=== PATIENT | female | born 1955 | race Caucasian/White ===

== ENCOUNTER → 2018-07-13 12:56 | Outpatient (CLI) | payer OTHER, MEDICAID, SELFPAY ==
--- NOTE | 2018-07-13 | DI.MG.S_ITS ---
UNILATERAL LEFT DIGITAL SCREENING MAMMOGRAM 3D/2D WITH CAD POST MASTECTOMY: 07/13/2018 CLINICAL: Routine screening. Personal history of right breast cancer. Comparison is made to exams dated: 02/24/2017 mammogram, 11/13/2015 mammogram, and 07/01/2014 mammogram - [facility]. The tissue of the left breast is heterogeneously dense. This may lower the sensitivity of mammography. Current study was also evaluated with a Computer Aided Detection (CAD) system. There is an oval low density asymmetry with an obscured and circumscribed margin in the left breast central to the nipple middle depth. No other significant masses or calcifications are seen in the breast. IMPRESSION: INCOMPLETE: NEEDS ADDITIONAL IMAGING EVALUATION The oval low density asymmetry in the left breast is indeterminate. Mediolateral and spot compression views as well as additional views with possible ultrasound are recommended. This exam was interpreted at Station ID: [id number]. NOTE: For mammograms, a report in lay terms will be sent to the patient. Approximately 15% of breast malignancies will not be visualized mammographically. In the management of a palpable breast mass, a negative mammogram must not discourage biopsy of a clinically suspicious lesion. Electronically Signed By: Aakash ramos/camilo:07/13/2018 18:35:42 letter sent: Additional Imaging Needed ACR BI-RADS Category 0: Incomplete 3340F
== END ==
PROVIDERS: Family Provider Physician Assistant; PCP Physician Assistant; Visit Provider Physician Assistant
DX: Z12.31 Encounter for screening mammogram for malignant neoplasm of breast (principal); Z85.3 Personal history of malignant neoplasm of breast
CPT/HCPCS: 77063; 77065

== ENCOUNTER → 2018-08-16 14:12 | Outpatient (CLI) | payer OTHER, MEDICAID, SELFPAY ==
--- NOTE | 2018-08-16 14:14 | DI.US.S_ITS ---
ULTRASOUND OF LEFT BREAST: 08/16/2018 CLINICAL: Patient returns today to evaluate a density in the left breast. Comparison is made to exams dated: 08/16/2018 mammogram, 07/13/2018 mammogram, 02/24/2017 mammogram, and 11/13/2015 mammogram - [facility]. Color flow ultrasound of the left breast was performed on the areas of interest. Denis scale images of the real-time examination were reviewed. There is a benign 0.5 cm x 0.4 cm x 0.5 cm oval simple cyst in the left breast at 4 o'clock anterior depth. This oval simple cyst is anechoic with posterior acoustic enhancement. This correlates with mammography findings. IMPRESSION: BENIGN There is no sonographic evidence of malignancy. The 0.5 cm x 0.4 cm x 0.5 cm oval simple cyst in the left breast is benign. A 1 year screening mammogram is recommended. This exam was interpreted at Station ID: [id number]. Electronically Signed By: Aury ibarra/camilo:08/16/2018 16:23:31 letter sent: Normal Exam Ultrasound BI-RADS: 2 Benign
--- NOTE | 2018-08-16 14:14 | DI.MG.S_ITS ---
UNILATERAL LEFT DIGITAL DIAGNOSTIC MAMMOGRAM 3D/2D WITH ADDITIONAL VIEWS POST MASTECTOMY: 08/16/2018 CLINICAL: Additional evaluation requested from prior study. Comparison is made to exams dated: 07/13/2018 mammogram, 02/24/2017 mammogram, and 11/13/2015 mammogram - [facility]. The tissue of the left breast is heterogeneously dense. This may lower the sensitivity of mammography. There is an oval low density asymmetry with an obscured and circumscribed margin in the left breast central to the nipple middle depth. This is seen in additional views. No other significant masses or calcifications are seen in the breast. IMPRESSION: INCOMPLETE: NEEDS ADDITIONAL IMAGING EVALUATION The oval low density asymmetry in the left breast likely represents a cyst and is indeterminate. An ultrasound is recommended. This exam was interpreted at Station ID: [id number]. NOTE: For mammograms, a report in lay terms will be sent to the patient. Approximately 15% of breast malignancies will not be visualized mammographically. In the management of a palpable breast mass, a negative mammogram must not discourage biopsy of a clinically suspicious lesion. Electronically Signed By: Aury ibarra/:08/16/2018 14:48:55 letter sent: Additional Imaging Needed ACR BI-RADS Category 0: Incomplete 3340F
== END ==
PROVIDERS: Family Provider Physician Assistant; PCP Physician Assistant; Visit Provider Physician Assistant
DX: R92.8 Other abnormal and inconclusive findings on diagnostic imaging of breast (principal); N60.02 Solitary cyst of left breast
CPT/HCPCS: 76642; 77065; G0279

== ENCOUNTER → 2018-11-29 18:13 | Outpatient (CLI) | payer MEDICARE, MEDICAID, SELFPAY ==
--- NOTE | 2018-11-29 18:15 | DI.RAD.S_ITS ---
PROCEDURE: XR CHEST 2V INDICATIONS: cough TECHNIQUE: 2 views of the chest were acquired. COMPARISON: [facility], , CHEST 1 VIEW, 01/12/2018, 19:27. FINDINGS: Surgical changes and devices: Scattered surgical clips as before. Lungs and pleura: No pleural effusions or pneumothorax. No acute consolidation. Scattered subsegmental atelectasis and/or scarring. Right apical subcentimeter high density presumed calcified granuloma or sclerotic bone focus is unchanged since 01/12/18. Mediastinum: Mediastinal contours are normal. Heart size is normal. Bones and chest wall: No suspicious bony abnormalities. Soft tissues appear unremarkable. IMPRESSION: No acute disease. Dictated by: Smith Luo M.D. on 11/29/2018 at 20:04 Approved by: Smith Luo M.D. on 11/29/2018 at 20:06
== END ==
PROVIDERS: Family Provider Physician Assistant; PCP Physician Assistant; Visit Provider Physician Assistant
DX: R05 Cough (principal)
CPT/HCPCS: 71046

== ENCOUNTER 2018-12-14 16:53 | Emergency (ER) | payer MEDICARE, MEDICAID, SELFPAY ==
[2018-12-14 16:59] VITALS: BP 141/92; PULSE 78; RESP 18; TEMP 36.7; O2SAT 99; BMI 19.6
--- NOTE | 2018-12-14 17:37 | ED.NAVMDI ---
HPI - Nausea/Vomiting/Diarrhea <WILMA Patel - Last Filed: 12/14/18 22:33> General Chief complaint: Nausea/Vomiting/Diarrhea Stated complaint: THROWING UP DIARRHEA Time Seen by Provider: 12/14/18 17:37 Source: patient Mode of arrival: ambulatory Limitations: no limitations History of Present Illness HPI Narrative: 63-year-old female with history of hypothyroidism and is a nonsmoker here for multiple complaints. She reports for the last 4 weeks she is cold and flu like symptoms with cough generalized malaise along with nausea vomiting and diarrhea. She reports she has been seen by her primary care provider for this for a few times. It was suspected that she had the flu. Then when symptoms did not resolve she was treated with antibiotics for secondary pneumonia. Patient reports that she has been having a hard time keeping down her antibiotics due to the nausea vomiting. She states she has had a fever on and off. She reports generalized whole body discomfort. She does have some abdominal pain. She has some flank pain. She denies any urinary symptoms. She reports decreased p.o. intake due to nausea vomiting. She also reports that she has been having diarrhea. Reports she had a a bowel movement earlier today that was her last bowel movement she states that she was constipated at that time. MD complaint: nausea, vomiting, diarrhea, abdominal pain and other Related Data Home Medications Medication Instructions Recorded Confirmed [CALCIUM/MAGNESIUM] 1 cap PO QDAY #0 05/11/17 12/06/18 [CO-Q-10] 1 cap PO QDAY #0 05/11/17 12/06/18 multivitamin [Multiple Vitamins] 1 tab PO QDAY #0 05/11/17 12/06/18 [Vitamin K-2] 100 mcg PO QDAY #60 cap 08/16/17 12/06/18 thyroid (pork) 32.5 mg tablet 32.5 mg PO DAILY 11/29/18 12/06/18 Previous Rx's Medication Instructions Recorded tramadol 50 mg tablet See Label Instructions PO TID PRN 05/28/18 #30 tab lorazepam 0.5 mg tablet 0.5 mg PO BID PRN #30 tab 09/21/18 doxycycline monohydrate 100 mg 100 mg PO BID #20 cap 12/06/18 capsule ondansetron 8 mg disintegrating 8 mg PO BID-TID PRN #20 tab 12/06/18 tablet promethazine 25 mg PO Q6H PRN #15 tab 12/14/18 Allergies Allergy/AdvReac Type Severity Reaction Status Date / Time Sulfa (Sulfonamide Allergy Severe VOMITING Verified 12/06/18 10:31 Antibiotics) DIARRHEA [SULFA (SULFONAMIDE ANTIBIOTICS)] adhesive [ADHESIVE] AdvReac Severe PAPER TAPE Verified 12/06/18 10:31 OK, PLASTIC EVIDENTLY NOT? fluconazole [FLUCONAZOLE] AdvReac Intermediate Headache Verified 12/06/18 10:31 Rash Codiene AdvReac Mild Nausea Uncoded 12/06/18 10:31 Review of Systems <WILMA Patel - Last Filed: 12/14/18 22:33> Constitutional Reports body ache(s), Reports chills and Reports fever(s) Eyes Denies change in vision, Denies eye discharge, Denies irritation and Denies loss of vision ENT Ears, Nose, Mouth, and Throat: Denies change in voice, Denies neck pain, Denies sore throat and Denies throat swelling Cardiovascular Denies chest pain, Denies irregular heart rhythm, Denies lightheadedness, Denies palpitations and Denies orthopnea Respiratory Reports cough and Denies wheezing Gastrointestinal Gastrointestinal: Reports constipation, Reports diarrhea, Reports nausea and Reports vomiting Genitourinary Reports flank pain Musculoskeletal Denies neck pain Integumentary/Breasts Denies pruritus, Denies erythema, Denies rash and Denies wounds Neurologic Denies confusion and Denies loss of vision Psychiatric Denies anxiety, Denies confusion, Denies depression, Denies homicidal ideation and Denies suicidal ideation Endocrine Denies palpitations Hematologic/Lymphatic Denies easy bruising Allergic/Immunologic Denies urticaria, Denies throat swelling and Denies wheezing Exam <WILMA Patel - Last Filed: 12/14/18 22:33> Initial Vital Signs Initial Vital Signs: Vital Signs Temperature 98.1 F 12/14/18 16:59 Pulse Rate 78 12/14/18 16:59 Respiratory Rate 18 12/14/18 16:59 Blood Pressure 141/92 H 12/14/18 16:59 Pulse Oximetry 99 12/14/18 16:59 Const General: cooperative and well developed Nutritional Appearance: well nourished Orientation: alert, awake, oriented x3 and not confused HENNC Ears: TM's normal bilaterally Mouth: oral mucosae normal and moist mucous membranes Eyes General: appearance normal, both eyes and all related structures Eyelids: eyelids normal Conjunctivae: conjunctivae normal Sclera: sclerae normal Pupils: PERRL EOM: EOM intact bilaterally Neck Neck: normal visual inspection, trachea midline, No lymphadenopathy, No midline deformity and No JVD Lymphatic: No lymphedema Resp Effort & Inspection: normal respiratory effort, able to speak in complete sentences, no respiratory distress and no use of accessory muscles Auscultation: clear to auscultation bilaterally, no rales, no rhonchi and no wheezes Cardio Rate: regular rate Rhythm: regular rhythm Heart Sounds: no click, no gallops, no murmurs and no rubs Pulses: normal peripheral pulses GI Inspection: normal to inspection Palpation: soft and tender (Generalized tender) Auscultation: normal bowel sounds General: No CVA tenderness Back/Spine/Pelvis Back: No CVA tenderness Cervical Spine: cervical ROM normal and No pain with cervical ROM Thoracic/Lumbar Spine: thoracic and lumbar spine normal to inspection Skin General: no rashes or lesions noted, No jaundice and No petechiae Neuro General: alert, oriented x3, gait normal and no focal motor deficits Speech: speech normal <Angelika Galan DO - Last Filed: 12/15/18 04:10> Initial Vital Signs Initial Vital Signs: Vital Signs Temperature 98.1 F 12/14/18 16:59 Pulse Rate 78 12/14/18 16:59 Respiratory Rate 18 12/14/18 16:59 Blood Pressure 141/92 H 12/14/18 16:59 Pulse Oximetry 99 12/14/18 16:59 Course <WILMA Patel - Last Filed: 12/14/18 22:33> Orders Ordered: Discontinued Medications Sodium Chloride (Normal Saline 0.9%) 1,000 mls @ 1,000 mls/hr IV BOLUS ONE Stop: 12/14/18 20:11 Last Infusion: 12/14/18 21:05 Dose: 1,000 mls/hr Admin: 12/14/18 19:13 Dose: 1,000 mls/hr Ondansetron HCl (Zofran) 4 mg IV NOW ONE Stop: 12/14/18 20:22 Last Admin: 12/14/18 20:30 Dose: 4 mg Vital Signs - 8 hr 12/14/18 20:45 12/14/18 21:41 Pulse Rate 78 82 Respiratory Rate 23 17 Blood Pressure [Right Arm] 158/80 H 138/88 Pulse Oximetry 100 98 <Angelika Galan DO - Last Filed: 12/15/18 04:10> Orders Ordered: Discontinued Medications Sodium Chloride (Normal Saline 0.9%) 1,000 mls @ 1,000 mls/hr IV BOLUS ONE Stop: 12/14/18 20:11 Last Infusion: 12/14/18 21:05 Dose: 1,000 mls/hr Admin: 12/14/18 19:13 Dose: 1,000 mls/hr Ondansetron HCl (Zofran) 4 mg IV NOW ONE Stop: 12/14/18 20:22 Last Admin: 12/14/18 20:30 Dose: 4 mg Vital Signs - 8 hr 12/14/18 20:45 12/14/18 21:41 Pulse Rate 78 82 Respiratory Rate 23 17 Blood Pressure [Right Arm] 158/80 H 138/88 Pulse Oximetry 100 98 MDM - Nausea/Vomiting/Diarrhea <WILMA Patel - Last Filed: 12/14/18 22:33> Lab Data Result diagrams: 12/14/18 18:50 12/14/18 18:50 Lab Results 12/14/18 12/14/18 12/14/18 Range/Units 18:50 18:50 18:50 WBC 4.7 (4.5-11.0) X10^3/uL RBC 4.01 (4.0-5.2) X10^6/uL Hgb 13.8 (12.0-16.0) g/dL Hct 41.0 (36-46) % MCV 102.1 H (80-100) fL MCH 34.5 H (26-34) PG MCHC 33.8 (30-36) % RDW 13.3 (11.6-14.8) % Plt Count 225 (150-400) X10^3/uL Neut % (Auto) 52.2 (50-75) % Lymph % (Auto) 32.9 (25-40) % Wetzel % (Auto) 11.2 (3-14) % Eos % (Auto) 2.9 (2-4) % Baso % (Auto) 0.8 (0-2) % Neut # (Auto) 2500 (8902-9866) /uL Lymph # (Auto) 1600 (5029-8345) /uL Wetzel # (Auto) 500 (0-900) /uL Eos # (Auto) 100 (0-450) /uL Baso # (Auto) 0 (0-100) /uL PT 10.9 (10.1-12.7) SECONDS INR 0.9 (0.9-1.3) APTT 29 (26.4-36.2) SECONDS Sodium 141 (137-145) mmol/L Potassium 4.1 (3.4-5.1) mmol/L Chloride 106 (98-107) mmol/L Carbon Dioxide 26 (22-32) mmol/L BUN 9 (7-17) mg/dL Creatinine 0.70 (0.52-1.04) mg/dL Estimated GFR > 60.0 (>60) mL/min BUN/Creatinine Ratio 12.9 (6-22) Glucose 73 L (80-110) mg/dL Calcium 9.9 (8.4-10.2) mg/dL Total Bilirubin 0.5 (0.2-1.3) mg/dL AST 65 H (14-36) IU/L ALT 38 (9-52) IU/L Alkaline Phosphatase 82 (38-126) U/L Total Protein 7.5 (6.3-8.2) g/dL Albumin 4.1 (3.5-5.0) g/dL Globulin 3.4 (1.7-4.1) g/dL Albumin/Globulin Ratio 1.2 (1.0-2.8) Lipase 180 (23-300) U/L Urine Dip Bedside Urine Glucose Negative Bedside Urine Bilirubin + 1 Bedside Urine Ketone +/- 5 Urine Specific Orchard 1.030 Bedside Urine Occult Blood - Negative Bedside Urine pH 5.0 Bedside Urine Protein +/- 15 Bedside Urine Urobilinogen +/- 1mg Bedside Urine Nitrite - Negative Bedside Urine Leukocytes - Negative Esterase Imaging Data CT scan - abdomen: Radiologist's impression: [address] [address] [address] Scan Report Signed Patient: Karolina Ulrich AMR#: [id number] : 5Acct:[id number] Age/Sex: 63 / FDate of Service: 12/14/18 Loc: ED Accession Number: [id number] Procedure: CT abdomen pelvis w con Ordering Provider: Corey Hein PROCEDURE: CT ABDOMEN PELVIS W CON INDICATIONS: Nausea vomiting diarrhea abdominal pain several weeks TECHNIQUE: After the administration of intravenous contrast, 5 mm thick sections acquired from the diaphragm to the symphysis. 5 mm coronal and sagittal reformats were acquired. For radiation dose reduction, the following was used: automated exposure control, adjustment of mA and/or kV according to patient size. COMPARISON: [facility], CT, ABDOMEN/PELVIS WITH CONTRAST, 07/22/2008, 9:16. FINDINGS: Image quality: Excellent. ABDOMEN: Lung bases: Lung bases are clear. Heart size is normal. Solid organs: Innumerable low-density cystic lesions are present throughout the liver. Overall, these findings are similar to the study dated 07/22/08. There is a new 1.1 cm hypervascular nodule within hepatic segment V (series 2, image 32). Of note, an inferior left hepatic lobe cyst demonstrates mass effect on the gastric antrum (series 2, image 26). Gallbladder is unremarkable. Biliary system is non dilated. Pancreas enhances normally. Spleen is normal in size and enhancement. No adrenal nodules. Kidneys demonstrate normal size and enhancement, without hydronephrosis. Peritoneum and bowel: Bowel loops demonstrate normal wall thickness and caliber. The appendix is thin walled and gas filled. No free fluid or air. Nodes and vessels: No retroperitoneal or mesenteric adenopathy by size criteria. Aorta and inferior vena cava are normal in size. Miscellaneous: No ventral hernias. PELVIS: Genitourinary: Bladder wall thickness is normal. Uterus and ovaries are grossly unremarkable. There are probable pedunculated fibroid off the posterior uterus, both of which are calcified. There unchanged when compared with the study from 07/22/08. Miscellaneous: No inguinal hernias or adenopathy. Bones: No suspicious bony lesions. A subcentimeter sclerotic lesion is present within the right acetabulum which is unchanged from the study from 2007 and likely represents a bone island. Degenerative changes are present at the anterior inferior T11 vertebral body. No vertebral body compression fractures. IMPRESSION: 1. No acute intra-abdominal findings. Normal appendix. 2. Polycystic hepatic disease. Of note, one of the inferior left hepatic cystic lesions appears to have some mass effect on the gastric antrum. It is unclear whether this may be responsible for the patient's symptoms. However, this cyst is markedly decreased in size when compared with the prior CT dated 07/22/08. 3. Hypervascular lesion within the right hepatic lobe which may represent a small hemangioma. This is incompletely characterized. Ultrasound of this region would be helpful to further characterize findings. Alternatively, multiphase hepatic protocol CT would be helpful to evaluate this lesion. Dictated by: Aury Gordon M.D. on 12/14/2018 at 19:46 Approved by: Aury Gordon M.D. on 12/14/2018 at 19:54 ECG Data Interpretation: EKG shows normal sinus rhythm with no ST elevation or depression. No ectopy. Ventricular rate is 66. Pr interval of 189. QRS duration 90. QTC of 415. MDM Narrative Medical decision making narrative: CT scan of the abdomen was obtained and shows no acute intra-abdominal findings. There are some polycystic hepatic disease findings found however this was also seen back in 1999 in and appears to be decreased in size. Hypervascular lesion is seen to the right hepatic lobe which may be a hemangioma recommend follow up with primary care provider for supervision. CBC was obtained and was unremarkable. Chemistry panel was obtained and was unremarkable. Urinalysis was negative for urinary tract infection. Patient was all able to tolerate p.o. fluids. She states her last episode of vomiting was on the 10 of December. Wanted to obtain a stool study to rule out C diff due to recent antibiotics patient was not able to give a stool study. EKG shows sinus rhythm with no ST elevation or depression. No ectopy. No emergent causes of her symptoms are seen in the emergency room. Vital signs are stable. Continue Zofran for nausea and vomiting. Phenergan is added for any nausea vomiting that she has that is not covered by the Zofran. Follow up with primary care provider next couple days for re-evaluation. For any worsening symptoms return to the emergency room. <Angelika Galan, DO - Last Filed: 12/15/18 04:10> Lab Data Lab Results 12/14/18 12/14/18 12/14/18 Range/Units 18:50 18:50 18:50 WBC 4.7 (4.5-11.0) X10^3/uL RBC 4.01 (4.0-5.2) X10^6/uL Hgb 13.8 (12.0-16.0) g/dL Hct 41.0 (36-46) % MCV 102.1 H (80-100) fL MCH 34.5 H (26-34) PG MCHC 33.8 (30-36) % RDW 13.3 (11.6-14.8) % Plt Count 225 (150-400) X10^3/uL Neut % (Auto) 52.2 (50-75) % Lymph % (Auto) 32.9 (25-40) % Wetzel % (Auto) 11.2 (3-14) % Eos % (Auto) 2.9 (2-4) % Baso % (Auto) 0.8 (0-2) % Neut # (Auto) 2500 (6047-7722) /uL Lymph # (Auto) 1600 (8632-0655) /uL Wetzel # (Auto) 500 (0-900) /uL Eos # (Auto) 100 (0-450) /uL Baso # (Auto) 0 (0-100) /uL PT 10.9 (10.1-12.7) SECONDS INR 0.9 (0.9-1.3) APTT 29 (26.4-36.2) SECONDS Sodium 141 (137-145) mmol/L Potassium 4.1 (3.4-5.1) mmol/L Chloride 106 (98-107) mmol/L Carbon Dioxide 26 (22-32) mmol/L BUN 9 (7-17) mg/dL Creatinine 0.70 (0.52-1.04) mg/dL Estimated GFR > 60.0 (>60) mL/min BUN/Creatinine Ratio 12.9 (6-22) Glucose 73 L (80-110) mg/dL Calcium 9.9 (8.4-10.2) mg/dL Total Bilirubin 0.5 (0.2-1.3) mg/dL AST 65 H (14-36) IU/L ALT 38 (9-52) IU/L Alkaline Phosphatase 82 (38-126) U/L Total Protein 7.5 (6.3-8.2) g/dL Albumin 4.1 (3.5-5.0) g/dL Globulin 3.4 (1.7-4.1) g/dL Albumin/Globulin Ratio 1.2 (1.0-2.8) Lipase 180 (23-300) U/L Urine Dip Bedside Urine Glucose Negative Bedside Urine Bilirubin + 1 Bedside Urine Ketone +/- 5 Urine Specific Orchard 1.030 Bedside Urine Occult Blood - Negative Bedside Urine pH 5.0 Bedside Urine Protein +/- 15 Bedside Urine Urobilinogen +/- 1mg Bedside Urine Nitrite - Negative Bedside Urine Leukocytes - Negative Esterase Discharge Plan Departure Patient Disposition: Home Clinical Impression: Nausea vomiting and diarrhea Discharge Date/Time: 12/14/18 21:53 Interventions: ED Discharge Assessment Last Done: 12/14/18 21:52 Instructions: Nausea and Vomiting-Adult Activity Restrictions/Additional Instructions: Laboratory results and imaging today were negative for any acute findings. CT of the abdomen does show an area that is consistent with hemangioma of the right liver. Recommend follow up with primary care provider for to continued supervision and ensure is stable. No emergent causes of her symptoms are found. Fall follow up with her primary care provider next couple days for re-evaluation. Plenty of fluids and rest. [id number] Tylenol or Motrin as needed for any discomfort. Use Zofran as already prescribed as needed for nausea vomiting. Phenergan is prescribed to cover for nausea vomiting not covered by the Zofran. For any worsening symptoms return to the emergency room. Prescriptions: New promethazine 25 mg tablet 25 mg PO Q6H PRN (Reason: nausea and vomiting) Qty: 15 RF: 0 No Action thyroid (pork) [Nature-Throid] 32.5 mg tablet 32.5 mg PO DAILY RF: 0 ondansetron 8 mg tablet,disintegrating 8 mg PO BID-TID PRN (Reason: nausea and vomiting) Qty: 20 RF: 0 doxycycline monohydrate 100 mg capsule 100 mg PO BID Qty: 20 RF: 0 multivitamin [Multiple Vitamins] 1 EACH tablet 1 tab PO QDAY Qty: 0 RF: 0 [CALCIUM/MAGNESIUM] 1 cap PO QDAY Qty: 0 RF: 0 [CO-Q-10] 1 cap PO QDAY Qty: 0 RF: 0 [Vitamin K-2] 100 mcg PO QDAY Qty: 60 RF: 0 tramadol 50 mg tablet See Label Instructions PO TID PRN (Reason: pain) Qty: 30 RF: 1 lorazepam [Ativan] 0.5 mg tablet 0.5 mg PO BID PRN (Reason: anxiety) Qty: 30 RF: 0 Referrals: Silvana Cedeño PA-C [Primary Care Provider] - <Angelika Gaaln DO - Last Filed: 12/15/18 04:10> Cosign ED Attending Ibrahima Attestation: I was immediately available in the department for consultation. Documentation has been reviewed. I agree with assessment and plan.
--- NOTE | 2018-12-14 18:13 | DI.CT.S_ITS ---
PROCEDURE: CT ABDOMEN PELVIS W CON INDICATIONS: Nausea vomiting diarrhea abdominal pain several weeks TECHNIQUE: After the administration of intravenous contrast, 5 mm thick sections acquired from the diaphragm to the symphysis. 5 mm coronal and sagittal reformats were acquired. For radiation dose reduction, the following was used: automated exposure control, adjustment of mA and/or kV according to patient size. COMPARISON: [facility], CT, ABDOMEN/PELVIS WITH CONTRAST, 07/22/2008, 9:16. FINDINGS: Image quality: Excellent. ABDOMEN: Lung bases: Lung bases are clear. Heart size is normal. Solid organs: Innumerable low-density cystic lesions are present throughout the liver. Overall, these findings are similar to the study dated 07/22/08. There is a new 1.1 cm hypervascular nodule within hepatic segment V (series 2, image 32). Of note, an inferior left hepatic lobe cyst demonstrates mass effect on the gastric antrum (series 2, image 26). Gallbladder is unremarkable. Biliary system is non dilated. Pancreas enhances normally. Spleen is normal in size and enhancement. No adrenal nodules. Kidneys demonstrate normal size and enhancement, without hydronephrosis. Peritoneum and bowel: Bowel loops demonstrate normal wall thickness and caliber. The appendix is thin walled and gas filled. No free fluid or air. Nodes and vessels: No retroperitoneal or mesenteric adenopathy by size criteria. Aorta and inferior vena cava are normal in size. Miscellaneous: No ventral hernias. PELVIS: Genitourinary: Bladder wall thickness is normal. Uterus and ovaries are grossly unremarkable. There are probable pedunculated fibroid off the posterior uterus, both of which are calcified. There unchanged when compared with the study from 07/22/08. Miscellaneous: No inguinal hernias or adenopathy. Bones: No suspicious bony lesions. A subcentimeter sclerotic lesion is present within the right acetabulum which is unchanged from the study from 2007 and likely represents a bone island. Degenerative changes are present at the anterior inferior T11 vertebral body. No vertebral body compression fractures. IMPRESSION: 1. No acute intra-abdominal findings. Normal appendix. 2. Polycystic hepatic disease. Of note, one of the inferior left hepatic cystic lesions appears to have some mass effect on the gastric antrum. It is unclear whether this may be responsible for the patient's symptoms. However, this cyst is markedly decreased in size when compared with the prior CT dated 07/22/08. 3. Hypervascular lesion within the right hepatic lobe which may represent a small hemangioma. This is incompletely characterized. Ultrasound of this region would be helpful to further characterize findings. Alternatively, multiphase hepatic protocol CT would be helpful to evaluate this lesion. Dictated by: Aury Gordon M.D. on 12/14/2018 at 19:46 Approved by: Aury Gordon M.D. on 12/14/2018 at 19:54
[2018-12-14 19:07] LABS: Add Manual Diff / Slide Review NO; Basophils Absolute Auto 0 /uL (0-100); Basophils Percent Auto 0.8 % (0-2); Eosinophils Absolute Auto 100 /uL (0-450); Eosinophils Percent Auto 2.9 % (2-4); Hemoglobin 13.8 g/dL (12.0-16.0); Lymphocytes Absolute Auto 1600 /uL (1100-4500); Lymphocytes Percent Auto 32.9 % (25-40); Mean Corpuscular HGB Conc 33.8 % (30-36); Mean Corpuscular Hemoglobin 34.5 PG (26-34); Mean Corpuscular Volume 102.1 fL (80-100); Monocytes Absolute Auto 500 /uL (0-900); Monocytes Percent Auto 11.2 % (3-14); Neutrophils Absolute Auto 2500 /uL (1500-7000); Neutrophils Percent Auto 52.2 % (50-75); Platelet Count 225 X10^3/uL (150-400); Red Blood Cell Count 4.01 X10^6/uL (4.0-5.2); Red Cell Distribution Width 13.3 % (11.6-14.8); White Blood Cell Count 4.7 X10^3/uL (4.5-11.0)
[2018-12-14 19:13] LABS: INR 0.9 (0.9-1.3); Prothrombin Time 10.9 SECONDS (10.1-12.7)
[2018-12-14] MEDS: SODIUM CHLORIDE 0.9% 1,000 ML 1000 ML IV (19:13)
[2018-12-14 19:16] LABS: PTT Partial Thromboplastin Tim 29 SECONDS (26.4-36.2)
[2018-12-14 19:17] LABS: Alanine Aminotransferase 38 IU/L (9-52); Albumin 4.1 g/dL (3.5-5.0); Albumin Globulin Ratio 1.2 (1.0-2.8); Alkaline Phosphatase 82 U/L (38-126); Aspartate Aminotransferase 65 IU/L (14-36); BUN Creatinine Ratio 12.9 (6-22); Bilirubin Total 0.5 mg/dL (0.2-1.3); Blood Urea Nitrogen 9 mg/dL (7-17); Calcium 9.9 mg/dL (8.4-10.2); Carbon Dioxide 26 mmol/L (22-32); Chloride 106 mmol/L (98-107); Estimated Glomerular Filt Rate > 60.0 mL/min (>60); Globulin 3.4 g/dL (1.7-4.1); Glucose 73 mg/dL (80-110); HEMOLYSIS < 15 (0-50); Lipase 180 U/L (23-300); Potassium 4.1 mmol/L (3.4-5.1); Sodium 141 mmol/L (137-145); Total Protein 7.5 g/dL (6.3-8.2)
[2018-12-14 19:50] VITALS: BP 156/83; PULSE 74; RESP 17; O2SAT 99
[2018-12-14] MEDS: ONDANSETRON 4 MG/2 ML INJ IV (20:30)
[2018-12-14 20:45] VITALS: BP 158/80; PULSE 78; RESP 23; O2SAT 100
--- NOTE | 2018-12-14 21:16 | ED_ITS ---
HPI - Nausea/Vomiting/Diarrhea <WILMA Patel - Last Filed: 12/14/18 22:33> General Chief complaint: Nausea/Vomiting/Diarrhea Stated complaint: THROWING UP DIARRHEA Time Seen by Provider: 12/14/18 17:37 Source: patient Mode of arrival: ambulatory Limitations: no limitations History of Present Illness HPI Narrative: 63-year-old female with history of hypothyroidism and is a nonsmoker here for multiple complaints. She reports for the last 4 weeks she is cold and flu like symptoms with cough generalized malaise along with nausea vomiting and diarrhea. She reports she has been seen by her primary care provider for this for a few times. It was suspected that she had the flu. Then when symptoms did not resolve she was treated with antibiotics for secondary pneumonia. Patient reports that she has been having a hard time keeping down her antibiotics due to the nausea vomiting. She states she has had a fever on and off. She reports generalized whole body discomfort. She does have some abdominal pain. She has some flank pain. She denies any urinary symptoms. She reports decreased p.o. intake due to nausea vomiting. She also reports that she has been having diarrhea. Reports she had a a bowel movement earlier today that was her last bowel movement she states that she was constipated at that time. MD complaint: nausea, vomiting, diarrhea, abdominal pain and other Related Data Home Medications Medication Instructions Recorded Confirmed [CALCIUM/MAGNESIUM] 1 cap PO QDAY #0 05/11/17 12/06/18 [CO-Q-10] 1 cap PO QDAY #0 05/11/17 12/06/18 multivitamin [Multiple Vitamins] 1 tab PO QDAY #0 05/11/17 12/06/18 [Vitamin K-2] 100 mcg PO QDAY #60 cap 08/16/17 12/06/18 thyroid (pork) 32.5 mg tablet 32.5 mg PO DAILY 11/29/18 12/06/18 Previous Rx's Medication Instructions Recorded tramadol 50 mg tablet See Label Instructions PO TID PRN 05/28/18 #30 tab lorazepam 0.5 mg tablet 0.5 mg PO BID PRN #30 tab 09/21/18 doxycycline monohydrate 100 mg 100 mg PO BID #20 cap 12/06/18 capsule ondansetron 8 mg disintegrating 8 mg PO BID-TID PRN #20 tab 12/06/18 tablet promethazine 25 mg PO Q6H PRN #15 tab 12/14/18 Allergies Allergy/AdvReac Type Severity Reaction Status Date / Time Sulfa (Sulfonamide Allergy Severe VOMITING Verified 12/06/18 10:31 Antibiotics) DIARRHEA [SULFA (SULFONAMIDE ANTIBIOTICS)] adhesive [ADHESIVE] AdvReac Severe PAPER TAPE Verified 12/06/18 10:31 OK, PLASTIC EVIDENTLY NOT? fluconazole [FLUCONAZOLE] AdvReac Intermediate Headache Verified 12/06/18 10:31 Rash Codiene AdvReac Mild Nausea Uncoded 12/06/18 10:31 Review of Systems <WILMA Patel - Last Filed: 12/14/18 22:33> Constitutional Reports body ache(s), Reports chills and Reports fever(s) Eyes Denies change in vision, Denies eye discharge, Denies irritation and Denies loss of vision ENT Ears, Nose, Mouth, and Throat: Denies change in voice, Denies neck pain, Denies sore throat and Denies throat swelling Cardiovascular Denies chest pain, Denies irregular heart rhythm, Denies lightheadedness, Denies palpitations and Denies orthopnea Respiratory Reports cough and Denies wheezing Gastrointestinal Gastrointestinal: Reports constipation, Reports diarrhea, Reports nausea and Reports vomiting Genitourinary Reports flank pain Musculoskeletal Denies neck pain Integumentary/Breasts Denies pruritus, Denies erythema, Denies rash and Denies wounds Neurologic Denies confusion and Denies loss of vision Psychiatric Denies anxiety, Denies confusion, Denies depression, Denies homicidal ideation and Denies suicidal ideation Endocrine Denies palpitations Hematologic/Lymphatic Denies easy bruising Allergic/Immunologic Denies urticaria, Denies throat swelling and Denies wheezing Exam <WILMA Patel - Last Filed: 12/14/18 22:33> Initial Vital Signs Initial Vital Signs: Vital Signs Temperature 98.1 F 12/14/18 16:59 Pulse Rate 78 12/14/18 16:59 Respiratory Rate 18 12/14/18 16:59 Blood Pressure 141/92 H 12/14/18 16:59 Pulse Oximetry 99 12/14/18 16:59 Const General: cooperative and well developed Nutritional Appearance: well nourished Orientation: alert, awake, oriented x3 and not confused HENHI Ears: TM's normal bilaterally Mouth: oral mucosae normal and moist mucous membranes Eyes General: appearance normal, both eyes and all related structures Eyelids: eyelids normal Conjunctivae: conjunctivae normal Sclera: sclerae normal Pupils: PERRL EOM: EOM intact bilaterally Neck Neck: normal visual inspection, trachea midline, No lymphadenopathy, No midline deformity and No JVD Lymphatic: No lymphedema Resp Effort & Inspection: normal respiratory effort, able to speak in complete sentences, no respiratory distress and no use of accessory muscles Auscultation: clear to auscultation bilaterally, no rales, no rhonchi and no wheezes Cardio Rate: regular rate Rhythm: regular rhythm Heart Sounds: no click, no gallops, no murmurs and no rubs Pulses: normal peripheral pulses GI Inspection: normal to inspection Palpation: soft and tender (Generalized tender) Auscultation: normal bowel sounds General: No CVA tenderness Back/Spine/Pelvis Back: No CVA tenderness Cervical Spine: cervical ROM normal and No pain with cervical ROM Thoracic/Lumbar Spine: thoracic and lumbar spine normal to inspection Skin General: no rashes or lesions noted, No jaundice and No petechiae Neuro General: alert, oriented x3, gait normal and no focal motor deficits Speech: speech normal <Angelika Galan DO - Last Filed: 12/15/18 04:10> Initial Vital Signs Initial Vital Signs: Vital Signs Temperature 98.1 F 12/14/18 16:59 Pulse Rate 78 12/14/18 16:59 Respiratory Rate 18 12/14/18 16:59 Blood Pressure 141/92 H 12/14/18 16:59 Pulse Oximetry 99 12/14/18 16:59 Course <WILMA Patel - Last Filed: 12/14/18 22:33> Orders Ordered: Discontinued Medications Sodium Chloride (Normal Saline 0.9%) 1,000 mls @ 1,000 mls/hr IV BOLUS ONE Stop: 12/14/18 20:11 Last Infusion: 12/14/18 21:05 Dose: 1,000 mls/hr Admin: 12/14/18 19:13 Dose: 1,000 mls/hr Ondansetron HCl (Zofran) 4 mg IV NOW ONE Stop: 12/14/18 20:22 Last Admin: 12/14/18 20:30 Dose: 4 mg Vital Signs - 8 hr 12/14/18 20:45 12/14/18 21:41 Pulse Rate 78 82 Respiratory Rate 23 17 Blood Pressure [Right Arm] 158/80 H 138/88 Pulse Oximetry 100 98 <Angelika Galan DO - Last Filed: 12/15/18 04:10> Orders Ordered: Discontinued Medications Sodium Chloride (Normal Saline 0.9%) 1,000 mls @ 1,000 mls/hr IV BOLUS ONE Stop: 12/14/18 20:11 Last Infusion: 12/14/18 21:05 Dose: 1,000 mls/hr Admin: 12/14/18 19:13 Dose: 1,000 mls/hr Ondansetron HCl (Zofran) 4 mg IV NOW ONE Stop: 12/14/18 20:22 Last Admin: 12/14/18 20:30 Dose: 4 mg Vital Signs - 8 hr 12/14/18 20:45 12/14/18 21:41 Pulse Rate 78 82 Respiratory Rate 23 17 Blood Pressure [Right Arm] 158/80 H 138/88 Pulse Oximetry 100 98 MDM - Nausea/Vomiting/Diarrhea <WILMA Patel - Last Filed: 12/14/18 22:33> Lab Data Result diagrams: 12/14/18 18:50 12/14/18 18:50 Lab Results 12/14/18 12/14/18 12/14/18 Range/Units 18:50 18:50 18:50 WBC 4.7 (4.5-11.0) X10^3/uL RBC 4.01 (4.0-5.2) X10^6/uL Hgb 13.8 (12.0-16.0) g/dL Hct 41.0 (36-46) % MCV 102.1 H (80-100) fL MCH 34.5 H (26-34) PG MCHC 33.8 (30-36) % RDW 13.3 (11.6-14.8) % Plt Count 225 (150-400) X10^3/uL Neut % (Auto) 52.2 (50-75) % Lymph % (Auto) 32.9 (25-40) % [place] % (Auto) 11.2 (3-14) % Eos % (Auto) 2.9 (2-4) % Baso % (Auto) 0.8 (0-2) % Neut # (Auto) 2500 (6978-9723) /uL Lymph # (Auto) 1600 (2365-0276) /uL [place] # (Auto) 500 (0-900) /uL Eos # (Auto) 100 (0-450) /uL Baso # (Auto) 0 (0-100) /uL PT 10.9 (10.1-12.7) SECONDS INR 0.9 (0.9-1.3) APTT 29 (26.4-36.2) SECONDS Sodium 141 (137-145) mmol/L Potassium 4.1 (3.4-5.1) mmol/L Chloride 106 (98-107) mmol/L Carbon Dioxide 26 (22-32) mmol/L BUN 9 (7-17) mg/dL Creatinine 0.70 (0.52-1.04) mg/dL Estimated GFR > 60.0 (>60) mL/min BUN/Creatinine Ratio 12.9 (6-22) Glucose 73 L (80-110) mg/dL Calcium 9.9 (8.4-10.2) mg/dL Total Bilirubin 0.5 (0.2-1.3) mg/dL AST 65 H (14-36) IU/L ALT 38 (9-52) IU/L Alkaline Phosphatase 82 (38-126) U/L Total Protein 7.5 (6.3-8.2) g/dL Albumin 4.1 (3.5-5.0) g/dL Globulin 3.4 (1.7-4.1) g/dL Albumin/Globulin Ratio 1.2 (1.0-2.8) Lipase 180 (23-300) U/L Urine Dip Bedside Urine Glucose Negative Bedside Urine Bilirubin + 1 Bedside Urine Ketone +/- 5 Urine Specific [place] 1.030 Bedside Urine Occult Blood - Negative Bedside Urine pH 5.0 Bedside Urine Protein +/- 15 Bedside Urine Urobilinogen +/- 1mg Bedside Urine Nitrite - Negative Bedside Urine Leukocytes - Negative Esterase Imaging Data CT scan - abdomen: Radiologist's impression: [address] [address] [address] Scan Report Signed Patient: Karolina Ulrich [facility]#: [id number] : 5Acct:[id number] Age/Sex: 63 / FDate of Service: 12/14/18 Loc: ED Accession Number: [id number] Procedure: CT abdomen pelvis w con Ordering Provider: Corey Hein PROCEDURE: CT ABDOMEN PELVIS W CON INDICATIONS: Nausea vomiting diarrhea abdominal pain several weeks TECHNIQUE: After the administration of intravenous contrast, 5 mm thick sections acquired from the diaphragm to the symphysis. 5 mm coronal and sagittal reformats were acquired. For radiation dose reduction, the following was used: automated exposure control, adjustment of mA and/or kV according to patient size. COMPARISON: [facility], CT, ABDOMEN/PELVIS WITH CONTRAST, 07/22/2008, 9:16. FINDINGS: Image quality: Excellent. ABDOMEN: Lung bases: Lung bases are clear. Heart size is normal. Solid organs: Innumerable low-density cystic lesions are present throughout the liver. Overall, these findings are similar to the study dated 07/22/08. There is a new 1.1 cm hypervascular nodule within hepatic segment V (series 2, image 32). Of note, an inferior left hepatic lobe cyst demonstrates mass effect on the gastric antrum (series 2 , image 26). Gallbladder is unremarkable. Biliary system is non dilated. Pancreas enhances normally. Spleen is normal in size and enhancement. No adrenal nodules. Kidneys demonstrate normal size and enhancement, without hydronephrosis. Peritoneum and bowel: Bowel loops demonstrate normal wall thickness and caliber. The appendix is thin walled and gas filled. No free fluid or air. Nodes and vessels: No retroperitoneal or mesenteric adenopathy by size criteria. Aorta and inferior vena cava are normal in size. Miscellaneous: No ventral hernias. PELVIS: Genitourinary: Bladder wall thickness is normal. Uterus and ovaries are grossly unremarkable. There are probable pedunculated fibroid off the posterior uterus, both of which are calcified. There unchanged when compared with the study from 07/22/08. Miscellaneous: No inguinal hernias or adenopathy. Bones: No suspicious bony lesions. A subcentimeter sclerotic lesion is present within the right acetabulum which is unchanged from the study from 2007 and likely represents a bone island. Degenerative changes are present at the anterior inferior T11 vertebral body. No vertebral body compression fractures. IMPRESSION: 1. No acute intra-abdominal findings. Normal appendix. 2. Polycystic hepatic disease. Of note, one of the inferior left hepatic cystic lesions appears to have some mass effect on the gastric antrum. It is unclear whether this may be responsible for the patient's symptoms. However, this cyst is markedly decreased in size when compared with the prior CT dated 07/22/08. 3. Hypervascular lesion within the right hepatic lobe which may represent a small hemangioma. This is incompletely characterized. Ultrasound of this region would be helpful to further characterize findings. Alternatively, multiphase hepatic protocol CT would be helpful to evaluate this lesion. Dictated by: Aury Gordon M.D. on 12/14/2018 at 19:46 Approved by: Aury Gordon M.D. on 12/14/2018 at 19:54 ECG Data Interpretation: EKG shows normal sinus rhythm with no ST elevation or depression. No ectopy. Ventricular rate is 66. Pr interval of 189. QRS duration 90. QTC of 415. MDM Narrative Medical decision making narrative: CT scan of the abdomen was obtained and shows no acute intra-abdominal findings. There are some polycystic hepatic disease findings found however this was also seen back in 1999 in and appears to be decreased in size. Hypervascular lesion is seen to the right hepatic lobe which may be a hemangioma recommend follow up with primary care provider for supervision. CBC was obtained and was unremarkable. Chemistry panel was obtained and was unremarkable. Urinalysis was negative for urinary tract infection. Patient was all able to tolerate p.o. fluids. She states her last episode of vomiting was on the 10 of December. Wanted to obtain a stool study to rule out C diff due to recent antibiotics patient was not able to give a stool study. EKG shows sinus rhythm with no ST elevation or depression. No ectopy. No emergent causes of her symptoms are seen in the emergency room. Vital signs are stable. Continue Zofran for nausea and vomiting. Phenergan is added for any nausea vomiting that she has that is not covered by the Zofran. Follow up with primary care provider next couple days for re-evaluation. For any worsening symptoms return to the emergency room. <Angelika Galan, DO - Last Filed: 12/15/18 04:10> Lab Data Lab Results 12/14/18 12/14/18 12/14/18 Range/Units 18:50 18:50 18:50 WBC 4.7 (4.5-11.0) X10^3/uL RBC 4.01 (4.0-5.2) X10^6/uL Hgb 13.8 (12.0-16.0) g/dL Hct 41.0 (36-46) % MCV 102.1 H (80-100) fL MCH 34.5 H (26-34) PG MCHC 33.8 (30-36) % RDW 13.3 (11.6-14.8) % Plt Count 225 (150-400) X10^3/uL Neut % (Auto) 52.2 (50-75) % Lymph % (Auto) 32.9 (25-40) % [place] % (Auto) 11.2 (3-14) % Eos % (Auto) 2.9 (2-4) % Baso % (Auto) 0.8 (0-2) % Neut # (Auto) 2500 (8809-3260) /uL Lymph # (Auto) 1600 (7974-2788) /uL [place] # (Auto) 500 (0-900) /uL Eos # (Auto) 100 (0-450) /uL Baso # (Auto) 0 (0-100) /uL PT 10.9 (10.1-12.7) SECONDS INR 0.9 (0.9-1.3) APTT 29 (26.4-36.2) SECONDS Sodium 141 (137-145) mmol/L Potassium 4.1 (3.4-5.1) mmol/L Chloride 106 (98-107) mmol/L Carbon Dioxide 26 (22-32) mmol/L BUN 9 (7-17) mg/dL Creatinine 0.70 (0.52-1.04) mg/dL Estimated GFR > 60.0 (>60) mL/min BUN/Creatinine Ratio 12.9 (6-22) Glucose 73 L (80-110) mg/dL Calcium 9.9 (8.4-10.2) mg/dL Total Bilirubin 0.5 (0.2-1.3) mg/dL AST 65 H (14-36) IU/L ALT 38 (9-52) IU/L Alkaline Phosphatase 82 (38-126) U/L Total Protein 7.5 (6.3-8.2) g/dL Albumin 4.1 (3.5-5.0) g/dL Globulin 3.4 (1.7-4.1) g/dL Albumin/Globulin Ratio 1.2 (1.0-2.8) Lipase 180 (23-300) U/L Urine Dip Bedside Urine Glucose Negative Bedside Urine Bilirubin + 1 Bedside Urine Ketone +/- 5 Urine Specific [place] 1.030 Bedside Urine Occult Blood - Negative Bedside Urine pH 5.0 Bedside Urine Protein +/- 15 Bedside Urine Urobilinogen +/- 1mg Bedside Urine Nitrite - Negative Bedside Urine Leukocytes - Negative Esterase Discharge Plan Departure Patient Disposition: Home Clinical Impression: Nausea vomiting and diarrhea Discharge Date/Time: 12/14/18 21:53 Interventions: ED Discharge Assessment Last Done: 12/14/18 21:52 Instructions: Nausea and Vomiting-Adult Activity Restrictions/Additional Instructions: Laboratory results and imaging today were negative for any acute findings. CT of the abdomen does show an area that is consistent with hemangioma of the right liver. Recommend follow up with primary care provider for to continued supervision and ensure is stable. No emergent causes of her symptoms are found. Fall follow up with her primary care provider next couple days for re- evaluation. Plenty of fluids and rest. [id number] Tylenol or Motrin as needed for any discomfort. Use Zofran as already prescribed as needed for nausea vomiting. Phenergan is prescribed to cover for nausea vomiting not covered by the Zofran. For any worsening symptoms return to the emergency room. Prescriptions: New promethazine 25 mg tablet 25 mg PO Q6H PRN (Reason: nausea and vomiting) Qty: 15 RF: 0 No Action thyroid (pork) [Nature-Throid] 32.5 mg tablet 32.5 mg PO DAILY RF: 0 ondansetron 8 mg tablet,disintegrating 8 mg PO BID-TID PRN (Reason: nausea and vomiting) Qty: 20 RF: 0 doxycycline monohydrate 100 mg capsule 100 mg PO BID Qty: 20 RF: 0 multivitamin [Multiple Vitamins] 1 EACH tablet 1 tab PO QDAY Qty: 0 RF: 0 [CALCIUM/MAGNESIUM] 1 cap PO QDAY Qty: 0 RF: 0 [CO-Q-10] 1 cap PO QDAY Qty: 0 RF: 0 [Vitamin K-2] 100 mcg PO QDAY Qty: 60 RF: 0 tramadol 50 mg tablet See Label Instructions PO TID PRN (Reason: pain) Qty: 30 RF: 1 lorazepam [Ativan] 0.5 mg tablet 0.5 mg PO BID PRN (Reason: anxiety) Qty: 30 RF: 0 Referrals: Silvana Cedeño PA-C [Primary Care Provider] - <Angelika Galan DO - Last Filed: 12/15/18 04:10> Cosign ED Attending Ibrahima Attestation: I was immediately available in the department for consultation. Documentation has been reviewed. I agree with assessment and plan.
[2018-12-14 21:41] VITALS: BP 138/88; PULSE 82; RESP 17; O2SAT 98
== END 2018-12-14 21:53 | disposition home or self-care (01) ==
PROVIDERS: Emergency Medicine; Emergency Provider Nurse Practitioner Family; Family Provider Physician Assistant; PCP Physician Assistant
DX: R11.2 Nausea with vomiting, unspecified (principal); R19.7 Diarrhea, unspecified
CPT/HCPCS: 36415; 36591; 74177; 80053; 81003; 83690; 85025; 85610; 85730; 93005; 96361; 96374; 99283; 99285; J2405; Q9967

== ENCOUNTER → 2018-12-21 15:01 | Outpatient (CLI) | payer MEDICARE, MEDICAID, SELFPAY ==
--- NOTE | 2018-12-21 15:09 | DI.CT.S_ITS ---
PROCEDURE: CT CHEST WO CON INDICATIONS: 9mm lung nodule found on CXR;hx of breast cancer R TECHNIQUE: Noncontrast 5 mm thick sections acquired from the pulmonary apices to the posterior costophrenic angles. 7 mm thick coronal and sagittal MIP reformats were then acquired. For radiation dose reduction, the following was used: automated exposure control, adjustment of mA and/or kV according to patient size. COMPARISON: [facility], CT, CT ABDOMEN PELVIS W CON, 12/14/2018, 19:14. [facility], CR, XR CHEST 2V, 11/29/2018, 18:16. FINDINGS: Image quality: Excellent. Lungs and pleura: There is mild subpleural scarring redemonstrated posteriorly in the right upper lobe. No new suspicious pulmonary nodules or masses lesions. Subpleural scarring is demonstrated anteriorly in the right upper and middle lobes consistent with postradiation changes. There are tiny indistinct ground glass nodules bilaterally with a centrilobular distribution. Findings most likely represent a mild infectious or inflammatory process. No acute consolidation. There is mild linear scarring in the lung bases. No pleural effusions or pneumothorax. Central and peripheral airways are patent and normal in caliber. Mediastinum: Heart size is normal. No pericardial effusion. No mediastinal adenopathy by size criteria. Thoracic aorta and central pulmonary arteries are normal in size. Esophagus is normal in caliber. No hiatal hernia. Bones and chest wall: Postsurgical changes consistent with prior right mastectomy redemonstrated. There are surgical clips in right axilla also again noted. No suspicious bony lesions. No vertebral body compression fractures. No axillary or supraclavicular adenopathy by size criteria. Abdomen: Visualized upper abdomen redemonstrates multiple hepatic cysts as seen on the recent abdominal CT. IMPRESSION: 1. No definite evidence of new metastatic or recurrent disease. 2. No discrete nodule demonstrated corresponding to the finding on x-ray which were likely artifactual. 3. Postradiation changes demonstrated anteriorly in the right lung. 4. Tiny bilateral groundglass nodules in a centrilobular distribution most likely represent a mild infectious or inflammatory process. 5. Multiple hepatic cysts redemonstrated within the abdomen. Recommend correlation with recent abdominal CT. Dictated by: Aakash Menendez M.D. on 12/21/2018 at 16:50 Approved by: Aakash Menendez M.D. on 12/21/2018 at 16:56
== END ==
PROVIDERS: Family Provider Physician Assistant; PCP Physician Assistant; Visit Provider Physician Assistant
DX: R91.1 Solitary pulmonary nodule (principal); Z85.3 Personal history of malignant neoplasm of breast; K76.89 Other specified diseases of liver
CPT/HCPCS: 71250

== ENCOUNTER → 2018-12-27 09:16 | Outpatient (CLI) | payer MEDICARE, SELFPAY | PROVIDERS: Family Provider Physician Assistant; PCP Physician Assistant; Visit Provider Physician Assistant | DX: J10.00 Influenza due to other identified influenza virus with unspecified type of pneumonia (principal) ==

== ENCOUNTER 2019-04-28 21:42 | Emergency (ER) | payer MEDICARE, MEDICAID, SELFPAY ==
--- NOTE | 2019-04-28 21:43 | ED.ABDPAIN ---
HPI - Abdominal Pain General Chief Complaint: Abdominal Pain Stated Complaint: states severe right side abdominal pain Time Seen by Provider: 04/28/19 21:43 Source: patient Mode of arrival: ambulatory Limitations: no limitations History of Present Illness HPI narrative: 63-year-old female nonsmoker and daily drinker presents with a chief complaint severe right upper quadrant pain after eating and drinking this. She denies provocation, palliation or radiation. She denies nausea, vomiting or diarrhea. She denies any history of the same. Patient denies any chest pain or shortness of breath. She is not dizzy or weak or lightheaded. MD complaint: abdominal pain Onset (ago): hour(s) Pain Consistency: constant Location: RUQ Quality: stabbing and aching Radiation: none Migration to: no migration Relieving factors: nothing Exacerbating factors: eating Associated symptoms: denies other symptoms Related Data Home Medications Medication Instructions Recorded Confirmed [CALCIUM/MAGNESIUM] 1 cap PO QDAY #0 05/11/17 03/05/19 [CO-Q-10] 1 cap PO QDAY #0 05/11/17 03/05/19 multivitamin [Multiple Vitamins] 1 tab PO QDAY #0 05/11/17 03/05/19 [Vitamin K-2] 100 mcg PO QDAY #60 cap 08/16/17 03/05/19 thyroid (pork) 32.5 mg tablet 32.5 mg PO DAILY 11/29/18 03/05/19 Previous Rx's Medication Instructions Recorded tramadol 50 mg tablet See Rx Instructions PO TID PRN #30 05/28/18 tab lorazepam 0.5 mg tablet 0.5 mg PO BID PRN #30 tab 02/28/19 varicella-zoster glycoE [id number] 50 mcg IM ONCE #1 each 03/05/19 adj(PF) 50 mcg/0.5 mL IM susp, kit hydrocodone-acetaminophen 1 tab PO Q4-6H PRN #10 tab 04/29/19 Allergies Allergy/AdvReac Type Severity Reaction Status Date / Time Sulfa (Sulfonamide Allergy Severe VOMITING Verified 12/06/18 10:31 Antibiotics) DIARRHEA [SULFA (SULFONAMIDE ANTIBIOTICS)] adhesive [ADHESIVE] AdvReac Severe PAPER TAPE Verified 12/06/18 10:31 OK, PLASTIC EVIDENTLY NOT? fluconazole [FLUCONAZOLE] AdvReac Intermediate Headache Verified 12/06/18 10:31 Rash Codiene AdvReac Mild Nausea Uncoded 12/06/18 10:31 Review of Systems Constitutional Denies chills, Denies fever(s), Denies lethargy and Denies weakness Eyes Denies change in vision, Denies eye discharge, Denies irritation and Denies loss of vision ENT Ears, Nose, Mouth, and Throat: Denies change in voice, Denies neck pain and Denies sore throat Cardiovascular Denies chest pain, Denies irregular heart rhythm, Denies lightheadedness, Denies palpitations, Denies dyspnea, Denies dyspnea on exertion and Denies orthopnea Respiratory Denies cough, Denies dyspnea, Denies dyspnea on exertion and Denies wheezing Gastrointestinal Gastrointestinal: Reports abdominal pain, Denies change in bowel habits, Denies diarrhea, Denies nausea and Denies vomiting Genitourinary Denies hematuria, Denies flank pain, Denies urinary incontinence and Denies urinary urgency Musculoskeletal Denies neck pain Integumentary/Breasts Denies pruritus, Denies erythema, Denies rash and Denies wounds Neurologic Denies confusion, Denies loss of vision and Denies weakness Psychiatric Denies anxiety, Denies confusion, Denies depression, Denies homicidal ideation and Denies suicidal ideation Endocrine Denies palpitations Hematologic/Lymphatic Denies easy bruising Allergic/Immunologic Denies wheezing PFSH Surgical History History of total mastectomy (06/27/01) Family History (Updated 06/13/14 @ 00:00 by Silvana Cedeño PA-C) Mother Age: 83 Diabetes mellitus Sister Age: 56 Osteoarthritis Sister Age: 65 Diabetes mellitus Social History Smoking Status: Never smoker second hand exposure: Yes (I grew up with it) alcohol intake: current (Beer or wine with dinner 3x/week) substance use type: does not use Family History Mother Age: 83 Diabetes mellitus Sister Age: 56 Osteoarthritis Sister Age: 65 Diabetes mellitus Social History Smoking Status: Never smoker second hand exposure: Yes (I grew up with it) alcohol intake: current (Beer or wine with dinner 3x/week) substance use type: does not use Exam Narrative Exam Narrative: GENERAL: 63-year-old female obviously uncomfortable, clutching her upper abdomen HEAD: Atraumatic. Normocephalic. No temporal or scalp tenderness. EYES: Pupils equal round and reactive. Extraocular motions intact. No scleral icterus. No injection or drainage. ENT: Nose without bleeding, purulent drainage or septal hematoma. Throat without erythema, tonsillar hypertrophy or exudate. Uvula midline. Airway patent. NECK: Trachea midline. No JVD or lymphadenopathy. Supple, nontender, no meningeal signs. CARDIOVASCULAR: Tachycardic and irregulaar without murmurs, gallops, or rubs. RESPIRATORY: Clear to auscultation. Breath sounds equal bilaterally. No wheezes, rales, or rhonchi. GASTROINTESTINAL: Abdomen soft, non-tender, nondistended. No hepato-splenomegaly, or palpable masses. No guarding. EXTREMITIES: No clubbing, cyanosis, or edema. No joint tenderness, effusion, or edema noted. BACK: Nontender without deformity or crepitance. No flank tenderness. NEURO: AOx3. SKIN: No rash or erythema. Initial Vital Signs Initial Vital Signs: Vital Signs Temperature 99.1 F 04/28/19 21:50 Pulse Rate 170 H 04/28/19 21:50 Respiratory Rate 19 04/28/19 21:50 Blood Pressure 147/117 H 04/28/19 21:50 Pulse Oximetry 99 04/28/19 21:50 Scores CHADS-VASc Congestive heart failure: no Hypertension: no Age 75 years or older: no Diabetes mellitus: no Stroke, TIA, or TE: no Vascular disease: no Age 65 to 74 years: no Sex category (female): Female CHADS-VASc Score: 1 Course Orders Ordered: ED Orders 04/28/19 21:55 EKG-12 Lead Stat 04/28/19 22:00 B Type Natriuretic Peptide Stat Complete Blood Count AUTO DIFF Stat Comprehensive Metabolic Panel Stat Ethanol (ETOH) Stat Free T4 Free Thyroxine Stat Lipase Stat Thyroid Stimulating Hormone Stat Troponin & CK Cardiac Panel Stat 04/28/19 22:01 US abdomen limited Stat 04/28/19 22:42 CT abdomen pelvis w con Stat Discontinued Medications Hydrocodone Bitart/Acetaminophen (Vicodin Prepack) 1 bottle MISC SEEINSTR ONE Stop: 04/29/19 00:04 Last Admin: 04/29/19 00:51 Dose: 1 bottle Hydromorphone HCl (Dilaudid) 0.5 mg IV NOW ONE Stop: 04/28/19 22:03 Last Admin: 04/28/19 22:09 Dose: 0.5 mg Sodium Chloride (Normal Saline 0.9%) 1,000 mls @ 150 mls/hr IV CONT RIGOBERTO Last Infusion: 04/29/19 00:51 Dose: 150 mls/hr Admin: 04/28/19 22:11 Dose: 150 mls/hr Ondansetron HCl (Zofran) 4 mg IV NOW ONE Stop: 04/28/19 22:03 Last Admin: 04/28/19 22:09 Dose: 4 mg Reevaluation(s) Reevaluation #1: patient had spontaneous conversion of her rapid atrial fib. CHADS VASC score of 1 dictates aspirin only Vital Signs - 8 hr 04/28/19 21:50 04/28/19 22:30 04/28/19 23:52 Temperature 99.1 F Pulse Rate 170 H 154 H 93 H Respiratory Rate 19 33 H 11 L Blood Pressure 147/117 H Blood Pressure [Right Arm] 144/102 H 144/85 H Pulse Oximetry 99 97 95 04/29/19 00:32 04/29/19 00:52 Temperature 98.0 F Pulse Rate 98 H Respiratory Rate 20 Blood Pressure Blood Pressure [Right Arm] 134/91 H Pulse Oximetry 99 MDM - Abdominal Pain Lab Data Result diagrams: 04/28/19 22:00 04/28/19 22:00 Lab Results 04/28/19 04/28/19 04/28/19 Range/Units 22:00 22:00 22:00 WBC 8.0 (4.5-11.0) X10^3/uL RBC 4.19 (4.0-5.2) X10^6/uL Hgb 14.6 (12.0-16.0) g/dL Hct 40.5 (36-46) % MCV 96.6 (80-100) fL MCH 34.8 H (26-34) PG MCHC 36.0 (30-36) % RDW 12.5 (11.6-14.8) % Plt Count 324 (150-400) X10^3/uL Neut % (Auto) 63.0 (50-75) % Lymph % (Auto) 23.3 L (25-40) % [place] % (Auto) 12.1 (3-14) % Eos % (Auto) 0.6 L (2-4) % Baso % (Auto) 1.0 (0-2) % Neut # (Auto) 5000 (9047-4293) /uL Lymph # (Auto) 1900 (6757-7009) /uL [place] # (Auto) 1000 H (0-900) /uL Eos # (Auto) 100 (0-450) /uL Baso # (Auto) 100 (0-100) /uL Sodium 142 (137-145) mmol/L Potassium 4.0 (3.4-5.1) mmol/L Chloride 105 (98-107) mmol/L Carbon Dioxide 25 (22-32) mmol/L BUN 7 (7-17) mg/dL Creatinine 0.60 (0.52-1.04) mg/dL Estimated GFR > 60.0 (>60) mL/min BUN/Creatinine Ratio 11.7 (6-22) Glucose 126 H (80-110) mg/dL Calcium 10.0 (8.4-10.2) mg/dL Total Bilirubin 0.4 (0.2-1.3) mg/dL AST 62 H (14-36) IU/L ALT 13 (9-52) IU/L Alkaline Phosphatase 85 (38-126) U/L Total Creatine Kinase 146 H (30-135) U/L CK-MB (CK-2) 1.87 (<2.37) ng/mL CK-MB (CK-2) Rel Index 1.3 L (1.5-5.0) % Troponin I < 0.012 (0.01-0.034) ng/mL B-Natriuretic Peptide < 100 (<100) Total Protein 8.6 H (6.3-8.2) g/dL Albumin 4.6 (3.5-5.0) g/dL Globulin 4.0 (1.7-4.1) g/dL Albumin/Globulin Ratio 1.2 (1.0-2.8) Lipase 215 (23-300) U/L TSH (0.47-4.68) uIU/mL Free T4 (0.78-2.19) ng/dL Ethyl Alcohol mg/dL 04/28/19 04/28/19 Range/Units 22:00 22:00 WBC (4.5-11.0) X10^3/uL RBC (4.0-5.2) X10^6/uL Hgb (12.0-16.0) g/dL Hct (36-46) % MCV (80-100) fL MCH (26-34) PG MCHC (30-36) % RDW (11.6-14.8) % Plt Count (150-400) X10^3/uL Neut % (Auto) (50-75) % Lymph % (Auto) (25-40) % [place] % (Auto) (3-14) % Eos % (Auto) (2-4) % Baso % (Auto) (0-2) % Neut # (Auto) (7370-4171) /uL Lymph # (Auto) (5913-6013) /uL [place] # (Auto) (0-900) /uL Eos # (Auto) (0-450) /uL Baso # (Auto) (0-100) /uL Sodium (137-145) mmol/L Potassium (3.4-5.1) mmol/L Chloride (98-107) mmol/L Carbon Dioxide (22-32) mmol/L BUN (7-17) mg/dL Creatinine (0.52-1.04) mg/dL Estimated GFR (>60) mL/min BUN/Creatinine Ratio (6-22) Glucose (80-110) mg/dL Calcium (8.4-10.2) mg/dL Total Bilirubin (0.2-1.3) mg/dL AST (14-36) IU/L ALT (9-52) IU/L Alkaline Phosphatase (38-126) U/L Total Creatine Kinase (30-135) U/L CK-MB (CK-2) (<2.37) ng/mL CK-MB (CK-2) Rel Index (1.5-5.0) % Troponin I (0.01-0.034) ng/mL B-Natriuretic Peptide (<100) Total Protein (6.3-8.2) g/dL Albumin (3.5-5.0) g/dL Globulin (1.7-4.1) g/dL Albumin/Globulin Ratio (1.0-2.8) Lipase (23-300) U/L TSH 3.56 (0.47-4.68) uIU/mL Free T4 0.89 (0.78-2.19) ng/dL Ethyl Alcohol 172 mg/dL Point of care testing: Urine Dip Bedside Urine Glucose Negative Bedside Urine Bilirubin - Negative Bedside Urine Ketone - Negative Urine Specific [place] 1.010 Bedside Urine Occult Blood - Negative Bedside Urine pH 6.5 Bedside Urine Protein - Negative Bedside Urine Urobilinogen - Negative Bedside Urine Nitrite - Negative Bedside Urine Leukocytes - Negative Esterase Imaging Data US - abdomen: Radiologist's impression: no acute findings, numerous liver cysts CT scan - abdomen: Radiologist's impression: Numerous cysts in the liver, some of which have calcified. Slight stranding of fat anterior to the liver not seen previously may be related to leakage from cyst or mild inflammatory process. 1.1cm heterogeneous hyperdense lesion right lobe liver, unchanged, nonspecific but could be related to hemangioma. Apparent gastric wall thickening however collapse and unchanged probably artifactual. MDM Narrative Medical decision making narrative: Multiple etiologies for patient's symptoms considered including: [pancreatitis vs. gallbladder disease vs. liver disease vs. other] Patient's symptoms improved or duration of stay with above-stated therapies. Findings and discharge diagnosis discussed with patient/family followed by verbalization of understanding Return precautions discussed with patient/family whom verbalize understanding. Discharge Plan Departure Patient Disposition: Home Clinical Impression: Atrial fib/flutter, transient Abdominal pain Qualifiers: Abdominal location: upper abdomen, unspecified Qualified Code(s): R10.10 - Upper abdominal pain, unspecified Hypertension Qualifiers: Hypertension type: unspecified Qualified Code(s): I10 - Essential (primary) hypertension Discharge Date/Time: 04/29/19 00:59 Interventions: ED Discharge Assessment Last Done: 04/29/19 00:52 Instructions: DI for Abdominal Pain-Adult Activity Restrictions/Additional Instructions: *You have been diagnosed with [ atrial fibrillation resolved, abdominal pain, possible gastritis and hypertension] *What to do: *Take medications as directed: Start taking aspirin daily *Follow up with your primary care provider in 2-3 days, call for an appointment. Let them know you were seen in the Emergency Department and that we ask that you be seen in follow up *Return to ER if you should have any new, worsening or concerning symptoms Prescriptions: New hydrocodone-acetaminophen 5-325 mg tablet 1 tab PO Q4-6H PRN (Reason: pain) Qty: 10 RF: 0 No Action thyroid (pork) [Nature-Throid] 32.5 mg tablet 32.5 mg PO DAILY RF: 0 Shingrix (PF) 50 mcg/0.5 mL suspension for reconstitution 50 mcg IM ONCE Qty: 1 RF: 1 multivitamin [Multiple Vitamins] 1 EACH tablet 1 tab PO QDAY Qty: 0 RF: 0 [CALCIUM/MAGNESIUM] 1 cap PO QDAY Qty: 0 RF: 0 [CO-Q-10] 1 cap PO QDAY Qty: 0 RF: 0 [Vitamin K-2] 100 mcg PO QDAY Qty: 60 RF: 0 tramadol 50 mg tablet See Rx Instructions PO TID PRN (Reason: pain) Qty: 30 RF: 1 lorazepam [Ativan] 0.5 mg tablet 0.5 mg PO BID PRN (Reason: anxiety) Qty: 30 RF: 0 Referrals: Silvana Cedeño PA-C [Primary Care Provider] -
[2019-04-28 21:50] VITALS: BP 147/117; PULSE 170; RESP 19; TEMP 37.3; O2SAT 99; BMI 20.3
--- NOTE | 2019-04-28 22:01 | DI.US.S_ITS ---
PROCEDURE: US ABDOMEN LIMITED INDICATIONS: epigastric / pain TECHNIQUE: Real-time focused scanning was performed of the abdomen, with image documentation. COMPARISON: [facility], CT, CT ABDOMEN PELVIS W CON, 12/14/2018, 19:14. [facility], CT, CT ABDOMEN PELVIS W CON, 04/28/2019, 22:46. FINDINGS: Liver is diffusely increased in echogenicity. No focal hepatic abnormalities identified. Normal hepatic size. Multiple hepatic cysts present, largest measuring up to 6.3 cm in multiple cysts have wall calcification. Previously visualized presumed hemangioma not seen on today's examination. Gallbladder is not definitively identified. The extra hepatic bile duct is not visualized. IMPRESSION: 1. Multiple hepatic cysts redemonstrated, largest measuring up to 6.3 cm in multiple cyst wall calcifications are noted. Continued followup recommended. 2. Gallbladder not definitively identified. 3. Extrahepatic bile duct not visualized. Dictated by: Maikel JURADO Interpreted: Fabricio Lane MD on 04/29/2019 at 8:17 Approved by: Fabricio Lane M.D. on 04/29/2019 at 14:48
[2019-04-28 22:03] LABS: Add Manual Diff / Slide Review NO; Basophils Absolute Auto 100 /uL (0-100); Eosinophils Absolute Auto 100 /uL (0-450); Eosinophils Percent Auto 0.6 % (2-4); Hematocrit 40.5 % (36-46); Hemoglobin 14.6 g/dL (12.0-16.0); Lymphocytes Absolute Auto 1900 /uL (1100-4500); Lymphocytes Percent Auto 23.3 % (25-40); Mean Corpuscular Hemoglobin 34.8 PG (26-34); Mean Corpuscular Volume 96.6 fL (80-100); Monocytes Absolute Auto 1000 /uL (0-900); Monocytes Percent Auto 12.1 % (3-14); Neutrophils Absolute Auto 5000 /uL (1500-7000); Platelet Count 324 X10^3/uL (150-400); Red Blood Cell Count 4.19 X10^6/uL (4.0-5.2); Red Cell Distribution Width 12.5 % (11.6-14.8)
[2019-04-28] MEDS: HYDROMORPHONE 1 MG INJ 0.5 MG IV (22:09)
[2019-04-28] MEDS: ONDANSETRON 4 MG/2 ML INJ IV (22:09)
[2019-04-28] MEDS: SODIUM CHLORIDE 0.9% 1,000 ML 150 ML IV (22:11)
[2019-04-28 22:15] LABS: Alanine Aminotransferase 13 IU/L (9-52); Albumin 4.6 g/dL (3.5-5.0); Albumin Globulin Ratio 1.2 (1.0-2.8); Alkaline Phosphatase 85 U/L (38-126); Aspartate Aminotransferase 62 IU/L (14-36); BUN Creatinine Ratio 11.7 (6-22); Bilirubin Total 0.4 mg/dL (0.2-1.3); Blood Urea Nitrogen 7 mg/dL (7-17); Carbon Dioxide 25 mmol/L (22-32); Chloride 105 mmol/L (98-107); Creatine Kinase 146 U/L (30-135); Estimated Glomerular Filt Rate > 60.0 mL/min (>60); Glucose 126 mg/dL (80-110); HEMOLYSIS < 15 (0-50); Lipase 215 U/L (23-300); Sodium 142 mmol/L (137-145); Total Protein 8.6 g/dL (6.3-8.2)
[2019-04-28 22:27] LABS: Troponin I < 0.012 ng/mL (0.01-0.034)
[2019-04-28 22:28] LABS: B Type Natriuretic Peptide < 100 (<100)
[2019-04-28 22:30] VITALS: BP 144/102; PULSE 154; RESP 33; O2SAT 97
[2019-04-28 22:30] LABS: CKMB % Relative Index 1.3 % (1.5-5.0); Creatine Kinase MB 1.87 ng/mL (<2.37)
[2019-04-28 22:32] LABS: Ethanol (ETOH) 172 mg/dL
[2019-04-28 22:40] LABS: Free T4, Direct Thyroxine 0.89 ng/dL (0.78-2.19)
--- NOTE | 2019-04-28 22:42 | DI.CT.S_ITS ---
PROCEDURE: CT ABDOMEN PELVIS W CON INDICATIONS: severe epigastric pain TECHNIQUE: After the administration of intravenous contrast, 5 mm thick sections acquired from the diaphragm to the symphysis. 5 mm coronal and sagittal reformats were acquired. For radiation dose reduction, the following was used: automated exposure control, adjustment of mA and/or kV according to patient size. COMPARISON: [facility], CT, ABDOMEN/PELVIS WITH CONTRAST, 07/22/2008, 9:16. [facility], US, US ABDOMEN LIMITED, 04/28/2019, 22:23. [facility], CT, CT ABDOMEN PELVIS W CON, 12/14/2018, 19:14. FINDINGS: Image quality: Excellent. ABDOMEN: Lung bases: Lung bases are clear. Heart size is normal. There is right mastectomy. Solid organs: There multiple hepatic cysts, unchanged from 12/14/2018. The left hepatic lobe is near entirely replaced by cystic changes. Again noted is a 9 mm enhancing nodule in the right hepatic lobe. Liver is normal in size and demonstrates mild fatty infiltration. There is mild stranding anterior to liver Gallbladder appears normal. Biliary system is non dilated. Pancreas enhances normally. Spleen is normal in size and enhancement. There is a calcific density near the splenic hilum, most likely a granuloma. No adrenal nodules. Kidneys demonstrate normal size and enhancement, without hydronephrosis. Peritoneum and bowel: The gastric wall may be mildly thickened although stomach is not fully distended. Bowel loops demonstrate normal wall thickness and caliber. Normal appendix. A few colonic diverticula are present. No evidence for acute diverticulitis. No free fluid or air. Nodes and vessels: No retroperitoneal or mesenteric adenopathy by size criteria. Aorta and inferior vena cava are normal in size. Miscellaneous: Tiny fat containing umbilical hernia is noted. PELVIS: Genitourinary: Bladder wall thickness is normal. There are calcified masses adjacent to uterus, most likely uterine fibroids. Miscellaneous: No inguinal hernias or adenopathy. Bones: No suspicious bony lesions. No vertebral body compression fractures. Degenerative changes are noted in the lower thoracic and lumbar spine. IMPRESSION: 1. The gastric wall may be mildly thickened although stomach is not fully distended. This finding is equivocal for gastritis. 2. Multiple hepatic cysts are present consistent with polycystic liver disease. 3. A 9 mm enhancing nodule in the right hepatic lobe, unchanged. This may be a small hepatic hemangioma. Followup imaging is suggested. 4. Mild stranding anterior to the liver, which is nonspecific. 5. Mild diverticulosis without active diverticulitis. 6. Calcified uterine fibroids. No significant discrepancy with the nutritional chemist radiology preliminary report. Dictated by: Denia Aguila M.D. on 04/29/2019 at 8:31 Approved by: Denia Aguila M.D. on 04/29/2019 at 8:44
--- NOTE | 2019-04-28 22:52 | PC.NURSE ---
Pt was having ultrasound down. at 2229, pt spontaneously converted to a normal sinus rhythm. reports pain in abdomen has decreased.
[2019-04-28 22:54] LABS: Thyroid Stimulating Hormone 3.56 uIU/mL (0.47-4.68)
[2019-04-28 23:52] VITALS: BP 144/85; PULSE 93; PULSE 94; RESP 11; RESP 12; O2SAT 95
[2019-04-29 00:32] VITALS: BP 134/91; PULSE 98; RESP 20; O2SAT 99
[2019-04-29] MEDS: HYDROCODONE/ACET 5/325 PREPACK 1 BOTTLE MISC (00:51)
[2019-04-29 00:52] VITALS: TEMP 36.7
== END 2019-04-29 00:59 | disposition home or self-care (01) ==
PROVIDERS: Emergency Provider Emergency Medicine; Family Provider Physician Assistant; PCP Physician Assistant
DX: I48.91 Unspecified atrial fibrillation (principal); I10 Essential (primary) hypertension
CPT/HCPCS: 36591; 74177; 76705; 80053; 80320; 81003; 82550; 82553; 83690; 83880; 84439; 84443; 84484; 85025; 93005; 96361; 96374; 96375; 99283; 99285; J1170; J2405; Q9967

== ENCOUNTER 2019-06-07 18:34 | Emergency (ER) | payer MEDICARE, SELFPAY ==
[2019-06-07 18:35] VITALS: BP 181/109; PULSE 83; RESP 22; TEMP 36.9; O2SAT 96; BMI 20.3
--- NOTE | 2019-06-07 18:39 | ED_ITS ---
HPI - Chest Pain General Chief Complaint: Chest Pain Stated Complaint: Severe chest pains, racing heart, SOB Time Seen by Provider: 06/07/19 18:35 Source: patient Mode of arrival: ambulatory Limitations: no limitations History of Present Illness HPI narrative: 63-year-old female nonsmoker with history of alcohol abuse and rapid AFib presents to the emergency department with a chief complaint of in more left anterior chest pain since last evening. She states the pain is sharp and stabbing and sometimes reproducible with motion of her left arm and deep breaths and at other times does not seem to be provoked in this way. She denies any radiation. She denies associated symptoms such as dizziness, weakness or lightheadedness. She denies fever or chills nor recent cough. She denies long distance travel or history of cancer or blood clots. MD complaint: chest pain Onset (ago): day(s) Duration: intermittent and now resolved Onset: other Pain location: left chest Severity: mild Quality: aching and sharp Pain radiation: none Relieving factors: nothing Exacerbating factors: inspiration and movement Treatments prior to arrival chest pain: none Related Data Home Medications Medication Instructions Recorded Confirmed [CALCIUM/MAGNESIUM] 1 cap PO QDAY #0 05/11/17 05/01/19 [CO-Q-10] 1 cap PO QDAY #0 05/11/17 05/01/19 multivitamin [Multiple Vitamins] 1 tab PO QDAY #0 05/11/17 05/01/19 [Vitamin K-2] 100 mcg PO QDAY #60 cap 08/16/17 05/01/19 thyroid (pork) 32.5 mg tablet 32.5 mg PO DAILY 11/29/18 05/01/19 Previous Rx's Medication Instructions Recorded tramadol 50 mg tablet See Rx Instructions PO TID PRN #30 05/28/18 tab varicella-zoster glycoE [id number] 50 mcg IM ONCE #1 each 03/05/19 adj(PF) 50 mcg/0.5 mL IM susp, kit hydrocodone-acetaminophen 1 tab PO Q4-6H PRN #10 tab 04/29/19 lorazepam 0.5 mg tablet 0.5 mg PO BID PRN #30 tab 05/27/19 Allergies Allergy/AdvReac Type Severity Reaction Status Date / Time Sulfa (Sulfonamide Allergy Severe VOMITING Verified 05/01/19 11:10 Antibiotics) DIARRHEA [SULFA (SULFONAMIDE ANTIBIOTICS)] adhesive [ADHESIVE] AdvReac Severe PAPER TAPE Verified 05/01/19 11:10 OK, PLASTIC EVIDENTLY NOT? fluconazole [FLUCONAZOLE] AdvReac Intermediate Headache Verified 05/01/19 11:10 Rash Codiene AdvReac Mild Nausea Uncoded 05/01/19 11:10 Review of Systems Constitutional Denies chills, Denies fever(s), Denies lethargy and Denies weakness Eyes Denies change in vision, Denies eye discharge, Denies irritation and Denies loss of vision ENT Ears, Nose, Mouth, and Throat: Denies change in voice, Denies neck pain and Denies sore throat Cardiovascular Reports chest pain, Denies irregular heart rhythm, Denies lightheadedness, Denies palpitations, Denies dyspnea, Denies dyspnea on exertion and Denies orthopnea Respiratory Denies cough, Reports pain on inspiration, Denies dyspnea, Denies dyspnea on exertion and Denies wheezing Gastrointestinal Gastrointestinal: Denies abdominal pain, Denies change in bowel habits, Denies diarrhea, Denies nausea and Denies vomiting Genitourinary Denies hematuria, Denies flank pain, Denies urinary incontinence and Denies urinary urgency Musculoskeletal Denies neck pain Integumentary/Breasts Denies pruritus, Denies erythema, Denies rash and Denies wounds Neurologic Denies confusion, Denies loss of vision and Denies weakness Psychiatric Denies anxiety, Denies confusion, Denies depression, Denies homicidal ideation and Denies suicidal ideation Endocrine Denies palpitations Hematologic/Lymphatic Denies easy bruising Allergic/Immunologic Denies wheezing PFSH Surgical History History of total mastectomy (06/27/01) Family History Mother Age: 83 Diabetes mellitus Sister Age: 56 Osteoarthritis Sister Age: 65 Diabetes mellitus Social History Smoking Status: Never smoker second hand exposure: Yes (I grew up with it) alcohol intake: current (Beer or wine with dinner 3x/week) substance use type: does not use Family History Mother Age: 83 Diabetes mellitus Sister Age: 56 Osteoarthritis Sister Age: 65 Diabetes mellitus Social History Smoking Status: Never smoker second hand exposure: Yes (I grew up with it) alcohol intake: current (Beer or wine with dinner 3x/week) substance use type: does not use Exam Narrative Exam Narrative: GENERAL: 63-year-old female resting comfortably, a bit anxious HEAD: Atraumatic. Normocephalic. No temporal or scalp tenderness. EYES: Pupils equal round and reactive. Extraocular motions intact. No scleral icterus. No injection or drainage. ENT: Nose without bleeding, purulent drainage or septal hematoma. Throat without erythema, tonsillar hypertrophy or exudate. Uvula midline. Airway patent. NECK: Trachea midline. No JVD or lymphadenopathy. Supple, nontender, no meningeal signs. CARDIOVASCULAR: Regular rate and rhythm without murmurs, gallops, or rubs. Some reproducibility of pain with deep palpation RESPIRATORY: Clear to auscultation. Breath sounds equal bilaterally. No wheezes, rales, or rhonchi. GASTROINTESTINAL: Abdomen soft, non-tender, nondistended. No hepato- splenomegaly, or palpable masses. No guarding. EXTREMITIES: No clubbing, cyanosis, or edema. No joint tenderness, effusion, or edema noted. BACK: Nontender without deformity or crepitance. No flank tenderness. NEURO: AOx3. SKIN: No rash or erythema. Initial Vital Signs Initial Vital Signs: Vital Signs Temperature 98.5 F 06/07/19 18:35 Pulse Rate 83 06/07/19 18:35 Respiratory Rate 22 06/07/19 18:35 Blood Pressure 181/109 H 06/07/19 18:35 Pulse Oximetry 96 06/07/19 18:35 Scores HEART Score Heart Score history: Slightly Suspicious Heart Score EKG: Normal Heart Score Age: 45-64 years old Heart Score risk factors: No known risk factors Heart Score troponin: < or = to normal limit Heart Score Total: 1 Course Orders Ordered: ED Orders 06/07/19 18:55 B Type Natriuretic Peptide Stat Complete Blood Count AUTO DIFF Stat Comprehensive Metabolic Panel Stat Lipase Stat Troponin & CK Cardiac Panel Stat Discontinued Medications Aspirin (Aspirin Chew) 324 mg PO NOW ONE Stop: 06/07/19 18:40 Last Admin: 06/07/19 20:10 Dose: 324 mg Sodium Chloride (Normal Saline 0.9%) 1,000 mls @ 150 mls/hr IV CONT RIGOBERTO Last Infusion: 06/07/19 20:34 Dose: 0 mls/hr Admin: 06/07/19 20:10 Dose: 150 mls/hr Vital Signs - 8 hr 06/07/19 20:00 06/07/19 20:34 Temperature 98.1 F Pulse Rate 75 83 Respiratory Rate 14 18 Blood Pressure 155/95 H Blood Pressure [Left Arm] 155/85 H Pulse Oximetry 98 97 MDM - Chest Pain Lab Data Result diagrams: 06/07/19 18:55 06/07/19 18:55 Lab Results 06/07/19 06/07/19 Range/Units 18:55 18:55 WBC 4.8 (4.5-11.0) X10^3/uL RBC 3.92 L (4.0-5.2) X10^6/uL Hgb 13.5 (12.0-16.0) g/dL Hct 38.9 (36-46) % MCV 99.2 (80-100) fL MCH 34.3 H (26-34) PG MCHC 34.6 (30-36) % RDW 13.0 (11.6-14.8) % Plt Count 227 (150-400) X10^3/uL Neut % (Auto) 48.0 L (50-75) % Lymph % (Auto) 37.3 (25-40) % [place] % (Auto) 12.6 (3-14) % Eos % (Auto) 1.3 L (2-4) % Baso % (Auto) 0.8 (0-2) % Neut # (Auto) 2300 (3108-1055) /uL Lymph # (Auto) 1800 (1831-5948) /uL [place] # (Auto) 600 (0-900) /uL Eos # (Auto) 100 (0-450) /uL Baso # (Auto) 0 (0-100) /uL Sodium 140 (137-145) mmol/L Potassium 3.6 (3.4-5.1) mmol/L Chloride 106 (98-107) mmol/L Carbon Dioxide 23 (22-32) mmol/L BUN 9 (7-17) mg/dL Creatinine 0.60 (0.52-1.04) mg/dL Estimated GFR > 60.0 (>60) mL/min BUN/Creatinine Ratio 15.0 (6-22) Glucose 98 (80-110) mg/dL Calcium 9.8 (8.4-10.2) mg/dL Total Bilirubin 0.4 (0.2-1.3) mg/dL AST 52 H (14-36) IU/L ALT 26 (9-52) IU/L Alkaline Phosphatase 69 (38-126) U/L Total Creatine Kinase 128 (30-135) U/L CK-MB (CK-2) 1.11 (<2.37) ng/mL CK-MB (CK-2) Rel Index 0.9 L (1.5-5.0) % Troponin I < 0.012 (0.01-0.034) ng/mL B-Natriuretic Peptide < 100 (<100) Total Protein 7.9 (6.3-8.2) g/dL Albumin 4.5 (3.5-5.0) g/dL Globulin 3.4 (1.7-4.1) g/dL Albumin/Globulin Ratio 1.3 (1.0-2.8) Lipase 308 H (23-300) U/L Imaging Data Chest x-ray: Radiologist's impression: [address] [address] XRay Report Signed Patient: Karolina Ulrich [facility]#: [id number] : 5Acct:[id number] Age/Sex: 63 / FDate of Service: 06/07/19 Loc: ED Accession Number: [id number] Procedure: XR chest 1V Ordering Provider: Yaakov Romero D.O. PROCEDURE: XR CHEST 1V INDICATIONS: chest pain TECHNIQUE: One view of the chest was acquired. COMPARISON: [facility], CR, CHEST 1 VIEW, 01/12/2018, 19:27. [facility], CR, XR CHEST 2V, 11/29/2018, 18:16. [facility], CT, CT CHEST WO CON, 12/21/2018, 15:03. FINDINGS: Surgical changes and devices: Right mastectomy and right axillary lymph node dissection. Lungs and pleura: Lungs are clear. No pleural effusions or pneumothorax. Mediastinum: Mediastinal contours appear normal. Heart size is normal. Bones and chest wall: No suspicious bony lesions. Overlying soft tissues appear unremarkable. IMPRESSION: No acute cardiopulmonary disease. Dictated by: Denia Aguila M.D. on 06/07/2019 at 19:47 Approved by: Denia Aguila M.D. on 06/07/2019 at 19:49 ECG Data Attestation: I personally reviewed and interpreted this ECG as follows: Prior ECG tracings: available for review Interpretation: EKG is normal sinus rhythm rate [67 ] and free of any signs of ischemia or ectopy. No ST segmental elevation or depression. No T wave inversions repeat unchanged MDM Narrative Medical decision making narrative: Multiple causes of chest pain considered including HI, PE, pneumothorax, pneumonia, aortic dissection, and pleurisy. Patient reports no radiation, no diaphoresis, no provocation with exertion, and no vomiting. Heart score is low, history and physical describe nonischemic type pain. Pulmonary embolism considered but thought less likely given the history and physical Discharge Plan Departure Patient Disposition: Home Clinical Impression: Atypical chest pain Discharge Date/Time: 06/07/19 20:34 Interventions: ED Discharge Assessment Last Done: 06/07/19 20:34 Instructions: DI for Atypical Chest Pain Activity Restrictions/Additional Instructions: *You have been diagnosed with [atypical chest pain, not likely cardiac ischemia] *What to do: *Take medications as directed *Follow up with your primary care provider in 2-3 days, call for an appointment. Let them know you were seen in the Emergency Department and that we ask that you be seen in follow up *Return to ER if you should have any new, worsening or concerning symptoms, such as [worsening pain, shortness of breath, dizziness, weakness, lightheadedness or other bothersome symptoms] Prescriptions: No Action thyroid (pork) [Nature-Throid] 32.5 mg tablet 32.5 mg PO DAILY RF: 0 Shingrix (PF) 50 mcg/0.5 mL suspension for reconstitution 50 mcg IM ONCE Qty: 1 RF: 1 multivitamin [Multiple Vitamins] 1 EACH tablet 1 tab PO QDAY Qty: 0 RF: 0 [CALCIUM/MAGNESIUM] 1 cap PO QDAY Qty: 0 RF: 0 [CO-Q-10] 1 cap PO QDAY Qty: 0 RF: 0 [Vitamin K-2] 100 mcg PO QDAY Qty: 60 RF: 0 tramadol 50 mg tablet See Rx Instructions PO TID PRN (Reason: pain) Qty: 30 RF: 1 lorazepam [Ativan] 0.5 mg tablet 0.5 mg PO BID PRN (Reason: anxiety) Qty: 30 RF: 0 hydrocodone-acetaminophen 5-325 mg tablet 1 tab PO Q4-6H PRN (Reason: pain) Qty: 10 RF: 0 Referrals: Silvana Cedeño PA-C [Primary Care Provider] -
[2019-06-07 19:00] VITALS: BP 175/104; PULSE 85; RESP 18; O2SAT 95
[2019-06-07 19:04] LABS: Add Manual Diff / Slide Review NO; Basophils Absolute Auto 0 /uL (0-100); Basophils Percent Auto 0.8 % (0-2); Eosinophils Absolute Auto 100 /uL (0-450); Eosinophils Percent Auto 1.3 % (2-4); Hematocrit 38.9 % (36-46); Hemoglobin 13.5 g/dL (12.0-16.0); Lymphocytes Absolute Auto 1800 /uL (1100-4500); Lymphocytes Percent Auto 37.3 % (25-40); Mean Corpuscular HGB Conc 34.6 % (30-36); Mean Corpuscular Hemoglobin 34.3 PG (26-34); Mean Corpuscular Volume 99.2 fL (80-100); Monocytes Absolute Auto 600 /uL (0-900); Monocytes Percent Auto 12.6 % (3-14); Neutrophils Absolute Auto 2300 /uL (1500-7000); Platelet Count 227 X10^3/uL (150-400); Red Blood Cell Count 3.92 X10^6/uL (4.0-5.2); White Blood Cell Count 4.8 X10^3/uL (4.5-11.0)
[2019-06-07 19:13] LABS: Alanine Aminotransferase 26 IU/L (9-52); Albumin 4.5 g/dL (3.5-5.0); Albumin Globulin Ratio 1.3 (1.0-2.8); Alkaline Phosphatase 69 U/L (38-126); Aspartate Aminotransferase 52 IU/L (14-36); Bilirubin Total 0.4 mg/dL (0.2-1.3); Blood Urea Nitrogen 9 mg/dL (7-17); Calcium 9.8 mg/dL (8.4-10.2); Carbon Dioxide 23 mmol/L (22-32); Chloride 106 mmol/L (98-107); Creatine Kinase 128 U/L (30-135); Estimated Glomerular Filt Rate > 60.0 mL/min (>60); Globulin 3.4 g/dL (1.7-4.1); Glucose 98 mg/dL (80-110); HEMOLYSIS < 15 (0-50); Lipase 308 U/L (23-300); Potassium 3.6 mmol/L (3.4-5.1); Sodium 140 mmol/L (137-145); Total Protein 7.9 g/dL (6.3-8.2)
[2019-06-07 19:25] LABS: Troponin I < 0.012 ng/mL (0.01-0.034)
[2019-06-07 19:28] LABS: CKMB % Relative Index 0.9 % (1.5-5.0); Creatine Kinase MB 1.11 ng/mL (<2.37)
[2019-06-07 19:30] LABS: B Type Natriuretic Peptide < 100 (<100)
[2019-06-07 20:00] VITALS: BP 155/85; PULSE 75; RESP 14; O2SAT 98
[2019-06-07] MEDS: ASPIRIN 81 MG TAB 324 MG PO (20:10)
[2019-06-07] MEDS: SODIUM CHLORIDE 0.9% 1,000 ML 150 ML IV (20:10)
[2019-06-07 20:34] VITALS: BP 155/95; PULSE 83; RESP 18; TEMP 36.7; O2SAT 97
== END 2019-06-07 20:34 | disposition home or self-care (01) ==
PROVIDERS: Emergency Provider Emergency Medicine; Family Provider Physician Assistant; PCP Physician Assistant
DX: R07.89 Other chest pain (principal)
CPT/HCPCS: 36591; 71045; 80053; 82550; 82553; 83690; 83880; 84484; 85025; 93005; 99283; 99285

== ENCOUNTER → 2019-06-20 11:13 | Outpatient (CLI) | payer MEDICARE, SELFPAY ==
--- NOTE | 2019-07-12 15:46 | PM.CARDMON.1 ---
[facility] Report Referral & Results Date Patient Seen: 06/20/19 Requesting provider: Darío Armstrong Indication: Atrial fibrillation Duration of monitoring (days): 6 Diary information: There were no patient diary entries. There are 2 patient triggered events associated with sinus rhythm and supraventricular ectopic depolarizations Data: Minimum heart rate identified was 57 beats per minute at 05:53 on 06/29/2019 Maximum sinus heart rate was 134 beats per minute at 00:51 on 06/30/2019 Maximum overall heart rate was 197 beats per minute at 20:33 on 06/29/2019, during a 10 beat run of supraventricular tachycardia Less than 1% of identified beats were supraventricular ectopic in origin No ventricular ectopic beats were identified Impression: No atrial fibrillation identified Occasional supraventricular events as above
== END ==
PROVIDERS: Family Provider Physician Assistant; PCP Physician Assistant; Visit Provider Nurse Practitioner Family
DX: I48.91 Unspecified atrial fibrillation (principal)
CPT/HCPCS: 0296T; 0298T

== ENCOUNTER → 2019-08-23 13:16 | Outpatient (CLI) | payer MEDICARE, SELFPAY ==
[2019-08-23 14:00] LABS: Add Manual Diff / Slide Review NO; Basophils Absolute Auto 100 /uL (0-100); Eosinophils Absolute Auto 100 /uL (0-450); Eosinophils Percent Auto 1.7 % (2-4); Hemoglobin 14.7 g/dL (12.0-16.0); Lymphocytes Absolute Auto 2100 /uL (1100-4500); Lymphocytes Percent Auto 39.2 % (25-40); Mean Corpuscular HGB Conc 34.2 % (30-36); Mean Corpuscular Volume 99.5 fL (80-100); Monocytes Absolute Auto 500 /uL (0-900); Monocytes Percent Auto 9.7 % (3-14); Neutrophils Absolute Auto 2600 /uL (1500-7000); Neutrophils Percent Auto 48.4 % (50-75); Platelet Count 239 X10^3/uL (150-400); Red Blood Cell Count 4.32 X10^6/uL (4.0-5.2); Red Cell Distribution Width 12.8 % (11.6-14.8); White Blood Cell Count 5.4 X10^3/uL (4.5-11.0)
[2019-08-23 14:30] LABS: Alanine Aminotransferase 38 IU/L (9-52); Albumin 4.5 g/dL (3.5-5.0); Albumin Globulin Ratio 1.3 (1.0-2.8); Alkaline Phosphatase 79 U/L (38-126); Aspartate Aminotransferase 72 IU/L (14-36); Bilirubin Total 0.9 mg/dL (0.2-1.3); Blood Urea Nitrogen 12 mg/dL (7-17); Calcium 9.7 mg/dL (8.4-10.2); Carbon Dioxide 26 mmol/L (22-32); Chloride 102 mmol/L (98-107); Cholesterol 304 mg/dL (140-199); Estimated Glomerular Filt Rate > 60.0 mL/min (>60); Globulin 3.4 g/dL (1.7-4.1); Glucose 80 mg/dL (80-110); Potassium 4.5 mmol/L (3.4-5.1); Sodium 137 mmol/L (137-145); Total Protein 7.9 g/dL (6.3-8.2); Triglycerides 164 mg/dL (35-150)
[2019-08-23 14:37] LABS: HEMOLYSIS < 15 (0-50)
[2019-08-23 14:39] LABS: HDL Cholesterol 122 mg/dL (40-60); LDL Cholesterol Calculated 161 mg/dL (<100)
[2019-08-23 14:58] LABS: Thyroid Stimulating Hormone 1.16 uIU/mL (0.47-4.68)
[2019-08-25 15:49] LABS: Microalbumin Urine Random 1.1 mg/dL (0-1.6)
[2019-08-25 16:07] LABS: Microalbumi Creatinin Ratio Ur 6.3 ug/mg CR (<30)
== END ==
PROVIDERS: Family Provider Physician Assistant; PCP Physician Assistant; Visit Provider Internal Medicine Cardiovascular Disease
DX: R00.2 Palpitations (principal); I10 Essential (primary) hypertension; I48.0 Paroxysmal atrial fibrillation; I47.1 Supraventricular tachycardia
CPT/HCPCS: 36415; 80053; 80061; 82043; 82570; 83735; 84443; 85025

== ENCOUNTER → 2019-09-07 13:22 | Outpatient (CLI) | payer MEDICARE, SELFPAY ==
--- NOTE | 2019-09-07 | DI.MG.S_ITS ---
UNILATERAL LEFT DIGITAL SCREENING MAMMOGRAM 3D/2D WITH CAD: 09/07/2019 CLINICAL: Routine screening. Personal history of right breast cancer. Comparison is made to exams dated: 08/16/2018 mammogram, 07/13/2018 mammogram, and 02/24/2017 mammogram - [facility]. The tissue of left breast is heterogeneously dense. This may lower the sensitivity of mammography. Current study was also evaluated with a Computer Aided Detection (CAD) system. No significant masses, calcifications, or other findings are seen in the breast. There has been no significant interval change. IMPRESSION: NEGATIVE There is no mammographic evidence of malignancy. A 1 year screening mammogram is recommended. This exam was interpreted at Station ID: [id number]. NOTE: For mammograms, a report in lay terms will be sent to the patient. Approximately 15% of breast malignancies will not be visualized mammographically. In the management of a palpable breast mass, a negative mammogram must not discourage biopsy of a clinically suspicious lesion. Electronically Signed By: Sergio perry/camilo:09/09/2019 07:46:36 letter sent: Normal Exam ACR BI-RADS Category 1: Negative [id number]
== END ==
PROVIDERS: Family Provider Physician Assistant; PCP Physician Assistant; Visit Provider Physician Assistant
DX: Z12.31 Encounter for screening mammogram for malignant neoplasm of breast (principal); Z85.3 Personal history of malignant neoplasm of breast
CPT/HCPCS: 77063; 77067

== ENCOUNTER → 2019-12-09 14:12 | Outpatient (CLI) | payer MEDICARE, SELFPAY ==
[2019-12-09 16:04] LABS: Alanine Aminotransferase 20 IU/L (<35); Albumin 4.5 g/dL (3.5-5.0); Albumin Globulin Ratio 1.3 (1.0-2.8); Alkaline Phosphatase 76 U/L (38-126); Aspartate Aminotransferase 54 IU/L (14-36); BUN Creatinine Ratio 15.7 (6-22); Bilirubin Total 0.5 mg/dL (0.2-1.3); Blood Urea Nitrogen 11 mg/dL (7-17); Calcium 10.3 mg/dL (8.4-10.2); Carbon Dioxide 26 mmol/L (22-32); Chloride 106 mmol/L (98-107); Cholesterol 308 mg/dL (140-199); Estimated Glomerular Filt Rate > 60.0 mL/min (>60); Globulin 3.4 g/dL (1.7-4.1); Glucose 87 mg/dL (80-110); HEMOLYSIS < 15 (0-50); Sodium 141 mmol/L (137-145); Total Protein 7.9 g/dL (6.3-8.2); Triglycerides 170 mg/dL (35-150)
[2019-12-09 16:19] LABS: HDL Cholesterol 118 mg/dL (40-60); LDL Cholesterol Calculated 156 mg/dL (<100); Potassium 5.6 mmol/L (3.4-5.1)
[2019-12-09 16:32] LABS: Thyroid Stimulating Hormone 1.37 uIU/mL (0.47-4.68)
[2019-12-09 16:38] LABS: Vitamin D 25 Hydroxy (D3) 52.4 ng/mL (30.0-100.0)
[2019-12-09 18:13] LABS: Creatinine Urine Random 216.2 mg/dL
[2019-12-09 18:17] LABS: Microalbumi Creatinin Ratio Ur 14.3 ug/mg CR (<30); Microalbumin Urine Random 3.1 mg/dL (0-1.6)
== END ==
PROVIDERS: PCP Physician Assistant; Visit Provider Physician Assistant
DX: E03.9 Hypothyroidism, unspecified (principal); E78.2 Mixed hyperlipidemia; I10 Essential (primary) hypertension; I47.1 Supraventricular tachycardia; M81.0 Age-related osteoporosis without current pathological fracture
CPT/HCPCS: 36415; 80053; 80061; 82043; 82306; 82570; 84443

== ENCOUNTER → 2020-06-24 14:53 | Outpatient (CLI) | payer MEDICARE, SELFPAY ==
--- NOTE | 2020-06-24 14:56 | DI.RAD.S_ITS ---
PROCEDURE: XR HIP W PEL IF DONE LT MIN 4V INDICATIONS: Bilateral SI joint and hip pain x 1 month TECHNIQUE: AP pelvis with lateral view(s) of the left and right hip(s). COMPARISON: [facility], CT, CT ABDOMEN PELVIS WITHOUT CONTRAST, 10/14/2019, 13:31. FINDINGS: Bones: No fractures or dislocations. Pelvic ring appears intact. No suspicious bony lesions. Mild joint narrowing with periarticular osteophyte formation. Degenerative disc and facet disease involves the inferior lumbar spine. Soft tissues: The visualized bowel gas pattern is normal. No suspicious soft tissue calcifications. Midline pelvic calcifications likely related to calcified fibroids. IMPRESSION: Mild symmetric hip joint degeneration. Dictated by: Maikel Manley [facility] Interpreted: Whit Flowers MD on 06/24/2020 at 16:55 Approved by: Whit Flowers M.D. on 06/24/2020 at 17:10
--- NOTE | 2020-06-24 14:56 | DI.RAD.S_ITS ---
PROCEDURE: XR SACROILIAC JOINT MIN 3V INDICATIONS: Bilateral SI joint and hip pain x 1 month TECHNIQUE: 3 views of the sacroiliac joints were acquired. COMPARISON: None. FINDINGS: Bones: No bony erosions or ankylosis. No suspicious bony lesions. No fractures. Mild joint narrowing with periarticular osteophyte formation. Soft tissues: Overlying bowel gas pattern is normal. No suspicious soft tissue densities. Midline pelvic calcification is likely related to calcified fibroids. IMPRESSION: Mild symmetric SI joint degeneration. Dictated by: Maikel Manley [facility] Interpreted: Whit Flowers MD on 06/24/2020 at 16:57 Approved by: Whit Flowers M.D. on 06/24/2020 at 17:10
== END ==
PROVIDERS: PCP Registered Nurse Diabetes Educator; Referring Provider Registered Nurse Diabetes Educator; Visit Provider Registered Nurse Diabetes Educator
DX: M25.552 Pain in left hip (principal); M16.12 Unilateral primary osteoarthritis, left hip; M25.551 Pain in right hip; M46.1 Sacroiliitis, not elsewhere classified; M47.898 Other spondylosis, sacral and sacrococcygeal region; M47.816 Spondylosis without myelopathy or radiculopathy, lumbar region; M51.36 Other intervertebral disc degeneration, lumbar region
CPT/HCPCS: 72202; 73522

== ENCOUNTER 2020-09-29 20:12 | Emergency (ER) | payer MEDICARE, SELFPAY ==
[2020-09-29] VITALS (8 sets, daily range): BP systolic 144–177; BP diastolic 81–91; PULSE 76–98; RESP 17; TEMP 36.6; O2SAT 95–100; BMI 19.7
--- NOTE | 2020-09-29 21:23 | PC.NURSE ---
Reports history of headache x 1 month. Initially started on right side of head/face, radiating through jaw/shoulder. Dentist thought it was related to a tooth, which was removed. Pt reports pain has not gotten any better after tooth removal. Reports vertigo, sensitivity to light. Nausea/vomiting new today.
--- NOTE | 2020-09-29 23:15 | DI.CT.S_ITS ---
PROCEDURE: CT HEAD/BRAIN WO CON INDICATIONS: Severe headache TECHNIQUE: Noncontrast 4.5 mm thick angled axial sections acquired from the foramen magnum to the vertex, with coronal and sagittal reformats. For radiation dose reduction, the following was used: automated exposure control, adjustment of mA and/or kV according to patient size. COMPARISON: None. FINDINGS: Image quality: Excellent. CSF spaces: Basal cisterns are patent. No extra-axial fluid collections. The ventricles are symmetric in size and shape. Brain: No intracranial bleeds or masses. There is cerebral volume loss for age, with resultant ventricular and sulcal prominence. There are periventricular and deep white matter chronic small vessel ischemic changes. There is intracranial internal carotid artery atherosclerosis. Skull and face: Calvarium and visualized facial bones appear intact, without suspicious lesions. Sinuses: Mucosal thickening noted in the left maxillary sinus. mastoids are clear. IMPRESSION: No acute intracranial disease process. Dictated by: Lilo Hills MD, PhD on 09/30/2020 at 7:26 Approved by: Lilo Hills MD, PhD on 09/30/2020 at 7:28
--- NOTE | 2020-09-29 23:15 | DI.CT.S_ITS ---
PROCEDURE: CT CERVICAL SPINE WO CON INDICATIONS: Cervical neck pain TECHNIQUE: Noncontrast 3 mm thick sections acquired from the skull base to the T4 level. Sagittal and coronal reformats were then constructed. For radiation dose reduction, the following was used: automated exposure control, adjustment of mA and/or kV according to patient size. COMPARISON: [facility], CERVICAL SPINE 2 OR 3 VIEWS, 09/05/2017, 11:55. FINDINGS: Image quality: Excellent. Bones: No fractures or dislocations. Approximately 4 millimeters of C5-C6 degenerative anterolisthesis is stable compared to September 05, 2017. Visualized superior ribs are intact. Spine degenerative disc disease and facet arthropathy. Soft tissues: Prevertebral soft tissues are normal in thickness. No paravertebral hematomas. No apical pneumothoraces. IMPRESSION: No fracture. No acute osseous lesion. If symptoms and/or clinical suspicion for pathology persists, evaluation with MRI may be helpful for further assessment. Dictated by: Lilo Hills MD, PhD on 09/30/2020 at 8:08 Approved by: Lilo Hills MD, PhD on 09/30/2020 at 8:11
--- NOTE | 2020-09-29 23:17 | ED_ITS ---
HPI - Headache General Chief Complaint: Headache Stated Complaint: BAD HEADACHES VISION CHANGES THROWING UP Time Seen by Provider: 09/29/20 22:53 Source: patient Mode of arrival: Ambulatory Limitations: no limitations History of Present Illness HPI Narrative: The patient complains of severe headache for about 1 month. She currently expansion bitemporal headache, as well as cervical neck pain, pain radiating to her right shoulder. She denies recent illness. She has no history of head or neck trauma. She has no numbness or weakness in her upper extremities. She has no incontinence. She has no history of chronic headaches. She has followed up with her PCM. She has seen a dentist. A suspected tooth was extracted but did not alleviate the headache. She complains of eye discomfort. She was seen by an stock grader, no pathology was found. She has been to physical therapy. No abnormalities were found. She receives no relief with OTC analgesics. The headache has increased slightly, has not imp roved. She has no fever, chills recent illness. She has no sore throat. She has no respiratory discomfort. Related Data Home Medications Medication Instructions Recorded Confirmed [CALCIUM/MAGNESIUM] 1 cap PO QDAY #0 05/11/17 09/23/20 [CO-Q-10] 1 cap PO QDAY #0 05/11/17 09/23/20 multivitamin [Multiple Vitamins] 1 tab PO QDAY #0 05/11/17 09/23/20 [Vitamin K-2] 100 mcg PO QDAY #60 cap 08/16/17 09/23/20 thyroid (pork) 32.5 mg tablet 32.5 mg PO DAILY 11/29/18 09/23/20 Cholesterol Pro 2 each PO BID 12/23/19 09/23/20 Heart Stim Liquescence 1 each PO BID 12/23/19 09/23/20 NAC 600 mg PO BID 12/23/19 09/23/20 Natural Resveratrol 200 mg PO DAILY 12/23/19 09/23/20 Pure Kidney 700 mg PO BID 12/23/19 09/23/20 verapamil 180 mg 24 hr 180 mg PO DAILY 12/23/19 09/23/20 capsule,extended release Previous Rx's Medication Instructions Recorded varicella-zoster [id number] (PF) 50 50 mcg IM ONCE #1 each 03/05/19 mcg/0.5 mL IM susp, kit hydrocodone-acetaminophen 1 tab PO Q4-6H PRN #10 tab 04/29/19 ibuprofen 800 mg tablet 800 mg PO Q8H PRN #90 tab 03/13/20 escitalopram oxalate 10 mg tablet 10 mg PO DAILY #30 tab 07/23/20 lorazepam 0.5 mg tablet 0.5 mg PO BID PRN #30 tab 07/23/20 tramadol 50 mg PO Q6-8H PRN #14 tab 09/30/20 Allergies Allergy/AdvReac Type Severity Reaction Status Date / Time Sulfa (Sulfonamide Allergy Severe VOMITING Verified 09/23/20 11:57 Antibiotics) DIARRHEA [SULFA (SULFONAMIDE ANTIBIOTICS)] adhesive [ADHESIVE] AdvReac Severe PAPER TAPE Verified 09/23/20 11:57 OK, PLASTIC EVIDENTLY NOT? fluconazole [FLUCONAZOLE] AdvReac Intermediate Headache Verified 09/23/20 11:57 Rash Molds Allergy Intermediate coughing, Uncoded 12/23/19 11:14 sneezing and feeling plugged up Codiene AdvReac Mild Nausea Uncoded 12/23/19 11:14 Review of Systems Review of Systems ROS Unobtainable: All systems reviewed & are unremarkable except as noted in HPI and below Constitutional Constitutional: Denies chills, Denies fever(s), Denies lethargy and Denies weakness Eyes Eyes: Denies loss of vision Comments: Discomfort with her eyes ENT Ears, Nose, Mouth, and Throat: Denies change in voice, Reports neck pain and Denies sore throat Cardiovascular Cardiovascular: Denies chest pain, Denies irregular heart rhythm, Denies lightheadedness and Denies dyspnea Respiratory Respiratory: Denies cough, Denies dyspnea and Denies wheezing Gastrointestinal Gastrointestinal: Denies abdominal pain, Denies change in bowel habits, Denies diarrhea, Denies nausea and Denies vomiting Musculoskeletal Musculoskeletal: Denies back pain and Reports neck pain Integumentary/Breasts Skin/Breast: Denies erythema and Denies rash Neurologic Neurologic: Denies loss of vision and Denies weakness Allergic/Immunologic Allergic/Immunologic: Denies wheezing Patient History Medical History Anxiety (Acute) Balance disorder (Acute) Hip pain, bilateral (Acute) SI (sacroiliac) joint inflammation (Acute) Vertigo (Acute) Visual disturbance (Acute) Surgical History History of total mastectomy (06/27/01) Family History Mother Age: 85 Diabetes mellitus Sister Age: 58 Osteoarthritis Sister Age: 67 Diabetes mellitus Social History Smoking Status: Never smoker second hand exposure: Yes (I grew up with it) alcohol intake: current substance use type: does not use Smoking Status: Never smoker alcohol intake frequency: 0-2 drinks per day Substance Use Type: does not use Exam Initial Vital Signs Initial Vital Signs: Vital Signs Temperature 97.9 F 09/29/20 20:20 Pulse Rate 98 H 09/29/20 20:20 Respiratory Rate 17 09/29/20 20:20 Blood Pressure 177/91 H 09/29/20 20:20 Pulse Oximetry 100 09/29/20 20:20 Const General: cooperative and well developed Nutritional Appearance: well nourished [facility] Head: normocephalic and atraumatic Ears: hearing grossly normal bilaterally and TM's normal bilaterally Face and sinus: normal facial exam and other (Bitemporal tenderness.) Mouth: oral mucosae normal Throat: posterior oropharynx normal Eyes General: appearance normal, both eyes and all related structures Eyelids: eyelids normal Conjunctivae: conjunctivae normal Sclera: sclerae normal Pupils: PERRL EOM: EOM intact bilaterally Neck Other: Palpable other cervical tenderness bilaterally. No visual defect. Resp Effort & Inspection: normal respiratory effort and able to speak in complete sentences Auscultation: clear to auscultation bilaterally, no rales, no rhonchi and no wheezes Cardio Rate: regular rate Rhythm: regular rhythm Heart Sounds: S1 normal, S2 normal, no click, no gallops, no murmurs and no rubs Pulses: normal peripheral pulses Neuro General: patient alert, patient oriented x3, gait normal and no focal motor deficits Speech: speech normal Extrem General: full ROM, no pedal edema and no calf tenderness Course Course Course Narrative: The patient is feeling dramatically better after receiving the IV Toradol. Her headache and neck pain resolved. Head CT shows no acute findings. The C-spine CT did reveal anterolistesis at C5-C6 level. Orders Ordered: ED Orders 11/03/20 21:40 Basic Metabolic Panel Stat C-Reactive Protein Quant Stat Complete Blood Count AUTO DIFF Stat Erythrocyte Sedimentation Rate Stat 09/29/20 23:15 CT cervical spine wo con Stat CT head/brain wo con Stat Discontinued Medications Sodium Chloride (Normal Saline 0.9%) 1,000 mls @ 1,000 mls/hr IV BOLUS ONE Stop: 09/30/20 00:14 Last Infusion: 09/30/20 01:05 Dose: 0 mls/hr Documented by: Admin: 09/29/20 23:20 Dose: 1,000 mls/hr Documented by: JORDAN Ketorolac Tromethamine (Toradol) 30 mg IV NOW ONE Stop: 09/29/20 23:16 Last Admin: 09/29/20 23:20 Dose: 30 mg Documented by: JORDAN Tramadol HCl (Ultram 50mg Prepack) 1 bottle MISC SEEINSTR ONE Stop: 09/30/20 01:13 Vital Signs Vital signs: Vital Signs - 8 hr 09/29/20 20:20 09/29/20 21:19 09/29/20 21:30 Temperature 97.9 F Pulse Rate 98 H 81 76 Respiratory Rate 17 Blood Pressure 177/91 H 164/86 H Pulse Oximetry 100 96 97 09/29/20 22:00 09/29/20 22:30 09/29/20 23:00 Temperature Pulse Rate 86 84 84 Respiratory Rate Blood Pressure 146/84 H 145/85 H 144/81 H Pulse Oximetry 96 95 96 MDM - Headache Lab Data Result diagrams: 09/29/20 21:40 09/29/20 21:40 Labs: Lab Results 09/29/20 09/29/20 Range/Units 21:40 21:40 WBC 5.0 (4.5-11.0) X10^3/uL RBC 3.88 L (4.0-5.2) X10^6/uL Hgb 13.5 (12.0-16.0) g/dL Hct 39.4 (36-46) % MCV 101.6 H (80-100) fL MCH 34.7 H (26-34) PG MCHC 34.2 (30-36) % RDW 13.3 (11.6-14.8) % Plt Count 267 (150-400) X10^3/uL Neut % (Auto) 66.0 (50-75) % Lymph % (Auto) 18.9 L (25-40) % [place] % (Auto) 12.9 (3-14) % Eos % (Auto) 1.1 L (2-4) % Baso % (Auto) 1.1 (0-2) % Neut # (Auto) 3300 (6896-6109) /uL Lymph # (Auto) 900 L (3712-0759) /uL [place] # (Auto) 600 (0-900) /uL Eos # (Auto) 100 (0-450) /uL Baso # (Auto) 100 (0-100) /uL ESR 32 H (0-20) MM/HR Sodium 136 L (137-145) mmol/L Potassium 3.6 (3.4-5.1) mmol/L Chloride 103 (98-107) mmol/L Carbon Dioxide 25 (22-32) mmol/L BUN 14 (7-17) mg/dL Creatinine 0.53 (0.52-1.04) mg/dL Estimated GFR > 60.0 (>60) mL/min BUN/Creatinine Ratio 26.4 H (6-22) Glucose 100 (80-110) mg/dL Calcium 9.8 (8.4-10.2) mg/dL C-Reactive Protein 1.1 H (<1.0) mg/dL Imaging Data CT scan - head: Radiologist's Impression: No acute TELECASTING ENGINEER findings Chronic appearing anterolisthesis at C5-C6. 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 Hour head CT is normal. Use OTC analgesics, Tylenol or Advil. At tramadol every 6 hours as needed for added pain control. I would suggest she follow-up with your doctor, I would recommend physical therapy. An MRI of the neck may be useful if symptoms persist. Return to the ER as necessary. Prescriptions: New tramadol 50 mg tablet 50 mg PO Q6-8H PRN (Reason: pain) Qty: 14 RF: 0 No Action thyroid (pork) [Nature-Throid] 32.5 mg tablet 32.5 mg PO DAILY RF: 0 Shingrix (PF) 50 mcg/0.5 mL suspension for reconstitution 50 mcg IM ONCE Qty: 1 RF: 1 multivitamin [Multiple Vitamins] 1 EACH tablet 1 tab PO QDAY Qty: 0 RF: 0 [CALCIUM/MAGNESIUM] 1 cap PO QDAY Qty: 0 RF: 0 [CO-Q-10] 1 cap PO QDAY Qty: 0 RF: 0 [Vitamin K-2] 100 mcg PO QDAY Qty: 60 RF: 0 ibuprofen 800 mg tablet 800 mg PO Q8H PRN (Reason: pain) Qty: 90 RF: 0 lorazepam [Ativan] 0.5 mg tablet 0.5 mg PO BID PRN (Reason: anxiety) Qty: 30 RF: 0 escitalopram oxalate 10 mg tablet 10 mg PO DAILY Qty: 30 RF: 1 verapamil 180 mg capsule,ext rel. pellets 24 hr 180 mg PO DAILY RF: 0 NAC capsule 600 mg PO BID RF: 0 Pure Kidney capsule 700 mg PO BID RF: 0 Cholesterol Pro tablet 2 each PO BID RF: 0 Natural Resveratrol capsule 200 mg PO DAILY RF: 0 Heart Stim Liquescence liquid 1 each PO BID RF: 0 hydrocodone-acetaminophen 5-325 mg tablet 1 tab PO Q4-6H PRN (Reason: pain) Qty: 10 RF: 0 Referrals: Vasu Ghosh ARNP [Primary Care Provider] -
[2020-09-29] MEDS: SODIUM CHLORIDE 0.9% 1,000 ML 1000 ML IV (23:20)
[2020-09-29] MEDS: KETOROLAC 60 MG/2 ML VIAL 30 MG IV (23:20)
[2020-09-29 23:27] LABS: Add Manual Diff / Slide Review NO; Basophils Absolute Auto 100 /uL (0-100); Basophils Percent Auto 1.1 % (0-2); Eosinophils Absolute Auto 100 /uL (0-450); Eosinophils Percent Auto 1.1 % (2-4); Hematocrit 39.4 % (36-46); Hemoglobin 13.5 g/dL (12.0-16.0); Lymphocytes Absolute Auto 900 /uL (1100-4500); Lymphocytes Percent Auto 18.9 % (25-40); Mean Corpuscular HGB Conc 34.2 % (30-36); Mean Corpuscular Hemoglobin 34.7 PG (26-34); Mean Corpuscular Volume 101.6 fL (80-100); Monocytes Absolute Auto 600 /uL (0-900); Monocytes Percent Auto 12.9 % (3-14); Neutrophils Absolute Auto 3300 /uL (1500-7000); Platelet Count 267 X10^3/uL (150-400); Red Blood Cell Count 3.88 X10^6/uL (4.0-5.2); Red Cell Distribution Width 13.3 % (11.6-14.8)
[2020-09-29 23:30] LABS: BUN Creatinine Ratio 26.4 (6-22); Blood Urea Nitrogen 14 mg/dL (7-17); Calcium 9.8 mg/dL (8.4-10.2); Carbon Dioxide 25 mmol/L (22-32); Chloride 103 mmol/L (98-107); Estimated Glomerular Filt Rate > 60.0 mL/min (>60); Glucose 100 mg/dL (80-110); HEMOLYSIS < 15 (0-50); Potassium 3.6 mmol/L (3.4-5.1); Sodium 136 mmol/L (137-145)
[2020-09-29 23:42] LABS: Erythrocyte Sedimentation Rate 32 MM/HR (0-20)
[2020-09-29 23:45] LABS: C-Reactive Protein Quant 1.1 mg/dL (<1.0)
[2020-09-30] VITALS: PULSE 79; O2SAT 97
[2020-09-30 00:30] VITALS: BP 145/90; PULSE 78; O2SAT 95
[2020-09-30 01:00] VITALS: BP 145/77; PULSE 71; O2SAT 95
[2020-09-30] MEDS: TRAMADOL 50 MG PREPACK 1 BOTTLE MISC (01:31)
== END 2020-09-30 01:46 | disposition home or self-care (01) ==
PROVIDERS: Emergency Provider Emergency Medicine; PCP Registered Nurse Diabetes Educator
DX: G44.201 Tension-type headache, unspecified, intractable (principal); M47.812 Spondylosis without myelopathy or radiculopathy, cervical region; M25.511 Pain in right shoulder
CPT/HCPCS: 70450; 72125; 80048; 85025; 85651; 86140; 96361; 96374; 99283; 99284; J1885

== ENCOUNTER → 2020-10-06 11:49 | Outpatient (CLI) | payer MEDICARE, SELFPAY ==
--- NOTE | 2020-10-06 11:51 | DI.MRI.S_ITS ---
PROCEDURE: MR STROKE Pre- and post-contrast brain MRI, non-contrast brain MR angiogram, pre- and postcontrast neck MR angiogram INDICATIONS: Hx worsening vertigo and balance problems, visual changes TECHNIQUE: Brain: Noncontrast axial T1 spin echo, axial T2 fast spin echo, sagittal and axial FLAIR, coronal T2 fast spin echo, axial gradient echo, axial diffusion and ADC through the brain. After the administration of contrast, axial 3D VIBE of the cranial vasculature and brain. In this patient, additional thin-section T2 SPACE images were performed through the skull base. Thin-section postcontrast images were obtained through the internal auditory canals. Brain MRA: Non-contrast 3-D time of flight MR angiogram, with multiple eyoqaie-jbqohgiha-xxbjdjvbsb (MIP) reformats performed. Neck MRA: Axial and sagittal TruFISP through the neck. Coronal dynamic MR angiogram during administration of contrast in the arterial and venous phases, with 3-dimenstional iphutes-kfbaobjuz-gzsvguburl (MIP) reformats constructed from subtraction images. COMPARISON: [facility], CT, HEAD WITHOUT CONTRAST, 08/20/2016, 17:16. [facility], CT, CT HEAD/BRAIN WO CON, 09/29/2020, 23:31. [facility], CT, HEAD WITHOUT CONTRAST, 08/22/2016, 19:14. FINDINGS: Image quality: Excellent. BRAIN: CSF spaces: Ventricles are normal in size and shape. Basal cisterns are patent. No extra-axial fluid collections. Brain: No intracranial bleeds or mass effects. Denis-white matter interface is normal. Diffusion weighted images show no acute ischemic insults. Brain parenchymal volume loss is seen. Chronic small vessel ischemic changes can be seen. Relatively prominent perivascular spaces are noted. Brainstem appears normal. Normal intravascular flow voids are present. No abnormal intracranial enhancement. Skull and face: Calvarial marrow signal is normal. Orbits appear normal. Sinuses: Focal moderate mucosal thickening is seen within the left maxillary sinus. Sinuses and mastoids are otherwise clear. BRAIN MR ANGIOGRAM: Anterior circulation: Intracranial internal carotid arteries are normal in size and enhancement. There is a hypoplastic right A1 segment, with a corresponding robust left A1 segment. This is considered to be a normal developmental variant of the [place], of typically no clinical consequence. The flow within the paired anterior cerebral arteries is otherwise normal and symmetric. The flow within the middle cerebral arteries is normal and symmetric. The anterior communicating artery is seen. No stenoses, occlusions, or aneurysms. Posterior circulation: The visualized portions of the vertebral arteries demonstrate normal caliber, and join to form a normal appearing basilar artery. There is a prominent right posterior communicating artery seen, with an accompanying diminutive right P1 segment. This is attributed to a type origin of the right posterior cerebral artery, which is considered to be a normal developmental variant of typically no clinical consequence. The flow within the posterior cerebral arteries is normal and symmetric. No stenoses, occlusions, or aneurysms. NECK MR ANGIOGRAM: Carotids: Great vessels demonstrate a conventional anatomy as they arise from the aortic arch. The origins of the common carotid arteries appear patent. The calibers and courses of both common carotid arteries are normal. The bifurcation regions appear normal bilaterally. The internal carotid arteries demonstrate normal course and caliber. Posterior circulation: The origins of the vertebral arteries appear patent. More superior portions of both vertebral arteries demonstrate normal course and caliber, and join to form a normal appearing basilar artery. Miscellaneous: Subclavian arteries appear patent. Pre-contrast images through the neck show no soft tissue abnormalities. IMPRESSION: BRAIN MRI: No findings of acute or subacute infarction can be seen. No masses or abnormal enhancement can be seen, including within the internal auditory canals and the cerebellopontine angle cisterns. Note is made of age-appropriate brain parenchymal volume loss and chronic small vessel ischemic changes. Focal left maxillary sinus disease noted. BRAIN MR ANGIOGRAM: No significant intracranial arterial abnormality is seen. Vjycgr-th-Ezbjvd developmental anomalies are incidentally noted. NECK MR ANGIOGRAM: Within the arteries of the neck, no hemodynamically significant stenosis can be seen. Dictated by: Arron Troy M.D. on 10/06/2020 at 12:07 Approved by: Arron Troy M.D. on 10/06/2020 at 12:13
== END ==
PROVIDERS: PCP Registered Nurse Diabetes Educator; Referring Provider Registered Nurse Diabetes Educator; Visit Provider Registered Nurse Diabetes Educator
DX: R42 Dizziness and giddiness (principal); H53.9 Unspecified visual disturbance; R26.89 Other abnormalities of gait and mobility; J32.0 Chronic maxillary sinusitis
CPT/HCPCS: 70548; 70553

== ENCOUNTER → 2020-12-31 12:13 | Outpatient (CLI) | payer MEDICARE, SELFPAY | PROVIDERS: PCP Registered Nurse Diabetes Educator; Referring Provider Registered Nurse Diabetes Educator; Visit Provider Registered Nurse Diabetes Educator | DX: Z12.31 Encounter for screening mammogram for malignant neoplasm of breast (principal); Z53.8 Procedure and treatment not carried out for other reasons | CPT/HCPCS: 77063; 77067 ==

== ENCOUNTER → 2021-01-05 14:17 | Outpatient (CLI) | payer MEDICARE, SELFPAY ==
--- NOTE | 2021-01-05 14:18 | DI.MG.S_ITS ---
UNILATERAL LEFT DIGITAL DIAGNOSTIC MAMMOGRAM 3D/2D POST MASTECTOMY: 01/05/2021 CLINICAL: Left breast pain. Comparison is made to exams dated: 09/07/2019 mammogram, 08/16/2018 ultrasound, 08/16/2018 mammogram, 07/13/2018 mammogram, and 02/24/2017 mammogram - [facility]. The tissue of left breast is heterogeneously dense. This may lower the sensitivity of mammography. No significant masses, calcifications, or other findings are seen in the breast. Prior right mastectomy. IMPRESSION: INCOMPLETE: NEEDS ADDITIONAL IMAGING EVALUATION No mammographic evidence of malignancy. A targeted ultrasound in the regions of pain is recommended and will immediately follow. This exam was interpreted at Station ID: [id number]. NOTE: For mammograms, a report in lay terms will be sent to the patient. Approximately 15% of breast malignancies will not be visualized mammographically. In the management of a palpable breast mass, a negative mammogram must not discourage biopsy of a clinically suspicious lesion. Electronically Signed By: Virgilio Paulino M.D. slc/:01/05/2021 15:25:36 ACR BI-RADS Category 0: Incomplete [id number]
--- NOTE | 2021-01-05 15:16 | DI.US.S_ITS ---
LIMITED ULTRASOUND OF LEFT BREAST AND AXILLA: 01/05/2021 CLINICAL: Focal left breast and axilla pain. Comparison is made to exams dated: 01/05/2021 mammogram, 09/07/2019 mammogram, 08/16/2018 ultrasound, 08/16/2018 mammogram, 07/13/2018 mammogram, and 02/24/2017 mammogram - [facility]. Color flow and real-time ultrasound of the left breast four quadrants, retroareolar, and axilla regions were performed. Denis scale images of the real-time examination were reviewed. No significant abnormalities were seen sonographically in the left breast or the left axilla. IMPRESSION: NEGATIVE There is no sonographic evidence of malignancy in the regions of pain. A 1 year screening mammogram is recommended. Exam findings were conveyed to the patient. Patient is advised to monitor for significant change. Clinical follow-up as needed. This exam was interpreted at Station ID: [id number]. Electronically Signed By: Virgilio Paulino M.D. slc/:01/05/2021 18:05:45 letter sent: Normal Exam Ultrasound BI-RADS: 1 Negative
== END ==
PROVIDERS: PCP Registered Nurse Diabetes Educator; Referring Provider Registered Nurse Diabetes Educator; Visit Provider Registered Nurse Diabetes Educator
DX: R92.8 Other abnormal and inconclusive findings on diagnostic imaging of breast (principal); N64.4 Mastodynia
CPT/HCPCS: 76642; 77065; G0279

== ENCOUNTER 2021-01-21 16:32 | Emergency (ER) | payer MEDICARE, SELFPAY ==
--- NOTE | 2021-01-21 16:40 | ED.GENADULT ---
HPI - General Adult General Chief complaint: Abdominal Pain Stated complaint: sent by doctor for possible stroke or heart attac Time Seen by Provider: 01/21/21 16:33 Source: patient Mode of arrival: Ambulatory Limitations: no limitations History of Present Illness HPI narrative: Patient is a 65-year-old female who recently underwent a dental procedure with sedation by nitrous oxide. She states that since that time she has had left-sided chest pain/left upper abdominal pain and also right-sided pain. She states that is worse when she takes a deep breath. Worse when she palpates the area. Worse when she bends over. Worse when she moves. She contacted her primary doctor's office and order come to the emergency department for evaluation. Has not tried anything for symptoms prior to arrival Related Data Home Medications Medication Instructions Recorded Confirmed [CALCIUM/MAGNESIUM] 1 cap PO QDAY #0 05/11/17 01/05/21 [CO-Q-10] 1 cap PO QDAY #0 05/11/17 01/05/21 multivitamin [Multiple Vitamins] 1 tab PO QDAY #0 05/11/17 01/05/21 [Vitamin K-2] 100 mcg PO QDAY #60 cap 08/16/17 01/05/21 thyroid (pork) 32.5 mg tablet 32.5 mg PO DAILY 11/29/18 01/05/21 Cholesterol Pro 2 each PO BID 12/23/19 01/05/21 Heart Stim Liquescence 1 each PO BID 12/23/19 01/05/21 NAC 600 mg PO BID 12/23/19 01/05/21 Natural Resveratrol 200 mg PO DAILY 12/23/19 01/05/21 Pure Kidney 700 mg PO BID 12/23/19 01/05/21 verapamil 180 mg 24 hr 180 mg PO DAILY 12/23/19 01/05/21 capsule,extended release Previous Rx's Medication Instructions Recorded varicella-zoster glycoE [id number] 50 mcg IM ONCE #1 each 03/05/19 adj(PF) 50 mcg/0.5 mL IM susp, kit ibuprofen 800 mg tablet 800 mg PO Q8H PRN #90 tab 03/13/20 escitalopram oxalate 10 mg tablet 10 mg PO DAILY #30 tab 07/23/20 lorazepam 0.5 mg tablet 0.5 mg PO BID PRN #30 tab 11/18/20 tramadol 50 mg PO Q6H PRN #10 tab 01/21/21 Allergies Allergy/AdvReac Type Severity Reaction Status Date / Time Sulfa (Sulfonamide Allergy Severe VOMITING Verified 01/21/21 16:45 Antibiotics) DIARRHEA [SULFA (SULFONAMIDE ANTIBIOTICS)] adhesive [ADHESIVE] AdvReac Severe PAPER TAPE Verified 01/21/21 16:45 OK, PLASTIC EVIDENTLY NOT? fluconazole [FLUCONAZOLE] AdvReac Intermediate Headache Verified 01/21/21 16:45 Rash Molds Allergy Intermediate coughing, Uncoded 01/21/21 16:45 sneezing and feeling plugged up Codiene AdvReac Mild Nausea Uncoded 01/05/21 13:06 Review of Systems Constitutional Constitutional: Denies fever(s) Cardiovascular Cardiovascular: Reports chest pain and Denies dyspnea Respiratory Respiratory: Denies cough, Reports pain on inspiration and Denies dyspnea Gastrointestinal Gastrointestinal: Reports abdominal pain (Upper abdomen), Denies nausea and Denies vomiting Genitourinary Genitourinary: Denies dysuria Genitourinary: Denies dysuria Musculoskeletal Musculoskeletal: Reports back pain and Denies myalgias Integumentary/Breasts Skin/Breast: Denies lesions and Denies rash Neurologic Neurologic: Denies behavioral changes Psychiatric Psychiatric: Denies behavioral changes Hematologic/Lymphatic On Anticoagulants: No Allergic/Immunologic Allergic/Immunologic: Denies urticaria Patient History Medical History (Updated 01/21/21 @ 18:16 by Negro Araya DO) Anxiety Balance disorder Headache Hip pain, bilateral Neck pain SI (sacroiliac) joint inflammation Vertigo Visual disturbance Surgical History History of total mastectomy (06/27/01) Family History Mother Age: 85 Diabetes mellitus Sister Age: 58 Osteoarthritis Sister Age: 67 Diabetes mellitus Social History Smoking Status: Never smoker second hand exposure: Yes (I grew up with it) alcohol intake: current substance use type: does not use Smoking Status: Never smoker alcohol intake frequency: 0-2 drinks per day Substance Use Type: does not use Exam Initial Vital Signs Initial Vital Signs: Vital Signs Temperature 98 F 01/21/21 16:42 Pulse Rate 94 H 01/21/21 16:42 Respiratory Rate 16 01/21/21 16:42 Blood Pressure 181/108 H 01/21/21 16:42 Pulse Oximetry 97 01/21/21 16:42 Const General: cooperative and comfortable Limitations: mental status not altered HENPA Head: normal to inspection and normocephalic Chest Other: Tenderness to palpation left lower chest wall Resp Effort & Inspection: normal respiratory effort Auscultation: clear to auscultation bilaterally Cardio Rate: regular rate Rhythm: regular rhythm GI Inspection: non-distended Palpation: soft and tender (Right upper and left upper quadrant abdominal pain) Back/Spine/Pelvis Back: No CVA tenderness Skin Lesions: no lesions Rashes: no rashes Neuro General: patient alert and patient awake Cognition: normal cognition Speech: speech normal Extrem General: capillary refill normal Psych Appearance: grossly normal and well kempt Course Orders Ordered: ED Orders 01/21/21 16:42 XR chest 1V Stat EKG-12 Lead Stat 01/21/21 16:45 Complete Blood Count AUTO DIFF Stat Comprehensive Metabolic Panel Stat Lipase Stat Troponin & CK Cardiac Panel Stat Vital Signs Vital signs: Vital Signs - 8 hr 01/21/21 16:42 Temperature 98 F Pulse Rate 94 H Respiratory Rate 16 Blood Pressure 181/108 H Pulse Oximetry 97 Medical Decision Making Lab Data Lab results reviewed: Yes I reviewed the patient's lab results. Result diagrams: 01/21/21 16:45 01/21/21 16:45 Labs: Lab Results 01/21/21 01/21/21 Range/Units 16:45 16:45 WBC 5.6 (4.5-11.0) X10^3/uL RBC 3.96 L (4.0-5.2) X10^6/uL Hgb 13.8 (12.0-16.0) g/dL Hct 39.5 (36-46) % MCV 99.8 (80-100) fL MCH 34.9 H (26-34) PG MCHC 35.0 (30-36) % RDW 12.7 (11.6-14.8) % Plt Count 233 (150-400) X10^3/uL Neut % (Auto) 56.0 (50-75) % Lymph % (Auto) 30.0 (25-40) % Rusk % (Auto) 12.2 (3-14) % Eos % (Auto) 0.7 L (2-4) % Baso % (Auto) 1.1 (0-2) % Neut # (Auto) 3200 (9453-0883) /uL Lymph # (Auto) 1700 (6065-3310) /uL Rusk # (Auto) 700 (0-900) /uL Eos # (Auto) 0 (0-450) /uL Baso # (Auto) 100 (0-100) /uL Sodium 134 L (137-145) mmol/L Potassium 4.1 (3.4-5.1) mmol/L Chloride 105 (98-107) mmol/L Carbon Dioxide 26 (22-32) mmol/L BUN 9 (7-17) mg/dL Creatinine 0.80 (0.52-1.04) mg/dL Estimated GFR > 60.0 (>60) mL/min BUN/Creatinine Ratio 11.3 (6-22) Glucose 101 (80-110) mg/dL Calcium 9.8 (8.4-10.2) mg/dL Total Bilirubin 1.0 (0.2-1.3) mg/dL AST 41 H (14-36) IU/L ALT 21 (<35) IU/L Alkaline Phosphatase 108 (38-126) U/L Total Creatine Kinase 59 (30-135) U/L CK-MB (CK-2) TNP CK-MB (CK-2) Rel Index TNP Troponin I < 0.012 (0.01-0.034) ng/mL Total Protein 8.1 (6.3-8.2) g/dL Albumin 4.2 (3.5-5.0) g/dL Globulin 3.9 (1.7-4.1) g/dL Albumin/Globulin Ratio 1.1 (1.0-2.8) Lipase 125 (23-300) U/L Imaging Data Chest x-ray: Radiologist's Impression: [address] [id number] ReportSigned Patient: Karolina Ulrich [facility]#: [id number]: 5Acct:[id number]/Sex: 65 / FDate of Service: 01/21/21Loc: EDAccession Number: [id number] Procedure: XR chest 1V Ordering Provider: Negro Araya D.O. PROCEDURE: XR CHEST 1V INDICATIONS: Chest pain TECHNIQUE: One view of the chest was acquired. COMPARISON: [facility], CR, XR CHEST 1V, 06/07/2019, 19:03. FINDINGS: Surgical changes and devices: Right axillary surgical clips Lungs and pleura: Lungs are clear. No pleural effusions or pneumothorax. Mediastinum: Mediastinal contours appear normal. Heart size is normal. Bones and chest wall: No suspicious bony lesions. Overlying soft tissues appear unremarkable. IMPRESSION: No acute disease. Dictated by: Smith Luo M.D. on 01/21/2021 at 17:42 Approved by: Smith Luo M.D. on 01/21/2021 at 17:43 [facility] Narrative Medical decision making narrative: Patient has clearly clearly reproducible upper abdominal pain. I suspect that this is musculoskeletal in origin most likely from the position that she was in when she had her dental work performed. No signs of pneumonia. Low suspicion for cardiac etiology. Her lipase is unremarkable. No indication for further radiologic studies nor surgical intervention or consultation. I did discuss this with the patient. She was given return precautions and follow-up instructions. She expressed understanding and agreement. Discharge Plan Departure Patient Disposition: Home Clinical Impression: Bilateral upper abdominal pain Instructions: DI for Abdominal Pain-Adult Activity Restrictions/Additional Instructions: I suspect that your symptoms are musculoskeletal in origin based on the workup that we did here in the emergency department however if you develop new symptoms or if the symptoms that you currently have worsen please return to the emergency department for further evaluation. Prescriptions: New tramadol 50 mg tablet 50 mg PO Q6H PRN (Reason: pain) Qty: 10 RF: 0 No Action thyroid (pork) [Nature-Throid] 32.5 mg tablet 32.5 mg PO DAILY RF: 0 Shingrix (PF) 50 mcg/0.5 mL suspension for reconstitution 50 mcg IM ONCE Qty: 1 RF: 1 multivitamin [Multiple Vitamins] 1 EACH tablet 1 tab PO QDAY Qty: 0 RF: 0 [CALCIUM/MAGNESIUM] 1 cap PO QDAY Qty: 0 RF: 0 [CO-Q-10] 1 cap PO QDAY Qty: 0 RF: 0 [Vitamin K-2] 100 mcg PO QDAY Qty: 60 RF: 0 ibuprofen 800 mg tablet 800 mg PO Q8H PRN (Reason: pain) Qty: 90 RF: 0 lorazepam [Ativan] 0.5 mg tablet 0.5 mg PO BID PRN (Reason: anxiety) Qty: 30 RF: 0 escitalopram oxalate 10 mg tablet 10 mg PO DAILY Qty: 30 RF: 1 verapamil 180 mg capsule,ext rel. pellets 24 hr 180 mg PO DAILY RF: 0 NAC capsule 600 mg PO BID RF: 0 Pure Kidney capsule 700 mg PO BID RF: 0 Cholesterol Pro tablet 2 each PO BID RF: 0 Natural Resveratrol capsule 200 mg PO DAILY RF: 0 Heart Stim Liquescence liquid 1 each PO BID RF: 0 Referrals: Vasu Ghosh ARNP [Primary Care Provider] -
[2021-01-21 16:42] VITALS: BP 181/108; PULSE 94; RESP 16; TEMP 36.6; O2SAT 97
[2021-01-21 17:03] LABS: Alanine Aminotransferase 21 IU/L (<35); Albumin 4.2 g/dL (3.5-5.0); Albumin Globulin Ratio 1.1 (1.0-2.8); Alkaline Phosphatase 108 U/L (38-126); Aspartate Aminotransferase 41 IU/L (14-36); BUN Creatinine Ratio 11.3 (6-22); Blood Urea Nitrogen 9 mg/dL (7-17); Calcium 9.8 mg/dL (8.4-10.2); Carbon Dioxide 26 mmol/L (22-32); Chloride 105 mmol/L (98-107); Creatine Kinase 59 U/L (30-135); Estimated Glomerular Filt Rate > 60.0 mL/min (>60); Globulin 3.9 g/dL (1.7-4.1); Glucose 101 mg/dL (80-110); HEMOLYSIS < 15 (0-50); Lipase 125 U/L (23-300); Potassium 4.1 mmol/L (3.4-5.1); Sodium 134 mmol/L (137-145); Total Protein 8.1 g/dL (6.3-8.2)
[2021-01-21 17:06] LABS: Add Manual Diff / Slide Review NO; Basophils Absolute Auto 100 /uL (0-100); Basophils Percent Auto 1.1 % (0-2); Eosinophils Absolute Auto 0 /uL (0-450); Eosinophils Percent Auto 0.7 % (2-4); Hematocrit 39.5 % (36-46); Hemoglobin 13.8 g/dL (12.0-16.0); Lymphocytes Absolute Auto 1700 /uL (1100-4500); Mean Corpuscular Hemoglobin 34.9 PG (26-34); Mean Corpuscular Volume 99.8 fL (80-100); Monocytes Absolute Auto 700 /uL (0-900); Monocytes Percent Auto 12.2 % (3-14); Neutrophils Absolute Auto 3200 /uL (1500-7000); Platelet Count 233 X10^3/uL (150-400); Red Blood Cell Count 3.96 X10^6/uL (4.0-5.2); Red Cell Distribution Width 12.7 % (11.6-14.8); White Blood Cell Count 5.6 X10^3/uL (4.5-11.0)
[2021-01-21 17:15] LABS: Troponin I < 0.012 ng/mL (0.01-0.034)
[2021-01-21 18:17] VITALS: BP 139/76; PULSE 76; RESP 12; O2SAT 98
[2021-01-21 18:29] VITALS: BP 139/76; PULSE 70; RESP 14; O2SAT 99
== END 2021-01-21 18:31 | disposition home or self-care (01) ==
PROVIDERS: Emergency Provider Emergency Medicine; PCP Registered Nurse Diabetes Educator
DX: R10.12 Left upper quadrant pain (principal); R10.11 Right upper quadrant pain; R07.9 Chest pain, unspecified
CPT/HCPCS: 36415; 71045; 80053; 82550; 83690; 84484; 85025; 99283; 99284

== ENCOUNTER → 2021-02-11 10:24 | Outpatient (CLI) | payer MEDICARE, SELFPAY ==
[2021-02-11] MEDS: COVID-19 VACC #1, MRNA(MOD) 100 MCG/0.5 ML VIAL IM (10:34)
== END ==
PROVIDERS: PCP Registered Nurse Diabetes Educator; Visit Provider Internal Medicine
DX: Z23 Encounter for immunization (principal)
CPT/HCPCS: 0011A; 91301

== ENCOUNTER → 2021-02-20 17:54 | Outpatient (CLI) | payer MEDICARE, SELFPAY ==
[2021-02-20 18:29] LABS: COVID19 -Nasal RAPID Negative (Negative)
== END ==
PROVIDERS: PCP Registered Nurse Diabetes Educator; Visit Provider Physician Assistant
DX: R09.81 Nasal congestion (principal); Z20.822 Contact with and (suspected) exposure to COVID-19
CPT/HCPCS: 87635

== ENCOUNTER → 2021-03-11 10:25 | Outpatient (CLI) | payer MEDICARE, SELFPAY ==
[2021-03-11] MEDS: COVID-19 VACC #2, MRNA(MOD) 100 MCG/0.5 ML VIAL IM (10:35)
== END ==
PROVIDERS: PCP Registered Nurse Diabetes Educator; Visit Provider Internal Medicine
DX: Z23 Encounter for immunization (principal)
CPT/HCPCS: 0012A; 91301

== ENCOUNTER 2021-09-24 15:55 | Emergency (ER) | payer MEDICARE, SELFPAY ==
[2021-09-24] VITALS (10 sets, daily range): BP systolic 118–150; BP diastolic 64–82; PULSE 78–121; RESP 14–39; TEMP 35.9; O2SAT 95–100; BMI 20.2
--- NOTE | 2021-09-24 16:21 | DI.RAD.S_ITS ---
PROCEDURE: XR CHEST 1V INDICATIONS: chest pain TECHNIQUE: One view of the chest was acquired. COMPARISON: [facility], CR, XR CHEST 1V, 01/21/2021, 17:12. FINDINGS: Surgical changes and devices: Status post right mastectomy. Right axillary and right chest wall surgical clips are stable. Lungs and pleura: Lungs are clear. No pleural effusions or pneumothorax. Mediastinum: Mediastinal contours appear normal. Heart size is normal. Bones and chest wall: No suspicious bony lesions. Overlying soft tissues appear unremarkable. IMPRESSION: No acute cardiopulmonary disease process. Dictated by: Lilo Hills MD, PhD on 09/24/2021 at 17:02 Approved by: Lilo Hills MD, PhD on 09/24/2021 at 17:02
[2021-09-24 16:37] LABS: Add Manual Diff / Slide Review NO; Basophils Absolute Auto 0 /uL (0-100); Basophils Percent Auto 0.6 % (0-2); Eosinophils Absolute Auto 0 /uL (0-450); Eosinophils Percent Auto 0.8 % (2-4); Hematocrit 41.7 % (36-46); Hemoglobin 14.3 g/dL (12.0-16.0); Lymphocytes Absolute Auto 1400 /uL (1100-4500); Lymphocytes Percent Auto 25.4 % (25-40); Mean Corpuscular HGB Conc 34.2 % (30-36); Mean Corpuscular Hemoglobin 34.7 PG (26-34); Mean Corpuscular Volume 101.4 fL (80-100); Monocytes Absolute Auto 500 /uL (0-900); Neutrophils Absolute Auto 3500 /uL (1500-7000); Neutrophils Percent Auto 64.2 % (50-75); Platelet Count 270 X10^3/uL (150-400); Red Blood Cell Count 4.11 X10^6/uL (4.0-5.2); Red Cell Distribution Width 13.1 % (11.6-14.8); White Blood Cell Count 5.5 X10^3/uL (4.5-11.0)
[2021-09-24 16:48] LABS: Prothrombin Time 11.1 SECONDS (10.1-12.7)
[2021-09-24 16:51] LABS: Alanine Aminotransferase 22 IU/L (<35); Albumin 4.5 g/dL (3.5-5.0); Albumin Globulin Ratio 1.2 (1.0-2.8); Alkaline Phosphatase 85 U/L (38-126); Aspartate Aminotransferase 52 IU/L (14-36); BUN Creatinine Ratio 21.3 (6-22); Bilirubin Total 0.7 mg/dL (0.2-1.3); Blood Urea Nitrogen 13 mg/dL (7-17); Calcium 10.1 mg/dL (8.4-10.2); Carbon Dioxide 28 mmol/L (22-32); Chloride 100 mmol/L (98-107); Creatine Kinase 55 U/L (30-135); Estimated Glomerular Filt Rate > 60.0 mL/min (>60); Globulin 3.9 g/dL (1.7-4.1); Glucose 180 mg/dL (80-110); HEMOLYSIS < 15 (0-50); Lipase 166 U/L (23-300); PTT Partial Thromboplastin Tim 33 SECONDS (26.4-36.2); Potassium 3.9 mmol/L (3.4-5.1); Sodium 137 mmol/L (137-145); Total Protein 8.4 g/dL (6.3-8.2)
[2021-09-24 17:02] LABS: Troponin I < 0.012 ng/mL (0.01-0.034)
--- NOTE | 2021-09-24 17:09 | ED.CHESTPAIN ---
HPI - Chest Pain General Chief Complaint: Chest Pain Stated Complaint: Lt Sided Rib/Side Pain Time Seen by Provider: 09/24/21 17:05 Source: patient Mode of arrival: Ambulatory Limitations: no limitations History of Present Illness HPI narrative: The patient complains of left lateral chest pain. Pain started 3 days ago. There was no injury. She has pain with motion, deep breathing. She has no cough, no hemoptysis. She denies dyspnea. She has no palpitations. She has pain with motion primarily. She bent over earlier today to pepper picker the cat, pain got suddenly worse. She could not hold the cat. She has not been ill, no fever chills. She has no chronic cardiopulmonary problems. She has no headache, sore throat, change in taste or smell. She has no GI symptoms. Pain is significantly worse today than when starting 3 days ago. The pain does not radiate. She has no back discomfort. There are no recent echo results available with this facility. Related Data Home Medications Medication Instructions Recorded Confirmed [CALCIUM/MAGNESIUM] 1 cap PO QDAY #0 05/11/17 02/20/21 [CO-Q-10] 1 cap PO QDAY #0 05/11/17 02/20/21 multivitamin (Multiple Vitamins) 1 tab PO QDAY #0 05/11/17 02/20/21 [Vitamin K-2] 100 mcg PO QDAY #60 cap 08/16/17 02/20/21 thyroid (pork) 32.5 mg tablet 32.5 mg PO DAILY 11/29/18 02/20/21 (Nature-Throid) Cholesterol Pro 2 each PO BID 12/23/19 02/20/21 Heart Stim Liquescence 1 each PO BID 12/23/19 02/20/21 NAC 600 mg PO BID 12/23/19 02/20/21 Natural Resveratrol 200 mg PO DAILY 12/23/19 02/20/21 Pure Kidney 700 mg PO BID 12/23/19 02/20/21 verapamil 180 mg 24 hr 180 mg PO DAILY 12/23/19 02/20/21 capsule,extended release Previous Rx's Medication Instructions Recorded varicella-zoster glycoE [id number] 50 mcg IM ONCE #1 each 03/05/19 adj(PF) 50 mcg/0.5 mL IM susp, kit (Shingrix (PF)) ibuprofen 800 mg tablet 800 mg PO Q8H PRN #90 tab 03/13/20 tramadol 50 mg tablet 50 mg PO Q6H PRN #10 tab 01/21/21 lorazepam 0.5 mg tablet (Ativan) 0.5 mg PO BID PRN #30 tab 05/27/21 hydrocodone 5 mg-acetaminophen 325 1 tab PO Q6H PRN #20 tab 09/24/21 mg tablet Allergies Allergy/AdvReac Type Severity Reaction Status Date / Time Sulfa (Sulfonamide Allergy Severe VOMITING Verified 09/24/21 16:12 Antibiotics) DIARRHEA [SULFA (SULFONAMIDE ANTIBIOTICS)] latex Allergy Verified 09/24/21 16:12 adhesive [ADHESIVE] AdvReac Severe PAPER TAPE Verified 09/24/21 16:12 OK, PLASTIC EVIDENTLY NOT? fluconazole [FLUCONAZOLE] AdvReac Intermediate Headache Verified 09/24/21 16:12 Rash codeine AdvReac Mild Nausea Verified 09/24/21 17:35 Review of Systems Constitutional Constitutional: Denies body ache(s), Denies chills, Denies fatigue, Denies fever(s) and Denies headache(s) Eyes Eyes: Denies blurry vision ENT Ears, Nose, Mouth, and Throat: Denies vertigo, Denies dizziness, Denies dry mouth, Denies headache(s), Denies mouth pain and Denies odynophagia Cardiovascular Cardiovascular: Reports as per HPI Respiratory Respiratory: Denies chest congestion, Denies hemoptysis and Reports pain with cough Gastrointestinal Gastrointestinal: Denies abdominal pain, Denies bloating, Denies dyspepsia, Denies nausea, Denies odynophagia and Denies vomiting Genitourinary Genitourinary: Reports other (No complaints.) Musculoskeletal Musculoskeletal: Denies back pain Integumentary/Breasts Skin/Breast: Reports other (No rash or skin lesions.) Neurologic Neurologic: Denies vertigo, Denies dizziness and Denies headache(s) Endocrine Endocrine: Denies fatigue Hematologic/Lymphatic Hematologic/Lymphatic: Denies easy bruising Patient History Medical History Anxiety Balance disorder Headache Hip pain, bilateral Liver enzyme elevation Neck pain SI (sacroiliac) joint inflammation Vertigo Visual disturbance Surgical History History of total mastectomy (06/27/01) Family History Mother Age: 86 Diabetes mellitus Sister Age: 59 Osteoarthritis Sister Age: 68 Diabetes mellitus Social History Smoking Status: Never smoker second hand exposure: Yes (I grew up with it) alcohol intake: current substance use type: does not use Smoking Status: Never smoker alcohol intake frequency: a few times a week Substance Use Type: does not use Exam Initial Vital Signs Initial Vital Signs: Vital Signs Temperature 96.7 F L 09/24/21 16:12 Pulse Rate 97 H 09/24/21 16:12 Respiratory Rate 14 09/24/21 16:12 Blood Pressure 150/82 H 09/24/21 16:12 Pulse Oximetry 98 09/24/21 16:12 Const General: cooperative, healthy appearing and comfortable HENMT Head: normal to inspection, normocephalic and atraumatic Neck Neck: No JVD Lymphatic: No lymphadenopathy Chest Chest: normal inspection of the chest, No crepitus, localized rib tenderness with anteroposterior compression (Left lateral ribs.), No rash and other Resp Effort & Inspection: normal respiratory effort Auscultation: other Cardio Rate: regular rate Rhythm: regular rhythm Heart Sounds: S1 normal, S2 normal, no click, no gallops and no murmurs Other: Palpable chest wall tenderness on left lateral ribs. No crepitus. No palpable defects. No contusions or abrasions. GI Palpation: soft, No mass and No tender Back/Spine/Pelvis Back: normal to inspection and No back tenderness Skin General: no rashes or lesions noted Rashes: no rashes (No evidence of shingles.) Extrem General: normal to inspection, full ROM, no calf tenderness and other Psych Mental Status: mental status grossly normal Course Orders Ordered: ED Orders 09/24/21 16:20 Complete Blood Count AUTO DIFF Stat Comprehensive Metabolic Panel Stat D Dimer Stat Lipase Stat Partial Thromboplastin Time Stat Prothrombin Time INR Stat Troponin & CK Cardiac Panel Stat 09/24/21 16:21 XR chest 1V Stat EKG-12 Lead Stat 09/24/21 18:09 CT angio chest PE protocol Stat Discontinued Medications Hydromorphone HCl (Hydromorphone 0.5 Mg Inj) 0.5 mg IV NOW ONE Stop: 09/24/21 18:28 Last Admin: 09/24/21 18:33 Dose: 0.5 mg Documented by: FRANKLIN Ketorolac Tromethamine (Ketorolac 30 Mg/Ml Vial) 15 mg IV NOW ONE Stop: 09/24/21 17:33 Last Admin: 09/24/21 17:42 Dose: 15 mg Documented by: FRANKLIN Ondansetron HCl (Ondansetron 4 Mg/2 Ml Inj) 4 mg IV NOW ONE Stop: 09/24/21 18:29 Last Admin: 09/24/21 18:33 Dose: 4 mg Documented by: FRANKLIN Vital Signs Vital signs: Vital Signs - 8 hr 09/24/21 16:12 09/24/21 16:41 09/24/21 17:00 Temperature 96.7 F L Pulse Rate 97 H 88 82 Respiratory Rate 14 18 18 Blood Pressure 150/82 H 118/64 Pulse Oximetry 98 98 96 09/24/21 17:30 09/24/21 18:00 09/24/21 18:30 Temperature Pulse Rate 121 H 82 82 Respiratory Rate 39 H 19 17 Blood Pressure 128/75 149/65 H Pulse Oximetry 97 95 100 MDM - Chest Pain Medical Records Data Medical records narrative: The patient has left chest wall pain, out of character with clinical findings. Chest x-ray is normal. Labs do not lead to a diagnosis. A CTA of the chest shows no PE. She has a left 7th rib fracture. Lab Data Result diagrams: 09/24/21 16:20 09/24/21 16:20 Labs: Lab Results 09/24/21 09/24/21 09/24/21 Range/Units 16:20 16:20 16:20 WBC 5.5 (4.5-11.0) X10^3/uL RBC 4.11 (4.0-5.2) X10^6/uL Hgb 14.3 (12.0-16.0) g/dL Hct 41.7 (36-46) % MCV 101.4 H (80-100) fL MCH 34.7 H (26-34) PG MCHC 34.2 (30-36) % RDW 13.1 (11.6-14.8) % Plt Count 270 (150-400) X10^3/uL Neut % (Auto) 64.2 (50-75) % Lymph % (Auto) 25.4 (25-40) % Republic % (Auto) 9.0 (3-14) % Eos % (Auto) 0.8 L (2-4) % Baso % (Auto) 0.6 (0-2) % Neut # (Auto) 3500 (9238-6468) /uL Lymph # (Auto) 1400 (9153-3671) /uL Republic # (Auto) 500 (0-900) /uL Eos # (Auto) 0 (0-450) /uL Baso # (Auto) 0 (0-100) /uL PT 11.1 (10.1-12.7) SECONDS INR 1.0 (0.9-1.3) APTT 33 (26.4-36.2) SECONDS D-Dimer (<230) ng/mL Sodium 137 (137-145) mmol/L Potassium 3.9 (3.4-5.1) mmol/L Chloride 100 (98-107) mmol/L Carbon Dioxide 28 (22-32) mmol/L BUN 13 (7-17) mg/dL Creatinine 0.61 (0.52-1.04) mg/dL Estimated GFR > 60.0 (>60) mL/min BUN/Creatinine Ratio 21.3 (6-22) Glucose 180 H (80-110) mg/dL Calcium 10.1 (8.4-10.2) mg/dL Total Bilirubin 0.7 (0.2-1.3) mg/dL AST 52 H (14-36) IU/L ALT 22 (<35) IU/L Alkaline Phosphatase 85 (38-126) U/L Total Creatine Kinase 55 (30-135) U/L CK-MB (CK-2) TNP CK-MB (CK-2) Rel Index TNP Troponin I < 0.012 (0.01-0.034) ng/mL Total Protein 8.4 H (6.3-8.2) g/dL Albumin 4.5 (3.5-5.0) g/dL Globulin 3.9 (1.7-4.1) g/dL Albumin/Globulin Ratio 1.2 (1.0-2.8) Lipase 166 (23-300) U/L 10/29/21 Range/Units 16:20 WBC (4.5-11.0) X10^3/uL RBC (4.0-5.2) X10^6/uL Hgb (12.0-16.0) g/dL Hct (36-46) % MCV (80-100) fL MCH (26-34) PG MCHC (30-36) % RDW (11.6-14.8) % Plt Count (150-400) X10^3/uL Neut % (Auto) (50-75) % Lymph % (Auto) (25-40) % Republic % (Auto) (3-14) % Eos % (Auto) (2-4) % Baso % (Auto) (0-2) % Neut # (Auto) (8940-5969) /uL Lymph # (Auto) (6692-3704) /uL Republic # (Auto) (0-900) /uL Eos # (Auto) (0-450) /uL Baso # (Auto) (0-100) /uL PT (10.1-12.7) SECONDS INR (0.9-1.3) APTT (26.4-36.2) SECONDS D-Dimer 379 H (<230) ng/mL Sodium (137-145) mmol/L Potassium (3.4-5.1) mmol/L Chloride (98-107) mmol/L Carbon Dioxide (22-32) mmol/L BUN (7-17) mg/dL Creatinine (0.52-1.04) mg/dL Estimated GFR (>60) mL/min BUN/Creatinine Ratio (6-22) Glucose (80-110) mg/dL Calcium (8.4-10.2) mg/dL Total Bilirubin (0.2-1.3) mg/dL AST (14-36) IU/L ALT (<35) IU/L Alkaline Phosphatase (38-126) U/L Total Creatine Kinase (30-135) U/L CK-MB (CK-2) CK-MB (CK-2) Rel Index Troponin I (0.01-0.034) ng/mL Total Protein (6.3-8.2) g/dL Albumin (3.5-5.0) g/dL Globulin (1.7-4.1) g/dL Albumin/Globulin Ratio (1.0-2.8) Lipase (23-300) U/L Imaging Data Chest x-ray: Radiologist's Impression: 222 1 Gordon Clark MD [facility] Routine Call Back Main ED ?7? My List ?2? Waiting ?1? Surge ED ?0? R04? Delmar Wright (Geoff)? 66 M? With Doctor? 3h 46m? 3-Urgent? ?? Toxicology Problem? ETOH? ?? 09/24/21 16:54? REG ER? Draft? Reena Crew Nani Oglesby Patient can do intake screening with [facility] @ 1900 Order BP Pulse 98 Resp 24 Temp O2 Sat 97% ?Acetaminop... ?Complete B... Urine Drug... ?Chem ?Ethanol (E... Salicylate... TSH w/ Ref... POC/GA COVID19 -N... ?Hepatic (L... Lipase Sta... ?Magnesium ... Phosphorou... ?Urine Micr... ?Ictotest U... MAR Consult to... EKG-12 Penny... Cardiac mo... Urine Drug... Microbiolo... EKG-12 Penny... R05? Eden Barker (Lorena)? 81 F? With Doctor? 18m? No Chief Complaint? DIZZY? ?? 09/24/21 18:47? REG ER? No Document? Angelika Galan Order R06? Karolina Ulrich? 65 F? With Doctor? 3h 7m? 2-Emergent? ?? Chest Pain? Lt Sided Rib/Side Pain? ?? 09/24/21 17:05? REG ER? Draft? Gordon Landisry H ? Order BP 149/65 Pulse 82 Resp 17 Temp O2 Sat 100% Lipase Sta... ?Chem ?D Dimer St... Partial Th... Troponin &... ?Complete B... Prothrombi... Imaging MAR NPO Diet EKG-12 Penny... Cardiac mo... R08? Guillermina Guy S? 66 F? With Doctor? 17m? 3-Urgent? VC: 1? Chest Pain? COVID+, Chest Pains? [id number]? 09/24/21 18:50? REG ER? No Document? Angelika Galan Order R10? Rosa Rondon Reny? 85 F? With Doctor? 1h 35m? 3-Urgent? ?? GI Bleed? GLF & rectal bleeding? ISO? 09/24/21 17:53? REG ER? Draft? Angelika Galan Karrie T need lactate and blood cultures, trop, procal Order BP 149/62 Pulse 54 Resp 27 Temp 97.6 F O2 Sat 100% (RA) ?Complete B... ?Chem POC/GA MAR NPO Diet EKG-12 Penny... Cardiac mo... Lactate (L... Type and S... Troponin &... Imaging COVID19 - ... Procalcito... Microbiolo... R11? Christa Leggett? 16 F? In Room? 12m? No Chief Complaint? HIT ON THE HEAD? ?? No Time Seen? REG ER? No Document? Sign Up Order WRoom? Carline Silva? 66 F? Waiting Room? 2m? No Chief Complaint? VOMITING STOMACH PAINS? ?? No Time Seen? PRE ER? No Document? Sign Up Order Imaging - CT angio chest PE protocol; XR chest 1V Karolina Ulrich??65??F??1955 ? Allergy/Adv: Sulfa (Sulfonamide Antibiotics), latex, adhesive, fluconazole, codeine (More??) Close Results Imaging ACTIVITY DATE EXAM STATUS AUTHOR 09/24/21 18:09 Chest CTA ? 09/24/21 16:21 Chest X-Ray Signed [facility] Reports Close Chest CTA 09/24/21 Chest X-Ray (Signed) [facility] - 09/24/21 Launch?[address] [address] XRay Report Signed Patient: Karolina Ulrich MR#: [id number] : 1955 Acct:[id number] Age/Sex: 65 / F Date of Service: 09/24/21 Loc: ED Accession Number: [id number] ?? Procedure: XR chest 1V Ordering Provider: Gordon Clark MD PROCEDURE:? XR CHEST 1V ? INDICATIONS:? chest pain ? TECHNIQUE:? One view of the chest was acquired.? ? COMPARISON:? [facility], CR, XR CHEST 1V, 01/21/2021, 17:12. ? FINDINGS:? ? Surgical changes and devices:? Status post right mastectomy.? Right axillary and right chest wall surgical clips are stable. ? Lungs and pleura:? Lungs are clear.? No pleural effusions or pneumothorax.? ? Mediastinum:? Mediastinal contours appear normal.? Heart size is normal.? ? Bones and chest wall:? No suspicious bony lesions.? Overlying soft tissues appear unremarkable.? ? IMPRESSION:? No acute cardiopulmonary disease process. ? Dictated by: [facility] [place] MD, PhD on 09/24/2021 at 17:02 ? ? Approved by: [place] [place] MD, PhD on 09/24/2021 at 17:02?? CT scan - chest: Radiologist's Impression: [place] [address] CT Scan Report Signed Patient: Karolina Ulrich MR#: [id number] : 1955 Acct:[id number] Age/Sex: 65 / F Date of Service: 09/24/21 Loc: ED Accession Number: [id number] ?? Procedure: CT angio chest PE protocol Ordering Provider: Gordon Clark MD PROCEDURE:? CT ANGIO CHEST PE PROTOCOL ? INDICATIONS:? 65-year-old female with left-sided chest pain and history right mastectomy for breast cancer ? TECHNIQUE:? After the administration of intravenous contrast, 2 mm thick sections acquired from the pulmonary apices to the posterior costophrenic angles.? Maximum intensity projection (MIP) coronal and sagittal reformats were then acquired through the thorax.? For radiation dose reduction, the following was used:? automated exposure control, adjustment of mA and/or kV according to patient size.? ? COMPARISON:? [facility], CT, CT ABDOMEN PELVIS WITHOUT CONTRAST, 10/14/2019, 13:31. ? FINDINGS:? Image quality:? Excellent.? ? Pulmonary arteries:? Pulmonary arteries are normal in size, and demonstrate no intraluminal filling defects to suggest central pulmonary embolism.? ? Lungs and pleura:? Lungs are clear.? No pleural effusions or pneumothorax.? Central and peripheral airways are patent.? Radiation fibrosis noted in the anterior right middle lobe associated with mastectomy ? Mediastinum:? Heart size is normal, without pericardial effusion.? No mediastinal or hilar adenopathy.? Thoracic aorta is normal in caliber and enhancement.? Esophagus is normal in caliber, without hiatal hernia.? ? Bones and chest wall:? Right mastectomy.? Left 7th lateral rib fracture, nondisplaced.? No lytic or blastic osseous lesions. ? Abdomen:? Multiple hepatic cysts, similar to the prior exam 2019. ? IMPRESSION:? ? 1. No evidence of pulmonary embolism, aortic dissection or aneurysm. ? 2. Nondisplaced left 7th rib fracture.? No pneumothorax. ? 3. 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 ? ? Approved by: Rupert Mccormack M.D. on 09/24/2021 at 18:03? ECG Data Attestation: I personally reviewed and interpreted this ECG as follows: (Normal sinus rhythm rate 9 beats per minute. Normal intervals. No ectopy. No acute ST T wave changes.) Discharge Plan Departure Patient Disposition: Home Clinical Impression: Left rib fracture Qualifiers: Encounter type: initial encounter Rib fracture type: single rib Fracture type: closed Qualified Code(s): S22.32XA - Fracture of one rib, left side, initial encounter for closed fracture Instructions: Rib Fracture Activity Restrictions/Additional Instructions: [place] 1 tablet every 6 hours as needed for pain. Walk-in stretch frequent, you need to practice deep breathing. Recheck with your doctor in 1-2 weeks. Return here as necessary. Prescriptions: New hydrocodone-acetaminophen 5-325 mg tablet 1 tab PO Q6H PRN (Reason: pain) Qty: 20 RF: 0 No Action thyroid (pork) [Nature-Throid] 32.5 mg tablet 32.5 mg PO DAILY RF: 0 Shingrix (PF) 50 mcg/0.5 mL suspension for reconstitution 50 mcg IM ONCE Qty: 1 RF: 1 multivitamin [Multiple Vitamins] 1 EACH tablet 1 tab PO QDAY Qty: 0 RF: 0 [CALCIUM/MAGNESIUM] 1 cap PO QDAY Qty: 0 RF: 0 [CO-Q-10] 1 cap PO QDAY Qty: 0 RF: 0 [Vitamin K-2] 100 mcg PO QDAY Qty: 60 RF: 0 ibuprofen 800 mg tablet 800 mg PO Q8H PRN (Reason: pain) Qty: 90 RF: 0 lorazepam [Ativan] 0.5 mg tablet 0.5 mg PO BID PRN (Reason: anxiety) Qty: 30 RF: 0 verapamil 180 mg capsule,ext rel. pellets 24 hr 180 mg PO DAILY RF: 0 NAC capsule 600 mg PO BID RF: 0 Pure Kidney capsule 700 mg PO BID RF: 0 Cholesterol Pro tablet 2 each PO BID RF: 0 Natural Resveratrol capsule 200 mg PO DAILY RF: 0 Heart Stim Liquescence liquid 1 each PO BID RF: 0 tramadol 50 mg tablet 50 mg PO Q6H PRN (Reason: pain) Qty: 10 RF: 0 Referrals: Gordon Newton MD [Primary Care Provider] -
[2021-09-24] MEDS: KETOROLAC 30 MG/ML VIAL 15 MG IV (17:42)
[2021-09-24 17:45] LABS: D Dimer 379 ng/mL (<230)
--- NOTE | 2021-09-24 18:09 | DI.CT.S_ITS ---
PROCEDURE: CT ANGIO CHEST PE PROTOCOL INDICATIONS: 65-year-old female with left-sided chest pain and history right mastectomy for breast cancer TECHNIQUE: After the administration of intravenous contrast, 2 mm thick sections acquired from the pulmonary apices to the posterior costophrenic angles. Maximum intensity projection (MIP) coronal and sagittal reformats were then acquired through the thorax. For radiation dose reduction, the following was used: automated exposure control, adjustment of mA and/or kV according to patient size. COMPARISON: [facility], CT, CT ABDOMEN PELVIS WITHOUT CONTRAST, 10/14/2019, 13:31. FINDINGS: Image quality: Excellent. Pulmonary arteries: Pulmonary arteries are normal in size, and demonstrate no intraluminal filling defects to suggest central pulmonary embolism. Lungs and pleura: Lungs are clear. No pleural effusions or pneumothorax. Central and peripheral airways are patent. Radiation fibrosis noted in the anterior right middle lobe associated with mastectomy Mediastinum: Heart size is normal, without pericardial effusion. No mediastinal or hilar adenopathy. Thoracic aorta is normal in caliber and enhancement. Esophagus is normal in caliber, without hiatal hernia. Bones and chest wall: Right mastectomy. Left 7th lateral rib fracture, nondisplaced. No lytic or blastic osseous lesions. Abdomen: Multiple hepatic cysts, similar to the prior exam 2018. IMPRESSION: 1. No evidence of pulmonary embolism, aortic dissection or aneurysm. 2. Nondisplaced left 7th rib fracture. No pneumothorax. 3. Right mastectomy and associated right middle lobe anterior radiation fibrosis Approved by: Rupert Mccormack M.D. on 09/24/2021 at 18:03
[2021-09-24] MEDS: HYDROMORPHONE 0.5 MG INJ IV (18:33)
[2021-09-24] MEDS: ONDANSETRON 4 MG/2 ML INJ IV (18:33)
== END 2021-09-24 19:51 | disposition home or self-care (01) ==
PROVIDERS: Emergency Provider Emergency Medicine; PCP Internal Medicine
DX: S22.32XA Fracture of one rib, left side, initial encounter for closed fracture (principal); X58.XXXA Exposure to other specified factors, initial encounter
CPT/HCPCS: 36415; 71045; 71275; 80053; 82550; 83690; 84484; 85025; 85379; 85610; 85730; 93005; 96374; 96375; 99284; J1170; J1885; J2405

== ENCOUNTER 2022-01-02 20:31 | Inpatient (IN) | payer OTHER, SELFPAY ==
[2022-01-02] VITALS (10 sets, daily range): BP systolic 133–149; BP diastolic 60–79; PULSE 72–100; RESP 20; TEMP 36.4; O2SAT 96–100; BMI 18.2
[2022-01-02] MEDS: ONDANSETRON 4 MG/2 ML INJ IV ×2 (21:05→22:08)
--- NOTE | 2022-01-02 21:29 | ED_ITS ---
HPI - Nausea/Vomiting/Diarrhea General Chief complaint: Nausea/Vomiting/Diarrhea Stated complaint: Weakness Time Seen by Provider: 01/02/22 20:38 Source: patient and EMS Mode of arrival: EMS History of Present Illness HPI Narrative: 66-year-old woman with distant history of right breast cancer and new diagnosis of anal cancer as of July. She has a Port-A-Cath in place on the right side she has had an initial dose of chemotherapy for 4 days along with radiation on November 08 that required eventual hospitalization for anaphylaxis and significant dehydration. She had the dose of the chemotherapy lowered and altered slightly and completed another 4 day course on December 24. She completed most recent radiation course on December 31 and since both of these she has been having severe side effects of all of this. She is vomiting and having profuse diarrhea. She is unable to keep pain medications down so pain is uncontrolled. She having significant radiation ortiz and irritation to her entire perineum from the anterior vulva all the way to the top of the intergluteal cleft and including labia majora. She describes no chest pain or palpitations but she is getting weaker and is miserable with the persistent vomiting and increasing pain. Related Data Home Medications Medication Instructions Recorded Confirmed [CALCIUM/MAGNESIUM] 1 cap PO QDAY #0 05/11/17 02/20/21 [CO-Q-10] 1 cap PO QDAY #0 05/11/17 02/20/21 multivitamin (Multiple Vitamins) 1 tab PO QDAY #0 05/11/17 02/20/21 [Vitamin K-2] 100 mcg PO QDAY #60 cap 08/16/17 02/20/21 thyroid (pork) 32.5 mg tablet 32.5 mg PO DAILY 11/29/18 02/20/21 (Nature-Throid) Cholesterol Pro 2 each PO BID 12/23/19 02/20/21 Heart Stim Liquescence 1 each PO BID 12/23/19 02/20/21 NAC 600 mg PO BID 12/23/19 02/20/21 Natural Resveratrol 200 mg PO DAILY 12/23/19 02/20/21 Pure Kidney 700 mg PO BID 12/23/19 02/20/21 verapamil 180 mg 24 hr 180 mg PO DAILY 12/23/19 02/20/21 capsule,extended release Previous Rx's Medication Instructions Recorded varicella-zoster glycoE [id number] 50 mcg IM ONCE #1 each 03/05/19 adj(PF) 50 mcg/0.5 mL IM susp, kit (Shingrix (PF)) ibuprofen 800 mg tablet 800 mg PO Q8H PRN #90 tab 03/13/20 tramadol 50 mg tablet 50 mg PO Q6H PRN #10 tab 01/21/21 lorazepam 0.5 mg tablet (Ativan) 0.5 mg PO BID PRN #30 tab 05/27/21 hydrocodone 5 mg-acetaminophen 325 1 tab PO Q6H PRN #10 tab 09/24/21 mg tablet hydrocodone 5 mg-acetaminophen 325 1 tab PO Q6H PRN #20 tab 09/24/21 mg tablet Allergies Allergy/AdvReac Type Severity Reaction Status Date / Time Sulfa (Sulfonamide Allergy Severe VOMITING Verified 09/24/21 16:12 Antibiotics) DIARRHEA [SULFA (SULFONAMIDE ANTIBIOTICS)] latex Allergy Verified 09/24/21 16:12 adhesive [ADHESIVE] AdvReac Severe PAPER TAPE Verified 09/24/21 16:12 OK, PLASTIC EVIDENTLY NOT? fluconazole [FLUCONAZOLE] AdvReac Intermediate Headache Verified 09/24/21 16:12 Rash codeine AdvReac Mild Nausea Verified 09/24/21 17:35 Review of Systems Review of Systems Narrative: Remainder of complete review of systems is otherwise unremarkable except for that included in the HPI. Patient History Medical History (Updated 01/02/22 @ 23:06 by Britt Winkler MD) Anal cancer Anxiety Balance disorder Headache Hip pain, bilateral Liver enzyme elevation Neck pain SI (sacroiliac) joint inflammation Vertigo Visual disturbance Surgical History History of total mastectomy (06/27/01) Family History Mother Age: 86 Diabetes mellitus Sister Age: 59 Osteoarthritis Sister Age: 68 Diabetes mellitus Social History Smoking Status: Never smoker second hand exposure: Yes (I grew up with it) alcohol intake: current substance use type: does not use Smoking Status: Never smoker alcohol intake frequency: a few times a month Substance Use Type: marijuana Exam Initial Vital Signs Initial Vital Signs: Vital Signs Temperature 97.5 F L 01/02/22 20:32 Pulse Rate 78 01/02/22 20:32 Respiratory Rate 20 01/02/22 20:32 Blood Pressure 149/79 H 01/02/22 20:32 Pulse Oximetry 100 01/02/22 20:32 General: Cachectic, significantly dehydrated but Able to give a complete and coherent history. HEENT: very dry mucous membranes, normal sclera with reactive pupils, Neck: No JVD, supple. Tunneled Port-A-Cath on the right side Respiratory: Lungs are clear to auscultation, no wheezing no rales no rhonchi. Full and symmetrical air movement Cardiac: Regular rate and rhythm no murmurs no bruits Abdomen: Scaphoid, Soft, nontender, good bowel tones, no flank pain Skin: Warm and dry, no rashes Neurologic: Globally weak, Grossly neurologically intact with no obvious asymmetries or abnormalities Extremities: No trauma, very dehydrated Psych: Cooperative, appropriate insight and affect Course Orders Ordered: ED Orders 01/02/22 21:08 Complete Blood Count AUTO DIFF Stat Comprehensive Metabolic Panel Stat Lipase Stat Magnesium Stat 01/02/22 21:53 COVID19 -Nasal swab/Pre-Proc Stat Fentanyl (Fentanyl 100 Mcg/2 Ml Inj) 50 mcg IV Q1H PRN PRN Reason: Pain, Severe (7-10) Last Admin: 01/02/22 22:08 Dose: 50 mcg Documented by: DEANDRE Fentanyl (Fentanyl 25 Mcg/Patch) 25 mcg TOP Q72H [facility] Last Admin: 01/02/22 22:11 Dose: 25 mcg Documented by: DEANDRE POTASSIUM CHLORIDE IN WATER (Potassium Cl 10 Meq/100 Ml Anjelica) 10 meq in 100 mls @ 100 mls/hr IV Q1H [facility] Stop: 01/03/22 01:59 Last Admin: 01/02/22 22:09 Dose: 100 mls/hr Documented by: DEANDRE Discontinued Medications Sodium Chloride (Normal Saline 0.9%) 1,000 mls @ 2,000 mls/hr IV BOLUS ONE Stop: 01/02/22 22:18 Last Admin: 01/02/22 22:09 Dose: 2,000 mls/hr Documented by: DEANDRE Ondansetron HCl (Ondansetron 4 Mg/2 Ml Inj) 4 mg IV NOW ONE Stop: 01/02/22 21:05 Last Admin: 01/02/22 21:05 Dose: 4 mg Documented by: DEANDRE Ondansetron HCl (Ondansetron 4 Mg/2 Ml Inj) 4 mg IV NOW ONE Stop: 01/02/22 21:50 Last Admin: 01/02/22 22:08 Dose: 4 mg Documented by: DEANDRE Vital Signs Vital signs: Vital Signs - 8 hr 01/02/22 20:32 01/02/22 20:43 01/02/22 20:44 Temperature 97.5 F L Pulse Rate 78 100 H 81 Respiratory Rate 20 Blood Pressure 149/79 H 149/79 H Pulse Oximetry 100 100 100 01/02/22 21:00 Temperature Pulse Rate 75 Respiratory Rate Blood Pressure Pulse Oximetry 99 MDM - Nausea/Vomiting/Diarrhea Lab Data Result diagrams: 01/02/22 21:08 01/02/22 21:08 Labs: Lab Results 01/02/22 01/02/22 01/02/22 Range/Units 21:08 21:08 21:08 WBC 5.3 (4.5-11.0) X10^3/uL RBC 3.50 L (4.0-5.2) X10^6/uL Hgb 12.0 (12.0-16.0) g/dL Hct 34.8 L (36-46) % MCV 99.4 (80-100) fL MCH 34.2 H (26-34) PG MCHC 34.4 (30-36) % RDW 15.2 H (11.6-14.8) % Plt Count 472 H (150-400) X10^3/uL Neut % (Auto) Not Reportable Lymph % (Auto) Not Reportable Amelia % (Auto) Not Reportable Eos % (Auto) Not Reportable Baso % (Auto) Not Reportable Lymph # (Auto) Not Reportable Amelia # (Auto) Not Reportable Baso # (Auto) Not Reportable Total Counted 100 Seg Neutrophils % 50.0 (38-70) % Band Neutrophils % 15.0 H (3-7) % Lymphocytes % (Manual) 12.0 L (25-45) % Monocytes % (Manual) 22.0 H (2-11) % Eosinophils % (Manual) 1.0 L (2-4) % Neutrophils # (Manual) 3445 (2599-2713) /uL RBC Morphology Normal morphology Sodium 127 L (137-145) mmol/L Potassium 2.6 L* (3.4-5.1) mmol/L Chloride 85 L (98-107) mmol/L Carbon Dioxide 31 (22-32) mmol/L BUN 12 (7-17) mg/dL Creatinine 0.76 (0.52-1.04) mg/dL Estimated GFR > 60.0 (>60) mL/min BUN/Creatinine Ratio 15.8 (6-22) Glucose 100 (80-110) mg/dL Calcium 8.8 (8.4-10.2) mg/dL Magnesium 1.9 (1.6-2.3) mg/dL Total Bilirubin 0.8 (0.2-1.3) mg/dL AST 27 (14-36) IU/L ALT 10 (<35) IU/L Alkaline Phosphatase 89 (38-126) U/L Total Protein 7.0 (6.3-8.2) g/dL Albumin 3.4 L (3.5-5.0) g/dL Globulin 3.6 (1.7-4.1) g/dL Albumin/Globulin Ratio 0.9 L (1.0-2.8) Lipase 32 (23-300) U/L SARS-CoV-2 (PCR) (Negative) 01/02/22 Range/Units 21:53 WBC (4.5-11.0) X10^3/uL RBC (4.0-5.2) X10^6/uL Hgb (12.0-16.0) g/dL Hct (36-46) % MCV (80-100) fL MCH (26-34) PG MCHC (30-36) % RDW (11.6-14.8) % Plt Count (150-400) X10^3/uL Neut % (Auto) Lymph % (Auto) Amelia % (Auto) Eos % (Auto) Baso % (Auto) Lymph # (Auto) Amelia # (Auto) Baso # (Auto) Total Counted Seg Neutrophils % (38-70) % Band Neutrophils % (3-7) % Lymphocytes % (Manual) (25-45) % Monocytes % (Manual) (2-11) % Eosinophils % (Manual) (2-4) % Neutrophils # (Manual) (0066-5496) /uL RBC Morphology Sodium (137-145) mmol/L Potassium (3.4-5.1) mmol/L Chloride (98-107) mmol/L Carbon Dioxide (22-32) mmol/L BUN (7-17) mg/dL Creatinine (0.52-1.04) mg/dL Estimated GFR (>60) mL/min BUN/Creatinine Ratio (6-22) Glucose (80-110) mg/dL Calcium (8.4-10.2) mg/dL Magnesium (1.6-2.3) mg/dL Total Bilirubin (0.2-1.3) mg/dL AST (14-36) IU/L ALT (<35) IU/L Alkaline Phosphatase (38-126) U/L Total Protein (6.3-8.2) g/dL Albumin (3.5-5.0) g/dL Globulin (1.7-4.1) g/dL Albumin/Globulin Ratio (1.0-2.8) Lipase (23-300) U/L SARS-CoV-2 (PCR) Negative (Negative) MDM Narrative Medical decision making narrative: 66 year old woman with recently diagnosed anal cancer post chemo and perineal radiation with significant side effects of both. She has been vomiting and having severe diarrhea. She has become significantly dehydrated with maintain renal function but potassium low at 2.6 and sodium low at 127 with increasing weakness is her dehydration is progressing. She is having significant diarrhea presumably from radiation irritation and when she was able to keep pills down Imodium was not helpful. She has a been able to keep her pain medication down and pain is an additional problem. Her previous pain regimen had been 15 mg of extended release morphine twice a day and 2 Percocet 5 mg throughout the day. The fentanyl equivalent of this is equal to 25 mcg of fentanyl as a patch. Begin that and supplement with IV fentanyl over the course of the evening until the topical medicine has had a chance to get to therapeutic levels. We tried a number of options to help with the radiation burn to the perineum. Barrier cream did seem to be tolerated. She is allergic to sulfa so Silvadene will not be helpful. Most of the other topicals that she has tried have been far too painful to continue. She has not tried any of the baby diaper rash barrier cream type emollients but this might be quite helpful for her as well. We discussed placing a Womack just so that she did not half to avoid over such tender skin. She will consider this. She is worried that with the amount of prolific an unanticipated diarrhea that she would trip over the Womack running to the bathroom. Care is reviewed with the night hospitalist. She will be admitted for hydration, potassium replacement and pain control regarding her recent inguinal cancer chemotherapy and radiation treatments. Discharge Plan Departure Patient Disposition: Admitted As Inpatient Clinical Impression: Acute dehydration, Complication of chemotherapy, Hypokalemia, Acute hyponatremia Admit Date/Time: 01/02/22 23:11
[2022-01-02 21:33] LABS: Hematocrit 34.8 % (36-46); Mean Corpuscular HGB Conc 34.4 % (30-36); Mean Corpuscular Hemoglobin 34.2 PG (26-34); Mean Corpuscular Volume 99.4 fL (80-100); Platelet Count 472 X10^3/uL (150-400); Red Cell Distribution Width 15.2 % (11.6-14.8); White Blood Cell Count 5.3 X10^3/uL (4.5-11.0)
[2022-01-02 21:35] LABS: Add Manual Diff / Slide Review YES
[2022-01-02 21:44] LABS: Alanine Aminotransferase 10 IU/L (<35); Albumin 3.4 g/dL (3.5-5.0); Albumin Globulin Ratio 0.9 (1.0-2.8); Alkaline Phosphatase 89 U/L (38-126); Aspartate Aminotransferase 27 IU/L (14-36); BUN Creatinine Ratio 15.8 (6-22); Bilirubin Total 0.8 mg/dL (0.2-1.3); Blood Urea Nitrogen 12 mg/dL (7-17); Calcium 8.8 mg/dL (8.4-10.2); Carbon Dioxide 31 mmol/L (22-32); Chloride 85 mmol/L (98-107); Estimated Glomerular Filt Rate > 60.0 mL/min (>60); Globulin 3.6 g/dL (1.7-4.1); Glucose 100 mg/dL (80-110); HEMOLYSIS 16 (0-50); Lipase 32 U/L (23-300); Sodium 127 mmol/L (137-145)
[2022-01-02 21:51] LABS: Potassium 2.6 mmol/L (3.4-5.1)
[2022-01-02 21:59] LABS: Neutrophils Absolute Manual 3445 /uL (3000-5900); Total Cells Counted 100
[2022-01-02 22:00] LABS: RBC Morphology Normal Morphology
[2022-01-02] MEDS: fentaNYL 100 MCG/2 ML INJ 50 MCG IV ×3 (22:08→23:46)
[2022-01-02] MEDS: SODIUM CHLORIDE 0.9% 1,000 ML 2000 ML IV (22:09)
[2022-01-02] MEDS: POTASSIUM CHLORIDE IN WATER 10 MEQ/100 ML PIGGYBACK 100 MEQ IV ×2 (22:09→23:30)
[2022-01-02 22:10] LABS: COVID19 -Nasal RAPID Negative (Negative)
[2022-01-02] MEDS: fentaNYL 25 MCG/PATCH TOP (22:11)
[2022-01-02 22:13] LABS: Magnesium 1.9 mg/dL (1.6-2.3)
[2022-01-03] VITALS (12 sets, daily range): BP systolic 89–137; BP diastolic 45–67; PULSE 69–87; RESP 12–18; TEMP 36.5–37.5; O2SAT 95–106; BMI 18.2
--- NOTE | 2022-01-03 00:01 | P.HP_ITS ---
History of Present Illness History of Present Illness Date Patient Seen: 01/02/22 Chief complaint: Weakness Narrative: Karolina Ulrich is a 66-year-old woman with distant history of right breast cancer, essential hypertension, acquired hypothyroidism, peripheral neuropathy, anxiety, PTSD, and a new diagnosis of anal cancer as of July 2021.? She has a Port-A-Cath in place on the right side she has had an initial dose of chemotherapy for 4 days along with radiation on November 08 that required eventual hospitalization for anaphylaxis and significant dehydration.? She had the dose of the chemotherapy lowered and altered slightly and completed another 4 day course on December 24, 2021.? She completed most recent radiation course on December 31 and since both of these she has been having severe side effects of all of this.? She is vomiting and having profuse diarrhea.? She is unable to keep fluids, food, or pain medications down so pain is uncontrolled.? She has significant radiation ortiz and irritation to her entire perineum from the anterior vulva? all the way to the top of the intergluteal cleft and including labia majora.? She denies chest pain, palpitations, SOB, no specific abd pain, but positive muscle aches to her trunk from continious diarrhea. She continues to get weaker and is miserable with the persistent vomiting, diarrhea, and increasing pain. During admit exam patient had 3 bouts of diarrhea, she has excruciating perianal and rectal pain. Patient's vitals upon admit are stable temp 97.5?, BP 149/79, HR 75, R 20, O2 saturation 99% on room air. Patient demonstrates a slight decrease in hematocrit 34.8, and elevated platelets 472. Hyponatremia sodium 127, severe hypokalemia potassium 2.6, chloride 85, albumin 3.4 the rest of the patient's labs are all within normal limits. Patient is being admitted for acute dehydration resulting in severe hypokalemia, hyponatremia, and ortiz secondary to chemotherapy/radiation. Patient History Medical History (Updated 01/03/22 @ 00:29 by MICHAEL Green-) Acquired hypothyroidism Anal cancer Anxiety Anxiety Balance disorder Essential hypertension Headache Hip pain, bilateral History of alcohol abuse Liver enzyme elevation Neck pain Osteoporosis Peripheral neuropathy PTSD (post-traumatic stress disorder) SI (sacroiliac) joint inflammation Vertigo Visual disturbance Surgical History History of total mastectomy (06/27/01) Family & Social History Family History Mother Age: 86 Diabetes mellitus Sister Age: 59 Osteoarthritis Sister Age: 68 Diabetes mellitus Safety & Behavioral: Feels Safe in Current Yes Environment Tobacco & Substance use: Smoking Status Never smoker alcohol intake current alcohol intake frequency a few times a month Substance Use Type marijuana Meds Home Medications and Allergies Home Medications Medication Instructions Recorded Confirmed Type [CALCIUM/MAGNESIUM] 1 cap PO QDAY #0 05/11/17 02/20/21 History [CO-Q-10] 1 cap PO QDAY #0 05/11/17 02/20/21 History multivitamin (Multiple Vitamins) 1 tab PO QDAY #0 05/11/17 02/20/21 History [Vitamin K-2] 100 mcg PO QDAY #60 cap 08/16/17 02/20/21 History thyroid (pork) 32.5 mg tablet 32.5 mg PO DAILY 11/29/18 02/20/21 History (Nature-Throid) varicella-zoster glycoE [id number] 50 mcg IM ONCE #1 each 03/05/19 02/20/21 Rx adj(PF) 50 mcg/0.5 mL IM susp, kit (Shingrix (PF)) Cholesterol Pro 2 each PO BID 12/23/19 02/20/21 History Heart Stim Liquescence 1 each PO BID 12/23/19 02/20/21 History NAC 600 mg PO BID 12/23/19 02/20/21 History Natural Resveratrol 200 mg PO DAILY 12/23/19 02/20/21 History Pure Kidney 700 mg PO BID 12/23/19 02/20/21 History verapamil 180 mg 24 hr 180 mg PO DAILY 12/23/19 02/20/21 History capsule,extended release ibuprofen 800 mg tablet 800 mg PO Q8H PRN #90 tab 03/13/20 02/20/21 Rx tramadol 50 mg tablet 50 mg PO Q6H PRN #10 tab 01/21/21 02/20/21 Rx lorazepam 0.5 mg tablet (Ativan) 0.5 mg PO BID PRN #30 tab 05/27/21 Rx hydrocodone 5 mg-acetaminophen 325 1 tab PO Q6H PRN #10 tab 09/24/21 Rx mg tablet hydrocodone 5 mg-acetaminophen 325 1 tab PO Q6H PRN #20 tab 09/24/21 Rx mg tablet morphine 15 mg tablet,extended 15 mg PO Q12H 01/03/22 01/03/22 History release Allergies Allergy/AdvReac Type Severity Reaction Status Date / Time Sulfa (Sulfonamide Allergy Severe VOMITING Verified 09/24/21 16:12 Antibiotics) DIARRHEA [SULFA (SULFONAMIDE ANTIBIOTICS)] latex Allergy Verified 09/24/21 16:12 adhesive [ADHESIVE] AdvReac Severe PAPER TAPE Verified 09/24/21 16:12 OK, PLASTIC EVIDENTLY NOT? fluconazole [FLUCONAZOLE] AdvReac Intermediate Headache Verified 09/24/21 16:12 Rash codeine AdvReac Mild Nausea Verified 09/24/21 17:35 Review of Systems Review of Systems Narrative: All 12 point systems reviewed with the patient and are negative except otherwise documented. Exam Vital Signs (past 8 hours): - 01/02/22 20:32 01/02/22 20:43 01/02/22 20:44 Temperature 97.5 F L Pulse Rate 78 100 H 81 Respiratory Rate 20 Blood Pressure 149/79 H 149/79 H Pulse Oximetry 100 100 100 01/02/22 21:00 Temperature Pulse Rate 75 Respiratory Rate Blood Pressure Pulse Oximetry 99 Oxygen Delivery Method Room Air Narrative Exam Narrative: General: Patient is a elderly frail cachectic female, who appears older than stated age, in moderate distress at this time from rectal pain, who is hemodynamically stable. HEENT: Normocephalic, atraumatic,oral pharynx is clear and mucous membranes are very dry. Neck is supple and symmetric, trachea is midline, Negative for JVD Chest: Positive kyphoscoliosis, no nasal flaring, retractions, or tachypneic labored breathing. Tunneled Port-A-Cath to right side. Lungs: Auscultation of all lung hernadez are clear without adventitious sounds, wheezes, rhonchi, or rales. Cardio: S1 & S2 with regular rate and rhythm without murmur, rubs, or gallops, no carotid bruit, no cardiac pulsations present. Abdomen: Soft nontender, scaphoid. Bowel sounds are hyperactive present in all 4 quadrants without guarding or rebound, no CVA tenderness. Musculoskeletal: Muscle- no deformity, crepitus, effusions, cyanosis, clubbing or edema present. Full range of motion intact radial and pedal pulses are normal. Skin: Warm dry, thin, cracking, significant radiation ortiz and irritation to her entire perineum from the anterior vulva?all the way to the top of the intergluteal cleft and including labia majora.? Neuro: Alert and orientated x3, no gross deficits noted of cranial nerves. Psych: Patient has a chronically ill appearance, appropriate affect, mental status attitude thought context and judgment are appropriate for age. Objective Labs Result Diagrams: 01/02/22 21:08 01/02/22 21:08 Labs: Laboratory Results - last 24 hr 01/02/22 01/02/22 01/02/22 21:08 21:08 21:08 WBC 5.3 RBC 3.50 L Hgb 12.0 Hct 34.8 L MCV 99.4 MCH 34.2 H MCHC 34.4 RDW 15.2 H Plt Count 472 H Neut % (Auto) Not Reportable Lymph % (Auto) Not Reportable [place] % (Auto) Not Reportable Eos % (Auto) Not Reportable Baso % (Auto) Not Reportable Lymph # (Auto) Not Reportable [place] # (Auto) Not Reportable Baso # (Auto) Not Reportable Total Counted 100 Seg Neutrophils % 50.0 Band Neutrophils % 15.0 H Lymphocytes % (Manual) 12.0 L Monocytes % (Manual) 22.0 H Eosinophils % (Manual) 1.0 L Neutrophils # (Manual) 3445 RBC Morphology Normal morphology Sodium 127 L Potassium 2.6 L* Chloride 85 L Carbon Dioxide 31 BUN 12 Creatinine 0.76 Estimated GFR > 60.0 BUN/Creatinine Ratio 15.8 Glucose 100 Calcium 8.8 Magnesium 1.9 Total Bilirubin 0.8 AST 27 ALT 10 Alkaline Phosphatase 89 Total Protein 7.0 Albumin 3.4 L Globulin 3.6 Albumin/Globulin Ratio 0.9 L Lipase 32 SARS-CoV-2 (PCR) 01/02/22 21:53 WBC RBC Hgb Hct MCV MCH MCHC RDW Plt Count Neut % (Auto) Lymph % (Auto) [place] % (Auto) Eos % (Auto) Baso % (Auto) Lymph # (Auto) [place] # (Auto) Baso # (Auto) Total Counted Seg Neutrophils % Band Neutrophils % Lymphocytes % (Manual) Monocytes % (Manual) Eosinophils % (Manual) Neutrophils # (Manual) RBC Morphology Sodium Potassium Chloride Carbon Dioxide BUN Creatinine Estimated GFR BUN/Creatinine Ratio Glucose Calcium Magnesium Total Bilirubin AST ALT Alkaline Phosphatase Total Protein Albumin Globulin Albumin/Globulin Ratio Lipase SARS-CoV-2 (PCR) Negative Assessment & Plan Assessment & Plan narrative: Karolina Ulrich is a 66-year-old woman with distant history of right breast cancer, essential hypertension, acquired hypothyroidism, peripheral neuropathy, anxiety, PTSD, and a new diagnosis of anal cancer as of July 2021. Who presented to the ED for intractable nausea, vomiting, diarrhea, and chemo/radiation ortiz to her perineum following completion of chemotherapy and radiation treatment for anal cancer on 12/31/2021. Patient has required hospitalization following previous chemo/ radiation treatments for acute dehydration. Patient will require hydration and correction of hypokalemia, hyponatremia, and pain management. 1. Acute Dehydration, resulting in severe hypokalemia, hyponatremia, acute, due to Vomiting & diarrhea, acute, 2nd to chemotherapy/radiation for newly diagnosed anal cancer (07/2021), Acute on Chronic, present on admission -potassium 2.6, sodium 127- -40 mEq potassium rider in ED- Recheck K+ @2am -Rehydration patient received 2000 cc NS bolus in ED, continue NS 150 cc/HR -Zofran and Reglan to manage vomiting -Offer immodium for diarrhea -monitor electrolytes -Bed side commode for frequent diarrhea-Monitor for falls, up with assistance only. -Patient is currently taking nothing by mouth, may progress to clear liquids to a regular diet as she can tolerate, and if vomiting does not return. -holding all PO meds until she can tolerate 2. Radiation Burn, perineum, acute on chronic, 2nd to radiation, present on admission -exacerbated by diarrhea -Offered lidocaine jelly mixed with Desitin, and moisture barrier cream to be applied to the perineum as needed -recommended Womack placement to prevent urine from coming in contact with perineum ortiz, reduce breakdown- pt refused at this time. 3. Acute on Chronic, Pain, perineum secondary to radiation ortiz and anal cancer, present on admission -patient is currently prescribed 15 mg of extended release morphine b.i.d. and 2 Percocet q.day for pain management-because patient is unable to take orals these convert to a total of 25 mcg fentanyl q.day. -fentanyl patch 25 mcg q.72 hours prescribed -fentanyl 50 mcg Q 15 minutes as needed- monitor for over sedation -Fall precautions 4. Peripheral neuropathy, chronic, present on admission -Holding Tramadol 5. PTSD with anxiety, chronic, present on admission -holding patient's oral lorazepam 0.5 mg b.i.d., providing IV lorazepam 6. Malnourished as evidence by BMI of 16.9, secondary to chemotherapy and radiation treatment for anal cancer, acute on chronic, present on admission -no dietary consult to be placed at this time due to acute illness, recommend follow up with her PCP. Code status:FULL Surrogate decision maker: Partner Patrick Bautista COVID PCR:Negative COVID vaccination: Unknown DVT/VTE prophylaxis: Lovenox 40 and SCDs Disposition: Patient admitted to acute care estimated length of stay greater than 2 midnights. I have utilized all available immediate resources to obtain, update, or review the patient's current medications. I confirmed that the patient's advanced care plan is present, Code status is documented and/or surrogate decision maker is listed in the patient's medical record. Time Spent With Patient Critical Care time: I spent a total of [] minutes of critical care time on this patient's care today; this time is exclusive of procedural time.
[2022-01-03] MEDS: POTASSIUM CHLORIDE IN WATER 10 MEQ/100 ML PIGGYBACK 100 MEQ IV ×6 (01:04→10:20)
[2022-01-03] MEDS: SODIUM CHLORIDE 0.9% 1,000 ML 150 ML IV ×3 (01:04→18:37)
[2022-01-03] MEDS: ONDANSETRON 4 MG/2 ML INJ IV ×6 (01:05→20:29)
[2022-01-03] MEDS: LORazepam 2 MG/ML INJ 0.5 MG IV ×3 (01:05→18:55)
[2022-01-03] MEDS: fentaNYL 100 MCG/2 ML INJ 50 MCG IV (01:05)
[2022-01-03 04:56] LABS: Add Manual Diff / Slide Review NO; Basophils Absolute Auto 0 /uL (0-100); Basophils Percent Auto 0.3 % (0-2); Eosinophils Absolute Auto 0 /uL (0-450); Eosinophils Percent Auto 0.9 % (2-4); Hematocrit 26.8 % (36-46); Hemoglobin 9.3 g/dL (12.0-16.0); Lymphocytes Absolute Auto 200 /uL (1100-4500); Lymphocytes Percent Auto 6.3 % (25-40); Mean Corpuscular HGB Conc 34.5 % (30-36); Mean Corpuscular Hemoglobin 34.2 PG (26-34); Mean Corpuscular Volume 99.2 fL (80-100); Monocytes Absolute Auto 1100 /uL (0-900); Monocytes Percent Auto 29.2 % (3-14); Neutrophils Absolute Auto 2300 /uL (1500-7000); Neutrophils Percent Auto 63.3 % (50-75); Platelet Count 364 X10^3/uL (150-400); Red Cell Distribution Width 15.2 % (11.6-14.8); White Blood Cell Count 3.6 X10^3/uL (4.5-11.0)
[2022-01-03 05:04] LABS: Alanine Aminotransferase 7 IU/L (<35); Albumin 2.4 g/dL (3.5-5.0); Albumin Globulin Ratio 0.9 (1.0-2.8); Alkaline Phosphatase 61 U/L (38-126); Aspartate Aminotransferase 18 IU/L (14-36); BUN Creatinine Ratio 17.2 (6-22); Bilirubin Total 0.5 mg/dL (0.2-1.3); Blood Urea Nitrogen 10 mg/dL (7-17); Calcium 7.3 mg/dL (8.4-10.2); Carbon Dioxide 27 mmol/L (22-32); Chloride 98 mmol/L (98-107); Estimated Glomerular Filt Rate > 60.0 mL/min (>60); Globulin 2.7 g/dL (1.7-4.1); Glucose 78 mg/dL (80-110); HEMOLYSIS < 15 (0-50); Magnesium 1.8 mg/dL (1.6-2.3); Potassium 3.2 mmol/L (3.4-5.1); Sodium 129 mmol/L (137-145); Total Protein 5.1 g/dL (6.3-8.2)
--- NOTE | 2022-01-03 06:28 | PC.ADMIT ---
[email or web address] [facility] Admission Note: The patient,Karolina Ulrich,66 y/o, was given written information regarding hospital policies, unit procedures and contact persons. Patient's smoking status: Never smoker. Vital Signs - 8 hr 01/02/22 22:30 01/02/22 23:00 01/02/22 23:30 Temperature Pulse Rate 77 76 72 Respiratory Rate Blood Pressure Pulse Oximetry 97 100 100 01/03/22 00:00 01/03/22 00:25 01/03/22 04:00 Temperature 97.8 F Pulse Rate 69 Respiratory Rate 18 Blood Pressure 137/65 121/67 Pulse Oximetry 99 100 99 01/03/22 04:30 01/03/22 05:00 Temperature 97.7 F Pulse Rate 73 73 Respiratory Rate 12 12 Blood Pressure 89/45 L Pulse Oximetry 99 99 Patient was admitted to room 225 at 0000, A/Ox4, able to stand and transfer from stretcher to bed. IVF and K+ riders infusing, Zofran scheduled Q4h, patient has nausea without emesis, IV Ativan given for mild anxiety, IV Fentanyl for skin pain and burning to perineum. Fentanyl patch. Up to BSC x1 with large liquid stool. VSS.
[2022-01-03] MEDS: ENOXAPARIN 40 MG/0.4 ML SYRINGE SUBCUT (08:15)
[2022-01-03] MEDS: HYDROMORPHONE 1 MG INJ 0.5 MG IV ×2 (08:47→17:26)
[2022-01-03] MEDS: LIDOCAINE 2% (GLYDO) 6 ML GEL TOP (10:07)
[2022-01-03] MEDS: ZINC OXIDE OINT 60 GM 1 APPLIC TOP (10:07)
--- NOTE | 2022-01-03 12:18 | PM.PN.1 ---
Subjective Subjective Date Patient Seen: 01/03/22 Interval history: 66-year-old woman with recent diagnosis of anal cancer in July 2021, undergoing radiation and chemotherapy, distant history of right breast cancer, essential hypertension, acquired hypothyroidism, peripheral neuropathy, anxiety, PTSD admitted due to intractable nausea, vomiting and diarrhea. Patient getting IV hydration. She has persistent nausea, no current vomiting, and right now feels unable to eat. She has severe perirectal pain. Exam Vital Signs (past 8 hours): - 01/03/22 04:30 01/03/22 05:00 01/03/22 07:45 Temperature 97.7 F 98.6 F Pulse Rate 73 73 73 Respiratory Rate 12 12 14 Blood Pressure 89/45 L 98/54 L Pulse Oximetry 99 99 98 Oxygen Delivery Method Room Air Oxygen Flow Rate 0 Narrative Exam Narrative: General: Alert, malnourished appearing female Lungs: Clear Heart: Regular rhythm Abdomen: Nontender Extremities: No edema Neurological: Well oriented, diminished affect, nonfocal Objective Labs Result Diagrams: 01/03/22 04:30 01/03/22 04:30 Labs: Laboratory Results - last 24 hr 01/02/22 01/02/22 01/02/22 21:08 21:08 21:08 WBC 5.3 RBC 3.50 L Hgb 12.0 Hct 34.8 L MCV 99.4 MCH 34.2 H MCHC 34.4 RDW 15.2 H Plt Count 472 H Neut % (Auto) Not Reportable Lymph % (Auto) Not Reportable [place] % (Auto) Not Reportable Eos % (Auto) Not Reportable Baso % (Auto) Not Reportable Neut # (Auto) Lymph # (Auto) Not Reportable [place] # (Auto) Not Reportable Eos # (Auto) Baso # (Auto) Not Reportable Total Counted 100 Seg Neutrophils % 50.0 Band Neutrophils % 15.0 H Lymphocytes % (Manual) 12.0 L Monocytes % (Manual) 22.0 H Eosinophils % (Manual) 1.0 L Neutrophils # (Manual) 3445 RBC Morphology Normal morphology Sodium 127 L Potassium 2.6 L* Chloride 85 L Carbon Dioxide 31 BUN 12 Creatinine 0.76 Estimated GFR > 60.0 BUN/Creatinine Ratio 15.8 Glucose 100 Calcium 8.8 Magnesium 1.9 Total Bilirubin 0.8 AST 27 ALT 10 Alkaline Phosphatase 89 Total Protein 7.0 Albumin 3.4 L Globulin 3.6 Albumin/Globulin Ratio 0.9 L Lipase 32 SARS-CoV-2 (PCR) 01/02/22 01/03/22 01/03/22 21:53 04:30 04:30 WBC 3.6 L RBC 2.70 L Hgb 9.3 L Hct 26.8 L MCV 99.2 MCH 34.2 H MCHC 34.5 RDW 15.2 H Plt Count 364 Neut % (Auto) 63.3 Lymph % (Auto) 6.3 L [place] % (Auto) 29.2 H Eos % (Auto) 0.9 L Baso % (Auto) 0.3 Neut # (Auto) 2300 Lymph # (Auto) 200 L [place] # (Auto) 1100 H Eos # (Auto) 0 Baso # (Auto) 0 Total Counted Seg Neutrophils % Band Neutrophils % Lymphocytes % (Manual) Monocytes % (Manual) Eosinophils % (Manual) Neutrophils # (Manual) RBC Morphology Sodium 129 L Potassium 3.2 L Chloride 98 Carbon Dioxide 27 BUN 10 Creatinine 0.58 Estimated GFR > 60.0 BUN/Creatinine Ratio 17.2 Glucose 78 L Calcium 7.3 L Magnesium 1.8 Total Bilirubin 0.5 AST 18 ALT 7 Alkaline Phosphatase 61 Total Protein 5.1 L Albumin 2.4 L Globulin 2.7 Albumin/Globulin Ratio 0.9 L Lipase SARS-CoV-2 (PCR) Negative [facility] Medical History (Updated 01/03/22 @ 00:29 by MICHAEL Green-XOCHITL) Acquired hypothyroidism Anal cancer Anxiety Anxiety Balance disorder Essential hypertension Headache Hip pain, bilateral History of alcohol abuse Liver enzyme elevation Neck pain Osteoporosis Peripheral neuropathy PTSD (post-traumatic stress disorder) SI (sacroiliac) joint inflammation Vertigo Visual disturbance Surgical History History of total mastectomy (06/27/01) Family History Mother Age: 86 Diabetes mellitus Sister Age: 59 Osteoarthritis Sister Age: 68 Diabetes mellitus Social History household members: significant other and none Smoking Status: Never smoker second hand exposure: Yes (I grew up with it) alcohol intake: current substance use type: does not use Assessment & Plan Assessment & Plan narrative: 1. Acute Dehydration, resulting in severe hypokalemia, hyponatremia, acute, due to Vomiting & diarrhea, acute, 2nd to chemotherapy/radiation for newly diagnosed anal cancer (07/2021), Acute on Chronic, present on admission -initial potassium 2.6, sodium 127- -continue repleting with K rider as needed -Zofran and Reglan to manage vomiting -Offer immodium for diarrhea after ruling out C diff -monitor electrolytes daily -Bed side commode for frequent diarrhea-Monitor for falls, up with assistance only. -clear liquids advance as tolerated -dietitian consult 2. Radiation Burn, perineum, acute on chronic, 2nd to radiation, present on admission -exacerbated by diarrhea -Offered lidocaine jelly mixed with Desitin, and moisture barrier cream to be applied to the perineum as needed -recommended Womack placement to prevent urine from coming in contact with perineum ortiz, reduce breakdown- pt refused at this time. 3. Acute on Chronic, Pain, perineum secondary to radiation ortiz and anal cancer, present on admission -patient is currently prescribed 15 mg of extended release morphine b.i.d. and 2 Percocet q.day for pain management-because patient is unable to take orals these convert to a total of 25 mcg fentanyl q.day. -fentanyl patch 25 mcg q.72 hours prescribed -hydromorphone 0.5 mg IV q.4 hours as needed -oxycodone 10 mg p.o. q.3 hours as needed -Fall precautions 4. Peripheral neuropathy, chronic, present on admission -Holding Tramadol 5. PTSD with anxiety, chronic, present on admission -holding patient's oral lorazepam 0.5 mg b.i.d. prn, providing IV lorazepam prn 6. Malnourished as evidence by BMI of 16.9, secondary to chemotherapy and radiation treatment for anal cancer, acute on chronic, present on admission -dietitian consult 7. Hypertension -hold/DC verapamil as patient dehydrated and mildly hypotensive 8. Hypothyroidism -patient on armour thyroid -check TSH 9. Leukopenia, anemia secondary to chemotherapy -monitor with labs as needed Awaiting med reconciliation Code status:FULL Surrogate decision maker:? Partner Patrick Bautista COVID PCR:Negative COVID vaccination: Unknown DVT/VTE prophylaxis:? Lovenox 40 and SCDs Time Spent With Patient Critical Care time: I spent a total of [] minutes of critical care time on this patient's care today; this time is exclusive of procedural time. Quality VTE Deep Vein Thrombosis/Pulmonary Embolism Present on Admission: No
--- NOTE | 2022-01-03 12:38 | DIET.CONS ---
Dietary Consultation Note Admission Date: 01/02/2022 23:11 Assessment: 66y F admitted for weakness, intractable N/V/D secondary to tx side effects from radiation and chemotherapy (dx anal cancer 07/2021) referred to nutrition for malnutrition and difficulty eating. Pt has nutrition degree from [employer] in the . Pt follows mostly gluten-free lacto-ovo vegetarian diet and has other food rules such as not eating fruits and vegetables in same meal. Pt reports ongoing N/V/D with taste changes limiting her diet and hydration status for past few months. Pt has supportive partner at home, however, partner unsure how to help feed pt or how to shop to support her nutrition status. Pt feeling too weak to participate/plan at home. Pt generally doesn't do much dairy, however craving yogurt and kefir as well as tropical fruits. RD brought pt ONS Cong reynaldo, pt consumed 1/[address] in room for 20 min, no intolerance, pt reports best thing I've had in months. ED and H&P both state pt appears cachectic, pt exhibits signs severe malnutrition including significant loss of subcutaneous fat and muscle mass, BMI 16.8. Pt has increased nutrition needs secondary to severe radiation ortiz on perianal area. Ht: 160.02 cm Wt: 43.2 kg (-15.3% in 3mo, severe) UBW: 51kg BMI: 16.8 (severe for age) Last BM: 01/03/22 (01/03/22 10:35) MNA: 3 Ethan Score: 16 Diet: 01/02/22 Breakfast Clear Liquid Diet Diet Modifications: may advance from NPO as tolerated Safety Tray needed?: No 01/02/22 21:15 NPO Diet Diet Modifications: NPO Type: Strict Labs: RBC 2.70 X10^6/uL (4.0-5.2) L 01/03/22 04:30 Hgb 9.3 g/dL (12.0-16.0) L 01/03/22 04:30 Hct 26.8 % (36-46) L 01/03/22 04:30 Creatinine 0.58 mg/dL (0.52-1.04) 01/03/22 04:30 Nutrition Diagnosis: Severe Acute Protein Calorie Malnutrition r/t difficulty eating aeb 15.3% unintentional weight loss in 3mo (severe), BMI 16.8 (severe for age), pt with anal cancer tx side effects N/V/D x3mo, pt with radx ortiz to leti area and global severe fat and muscle wasting. Interventions: 1. Recc ONS Cong slushie bid to support pts nutrition status while on clear liquid diet. 2. Educated pt on therapeutic diet for wellness vs therapeutic diet for her acute situation. Strongly recc pt liberalize her diet to support nutrient repletion with focus on high kcal, high protein, nutrient dense options. Provided pt shopping list and recipe handout including: smoothie, soup. 3. Provided handout on taste changes with cancer treatment and tips. 4. Recc dried banana flakes to thicken stool without increasing risk for constipation. EER: 1500kcals (35kcal/kg), 65g PRO (1.5g/kg) Monitoring/Evaluations: following POs, diet advancement. Will start yogurt smoothies when pts diet advances to full liquid. Electronically Signed by: Starla Cash 01/03/22 12:38 Clinical Dietitian [address] [id number]
--- NOTE | 2022-01-03 15:01 | CM.DANOTE ---
DCP Assessment: Patient is a 66 yr old female who was admitted for N/V/D and radiation ortiz to her leti area after having chemo and radiation treatments for anal Cancer. CM met with the patient at the bedside and explained role. Patient appeared weak but was A&O x4 during meeting. Patient stated that she is Independent at [place] with all her ADLs and she does drive but since she started Chemo her significant other Patrick does all the driving and helps with house hold chores and cooking. Patient stated that she does not want SNF at DC but is open to some Home health options. CM gave the patient a medicare choice list and she chose [facility] to work with. CM called Jon with [facility] and Faxed referral. CM got F2F signed by Dr Ramirez as well. I: AAPR and Medicare Plan: DC home with [facility] and significant other Patrick when medically stable. CM will follow to assist with DC planning needs. Daniela Wetzel RNcontract lead Discharge Planning/Care Management CM Discharge Assessment Start: 01/03/22 14:58 Freq: Status: Active Protocol: Document 01/03/22 14:58 HS (Rec: 01/03/22 15:01 [id number]) Discharge Planning Assessment Assigned Sales And Service Associate Daniela Wetzel RNcommunity arts centre manager DPOA/Assigned Designee Name Patrick Fregoso- Significant other Contact Information [phone] Advance Directives? No Advance Directives on File No History Provided By Patient,Medical Record Prior Living Arrangements House Household Members significant other,none Type of transporation used prior to Drives own vehicle admit Independent with ADL's Yes: but does get help with house hold chores from significant other Is patient alert and oriented? Yes Needs Assistance With Home Chores / Shopping Caregiver for Another No DME Already Rented / Owned FWW / Walker,Cane Patient/Family Preference Home with Home Health Comment Patient would like home health when she DC from the hospital - Barriers to Discharge No Discharge Plan Home with Home Health Transportation Arrangement Significant other Patrick will provide transport home Referrals Initiated Home Health If patient plan is home with home health Yes : Has signed face to face form been completed? Medicare Choice List Provided Yes SNF/HH Preference [facility] preferred Contact Name/Phone Jon at [facility]- [phone] Whiteboard Updated in Patient Room with Yes name and ext. # of Sales And Service Associate Review Status In Process Next Review Type Continued Stay Review
--- NOTE | 2022-01-03 19:28 | PC.NURSE ---
Addendum entered by Sanaz Gonzales R.N. 01/03/22 19:32: Reviewed medication home list with patient. Patient explains that she has been unable to take her supplements and certain medications d/t swallowing issues or vomiting. Removed from home list. Toradol is tolerated per patient. Original Note: Patient resting in bed with eyes closed, breathing unlabored. Patient endorsed feeling nausea post Zofran, ativan given for comfort. Patient appears to be tolerating pain and nausea at this time. BSC in reach, call light in reach. Did apply Lidocaine and zinc oxide to perineum after multiple BM today, patient tolerated. NS infusing at 150cc/hr. Port intact w/o complications.
[2022-01-03] MEDS: METOCLOPRAMIDE 10 MG/2 ML INJ IV (20:30)
[2022-01-03 20:59] LABS: Clostridium Difficile Tox PCR Negative for C. diff (Negative)
[2022-01-04] VITALS (12 sets, daily range): BP systolic 107–129; BP diastolic 50–80; PULSE 74–123; RESP 16–18; TEMP 37.1–37.6; O2SAT 96–99
[2022-01-04] MEDS: ONDANSETRON 4 MG/2 ML INJ IV ×6 (01:19→21:01)
[2022-01-04] MEDS: SODIUM CHLORIDE 0.9% 1,000 ML 150 ML IV ×2 (01:19→08:51)
[2022-01-04] MEDS: SODIUM CHLORIDE 0.9% FLUSH 10 ML IV ×3 (01:20→21:01)
[2022-01-04 05:43] LABS: Add Manual Diff / Slide Review NO; Basophils Absolute Auto 0 /uL (0-100); Basophils Percent Auto 0.1 % (0-2); Eosinophils Absolute Auto 0 /uL (0-450); Eosinophils Percent Auto 0.8 % (2-4); Hematocrit 26.8 % (36-46); Hemoglobin 9.3 g/dL (12.0-16.0); Lymphocytes Absolute Auto 200 /uL (1100-4500); Lymphocytes Percent Auto 5.9 % (25-40); Mean Corpuscular HGB Conc 34.7 % (30-36); Mean Corpuscular Hemoglobin 34.7 PG (26-34); Monocytes Absolute Auto 1000 /uL (0-900); Monocytes Percent Auto 26.8 % (3-14); Neutrophils Absolute Auto 2400 /uL (1500-7000); Neutrophils Percent Auto 66.4 % (50-75); Platelet Count 340 X10^3/uL (150-400); Red Blood Cell Count 2.68 X10^6/uL (4.0-5.2); Red Cell Distribution Width 15.3 % (11.6-14.8); White Blood Cell Count 3.6 X10^3/uL (4.5-11.0)
[2022-01-04 05:47] LABS: Alanine Aminotransferase 6 IU/L (<35); Albumin 2.2 g/dL (3.5-5.0); Albumin Globulin Ratio 0.9 (1.0-2.8); Alkaline Phosphatase 52 U/L (38-126); Aspartate Aminotransferase 22 IU/L (14-36); BUN Creatinine Ratio 13.2 (6-22); Bilirubin Total 0.4 mg/dL (0.2-1.3); Blood Urea Nitrogen 7 mg/dL (7-17); Calcium 7.6 mg/dL (8.4-10.2); Carbon Dioxide 23 mmol/L (22-32); Chloride 105 mmol/L (98-107); Estimated Glomerular Filt Rate > 60.0 mL/min (>60); Globulin 2.5 g/dL (1.7-4.1); Glucose 74 mg/dL (80-110); HEMOLYSIS < 15 (0-50); Sodium 131 mmol/L (137-145); Total Protein 4.7 g/dL (6.3-8.2)
[2022-01-04 06:18] LABS: TSH w/ Reflex to FT4 1.06 uIU/mL (0.47-4.68)
[2022-01-04] MEDS: ENOXAPARIN 40 MG/0.4 ML SYRINGE SUBCUT (08:47)
[2022-01-04] MEDS: HYDROMORPHONE 1 MG INJ 0.5 MG IV (08:49)
--- NOTE | 2022-01-04 10:47 | PC.NURSE ---
Patient A/Ox 3, resting in bed with eyes closed, breathing unlabored. Patient endorses nausea, Zofran administered, patient [place] [facility] [place] Refused PO medication due to nausea and inability to swallow at this time. Cong slushy remains bedside, patient believes she'll be able to tolerate the drink later this morning. NS@150cc/hr infusing in R chest port. Refusing SCD's due to activity. VSS. Continuing to monitor CBG.
[2022-01-04] MEDS: KCL 20 MEQ IN NS 1,000 ML 100 MEQ IV (12:26)
[2022-01-04] MEDS: POTASSIUM CHLORIDE IN WATER 10 MEQ/100 ML PIGGYBACK 100 MEQ IV ×4 (12:26→15:39)
[2022-01-04] MEDS: LOPERAMIDE 2 MG CAPSULE PO ×2 (13:35→21:01)
[2022-01-04] MEDS: ZINC OXIDE OINT 60 GM 1 APPLIC TOP (13:37)
[2022-01-04] MEDS: LORazepam 2 MG/ML INJ 0.5 MG IV ×2 (14:28→23:11)
--- NOTE | 2022-01-04 14:38 | DIET.PN1 ---
Dietary Progress Note RD Note: Pt not liking juice, jello, broth from clear liquid diet. No emesis, still nausea, slowing diarrhea with immodium administration. Pt tolerating Cong slushie. Discussed with hospitalist upgrading pts diet to transitional diet as pt feels she would like a yogurt smoothie. Kitchen to send up smoothie with yogurt, cantaloupe, and protein powder this evening. Ht: 160.02 cm Wt: 43.2 kg BMI: 18.2 Last BM: 01/04/22 (01/04/22 09:03) MNA: 3 Ethan Score: 14 Diet: 01/02/22 Breakfast Clear Liquid Diet Diet Modifications: Cong slushie bid Safety Tray needed?: No 01/04/22 Dinner Transitional Diet, Postop Diet Modifications: as tolerated, no gluten Nutrition Percent Meal Consumed 0% 01/04/22 12:38 Percent Meal Consumed 0% 01/04/22 09:03 Labs: RBC 2.68 X10^6/uL (4.0-5.2) L 01/04/22 05:14 Hgb 9.3 g/dL (12.0-16.0) L 01/04/22 05:14 Hct 26.8 % (36-46) L 01/04/22 05:14 Creatinine 0.53 mg/dL (0.52-1.04) 01/04/22 05:14 Monitoring/Evaluations: following for diet tolerance. Electronically Signed by: Starla Cash 01/04/22 14:38 Clinical Dietitian [address] [address]
--- NOTE | 2022-01-04 16:37 | PM.PN.1 ---
Subjective Subjective Date Patient Seen: 01/04/22 Interval history: 66-year-old woman with recent diagnosis of anal cancer in July 2021, undergoing radiation and chemotherapy, distant history of right breast cancer, essential hypertension, acquired hypothyroidism, peripheral neuropathy, anxiety, PTSD admitted due to intractable nausea, vomiting and diarrhea. Patient has not had vomiting but endorses persistent waves of nausea and severe abdominal cramping as well as frequent watery diarrhea overnight. Not sure if number of bowel movements is being recorded accurately as different than what patient reports. Appetite is quite poor with little p.o. intake. Also quite tearful during today's evaluation. Exam Vital Signs (past 8 hours): - 01/04/22 08:50 01/04/22 11:17 01/04/22 12:00 Temperature 98.9 F Pulse Rate 74 123 H Respiratory Rate 18 18 Blood Pressure 107/59 L 119/80 Pulse Oximetry 99 98 96 01/04/22 16:00 Temperature Pulse Rate Respiratory Rate Blood Pressure Pulse Oximetry 96 Oxygen Delivery Method Room Air Oxygen Flow Rate 0 Narrative Exam Narrative: General: Alert, malnourished appearing female Lungs:? Clear Heart:? Regular rhythm Abdomen:? Nontender Extremities: No edema Neurological:? Tearful, depressed affect Objective Labs Result Diagrams: 01/04/22 05:14 01/04/22 05:14 Labs: Laboratory Results - last 24 hr 01/03/22 01/04/22 01/04/22 10:40 05:14 05:14 WBC 3.6 L RBC 2.68 L Hgb 9.3 L Hct 26.8 L MCV 100.0 MCH 34.7 H MCHC 34.7 RDW 15.3 H Plt Count 340 Neut % (Auto) 66.4 Lymph % (Auto) 5.9 L [place] % (Auto) 26.8 H Eos % (Auto) 0.8 L Baso % (Auto) 0.1 Neut # (Auto) 2400 Lymph # (Auto) 200 L [place] # (Auto) 1000 H Eos # (Auto) 0 Baso # (Auto) 0 Sodium Potassium Chloride Carbon Dioxide BUN Creatinine Estimated GFR BUN/Creatinine Ratio Glucose Calcium Total Bilirubin AST ALT Alkaline Phosphatase Total Protein Albumin Globulin Albumin/Globulin Ratio TSH 1.06 C. difficile Tox (PCR) Negative for c. diff 01/04/22 05:14 WBC RBC Hgb Hct MCV MCH MCHC RDW Plt Count Neut % (Auto) Lymph % (Auto) [place] % (Auto) Eos % (Auto) Baso % (Auto) Neut # (Auto) Lymph # (Auto) [place] # (Auto) Eos # (Auto) Baso # (Auto) Sodium 131 L Potassium 3.0 L Chloride 105 Carbon Dioxide 23 BUN 7 Creatinine 0.53 Estimated GFR > 60.0 BUN/Creatinine Ratio 13.2 Glucose 74 L Calcium 7.6 L Total Bilirubin 0.4 AST 22 ALT 6 Alkaline Phosphatase 52 Total Protein 4.7 L Albumin 2.2 L Globulin 2.5 Albumin/Globulin Ratio 0.9 L TSH C. difficile Tox (PCR) [facility] Medical History (Updated 01/03/22 @ 00:29 by MICHAEL Green-XOCHITL) Acquired hypothyroidism Anal cancer Anxiety Anxiety Balance disorder Essential hypertension Headache Hip pain, bilateral History of alcohol abuse Liver enzyme elevation Neck pain Osteoporosis Peripheral neuropathy PTSD (post-traumatic stress disorder) SI (sacroiliac) joint inflammation Vertigo Visual disturbance Surgical History History of total mastectomy (06/27/01) Family History Mother Age: 86 Diabetes mellitus Sister Age: 59 Osteoarthritis Sister Age: 68 Diabetes mellitus Social History household members: significant other and none Smoking Status: Never smoker second hand exposure: Yes (I grew up with it) alcohol intake: current substance use type: does not use Assessment & Plan Assessment & Plan narrative: 1. Acute Dehydration, resulting in severe hypokalemia, hyponatremia, acute, due to Vomiting & diarrhea, acute, 2nd to chemotherapy/radiation for newly diagnosed anal cancer (07/2021), Acute on Chronic, present on admission -initial potassium 2.6, sodium 127- -continue repleting with K rider as needed -Zofran and Reglan to manage vomiting -Offer immodium for diarrhea after ruling out C diff -monitor electrolytes daily -Bed side commode for frequent diarrhea-Monitor for falls, up with assistance only. -clear liquids advance as tolerated -continue IV hydration -dietitian consult, patient is seen -C diff negative 2. Radiation Burn, perineum, acute on chronic, 2nd to radiation, present on admission -exacerbated by diarrhea -Offered lidocaine jelly mixed with Desitin, and moisture barrier cream to be applied to the perineum as needed -recommended Womack placement to prevent urine from coming in contact with perineum ortiz, reduce breakdown- pt refused at this time. 3. Acute on Chronic, Pain, perineum secondary to radiation ortiz and anal cancer, present on admission -patient was taking 15 mg of extended release morphine b.i.d. and 2 Percocet q.day at home -fentanyl patch 25 mcg q.72 hours initiated in hospital as patient unable to reliably take p.o. -hydromorphone 0.5 mg IV q.4 hours as needed -oxycodone 10 mg p.o. q.3 hours as needed -Fall precautions 4. Peripheral neuropathy, chronic, present on admission -Holding Tramadol 5. Depression, history of PTSD and anxiety -holding patient's oral lorazepam 0.5 mg b.i.d. prn, providing IV lorazepam prn -mirtazapine 7.5 mg HS started for depression 6. Malnourished as evidence by BMI of 16.9, secondary to chemotherapy and radiation treatment for anal cancer, acute on chronic, present on admission -dietitian consult -mirtazapine may also help to stimulate appetite 7.? Hypertension -hold/DC verapamil as patient dehydrated and mildly hypotensive 8.? Hypothyroidism -patient on armour thyroid -TSH 1.06 9.? Leukopenia, anemia secondary to chemotherapy -monitor with labs as needed Time Spent With Patient Critical Care time: I spent a total of [] minutes of critical care time on this patient's care today; this time is exclusive of procedural time. Quality VTE Deep Vein Thrombosis/Pulmonary Embolism Present on Admission: No
[2022-01-04] MEDS: MIRTAZAPINE 15 MG TABLET 7.5 MG PO (21:01)
[2022-01-04] MEDS: LIDOCAINE 2% (GLYDO) 6 ML GEL TOP (21:34)
[2022-01-04] MEDS: OXYCODONE IR 5 MG TABLET 10 MG PO (23:10)
[2022-01-05] VITALS (10 sets, daily range): BP systolic 113–119; BP diastolic 60–69; PULSE 72–101; RESP 14–16; TEMP 37.2–37.9; O2SAT 95–100
[2022-01-05] MEDS: ONDANSETRON 4 MG/2 ML INJ IV ×4 (02:00→18:03)
--- NOTE | 2022-01-05 03:38 | PC.NURSE ---
Shift Note Patient was alert and orientedx4, complaint of pain on her bottom due to skin excoriation and redness on leti-anal area secondary to diarrhea, zinc cream with lidocaine gel was applied on the affected area. Patient was afebrile, vital signs within acceptable limits, not in cardiorespiratory distress, at room air. On IV infusion of NS with KCL thru her mediport at right chest, dressing clean, dry and intact. Patient denies nausea and vomiting. Will continue to monitor.
[2022-01-05] MEDS: KCL 20 MEQ IN NS 1,000 ML 100 MEQ IV ×2 (04:53→15:30)
[2022-01-05 05:30] LABS: BUN Creatinine Ratio 5.5 (6-22); Blood Urea Nitrogen 3 mg/dL (7-17); Calcium 7.9 mg/dL (8.4-10.2); Carbon Dioxide 22 mmol/L (22-32); Chloride 106 mmol/L (98-107); Estimated Glomerular Filt Rate > 60.0 mL/min (>60); Glucose 72 mg/dL (80-110); HEMOLYSIS < 15 (0-50); Potassium 3.3 mmol/L (3.4-5.1); Sodium 131 mmol/L (137-145)
[2022-01-05] MEDS: THYROID, PORK 30 MG TABLET PO (06:04)
[2022-01-05] MEDS: ENOXAPARIN 40 MG/0.4 ML SYRINGE SUBCUT (10:50)
[2022-01-05] MEDS: LOPERAMIDE 2 MG CAPSULE PO ×2 (10:50→18:03)
[2022-01-05] MEDS: OXYCODONE IR 5 MG TABLET 10 MG PO (10:50)
[2022-01-05] MEDS: SODIUM CHLORIDE 0.9% FLUSH 10 ML IV (10:56)
--- NOTE | 2022-01-05 11:47 | PC.NURSE ---
Addendum entered by Shawanda Villa R.N. 01/05/22 15:40: Patients fentanyl patch changed to 50mcg and applied to l.shoulder. She has a temp of 100.8, cooling cloth placed on her forehead. Will recheck her temperature again shortly. Lying on her r.side and new bag of ivf infused, patient is now on routine reglan as well and this has been given. Original Note: Assess- Patient not feeling well today. She states that she had breast cancer over 20 years ago and is now dealing with anal cancer. She has had some chemo and radiation per patient. Patient has been having a lot of diarrhea, given immodium to help prevent this. She also complained of 10/10 pain, given oxycodone 10mg with some iv zofran. She is resting now, waiting to talk to the doctor. Patient did not eat much at breakfast.
[2022-01-05] MEDS: fentaNYL 25 MCG/PATCH 50 MCG TOP (15:17)
[2022-01-05] MEDS: METOCLOPRAMIDE 10 MG/2 ML INJ IV (15:18)
--- NOTE | 2022-01-05 15:52 | P.PN_ITS ---
Subjective Subjective Date Patient Seen: 01/05/22 Time Patient Seen: 12:30 Interval history: 66-year-old woman with recent diagnosis of anal cancer in July 2021, undergoing radiation and chemotherapy, distant history of right breast cancer, essential hypertension, acquired hypothyroidism, peripheral neuropathy, anxiety, PTSD admitted due to intractable nausea, vomiting and diarrhea, suspect radiation proctitis at this time. Pain remains uncontrolled, she has had minimal PO intake and remains severely nauseous. Still with 10 episodes of diarrhea and intermittent 10/10 pain. Exam Vital Signs (past 8 hours): - 01/05/22 08:00 01/05/22 11:45 Temperature 99.5 F Pulse Rate 79 86 Respiratory Rate 14 14 Blood Pressure 113/68 114/64 Pulse Oximetry 99 97 Oxygen Delivery Method Room Air Oxygen Flow Rate 0 Narrative Exam Narrative: General: Alert, malnourished appearing female Lungs:? Clear Heart:? Regular rhythm Abdomen:? Nontender Extremities: No edema Neurological:? Tearful, depressed affect Objective Labs Result Diagrams: 01/04/22 05:14 01/05/22 04:57 Labs: Laboratory Results - last 24 hr 01/05/22 04:57 Sodium 131 L Potassium 3.3 L Chloride 106 Carbon Dioxide 22 BUN 3 L Creatinine 0.55 Estimated GFR > 60.0 BUN/Creatinine Ratio 5.5 L Glucose 72 L Calcium 7.9 L [facility] Medical History (Updated 01/03/22 @ 00:29 by MICHAEL Green-XOCHITL) Acquired hypothyroidism Anal cancer Anxiety Anxiety Balance disorder Essential hypertension Headache Hip pain, bilateral History of alcohol abuse Liver enzyme elevation Neck pain Osteoporosis Peripheral neuropathy PTSD (post-traumatic stress disorder) SI (sacroiliac) joint inflammation Vertigo Visual disturbance Surgical History History of total mastectomy (06/27/01) Family History Mother Age: 86 Diabetes mellitus Sister Age: 59 Osteoarthritis Sister Age: 68 Diabetes mellitus Social History household members: significant other and none Smoking Status: Never smoker second hand exposure: Yes (I grew up with it) alcohol intake: current substance use type: does not use Assessment & Plan Assessment & Plan narrative: 1. Acute Dehydration, resulting in severe hypokalemia, hyponatremia, acute, due to Vomiting & diarrhea, acute, 2nd to chemotherapy/radiation for newly diagnosed anal cancer (07/2021). likely radiation proctitis, Acute, present on admission -continue IV hydration -dietitian consult -C diff negative, will do scheduled immodium to try and slow diarrhea. -suspect radiation proctitis given presentation. Will continue IV hydration and immodium and add multiple agents scheduled for nausea. If no help will need to prescribe butyrate enema to see if improvement. -consider oncology consultation. -consider TPN depending on nutrition evaluation, and progress of symptoms -nausea control with zofran and reglan, scheduled starting today. 2. Radiation Burn, perineum, acute on chronic, 2nd to radiation, present on admission -exacerbated by diarrhea -Offered lidocaine jelly mixed with Desitin, and moisture barrier cream to be applied to the perineum as needed -recommended Womack placement to prevent urine from coming in contact with perineum ortiz, reduce breakdown- pt refused at this time. -patient allergic to sulfa, evidence suggests no acute agents are helpful in symptom management. 3. Acute on Chronic, Pain, perineum secondary to radiation ortiz and anal cancer, present on admission -patient was taking 15 mg of extended release morphine b.i.d. and 2 Percocet q.day at home -fentanyl patch 25 mcg q.72 hours initiated in hospital as patient unable to reliably take p.o. Increased to 50 mcg on 01/05. -hydromorphone 0.5 mg IV q.4 hours as needed -oxycodone 10 mg p.o. q.3 hours as needed -Fall precautions 4. Peripheral neuropathy, chronic, present on admission -Holding Tramadol 5. Depression, history of PTSD and anxiety -holding patient's oral lorazepam 0.5 mg b.i.d. prn, providing IV lorazepam prn -mirtazapine 7.5 mg HS started for depression 6. severe acute PCM, secondary to chemotherapy and radiation treatment for anal cancer with possible radiation proctitis as noted above, acute on chronic, present on admission -dietitian consult appreicated. -mirtazapine may also help to stimulate appetite -was on TPN for a few days about 6 weeks ago at [facility] during prior admisssion. May need here again if no significant improvement in symptoms. 7.? Hypertension -hold/DC verapamil as patient dehydrated and mildly hypotensive initially. 8.? Hypothyroidism -patient on armour thyroid -TSH 1.06 9.? Leukopenia, anemia secondary to chemotherapy -monitor with labs as needed Code: Full, surrogate is Patrick Time Spent With Patient Critical Care time: I spent a total of [] minutes of critical care time on this patient's care today; this time is exclusive of procedural time. Quality VTE Deep Vein Thrombosis/Pulmonary Embolism Present on Admission: No MIPS - Admit I confirm the patient?s Advance Care Plan is present, Code status is documented, Surrogate decision maker is in patient?s record [If Yes, STOP here]: Yes
--- NOTE | 2022-01-05 18:18 | DIET.PN1 ---
Addendum entered by Starla Cash 01/06/22 16:19: Pt sleeping most of today. Pt consumed a few bites melon and applesauce for breakfast and 1/2 ONS Cong with 3 slice pineapple for lunch meeting <25% EER. Pt with fever, hospitalist awaiting cultures before placing PICC to initiate TPN. Pt at very high risk for refeeding syndrome (severe PCM, poor POs x2mo, low BMI, N/V/D). Pts TPN goal is Clinimix 1.5L but should start at 0.5L running at 20mL/h for first 12h assessing for refeeding syndrome prior to slow stepwise increase up to goal, repleting electrolytes as necessary. Original Note: Dietary Progress Note RD Note: Calorie Count initiated dinner Monday, Jan 05, 2022 Despite liberalizing pts diet, pt with poor POs, expresses to RD has zero appetite and aversion to anything other than water. Pt ordered vanilla ice cream for dinner tonight, ate 50%. Pt ordered apple sauce for breakfast tomorrow. RD asked if yogurt or Ensure could be added to tray, pt okays yogurt though states unlikely to eat it. Hospitalist ordered round the clock reglan and zofran, appetite stimulant. RD to watch calorie count for three meals, goal 1500kcals and 60g PRO, however, pt unlikely to meet this. Question on next steps for feeding: continued PO trial vs. enteral nutrition vs. TPN for bowel rest (diarrhea, nausea) Ht: 160.02 cm Wt: 44.2 kg BMI: 18.2 Last BM: 01/05/22 (01/05/22 08:00) MNA: 3 Ethan Score: 14 Diet: 01/04/22 Dinner Transitional Diet, Postop Diet Modifications: as tolerated, no gluten Nutrition Percent Meal Consumed 40 01/05/22 10:30 Percent Meal Consumed 0% 01/04/22 12:38 Percent Meal Consumed 0% 01/04/22 09:03 Labs: RBC 2.68 X10^6/uL (4.0-5.2) L 01/04/22 05:14 Hgb 9.3 g/dL (12.0-16.0) L 01/04/22 05:14 Hct 26.8 % (36-46) L 01/04/22 05:14 Creatinine 0.55 mg/dL (0.52-1.04) 01/05/22 04:57 Electronically Signed by: Starla Cash 01/05/22 18:18 Clinical Dietitian [address] [address]
[2022-01-06] VITALS (12 sets, daily range): BP systolic 87–136; BP diastolic 51–74; PULSE 80–125; RESP 14–18; TEMP 36.6–38.6; O2SAT 93–100
[2022-01-06] MEDS: ONDANSETRON 4 MG/2 ML INJ IV ×5 (00:10→17:32)
[2022-01-06] MEDS: MIRTAZAPINE 15 MG TABLET 7.5 MG PO (00:11)
[2022-01-06] MEDS: OXYCODONE IR 5 MG TABLET 10 MG PO ×3 (00:11→10:19)
[2022-01-06] MEDS: SODIUM CHLORIDE 0.9% FLUSH 10 ML IV ×2 (00:12→10:07)
[2022-01-06] MEDS: LOPERAMIDE 2 MG CAPSULE PO (00:12)
[2022-01-06] MEDS: KCL 20 MEQ IN NS 1,000 ML 100 MEQ IV ×3 (00:50→22:57)
[2022-01-06] MEDS: ZINC OXIDE OINT 60 GM 1 APPLIC TOP (01:11)
[2022-01-06] MEDS: METOCLOPRAMIDE 10 MG/2 ML INJ IV ×3 (03:01→22:57)
[2022-01-06] MEDS: HYDROMORPHONE 1 MG INJ 0.5 MG IV (03:01)
[2022-01-06 05:46] LABS: Hematocrit 28.9 % (36-46); Hemoglobin 9.9 g/dL (12.0-16.0); Mean Corpuscular HGB Conc 34.1 % (30-36); Mean Corpuscular Hemoglobin 34.2 PG (26-34); Mean Corpuscular Volume 100.2 fL (80-100); Platelet Count 353 X10^3/uL (150-400); Red Blood Cell Count 2.89 X10^6/uL (4.0-5.2); Red Cell Distribution Width 15.2 % (11.6-14.8); White Blood Cell Count 5.1 X10^3/uL (4.5-11.0)
[2022-01-06 05:48] LABS: Add Manual Diff / Slide Review YES
[2022-01-06 05:53] LABS: Alanine Aminotransferase 9 IU/L (<35); Albumin 2.4 g/dL (3.5-5.0); Albumin Globulin Ratio 0.9 (1.0-2.8); Alkaline Phosphatase 60 U/L (38-126); Aspartate Aminotransferase 24 IU/L (14-36); Bilirubin Total 0.5 mg/dL (0.2-1.3); Calcium 7.9 mg/dL (8.4-10.2); Carbon Dioxide 23 mmol/L (22-32); Chloride 105 mmol/L (98-107); Estimated Glomerular Filt Rate > 60.0 mL/min (>60); Globulin 2.8 g/dL (1.7-4.1); Glucose 83 mg/dL (80-110); HEMOLYSIS < 15 (0-50); Potassium 3.4 mmol/L (3.4-5.1); Sodium 131 mmol/L (137-145); Total Protein 5.2 g/dL (6.3-8.2)
[2022-01-06 05:54] LABS: BUN Creatinine Ratio 4.3 (6-22); Blood Urea Nitrogen < 2 mg/dL (7-17)
[2022-01-06 06:20] LABS: Anisocytosis 1+; Neutrophils Absolute Manual 2805 /uL (3000-5900); Total Cells Counted 100
[2022-01-06 06:22] LABS: Dohle Bodies 1+
[2022-01-06] MEDS: THYROID, PORK 30 MG TABLET PO (06:53)
--- NOTE | 2022-01-06 08:47 | DI.RAD.S_ITS ---
PROCEDURE: XR CHEST 2V INDICATIONS: fever TECHNIQUE: 2 views of the chest were acquired. COMPARISON: [facility], CT, CT CHEST ABDOMEN PELVIS WITH CONTRAST, 10/15/2021, 12:34. [facility], [place], PET NECK TO MID THIGH, 10/28/2021, 9:41. [facility], CR, XR CHEST 1V, 09/24/2021, 16:39. [facility], CR, XR CHEST 1V, 01/21/2021, 17:12. FINDINGS: Surgical changes and devices: Right-sided port with the catheter tip projecting at the lower 3rd of the SVC. Multiple right breast and axillary clips. Lungs and pleura: Lungs appear clear. No pleural effusions or pneumothorax. Mediastinum: Mediastinal contours are unchanged. Heart size is normal. Bones and chest wall: No suspicious bony abnormalities. Soft tissues appear unremarkable. IMPRESSION: No acute cardiopulmonary abnormality identified. Dictated by: Virgilio Paulino M.D. on 01/06/2022 at 9:28 Approved by: Virgilio Paulino M.D. on 01/06/2022 at 9:32
[2022-01-06] MEDS: ACETAMINOPHEN 325 MG TABLET 650 MG PO (10:06)
[2022-01-06] MEDS: LOPERAMIDE 2 MG CAPSULE 4 MG PO (10:06)
[2022-01-06] MEDS: ENOXAPARIN 40 MG/0.4 ML SYRINGE SUBCUT (10:10)
--- NOTE | 2022-01-06 11:47 | P.PN_ITS ---
Subjective Subjective Date Patient Seen: 01/06/22 Time Patient Seen: 11:47 Interval history: 66-year-old woman with recent diagnosis of anal cancer in July 2021, undergoing radiation and chemotherapy, distant history of right breast cancer, essential hypertension, acquired hypothyroidism, peripheral neuropathy, anxiety, PTSD admitted due to intractable nausea, vomiting and diarrhea, suspect radiation proctitis at this time. Pain remains uncontrolled today. she has had minimal PO intake and remains severely nauseous. Still with 10 episodes of diarrhea and intermittent 10/10 pain. Exam Vital Signs (past 8 hours): - 01/06/22 08:00 01/06/22 10:06 Temperature 101.4 F H 101.4 F H Pulse Rate 107 H Respiratory Rate 15 Blood Pressure 136/74 Pulse Oximetry 99 Oxygen Delivery Method Room Air Oxygen Flow Rate 0 Narrative Exam Narrative: General: Alert, malnourished appearing female Lungs:? Clear Heart:? Regular rhythm Abdomen:? Nontender Extremities: No edema Neurological:? Tearful, depressed affect Objective Labs Result Diagrams: 01/06/22 05:17 01/06/22 05:17 Labs: Laboratory Results - last 24 hr 01/06/22 01/06/22 05:17 05:17 WBC 5.1 RBC 2.89 L Hgb 9.9 L Hct 28.9 L MCV 100.2 H MCH 34.2 H MCHC 34.1 RDW 15.2 H Plt Count 353 Neut % (Auto) Not Reportable Lymph % (Auto) Not Reportable [place] % (Auto) Not Reportable Eos % (Auto) Not Reportable Baso % (Auto) Not Reportable Lymph # (Auto) Not Reportable [place] # (Auto) Not Reportable Baso # (Auto) Not Reportable Total Counted 100 Seg Neutrophils % 46.0 Band Neutrophils % 9.0 H Lymphocytes % (Manual) 13.0 L Monocytes % (Manual) 31.0 H Eosinophils % (Manual) 1.0 L Neutrophils # (Manual) 2805 L Dohle Bodies 1+ H RBC Morphology See below Anisocytosis 1+ H Sodium 131 L Potassium 3.4 Chloride 105 Carbon Dioxide 23 BUN < 2 L Creatinine 0.47 L Estimated GFR > 60.0 BUN/Creatinine Ratio 4.3 L Glucose 83 Calcium 7.9 L Total Bilirubin 0.5 AST 24 ALT 9 Alkaline Phosphatase 60 Total Protein 5.2 L Albumin 2.4 L Globulin 2.8 Albumin/Globulin Ratio 0.9 L [facility] Medical History (Updated 01/03/22 @ 00:29 by MICHAEL Green-XOCHITL) Acquired hypothyroidism Anal cancer Anxiety Anxiety Balance disorder Essential hypertension Headache Hip pain, bilateral History of alcohol abuse Liver enzyme elevation Neck pain Osteoporosis Peripheral neuropathy PTSD (post-traumatic stress disorder) SI (sacroiliac) joint inflammation Vertigo Visual disturbance Surgical History History of total mastectomy (06/27/01) Family History Mother Age: 86 Diabetes mellitus Sister Age: 59 Osteoarthritis Sister Age: 68 Diabetes mellitus Social History household members: significant other and none Smoking Status: Never smoker second hand exposure: Yes (I grew up with it) alcohol intake: current substance use type: does not use Assessment & Plan Assessment & Plan narrative: 1. Acute Dehydration, resulting in severe hypokalemia, hyponatremia, acute, due to Vomiting & diarrhea, acute, 2nd to chemotherapy/radiation for newly diagnosed anal cancer (07/2021). likely radiation proctitis, Acute, present on admission -continue IV hydration -dietitian consult, consider TPN if calorie count remains low despite increasing medications for diarrhea and anusea. -C diff negative, increase immodium today to try and slow diarrhea. -suspect radiation proctitis given presentation. Will continue IV hydration and immodium and add multiple agents scheduled for nausea. If no help will need to prescribe butyrate enema to see if improvement. -consider oncology consultation. -consider TPN depending on nutrition evaluation, and progress of symptoms -nausea control with zofran and reglan, scheduled starting today. 2. Radiation Burn, perineum, acute on chronic, 2nd to radiation, present on admission -exacerbated by diarrhea -Offered lidocaine jelly mixed with Desitin, and moisture barrier cream to be applied to the perineum as needed -recommended Womack placement to prevent urine from coming in contact with perineum ortiz, reduce breakdown- pt refused at this time. -patient allergic to sulfa (for silver sulfadiazine), evidence suggests no acute agents are helpful in symptom management. 3. Acute on Chronic, Pain, perineum secondary to radiation ortiz and anal cancer, present on admission -patient was taking 15 mg of extended release morphine b.i.d. and 2 Percocet q.day at home -fentanyl patch 25 mcg q.72 hours initiated in hospital as patient unable to reliably take p.o. Increased to 50 mcg on 01/05. -hydromorphone 0.5 mg IV q.4 hours as needed -oxycodone 10 mg p.o. q.3 hours as needed -Fall precautions 4. Peripheral neuropathy, chronic, present on admission -Holding Tramadol 5. Depression, history of PTSD and anxiety -holding patient's oral lorazepam 0.5 mg b.i.d. prn, providing IV lorazepam prn -mirtazapine 7.5 mg HS started for depression 6. severe acute PCM, secondary to chemotherapy and radiation treatment for anal cancer with possible radiation proctitis as noted above, acute on chronic, present on admission -dietitian consult appreicated. -mirtazapine may also help to stimulate appetite -was on TPN for a few days about 6 weeks ago at [facility] during prior admisssion. May need here again if no significant improvement in symptoms. 7.? Hypertension -hold/DC verapamil as patient dehydrated and mildly hypotensive initially. 8.? Hypothyroidism -patient on armour thyroid -TSH 1.06 9.? Leukopenia, anemia secondary to chemotherapy -monitor with labs as needed Code: Full, surrogate is Patrick Time Spent With Patient Critical Care time: I spent a total of [] minutes of critical care time on this patient's care today; this time is exclusive of procedural time. Quality VTE Deep Vein Thrombosis/Pulmonary Embolism Present on Admission: No
--- NOTE | 2022-01-06 16:24 | PC.NURSE ---
Addendum entered by Shawanda Villa R.N. 01/06/22 18:02: Patients temp down to 98.4, she is getting a NS 1000cc bolus at this time. Her heart rate was in the 130s and at one point went up to 170s. Blood pressure also low, automatic furnace operator to take this again. She had a bowel movement and has voided. We need a urine sample from patient. There is a clean hat in the commode to catch the sample when she urinates again. Patients pulse is now down in the 120s and her pressure is better at 93/66 Original Note: Assess- Patient is does not fell as well as yesterday. She complained of pain, given 10mg of oxycodone and helpful. The only food that patient has eaten today is a few pieces of pineapple and some drinks of liquids. She just had a 50cc emesis of bile colored drainage. Given reglan and now patient is asleep. Will medicate her when she calls and am holding po immodium at this time. She transfers to the commode on her own and has voided a total of 275cc of concentrated urine. Her significan other was in to visit for a bit and has went home. Resting at this time and napping.
[2022-01-06] MEDS: SODIUM CHLORIDE 0.9% 1,000 ML 1000 ML IV (17:51)
[2022-01-06 18:43] LABS: Bilirubin Urine UA 2+ (NEGATIVE); Color Urine UA YELLOW; Glucose Urine UA NEGATIVE (Negative); Ketones Urine UA 2+ (NEGATIVE); Leukocyte Esterase Urine UA TRACE (NEGATIVE); Nitrite Urine UA POSITIVE (Negative); Occult Blood Urine UA 2+ (Negative); Protein Urine UA 1+ (Negative); Specific Gravity Urine UA 1.025 (1.000-1.035); Urobilinogen Urine UA 0.2 E.U./dL (0.2)
[2022-01-06 18:46] LABS: Appearance Urine UA Slightly Cloudy
[2022-01-06 19:03] LABS: Amorphous Sediment Urine 1+; Bacteria Urine Many (>30); Mucus Urine 1+ (Negative); RBC Urine 1-5/HPF (0-5/HPF); Squamous Epithelial Cell Urine 1-5 /HPF (0-5/HPF); WBC Urine 10-30/HPF (0-5/HPF)
[2022-01-06 19:05] LABS: Culture Indicated Urine Specimen Cultured
[2022-01-06 19:06] LABS: Ictotest Urine Negative (Negative)
[2022-01-06] MEDS: LIDOCAINE 2% (GLYDO) 6 ML GEL TOP (19:36)
[2022-01-06] MEDS: LORazepam 2 MG/ML INJ 0.5 MG IV (19:36)
[2022-01-06] MEDS: cefTRIAXone 1,000 MG in SODIUM CHLORIDE 0.9% 100 ML 200 ML IV (20:22)
[2022-01-07] VITALS (7 sets, daily range): BP systolic 93–127; BP diastolic 51–72; PULSE 78–94; RESP 16–18; TEMP 36.3–37.5; O2SAT 93–100
[2022-01-07 05:31] LABS: Hematocrit 24.9 % (36-46); Hemoglobin 8.6 g/dL (12.0-16.0); Mean Corpuscular HGB Conc 34.5 % (30-36); Mean Corpuscular Hemoglobin 34.4 PG (26-34); Mean Corpuscular Volume 99.5 fL (80-100); Platelet Count 296 X10^3/uL (150-400); Red Blood Cell Count 2.51 X10^6/uL (4.0-5.2); Red Cell Distribution Width 15.5 % (11.6-14.8); White Blood Cell Count 4.4 X10^3/uL (4.5-11.0)
[2022-01-07 05:33] LABS: Add Manual Diff / Slide Review YES
[2022-01-07 05:35] LABS: Alanine Aminotransferase 8 IU/L (<35); Albumin Globulin Ratio 0.8 (1.0-2.8); Alkaline Phosphatase 44 U/L (38-126); Aspartate Aminotransferase 18 IU/L (14-36); Bilirubin Total 0.4 mg/dL (0.2-1.3); Blood Urea Nitrogen 3 mg/dL (7-17); Calcium 7.6 mg/dL (8.4-10.2); Carbon Dioxide 20 mmol/L (22-32); Chloride 109 mmol/L (98-107); Estimated Glomerular Filt Rate > 60.0 mL/min (>60); Globulin 2.5 g/dL (1.7-4.1); Glucose 93 mg/dL (80-110); HEMOLYSIS < 15 (0-50); Potassium 3.5 mmol/L (3.4-5.1); Sodium 132 mmol/L (137-145); Total Protein 4.5 g/dL (6.3-8.2)
[2022-01-07 08:39] LABS: Neutrophils Absolute Manual 3124 /uL (3000-5900); Total Cells Counted 100
[2022-01-07 08:40] LABS: RBC Morphology Normal Morphology
[2022-01-07] MEDS: KCL 20 MEQ IN NS 1,000 ML 100 MEQ IV ×2 (09:23→20:02)
[2022-01-07] MEDS: LOPERAMIDE 2 MG CAPSULE 4 MG PO ×3 (09:23→20:56)
[2022-01-07] MEDS: THYROID, PORK 30 MG TABLET PO (09:24)
[2022-01-07] MEDS: ENOXAPARIN 40 MG/0.4 ML SYRINGE SUBCUT (09:24)
[2022-01-07] MEDS: LORazepam 2 MG/ML INJ 0.5 MG IV (09:34)
--- NOTE | 2022-01-07 15:30 | PC.NURSE ---
Patient is feeling better today. Ativan given earlier and helpful for nausea. Patient is able to eat more. She ate two cookies and drank some of her fluids. Up to the commode on her own, she had to have the sheets changed x2 as she had a bowel movement. Denies pain and is resting comfortably.
[2022-01-07] MEDS: OXYCODONE IR 5 MG TABLET 10 MG PO (16:14)
[2022-01-07] MEDS: ONDANSETRON 4 MG/2 ML INJ IV ×2 (16:14→20:57)
--- NOTE | 2022-01-07 17:42 | P.PN_ITS ---
Subjective Subjective Date Patient Seen: 01/07/22 Time Patient Seen: 17:42 Interval history: 66-year-old woman with recent diagnosis of anal cancer in July 2021, undergoing radiation and chemotherapy, distant history of right breast cancer, essential hypertension, acquired hypothyroidism, peripheral neuropathy, anxiety, PTSD admitted due to intractable nausea, vomiting and diarrhea, suspect radiation proctitis at this time. Pain is mildly improved. Diarrhea continues without much effect from loperamide. She was able to tolerate a very small amount of food but more than prior days. Exam Vital Signs (past 8 hours): - 01/07/22 12:00 01/07/22 16:00 Temperature 99.2 F 99.5 F Pulse Rate 94 H 91 H Respiratory Rate 16 17 Blood Pressure 103/51 L 127/72 Pulse Oximetry 99 100 Oxygen Delivery Method Room Air Oxygen Flow Rate 0 Narrative Exam Narrative: General: Alert, malnourished appearing female Lungs:? CTA b/l, no wheezes rhonchi or rales Heart:? RRR no m/r/g Abdomen:? Nontender, non-distended, soft Extremities: No edema or tenderness. Neurological:? flat, depressed affect but appropriately interactive awake and alert without focal deficits. Objective Labs Result Diagrams: 01/07/22 05:06 01/07/22 05:06 Labs: Laboratory Results - last 24 hr 01/06/22 01/07/22 01/07/22 17:55 05:06 05:06 WBC 4.4 L RBC 2.51 L Hgb 8.6 L Hct 24.9 L MCV 99.5 MCH 34.4 H MCHC 34.5 RDW 15.5 H Plt Count 296 Neut % (Auto) Not Reportable Lymph % (Auto) Not Reportable [place] % (Auto) Not Reportable Eos % (Auto) Not Reportable Baso % (Auto) Not Reportable Lymph # (Auto) Not Reportable [place] # (Auto) Not Reportable Baso # (Auto) Not Reportable Total Counted 100 Seg Neutrophils % 49.0 Band Neutrophils % 22.0 H Lymphocytes % (Manual) 11.0 L Monocytes % (Manual) 17.0 H Eosinophils % (Manual) 1.0 L Neutrophils # (Manual) 3124 RBC Morphology Normal morphology Sodium 132 L Potassium 3.5 Chloride 109 H Carbon Dioxide 20 L BUN 3 L Creatinine 0.43 L Estimated GFR > 60.0 BUN/Creatinine Ratio 7.0 Glucose 93 Calcium 7.6 L Total Bilirubin 0.4 AST 18 ALT 8 Alkaline Phosphatase 44 Total Protein 4.5 L Albumin 2.0 L Globulin 2.5 Albumin/Globulin Ratio 0.8 L Urine Color Yellow Urine Appearance Slightly cloudy Urine pH 5.0 Ur Specific [place] 1.025 Urine Protein 1+ H Urine Glucose (UA) Negative Urine Ketones 2+ H Urine Occult Blood 2+ H Urine Nitrate Positive H Urine Bilirubin 2+ H Ur Bilirubin Confirm Negative Urine Urobilinogen 0.2 Ur Leukocyte Esterase Trace H Urine RBC 1-5/hpf Urine WBC 10-30/hpf H Ur Squamous Epith Cells 1-5 /hpf Amorphous Sediment 1+ Urine Bacteria Many (>30) H Urine Mucus 1+ H Ur Culture Indicated? Specimen cultured [facility] Medical History (Updated 01/03/22 @ 00:29 by MICHAEL Green-XOCHITL) Acquired hypothyroidism Anal cancer Anxiety Anxiety Balance disorder Essential hypertension Headache Hip pain, bilateral History of alcohol abuse Liver enzyme elevation Neck pain Osteoporosis Peripheral neuropathy PTSD (post-traumatic stress disorder) SI (sacroiliac) joint inflammation Vertigo Visual disturbance Surgical History History of total mastectomy (06/27/01) Family History Mother Age: 86 Diabetes mellitus Sister Age: 59 Osteoarthritis Sister Age: 68 Diabetes mellitus Social History household members: significant other and none Smoking Status: Never smoker second hand exposure: Yes (I grew up with it) alcohol intake: current substance use type: does not use Assessment & Plan Assessment & Plan narrative: 1. Acute Dehydration, resulting in severe hypokalemia, hyponatremia, acute, due to Vomiting & diarrhea, acute, 2nd to chemotherapy/radiation for newly diagnosed anal cancer (07/2021). likely radiation proctitis, Acute, present on admission -continue IV hydration -dietitian consult, consider TPN if calorie count remains low despite increasing medications for diarrhea and anusea. -C diff negative, increase immodium today to try and slow diarrhea. -suspect radiation proctitis given presentation. Will continue IV hydration and immodium and add multiple agents scheduled for nausea. Benzodiazepines seem to be more effective with nausea control. If no help will need to prescribe butyrate enema to see if improvement. -consider oncology consultation. -consider TPN depending on nutrition evaluation, and progress of symptoms -nausea control with zofran and reglan, and now ativan. scheduled starting today . 2. Radiation Burn, perineum, acute on chronic, 2nd to radiation, present on admission -exacerbated by diarrhea -Offered lidocaine jelly mixed with Desitin, and moisture barrier cream to be applied to the perineum as needed -recommended Womack placement to prevent urine from coming in contact with perineum ortiz, reduce breakdown- pt refused at this time. -patient allergic to sulfa (for silver sulfadiazine), evidence suggests no acute agents are helpful in symptom management. 3. Acute on Chronic, Pain, perineum secondary to radiation ortiz and anal cancer, present on admission -patient was taking 15 mg of extended release morphine b.i.d. and 2 Percocet q.day at home -fentanyl patch 25 mcg q.72 hours initiated in hospital as patient unable to reliably take p.o. Increased to 50 mcg on 01/05. -hydromorphone 0.5 mg IV q.4 hours as needed -change oxycodone to home morphine today given improving tolerance of medications. -Fall precautions 4. Peripheral neuropathy, chronic, present on admission -Holding Tramadol 5. Depression, history of PTSD and anxiety -holding patient's oral lorazepam 0.5 mg b.i.d. prn, providing IV lorazepam prn -mirtazapine 7.5 mg HS started for depression 6. severe acute PCM, secondary to chemotherapy and radiation treatment for anal cancer with possible radiation proctitis as noted above, acute on chronic, present on admission -dietitian consult appreicated. -mirtazapine may also help to stimulate appetite -was on TPN for a few days about 6 weeks ago at [facility] during prior admisssion. May need here again if no significant improvement in symptoms or remains not eating enough. 7.? Hypertension -hold/DC verapamil as patient dehydrated and mildly hypotensive initially. 8.? Hypothyroidism -patient on armour thyroid -TSH 1.06 9.? Leukopenia, anemia secondary to chemotherapy -monitor with labs as needed 10. UTI - patient developed fever on 01/05. Fever evaluation revealed a UTI. Treat with 3 days of ceftriaxone. Code: Full, surrogate is Patrick Dispo: anticipate discharge home, timing unclear but dependent on symptoms. Time Spent With Patient Critical Care time: I spent a total of [] minutes of critical care time on this patient's care today; this time is exclusive of procedural time. Quality VTE Deep Vein Thrombosis/Pulmonary Embolism Present on Admission: No
--- NOTE | 2022-01-07 18:37 | DIET.PN1 ---
Dietary Progress Note Assessment: Pt cont with low kcal intake. Cont under goal of 1500 kcals with kcal count including 25cc riki slushie and 2 GF cookies for the day. Pt at very high risk for refeeding syndrome (severe PCM, poor POs x2mo, low BMI, N/V/D). Pts TPN goal is Clinimix 1.5L but should start at 0.5L running at 20mL/h for first 12h assessing for refeeding syndrome prior to slow stepwise increase up to goal, repleting electrolytes as necessary. Ht: 160.02 cm Wt: 49.5 kg BMI: 18.2 Last BM: 01/07/22 (01/07/22 09:10) MNA: 3 Ethan Score: 17 Diet: 01/04/22 Dinner Transitional Diet, Postop Diet Modifications: as tolerated, no gluten Nutrition Percent Meal Consumed 0% 01/06/22 20:15 Electronically Signed by: Fara Johnson 01/07/22 18:37 Clinical Dietitian [address] [address]
[2022-01-07] MEDS: cefTRIAXone 1,000 MG in SODIUM CHLORIDE 0.9% 100 ML 200 ML IV (18:47)
[2022-01-07] MEDS: MIRTAZAPINE 15 MG TABLET 7.5 MG PO (20:56)
[2022-01-07] MEDS: MORPHINE ER 15 MG TABLET PO (20:56)
[2022-01-07] MEDS: METOCLOPRAMIDE 10 MG/2 ML INJ IV (23:00)
[2022-01-08] VITALS (14 sets, daily range): BP systolic 93–125; BP diastolic 63–87; PULSE 85–98; RESP 16–18; TEMP 36.6–38.8; O2SAT 93–100
[2022-01-08] MEDS: ONDANSETRON 4 MG/2 ML INJ IV ×6 (00:31→20:34)
[2022-01-08] MEDS: LORazepam 2 MG/ML INJ 0.5 MG IV (00:53)
[2022-01-08] MEDS: METOCLOPRAMIDE 10 MG/2 ML INJ IV ×3 (05:23→21:22)
[2022-01-08] MEDS: THYROID, PORK 30 MG TABLET PO (05:24)
[2022-01-08] MEDS: KCL 20 MEQ IN NS 1,000 ML 100 MEQ IV (05:40)
--- NOTE | 2022-01-08 05:43 | PC.NURSE ---
Shift Note; Patient was alert and orientedx4, afebrile, vital signs within acceptable limits. No signs of respiratory distress. Patient still on IV fluids with KCL at 100 mls/hr thru right chest mediport, dressing clean, dry and intact. Patient denies any discomfort/pain. No episode of diarrhea or vomiting throughout the shift. Will continue to monitor.
[2022-01-08 06:11] LABS: Hematocrit 24.1 % (36-46); Hemoglobin 8.3 g/dL (12.0-16.0); Mean Corpuscular HGB Conc 34.4 % (30-36); Mean Corpuscular Hemoglobin 33.9 PG (26-34); Mean Corpuscular Volume 98.7 fL (80-100); Platelet Count 304 X10^3/uL (150-400); Red Blood Cell Count 2.44 X10^6/uL (4.0-5.2); Red Cell Distribution Width 16.3 % (11.6-14.8); White Blood Cell Count 3.8 X10^3/uL (4.5-11.0)
[2022-01-08 06:12] LABS: Add Manual Diff / Slide Review YES
[2022-01-08 06:20] LABS: Alanine Aminotransferase 7 IU/L (<35); Albumin 1.9 g/dL (3.5-5.0); Albumin Globulin Ratio 0.7 (1.0-2.8); Alkaline Phosphatase 45 U/L (38-126); Aspartate Aminotransferase 18 IU/L (14-36); Bilirubin Total 0.3 mg/dL (0.2-1.3); Calcium 7.3 mg/dL (8.4-10.2); Carbon Dioxide 21 mmol/L (22-32); Chloride 111 mmol/L (98-107); Estimated Glomerular Filt Rate > 60.0 mL/min (>60); Globulin 2.6 g/dL (1.7-4.1); Glucose 77 mg/dL (80-110); HEMOLYSIS < 15 (0-50); Potassium 3.4 mmol/L (3.4-5.1); Sodium 132 mmol/L (137-145); Total Protein 4.5 g/dL (6.3-8.2)
[2022-01-08 06:26] LABS: BUN Creatinine Ratio 4.7 (6-22); Blood Urea Nitrogen < 2 mg/dL (7-17)
[2022-01-08 06:50] LABS: Neutrophils Absolute Manual 2508 /uL (3000-5900); Total Cells Counted 100
[2022-01-08 06:51] LABS: Platelet Estimate Adeq; RBC Morphology Normal Morphology
[2022-01-08] MEDS: ENOXAPARIN 40 MG/0.4 ML SYRINGE SUBCUT (09:18)
[2022-01-08] MEDS: LOPERAMIDE 2 MG CAPSULE 4 MG PO ×4 (09:19→20:34)
[2022-01-08] MEDS: OXYCODONE IR 5 MG TABLET 10 MG PO (09:19)
[2022-01-08] MEDS: ACETAMINOPHEN 325 MG TABLET 650 MG PO ×2 (09:19→21:35)
[2022-01-08] MEDS: MORPHINE ER 15 MG TABLET PO ×2 (09:20→20:33)
[2022-01-08] MEDS: POTASSIUM CHLORIDE 20 MEQ TAB 40 MEQ PO (09:31)
[2022-01-08] MEDS: LIDOCAINE 2% (GLYDO) 6 ML GEL TOP (09:33)
[2022-01-08] MEDS: ZINC OXIDE OINT 60 GM 1 APPLIC TOP (09:33)
--- NOTE | 2022-01-08 12:10 | P.PN_ITS ---
Subjective Subjective Date Patient Seen: 01/08/22 Time Patient Seen: 12:10 Interval history: Reports improved pain today with addition of morphine. Bowel movements have slowed, nausea is improved with ativan and she is tolerating more food. Reports food is tasting good today. Exam Vital Signs (past 8 hours): - 01/08/22 08:00 01/08/22 09:19 01/08/22 09:20 Temperature 100.8 F H 100.8 F H 100.8 F H Pulse Rate 94 H Respiratory Rate 18 Blood Pressure 105/63 Pulse Oximetry 95 95 01/08/22 09:25 Temperature Pulse Rate Respiratory Rate Blood Pressure Pulse Oximetry 93 Oxygen Delivery Method Room Air Oxygen Flow Rate 0 Narrative Exam Narrative: General: Alert, malnourished appearing female Lungs:? CTA b/l, no wheezes rhonchi or rales Heart:? RRR no m/r/g Abdomen:? Nontender, non-distended, soft Extremities: No edema or tenderness. Neurological:? flat, depressed affect but appropriately interactive awake and alert without focal deficits. Objective Labs Result Diagrams: 01/08/22 05:47 01/08/22 05:47 Labs: Laboratory Results - last 24 hr 01/08/22 01/08/22 05:47 05:47 WBC 3.8 L RBC 2.44 L Hgb 8.3 L Hct 24.1 L MCV 98.7 MCH 33.9 MCHC 34.4 RDW 16.3 H Plt Count 304 Neut % (Auto) Not Reportable Lymph % (Auto) Not Reportable Carolina % (Auto) Not Reportable Eos % (Auto) Not Reportable Baso % (Auto) Not Reportable Lymph # (Auto) Not Reportable Carolina # (Auto) Not Reportable Baso # (Auto) Not Reportable Total Counted 100 Seg Neutrophils % 61.0 Band Neutrophils % 5.0 Lymphocytes % (Manual) 6.0 L Monocytes % (Manual) 26.0 H Eosinophils % (Manual) 2.0 Neutrophils # (Manual) 2508 L Platelet Estimate Adeq RBC Morphology Normal morphology Sodium 132 L Potassium 3.4 Chloride 111 H Carbon Dioxide 21 L BUN < 2 L Creatinine 0.43 L Estimated GFR > 60.0 BUN/Creatinine Ratio 4.7 L Glucose 77 L Calcium 7.3 L Total Bilirubin 0.3 AST 18 ALT 7 Alkaline Phosphatase 45 Total Protein 4.5 L Albumin 1.9 L Globulin 2.6 Albumin/Globulin Ratio 0.7 L [facility] Medical History (Updated 01/03/22 @ 00:29 by MICHAEL Green-XOCHITL) Acquired hypothyroidism Anal cancer Anxiety Anxiety Balance disorder Essential hypertension Headache Hip pain, bilateral History of alcohol abuse Liver enzyme elevation Neck pain Osteoporosis Peripheral neuropathy PTSD (post-traumatic stress disorder) SI (sacroiliac) joint inflammation Vertigo Visual disturbance Surgical History History of total mastectomy (06/27/01) Family History Mother Age: 86 Diabetes mellitus Sister Age: 59 Osteoarthritis Sister Age: 68 Diabetes mellitus Social History household members: significant other and none Smoking Status: Never smoker second hand exposure: Yes (I grew up with it) alcohol intake: current substance use type: does not use Assessment & Plan Assessment & Plan narrative: 1. Acute Dehydration, resulting in severe hypokalemia, hyponatremia, acute, due to Vomiting & diarrhea, acute, 2nd to chemotherapy/radiation for newly diagnosed anal cancer (07/2021). likely radiation proctitis, Acute, present on admission -continue IV hydration -dietitian consult, consider TPN if calorie count remains low despite increasing medications for diarrhea and anusea. -C diff negative, increased immodium to try and slow diarrhea. -suspect radiation proctitis given presentation. With improvement in nausea will stop IV fluids today. monitor BMP tomorrow. -consider oncology consultation. -consider TPN depending on nutrition evaluation, and progress of symptoms -nausea control with zofran and reglan, and now ativan. scheduled starting 01/06. 2. Radiation Burn, perineum, acute on chronic, 2nd to radiation, present on admission -exacerbated by diarrhea -Offered lidocaine jelly mixed with Desitin, and moisture barrier cream to be applied to the perineum as needed -recommended Womack placement to prevent urine from coming in contact with perineum ortiz, reduce breakdown- pt refused. -patient allergic to sulfa (for silver sulfadiazine), evidence suggests no acute agents are helpful in symptom management. 3. Acute on Chronic, Pain, perineum secondary to radiation ortiz and anal cancer , present on admission -patient was taking 15 mg of extended release morphine b.i.d. and 2 Percocet q.day at home -fentanyl patch 25 mcg q.72 hours initiated in hospital as patient unable to reliably take p.o. Increased to 50 mcg on 01/05. -hydromorphone 0.5 mg IV q.4 hours as needed -change oxycodone to home morphine given improving tolerance of medications with improvement in pain control. -Fall precautions 4. Peripheral neuropathy, chronic, present on admission -Holding Tramadol 5. Depression, history of PTSD and anxiety -holding patient's oral lorazepam 0.5 mg b.i.d. prn, providing IV lorazepam prn for nausea. -mirtazapine 7.5 mg HS started for depression 6. severe acute PCM, secondary to chemotherapy and radiation treatment for anal cancer with possible radiation proctitis as noted above, acute on chronic, present on admission -dietitian consult appreicated. -mirtazapine may also help to stimulate appetite -was on TPN for a few days about 6 weeks ago at [facility] during prior admisssion. May need here again if no significant improvement in symptoms or remains not eating enough. 7.? Hypertension -hold/DC verapamil as patient dehydrated and mildly hypotensive initially. 8.? Hypothyroidism -patient on armour thyroid -TSH 1.06 9.? Leukopenia, anemia secondary to chemotherapy -monitor with labs as needed 10. UTI ?- patient developed fever on 01/05. Fever evaluation revealed a UTI. Treat with 3 days of ceftriaxone. Code: Full, surrogate is Patrick Dispo: anticipate discharge home, potentially tomorrow if symptoms remain improved and no signs of dehydration off of IV fluids today. Time Spent With Patient Critical Care time: I spent a total of [] minutes of critical care time on this patient's care today ; this time is exclusive of procedural time. Quality VTE Deep Vein Thrombosis/Pulmonary Embolism Present on Admission: No
[2022-01-08] MEDS: fentaNYL 25 MCG/PATCH 50 MCG TOP (12:39)
[2022-01-08] MEDS: cefTRIAXone 1,000 MG in SODIUM CHLORIDE 0.9% 100 ML 200 ML IV (18:34)
[2022-01-08] MEDS: MIRTAZAPINE 15 MG TABLET 7.5 MG PO (20:32)
[2022-01-09] VITALS (13 sets, daily range): BP systolic 94–141; BP diastolic 54–78; PULSE 89–107; RESP 17–22; TEMP 36.6–38.3; O2SAT 93–100
[2022-01-09] MEDS: ONDANSETRON 4 MG/2 ML INJ IV ×3 (01:42→11:15)
[2022-01-09] MEDS: SODIUM CHLORIDE 0.9% 250 ML 21 ML IV (05:02)
[2022-01-09] MEDS: METOCLOPRAMIDE 10 MG/2 ML INJ IV (05:02)
[2022-01-09] MEDS: THYROID, PORK 30 MG TABLET PO (05:02)
--- NOTE | 2022-01-09 07:50 | PC.NURSE ---
Addendum entered by Barbie Romero R.N. 01/09/22 14:17: pt transitioned over to po rx rather than iv - planning to dc home tomorrow if all equals out, with home health- pain controlled with ms contin and oxycodone for break thru pain- pt intermittently tearful with staff and not always with her significant other- they as a couple are considering palliative care options Original Note: checked terrie pt- she was sound asleep on her left side- allowed her to sleep
[2022-01-09 08:32] LABS: Alanine Aminotransferase 8 IU/L (<35); Albumin 1.8 g/dL (3.5-5.0); Albumin Globulin Ratio 0.8 (1.0-2.8); Alkaline Phosphatase 49 U/L (38-126); Aspartate Aminotransferase 22 IU/L (14-36); BUN Creatinine Ratio 6.8 (6-22); Bilirubin Total 0.2 mg/dL (0.2-1.3); Blood Urea Nitrogen 3 mg/dL (7-17); Calcium 7.3 mg/dL (8.4-10.2); Carbon Dioxide 23 mmol/L (22-32); Chloride 108 mmol/L (98-107); Estimated Glomerular Filt Rate > 60.0 mL/min (>60); Globulin 2.3 g/dL (1.7-4.1); Glucose 63 mg/dL (80-110); HEMOLYSIS < 15 (0-50); Potassium 3.1 mmol/L (3.4-5.1); Sodium 132 mmol/L (137-145); Total Protein 4.1 g/dL (6.3-8.2)
[2022-01-09 08:53] LABS: Add Manual Diff / Slide Review NO; Basophils Absolute Auto 0 /uL (0-100); Basophils Percent Auto 0.2 % (0-2); Eosinophils Absolute Auto 100 /uL (0-450); Eosinophils Percent Auto 1.6 % (2-4); Hematocrit 24.4 % (36-46); Hemoglobin 8.3 g/dL (12.0-16.0); Lymphocytes Absolute Auto 200 /uL (1100-4500); Lymphocytes Percent Auto 5.4 % (25-40); Mean Corpuscular HGB Conc 33.9 % (30-36); Mean Corpuscular Hemoglobin 33.8 PG (26-34); Mean Corpuscular Volume 99.7 fL (80-100); Monocytes Absolute Auto 800 /uL (0-900); Monocytes Percent Auto 20.6 % (3-14); Neutrophils Absolute Auto 2900 /uL (1500-7000); Neutrophils Percent Auto 72.2 % (50-75); Platelet Count 277 X10^3/uL (150-400); Red Blood Cell Count 2.45 X10^6/uL (4.0-5.2); Red Cell Distribution Width 16.1 % (11.6-14.8)
[2022-01-09 09:31] LABS: Magnesium 1.3 mg/dL (1.6-2.3)
[2022-01-09] MEDS: ENOXAPARIN 40 MG/0.4 ML SYRINGE SUBCUT (11:14)
[2022-01-09] MEDS: OXYCODONE IR 5 MG TABLET 10 MG PO ×3 (11:15→20:54)
[2022-01-09] MEDS: LOPERAMIDE 2 MG CAPSULE 4 MG PO ×3 (11:15→20:54)
[2022-01-09] MEDS: ACETAMINOPHEN 325 MG TABLET 650 MG PO (11:16)
[2022-01-09] MEDS: MORPHINE ER 15 MG TABLET PO ×2 (11:17→20:55)
[2022-01-09] MEDS: MAGNESIUM CHLORIDE 64 MG TABLET 128 MG PO ×2 (11:17→17:33)
[2022-01-09] MEDS: SODIUM CHLORIDE 0.9% FLUSH 10 ML IV ×2 (11:22→20:55)
[2022-01-09] MEDS: POTASSIUM CHLORIDE 20 MEQ/15 ML UDC 40 MEQ PO (11:22)
[2022-01-09] MEDS: ZINC OXIDE OINT 60 GM 1 APPLIC TOP (11:25)
--- NOTE | 2022-01-09 14:18 | P.PN_ITS ---
Subjective Subjective Date Patient Seen: 01/09/22 Time Patient Seen: 14:19 Interval history: Reports improved pain today with addition of morphine. Bowel movements are minimal, nausea is improved with ativan and she is tolerating more food. Reports food is tasting good today. Remains on some IV nausea medications will move to oral meds today. Exam Vital Signs (past 8 hours): - 01/09/22 08:57 01/09/22 11:15 01/09/22 11:16 Temperature 101.0 F H 101.0 F H Pulse Rate Respiratory Rate Blood Pressure Pulse Oximetry 93 01/09/22 11:17 01/09/22 12:00 01/09/22 12:40 Temperature 101.0 F H 101 F H Pulse Rate 97 H Respiratory Rate 18 Blood Pressure 122/78 Pulse Oximetry 96 97 97 Oxygen Delivery Method Room Air Oxygen Flow Rate 0 Narrative Exam Narrative: General: Alert, malnourished appearing female Lungs:? CTA b/l, no wheezes rhonchi or rales Heart:? RRR no m/r/g Abdomen:? Nontender, non-distended, soft Extremities: No edema or tenderness. Neurological:? flat, depressed affect but appropriately interactive awake and alert without focal deficits. Objective Labs Result Diagrams: 01/09/22 08:10 01/09/22 08:10 Labs: Laboratory Results - last 24 hr 01/09/22 01/09/22 01/09/22 08:10 08:10 08:10 WBC 4.0 L RBC 2.45 L Hgb 8.3 L Hct 24.4 L MCV 99.7 MCH 33.8 MCHC 33.9 RDW 16.1 H Plt Count 277 Neut % (Auto) 72.2 Lymph % (Auto) 5.4 L Robertson % (Auto) 20.6 H Eos % (Auto) 1.6 L Baso % (Auto) 0.2 Neut # (Auto) 2900 Lymph # (Auto) 200 L Robertson # (Auto) 800 Eos # (Auto) 100 Baso # (Auto) 0 Sodium 132 L Potassium 3.1 L Chloride 108 H Carbon Dioxide 23 BUN 3 L Creatinine 0.44 L Estimated GFR > 60.0 BUN/Creatinine Ratio 6.8 Glucose 63 L Calcium 7.3 L Magnesium 1.3 L Total Bilirubin 0.2 AST 22 ALT 8 Alkaline Phosphatase 49 Total Protein 4.1 L Albumin 1.8 L Globulin 2.3 Albumin/Globulin Ratio 0.8 L [facility] Medical History (Updated 01/03/22 @ 00:29 by MICHAEL Green-XOCHITL) Acquired hypothyroidism Anal cancer Anxiety Anxiety Balance disorder Essential hypertension Headache Hip pain, bilateral History of alcohol abuse Liver enzyme elevation Neck pain Osteoporosis Peripheral neuropathy PTSD (post-traumatic stress disorder) SI (sacroiliac) joint inflammation Vertigo Visual disturbance Surgical History History of total mastectomy (06/27/01) Family History Mother Age: 86 Diabetes mellitus Sister Age: 59 Osteoarthritis Sister Age: 68 Diabetes mellitus Social History household members: significant other and none Smoking Status: Never smoker second hand exposure: Yes (I grew up with it) alcohol intake: current substance use type: does not use Assessment & Plan Assessment & Plan narrative: 1. Acute Dehydration, resulting in severe hypokalemia, hyponatremia, acute, due to Vomiting & diarrhea, acute, 2nd to chemotherapy/radiation for newly diagnosed anal cancer (07/2021). likely radiation proctitis, Acute, present on admission -continued IV hydration until tolerating enough PO intake. Stopped 01/08. -dietitian consulted appreciate recommendations. Improved intake over the prior 2 days. -C diff negative, increased immodium which seems to have been effective. -suspect radiation proctitis given presentation. With improvement in nausea stopped IVF as noted above. -consider oncology consultation if regression when transition to oral medications. -consider TPN if regression, though seems to be improving. -continue reglan AC, zofran prn, and ativan prn all oral now for nausea. 2. Radiation Burn, perineum, acute on chronic, 2nd to radiation, present on admission -exacerbated by diarrhea -Offered lidocaine jelly mixed with Desitin, and moisture barrier cream to be applied to the perineum as needed -recommended Womack placement to prevent urine from coming in contact with perineum ortiz, reduce breakdown- pt refused. -patient allergic to sulfa (for silver sulfadiazine), evidence suggests no acute agents are helpful in symptom management. 3. Acute on Chronic, Pain, perineum secondary to radiation ortiz and anal cancer, present on admission -patient was taking 15 mg of extended release morphine b.i.d. and 2 Percocet q.day at home -fentanyl patch 25 mcg q.72 hours initiated in hospital as patient unable to reliably take p.o. Increased to 50 mcg on 01/05. -hydromorphone 0.5 mg IV q.4 hours as needed -changed oxycodone to home morphine given improving tolerance of medications with improvement in pain control. -Fall precautions -consider fentanyl patch on discharge or she may be able to return on just home morphine. 4. Peripheral neuropathy, chronic, present on admission -Holding Tramadol 5. Depression, history of PTSD and anxiety -holding patient's oral lorazepam 0.5 mg b.i.d. prn, providing IV lorazepam prn for nausea. -mirtazapine 7.5 mg HS started for depression 6. severe acute PCM, secondary to chemotherapy and radiation treatment for anal cancer with possible radiation proctitis as noted above, acute on chronic, present on admission -dietitian consult appreicated. -mirtazapine may also help to stimulate appetite -was on TPN for a few days about 6 weeks ago at [facility] during prior admisssion. May need here again if no significant improvement in symptoms or remains not eating enough. 7.? Hypertension -hold/DC verapamil as patient dehydrated and mildly hypotensive initially. remai ns normotensive. 8.? Hypothyroidism -patient on [place] thyroid -TSH 1.06 9.? Leukopenia, anemia secondary to chemotherapy -monitor with labs as needed 10. UTI ?- patient developed fever on 01/05. Fever evaluation revealed a UTI. Treat with 3 days of ceftriaxone. Code: Full, surrogate is Patrick Dispo: anticipate discharge home, potentially tomorrow if symptoms remain improved and no signs of dehydration off of IV fluids today. Time Spent With Patient Critical Care time: I spent a total of [] minutes of critical care time on this patient's care today; this time is exclusive of procedural time. Quality VTE Deep Vein Thrombosis/Pulmonary Embolism Present on Admission: No
--- NOTE | 2022-01-09 14:29 | CM.DPC ---
DCP/continued: Reviewed chart. Per provider in AM rounds patient is no longer on TPN and most likely will be ready to d/c home tomorrow with HH. Provider and RN discussed palliative consult with patient but she refused. Patient has no preference in HH agencies therefore, BUSINESS OBJECTS REPORT DEVELOPER placed call to [facility] whom are on rotation calendar in CM office. Orders, F2F obtained. BUSINESS OBJECTS REPORT DEVELOPER spoke with Rusty at [facility] and she reports that they can accept referral. All information minus d/c summary faxed. Patient expected to d/c home tomorrow 2-14. 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 team to provide patient with [facility] brochure prior to discharge. P: Home with [facility] and supportive friends/family. OSVALDO Garcia
[2022-01-09] MEDS: LORazepam 0.5 MG TABLET PO ×2 (14:35→20:54)
[2022-01-09] MEDS: METOCLOPRAMIDE HCL 5 MG TABLET PO (17:16)
[2022-01-09] MEDS: MIRTAZAPINE 15 MG TABLET 7.5 MG PO (20:54)
[2022-01-10] VITALS (9 sets, daily range): BP systolic 96–115; BP diastolic 46–65; PULSE 86–100; RESP 14–17; TEMP 36.6–37.4; O2SAT 92–96
[2022-01-10] MEDS: THYROID, PORK 30 MG TABLET PO (05:54)
[2022-01-10 06:42] LABS: Alanine Aminotransferase 11 IU/L (<35); Albumin Globulin Ratio 0.8 (1.0-2.8); Alkaline Phosphatase 63 U/L (38-126); Aspartate Aminotransferase 30 IU/L (14-36); BUN Creatinine Ratio 7.7 (6-22); Bilirubin Total 0.4 mg/dL (0.2-1.3); Blood Urea Nitrogen 3 mg/dL (7-17); Calcium 7.5 mg/dL (8.4-10.2); Carbon Dioxide 25 mmol/L (22-32); Chloride 105 mmol/L (98-107); Estimated Glomerular Filt Rate > 60.0 mL/min (>60); Globulin 2.5 g/dL (1.7-4.1); Glucose 79 mg/dL (80-110); HEMOLYSIS 29 (0-50); Magnesium 1.3 mg/dL (1.6-2.3); Potassium 3.5 mmol/L (3.4-5.1); Sodium 131 mmol/L (137-145); Total Protein 4.5 g/dL (6.3-8.2)
[2022-01-10] MEDS: SODIUM CHLORIDE 0.9% FLUSH 10 ML IV ×2 (07:45→11:50)
[2022-01-10] MEDS: MAGNESIUM SULFATE 4 GM/100 ML PIGGYBACK IV (07:45)
[2022-01-10] MEDS: METOCLOPRAMIDE HCL 5 MG TABLET PO ×2 (09:08→11:51)
[2022-01-10] MEDS: MORPHINE ER 15 MG TABLET PO (09:15)
[2022-01-10] MEDS: ENOXAPARIN 40 MG/0.4 ML SYRINGE SUBCUT (09:15)
[2022-01-10] MEDS: LOPERAMIDE 2 MG CAPSULE 4 MG PO (09:16)
--- NOTE | 2022-01-10 09:23 | CM.DPC ---
DCP Discharge Home with HH Per , pt medically stable to d/c home with HH today and no longer on TPN and declined Palliative Consult. LYNSEY accidentally sent HH referral to [facility] yesterday when [facility] had already been given the referral and accepted last week. SW called [facility] and confirmed they have referral from last week and just need MD Neva orders and d/c summary. LYNSEY called [facility] and cancelled referral and apologized and [facility] confirms no problem. LYNSEY met bedside with pt and explained role and provided [facility] brochure and explained HH services and frequency and pt acknowledges that she feels HH would be beneficial and needed and while SW there called her Sig Other and updated him on her d/c for today and he confirmed he will provide transport today and will bring in clean clothes for pt to change into after she showers at the hospital. Medicare Rights copy was provided to pt and SW explained the purpose of Medicare Message and pt confirms she feels stable for d/c home today. 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 LYNSEY updated RN and faxed pt's d/c packet to [place] to review. Plan: Patient to d/c home today via [facility] POV and new [facility] referral to start pt on services after d/c. OSVALDO Lopez
--- NOTE | 2022-01-10 12:57 | DIET.PN1 ---
Dietary Progress Note RD Note: Upon review of weekend calorie count, pts POs have improved though remain marginal, 25-50% of each meal tray. Pts nausea, diarrhea improved though still present. Pts wounds on leti area healing but remain painful. To clarify, pt never went on TPN here at , she had TPN during prior hospitalization at [facility]. Ht: 160.02 cm Wt: 52.1 kg BMI: 18.2 Last BM: 01/09/22 (01/09/22 18:24) MNA: 3 Ethan Score: 18 Diet: 01/04/22 Dinner Transitional Diet, Postop Diet Modifications: as tolerated, no gluten 01/08/22 Breakfast Gluten Free Diet Diet Modifications: Nutrition Percent Meal Consumed refused breakfast 01/10/22 09:25 Percent Meal Consumed 25% 01/09/22 18:22 Percent Meal Consumed 25% 01/09/22 17:00 Percent Meal Consumed 50% 01/08/22 18:00 Labs: RBC 2.45 X10^6/uL (4.0-5.2) L 01/09/22 08:10 Hgb 8.3 g/dL (12.0-16.0) L 01/09/22 08:10 Hct 24.4 % (36-46) L 01/09/22 08:10 Creatinine 0.39 mg/dL (0.52-1.04) L 01/10/22 06:15 Nutrition Diagnosis: ongoing malnutrition Interventions: 1. Pt has d/c nutrition reccs with shopping list and menu ideas. Strongly recc pt use oral nutrition supplement until appetite more normal for her. 2. Strongly recc pt stay on top of antiemetics, antidiarrheal, and pain upon d/c for best chance at nutrient repletion. Electronically Signed by: Starla Cash 01/10/22 12:57 Clinical Dietitian [address] [place] [address]
--- NOTE | 2022-01-10 16:39 | PM.DS.1 ---
History of Present Illness History of Present Illness Chief complaint: Weakness Narrative: Per Alissa Syed: Karolina Ulrich is a 66-year-old woman with distant history of right breast cancer, essential hypertension, acquired hypothyroidism, peripheral neuropathy, anxiety, PTSD, and a new diagnosis of anal cancer as of July 2021.? She has a Port-A-Cath in place on the right side she has had an initial dose of chemotherapy for 4 days along with radiation on November 08 that required eventual hospitalization for anaphylaxis and significant dehydration.? She had the dose of the chemotherapy lowered and altered slightly and completed another 4 day course on December 24, 2021.? She completed most recent radiation course on December 31 and since both of these she has been having severe side effects of all of this.? She is vomiting and having profuse diarrhea.? She is unable to keep fluids, food, or pain medications down so pain is uncontrolled.? She has significant radiation ortiz and irritation to her entire perineum from the anterior vulva? all the way to the top of the intergluteal cleft and including labia majora.? She denies chest pain, palpitations, SOB, no specific abd pain, but positive muscle aches to her trunk from continious diarrhea.? She continues to get weaker and is miserable with the persistent vomiting, diarrhea, and increasing pain. During admit exam patient had 3 bouts of diarrhea, she has excruciating perianal and rectal pain.? Patient's vitals upon admit are stable temp 97.5?, BP 149/79, HR 75, R 20, O2 saturation 99% on room air.? Patient demonstrates a slight decrease in hematocrit 34.8, and elevated platelets 472.? Hyponatremia sodium 127, severe hypokalemia potassium 2.6, chloride 85, albumin 3.4 the rest of the patient's labs are all within normal limits.? Patient is being admitted for acute dehydration resulting in severe hypokalemia, hyponatremia, and ortiz secondary to chemotherapy/radiation. Discharge Providers Provider Date of admission: 01/02/22 23:11 Discharge Date: 01/10/22 Primary care physician: Gordon Newton MD Consults: 01/03/22 16:37 Consult to Dietitian, Adult Routine Comment: Reason For Exam: Ethan Score <14 01/05/22 15:54 Consult to Dietitian, Adult Routine Comment: Reason For Exam: PCM, decreased PO intake 01/05/22 16:20 Consult to Dietitian, Adult Routine Comment: Reason For Exam: poor appetite, cancer, at risk for skin breakdown 01/09/22 14:15 Consult to Home Health Routine Comment: DX: Weakness secondary to Anal CA. 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 Acute dehydration, nausea, vomiting causing hypokalemia, hypomagnesemia, hyponatremia 2. Perineal readiation burn with chronic pain 3. Anal cancer 4. Peripheral neuropathy 5. Depression, PTSD, anxiety 6. Acute protein calorie malnutrition 7. Hypertension 8. Hypothyrodism 9. UTI 10. Leukopenia Hospital Course: Ms. Ulrich was admitted with intractable nausea and vomiting with electrolyte derangements. This was thought to be secondary complications from treatment from her anal cancer with chemo radiation that caused radiation injury. She did improve quite slowly with treatment, and TPN was considered. However with reglan, zofran, ativan she seemed to have improvement enough to tolerate oral medications. She also had significant pain due to injury and was sttarted on a fentanyl patch and ordered for morphine with improvement. On day of discharge she was tolerating a diet. Discharge time 35 minutes Exam Vital Signs (past 8 hours): - 01/10/22 12:00 01/10/22 13:26 Temperature 98.5 F Pulse Rate 94 H Respiratory Rate 16 Blood Pressure 115/65 Pulse Oximetry 95 95 Oxygen Delivery Method Room Air Oxygen Flow Rate 0 Narrative Exam Narrative: General: no acute distress Lungs:?clear bilaterally Heart:?regular rate and rhythm, no murmurs Abdomen:? Nontender, non-distended, soft Extremities: No edema or tenderness. Neurological:? flat, depressed affect Objective Labs Result Diagrams: 01/09/22 08:10 01/10/22 06:15 Labs: Laboratory Results - last 24 hr 01/10/22 06:15 Sodium 131 L Potassium 3.5 Chloride 105 Carbon Dioxide 25 BUN 3 L Creatinine 0.39 L Estimated GFR > 60.0 BUN/Creatinine Ratio 7.7 Glucose 79 L Calcium 7.5 L Magnesium 1.3 L Total Bilirubin 0.4 AST 30 ALT 11 Alkaline Phosphatase 63 Total Protein 4.5 L Albumin 2.0 L Globulin 2.5 Albumin/Globulin Ratio 0.8 L COUNTS INCLUDE 234 BEDS AT THE [facility] Medical History (Updated 01/03/22 @ 00:29 by MICHAEL Green-XOCHITL) Acquired hypothyroidism Anal cancer Anxiety Anxiety Balance disorder Essential hypertension Headache Hip pain, bilateral History of alcohol abuse Liver enzyme elevation Neck pain Osteoporosis Peripheral neuropathy PTSD (post-traumatic stress disorder) SI (sacroiliac) joint inflammation Vertigo Visual disturbance Surgical History History of total mastectomy (06/27/01) Family History Mother Age: 86 Diabetes mellitus Sister Age: 59 Osteoarthritis Sister Age: 68 Diabetes mellitus Social History household members: significant other and none Smoking Status: Never smoker second hand exposure: Yes (I grew up with it) alcohol intake: current substance use type: does not use Discharge Plan Discharge Plan Patient Disposition: Home Provider Discharge Comment: Ms. Ulrich came in to the hospital with difficulty with keeping food down. She has significant pain. Her medications were adjusted and she felt much better and was able to be discharged home. She should follow up closely with her doctors to make sure she continues to improve. Discharge orders & Medications Prescriptions: New loperamide 2 mg Capsule 4 mg PO QID Qty: 14 0RF mirtazapine 15 mg Tablet 7.5 mg PO BEDTIME Qty: 14 0RF fentanyl 25 mcg/hr Patch 72 Hour 25 mcg topical Q72H Qty: 5 0RF ondansetron 4 mg Tablet,Disintegrating 4 mg sublingual Q4HR PRN (Reason: Nausea) Qty: 14 0RF Continued thyroid (pork) [Nature-Throid] 32.5 mg tablet 32.5 mg PO DAILY 0RF verapamil 180 mg capsule,ext rel. pellets 24 hr 180 mg PO DAILY 0RF tramadol 50 mg tablet 50 mg PO Q6H PRN (Reason: pain) Qty: 10 0RF lorazepam [Ativan] 0.5 mg tablet 0.5 mg PO BID PRN (Reason: anxiety) Qty: 14 0RF morphine 15 mg Tablet Extended Release 15 mg PO Q12H Qty: 14 0RF Follow up/Referrals: Gordon Newton MD [Primary Care Provider] - Discharge Data Primary Care Provider: Gordon Newton Quality VTE Deep Vein Thrombosis/Pulmonary Embolism Present on Admission: No
== END 2022-01-10 14:22 | disposition home health service (06) | DRG 640 ==
LOC: ED 22:42 → AC 23:12
PROVIDERS: Internal Medicine; Admitting Provider Nurse Practitioner Family; Emergency Provider Emergency Medicine; PCP Internal Medicine; Referring Provider Emergency Medicine; Visit Provider Nurse Practitioner Family
DX: E87.1 Hypo-osmolality and hyponatremia (principal); E43 Unspecified severe protein-calorie malnutrition; C21.0 Malignant neoplasm of anus, unspecified; Z68.1 Body mass index [BMI] 19.9 or less, adult; N39.0 Urinary tract infection, site not specified; K62.7 Radiation proctitis; E87.6 Hypokalemia; E86.0 Dehydration; T21.07XA Burn of unspecified degree of female genital region, initial encounter; R11.2 Nausea with vomiting, unspecified; R19.7 Diarrhea, unspecified; D70.1 Agranulocytosis secondary to cancer chemotherapy; D64.81 Anemia due to antineoplastic chemotherapy; G89.3 Neoplasm related pain (acute) (chronic); T45.1X5A Adverse effect of antineoplastic and immunosuppressive drugs, initial encounter; F32.A Depression, unspecified; E83.42 Hypomagnesemia; F41.9 Anxiety disorder, unspecified; E03.9 Hypothyroidism, unspecified; I10 Essential (primary) hypertension; G62.9 Polyneuropathy, unspecified; F43.10 Post-traumatic stress disorder, unspecified; Y84.2 Radiological procedure and radiotherapy as the cause of abnormal reaction of the patient, or of later complication, without mention of misadventure at the time of the procedure; Z20.822 Contact with and (suspected) exposure to COVID-19; Z77.22 Contact with and (suspected) exposure to environmental tobacco smoke (acute) (chronic)
CPT/HCPCS: 36415; 36591; 36592; 71046; 80048; 80053; 81001; 82962; 83690; 83735; 84443; 85007; 85025; 87040; 87077; 87086; 87186; 87493; 87635; 94760; 96365; 96375; 96376; 99284; C9803; J0696; J1170; J1642; J1650; J2060; J2405; J2765; J3010; J3475

== ENCOUNTER → 2022-02-22 13:43 | Outpatient (CLI) | payer OTHER, SELFPAY ==
[2022-01-03 00:13] VITALS: BMI 18.2
--- NOTE | 2022-02-22 13:47 | DI.RAD.S_ITS ---
PROCEDURE: XR TIBIA FUBULA RT 2V INDICATIONS: Unspecified fall, initial encounter TECHNIQUE: 2 views of the tibia and fibula were acquired. COMPARISON: None. FINDINGS: Bones: No fractures or dislocations. No suspicious bony lesions. Soft tissues: No suspicious soft tissue calcifications or masses. IMPRESSION: No acute finding. Dictated by: Alfred Kenny M.D. on 02/22/2022 at 14:39 Approved by: Alfred Kenny M.D. on 02/22/2022 at 14:39
--- NOTE | 2022-02-22 13:47 | DI.RAD.S_ITS ---
PROCEDURE: XR FOOT RT MIN 3V INDICATIONS: Unspecified fall, initial encounter TECHNIQUE: 3 views of the foot were acquired. COMPARISON: None. FINDINGS: Bones: No fractures or dislocations. No suspicious bony lesions. Mild hallux valgus angulation. Soft tissues: No tibiotalar joint effusion. Achilles tendon appears normal. IMPRESSION: No acute abnormality of the right foot. Dictated by: Óscar Russo M.D. on 02/22/2022 at 17:10 Approved by: Óscar Russo M.D. on 02/22/2022 at 17:13
== END ==
PROVIDERS: PCP Internal Medicine; Referring Provider Internal Medicine; Visit Provider Internal Medicine
DX: M79.604 Pain in right leg
CPT/HCPCS: 73590; 73630

== ENCOUNTER 2022-03-15 17:52 | Emergency (ER) | payer MEDICARE, SELFPAY ==
[2022-01-03 00:13] VITALS: BMI 18.2
[2022-03-15 18:09] VITALS: BP 113/83; PULSE 106; RESP 15; TEMP 36.2; O2SAT 98
--- NOTE | 2022-03-15 18:15 | DI.US.S_ITS ---
PROCEDURE: US PERIPH VENOUS LOW EXTREM RT INDICATIONS: swelling of lower leg after injury 4 weeks ago TECHNIQUE: Real-time imaging, as well as color and pulse Doppler interrogation, were performed of the lower extremity deep veins from the inguinal ligament to the popliteal fossa. COMPARISON: None. FINDINGS: Deep venous thrombosis can be seen involving the right distal common femoral vein as well as the superficial femoral vein and the popliteal vein. IMPRESSION: Extensive right lower extremity deep venous thrombosis is seen. Note: Case discussed by telephone with Dr. Romero at 5:45 p.m. [place] time on March 15, 2022. Dictated by: Arron Troy M.D. on 03/15/2022 at 17:44 Approved by: Arron Troy M.D. on 03/15/2022 at 17:46
[2022-03-15 20:18] VITALS: BP 133/73; PULSE 81; RESP 16; TEMP 36.4; O2SAT 99
--- NOTE | 2022-03-15 20:52 | DI.RAD.S_ITS ---
PROCEDURE: XR ANKLE RT MIN 3V INDICATIONS: ankle injury 4.5 weeks ago, still having pain and swelling TECHNIQUE: 3 views of the ankle were acquired. COMPARISON: None. FINDINGS: Bones: No fractures or dislocations. Ankle mortise is normally aligned. No suspicious bony lesions. Soft tissues: Trace tibiotalar joint effusion. Achilles tendon appears normal. IMPRESSION: No fracture demonstrated. Consider follow-up MRI of the ankle for further evaluation. Dictated by: Virgilio Paulino M.D. on 03/15/2022 at 22:02 Approved by: Virgilio Paulino M.D. on 03/15/2022 at 22:03
--- NOTE | 2022-03-15 21:23 | ED.LOWEXIN ---
HPI - Extremity Injury (Lower) General Chief Complaint: Extremity Injury, Lower Stated Complaint: RIGHT FOOT SWELLING SENT BY DOCTOR Time Seen by Provider: 03/15/22 20:35 Source: patient Mode of arrival: Ambulatory History of Present Illness HPI Narrative: 66-year-old female nonsmoker with history of anal cancer presents at the request of her home nursing home physician for evaluation of pain, swelling and redness of her right foot and calf. She denies any recent injury. She has had no fever or chills. She denies any chest pain, shortness of breath or palpitations. She was seen and evaluated many weeks ago for a sprained right ankle but is otherwise well. Related Data Home Medications Medication Instructions Recorded Confirmed thyroid (pork) 32.5 mg tablet 32.5 mg PO DAILY 11/29/18 01/03/22 (Nature-Throid) verapamil 180 mg 24 hr 180 mg PO DAILY 12/23/19 01/03/22 capsule,extended release Previous Rx's Medication Instructions Recorded tramadol 50 mg tablet 50 mg PO Q6H PRN #10 tab 01/21/21 fentanyl 25 mcg/hr transdermal 25 mcg TOPICAL Q72H #5 ea 01/10/22 patch loperamide 2 mg capsule 4 mg PO QID #14 cap 01/10/22 lorazepam 0.5 mg tablet (Ativan) 0.5 mg PO BID PRN #14 tab 01/10/22 mirtazapine 15 mg tablet 7.5 mg PO BEDTIME #14 tab 01/10/22 morphine 15 mg tablet,extended 15 mg PO Q12H #14 tab 01/10/22 release ondansetron 4 mg disintegrating 4 mg SUBLINGUAL Q4HR PRN #14 tab 01/10/22 tablet apixaban 5 mg (74 tabs) tablets in 5 mg PO BID #74 ea 03/15/22 a dose pack (Eliquis DVT-PE Treat 30D Start) Allergies Allergy/AdvReac Type Severity Reaction Status Date / Time Sulfa (Sulfonamide Allergy Severe VOMITING Verified 03/15/22 18:09 Antibiotics) DIARRHEA [SULFA (SULFONAMIDE ANTIBIOTICS)] latex Allergy Verified 03/15/22 18:09 adhesive [ADHESIVE] AdvReac Severe PAPER TAPE Verified 03/15/22 18:09 OK, PLASTIC EVIDENTLY NOT? fluconazole [FLUCONAZOLE] AdvReac Intermediate Headache Verified 03/15/22 18:09 Rash codeine AdvReac Mild Nausea Verified 03/15/22 18:09 Review of Systems Review of Systems Narrative: GENERAL: Denies chills, fatigue, malaise, fever, sweats. HEENT: Denies sinus pain, ear pain, sore throat, difficulty swallowing, dizziness. RESPIRATORY: Denies dyspnea, cough, wheezing, hemoptysis, sputum. CARDIOVASCULAR: Denies chest pain, palpitations, orthopnea, edema, GASTROINTESTINAL: Denies nausea, vomiting, abdominal pain, diarrhea, constipation, melena. : Denies dysuria, frequency, incontinence, hematuria, urinary retention. MUSCULOSKELETAL: See HPI SKIN: See HPI NEUROLOGIC: Denies weakness, headache, numbness, change in speech, confusion, seizures, incoordination. PSYCHIATRIC: No concerning psychosocial issues. 12 point review of systems is negative except for those stated above Patient History Medical History Acquired hypothyroidism Anal cancer Anxiety Anxiety Balance disorder Essential hypertension Headache Hip pain, bilateral History of alcohol abuse Liver enzyme elevation Neck pain Osteoporosis Peripheral neuropathy PTSD (post-traumatic stress disorder) SI (sacroiliac) joint inflammation Vertigo Visual disturbance Surgical History History of total mastectomy (06/27/01) Family History Mother Age: 86 Diabetes mellitus Sister Age: 59 Osteoarthritis Sister Age: 68 Diabetes mellitus Social History household members: significant other and none Smoking Status: Never smoker second hand exposure: Yes (I grew up with it) alcohol intake: current substance use type: does not use Smoking Status: Never smoker alcohol intake frequency: a few times a month Substance Use Type: does not use and marijuana Exam Narrative Exam Narrative: GEN: AOx3 and in mild distress EYES: Pupils are equal, round, and reactive to light and accommodation. Extraoccular muscles are intact bilaterally. There is no subconjunctival hemorrhage or exudate. CHEST: Lungs are clear to auscultation bilaterally and free of wheezes, rales, or rhonchi. Heart rate is regular rhythm, there are no murmurs, clicks, rubs, or gallops. There is no chest wall tenderness. ABD: Abdomen is soft and nontender. There is no guarding or rebound. Bowel sounds are normal in all 4 quadrants. There is no mass or organomegaly. EXT: Pain, swelling and redness on dorsum of right foot, ankle and calf. Sensation and dorsalis pedis intact SKIN: Warm, pink, and dry. No erythema or rash Initial Vital Signs Initial Vital Signs: Vital Signs Temperature 97.2 F L 03/15/22 18:09 Pulse Rate 106 H 03/15/22 18:09 Respiratory Rate 15 03/15/22 18:09 Blood Pressure 113/83 03/15/22 18:09 Pulse Oximetry 98 03/15/22 18:09 Course Orders Ordered: ED Orders 03/15/22 18:15 US periph venous low extrem rt Stat 03/15/22 20:52 XR ankle RT min 3V Stat Discontinued Medications Apixaban (Apixaban 5 Mg Tablet) 10 mg PO NOW ONE Stop: 03/15/22 21:32 Last Admin: 03/15/22 21:40 Dose: 10 mg Documented by: [place] Oxycodone/Acetaminophen (Oxycodone/Apap 5/325 Prepack) 1 bottle MISC SEEINSTR ONE Stop: 03/15/22 21:25 Last Admin: 03/15/22 21:32 Dose: 1 bottle Documented by: [place] Vital Signs Vital signs: Vital Signs - 8 hr 03/15/22 18:09 03/15/22 20:18 03/15/22 22:15 Temperature 97.2 F L 97.5 F L Pulse Rate 106 H 81 70 Respiratory Rate 15 16 20 Blood Pressure 113/83 133/73 138/73 Pulse Oximetry 98 99 100 MDM - Extremity Injury (Lower) Imaging Data US - DVT: Radiologist's Impression: [address] [address] Ultrasound Report Signed Patient: Karolina Ulrich MR#: [id number] : 1955 Acct:[id number] Age/Sex: 66 / F Date of Service: 03/15/22 Loc: ED Accession Number: [id number] ?? Procedure: US periph venous low extrem rt Ordering Provider: Yaakov Romero D.O. PROCEDURE:? US PERIPH VENOUS LOW EXTREM RT ? INDICATIONS:? swelling of lower leg after injury 4 weeks ago ? TECHNIQUE:? Real-time imaging, as well as color and pulse Doppler interrogation, were performed of the lower extremity deep veins from the inguinal ligament to the popliteal fossa.? ? COMPARISON:? None. ? FINDINGS:? Deep venous thrombosis can be seen involving the right distal common femoral vein as well as the superficial femoral vein and the popliteal vein. ? ? IMPRESSION:? Extensive right lower extremity deep venous thrombosis is seen. ? Note: Case discussed by telephone with Dr. Romero at 5:45 p.m. [place] time on March 15, 2022. ? ? ? Dictated by: Arron Troy M.D. on 03/15/2022 at 17:44 ? ? Approved by: Arron Troy M.D. on 03/15/2022 at 17:46 ? MDM Narrative Medical decision making narrative: Patient presents at the request of home nursing for evaluation of painful swollen right lower extremity. She has been relatively sedentary, admits to a right ankle injury a few weeks ago and has a history of cancer. Ultrasound demonstrates DVT. She has good cap refill and sensation, compartments are soft. She denies any chest pain or shortness of breath and has had no hemoptysis, no indication to pursue pulmonary embolism at this point. Return precautions given and questions answered to her apparent satisfaction Discharge Plan Departure Patient Disposition: Home Clinical Impression: Acute deep vein thrombosis (DVT) of right lower extremity Instructions: DI for Deep Vein Thrombosis Activity Restrictions/Additional Instructions: *You have been diagnosed with [newly discovered DVT of your right leg. *What to do: *Please continue to take your regular medications as directed. [x ] New medication prescriptions sent to your pharmacy: [[facility] ] [ ] New medication written as a paper prescription [ ] No new medications given *Please follow up with your primary care provider in 2-3 days, call for an appointment. Let them know you were seen in the Emergency Department and that we ask that you be seen in follow up. We will electronically transmit a record of today's note if your PCP is in our system * as we discussed, please call your oncologist in the morning and let them know you were seen in the emergency department we asked that you be seen in follow-up *Return to Emergency Department if you should have any new, worsening or concerning symptoms, such as [fever greater than 101 F, shaking chills, worsening pain, persistent vomiting or other bothersome symptoms] Prescriptions: New Eliquis DVT-PE Treat 30D Start 5 mg (74 tabs) tablets,dose pack 5 mg PO BID Qty: 74 0RF No Action thyroid (pork) [Nature-Throid] 32.5 mg tablet 32.5 mg PO DAILY 0RF verapamil 180 mg capsule,ext rel. pellets 24 hr 180 mg PO DAILY 0RF tramadol 50 mg tablet 50 mg PO Q6H PRN (Reason: pain) Qty: 10 0RF loperamide 2 mg Capsule 4 mg PO QID Qty: 14 0RF mirtazapine 15 mg Tablet 7.5 mg PO BEDTIME Qty: 14 0RF fentanyl 25 mcg/hr Patch 72 Hour 25 mcg topical Q72H Qty: 5 0RF ondansetron 4 mg Tablet,Disintegrating 4 mg sublingual Q4HR PRN (Reason: Nausea) Qty: 14 0RF lorazepam [Ativan] 0.5 mg tablet 0.5 mg PO BID PRN (Reason: anxiety) Qty: 14 0RF morphine 15 mg Tablet Extended Release 15 mg PO Q12H Qty: 14 0RF Referrals: Gordon Newton MD [Primary Care Provider] - Rajesh Farris MD [Physician] -
[2022-03-15] MEDS: OXYCODONE/APAP 5/325 PREPACK 1 BOTTLE MISC (21:32)
[2022-03-15] MEDS: APIXABAN 5 MG TABLET 10 MG PO (21:40)
[2022-03-15 22:15] VITALS: BP 138/73; PULSE 70; RESP 20; O2SAT 100
== END 2022-03-15 22:16 | disposition home or self-care (01) ==
PROVIDERS: Emergency Provider Emergency Medicine; PCP Internal Medicine
DX: I82.411 Acute embolism and thrombosis of right femoral vein (principal); Z88.5 Allergy status to narcotic agent
CPT/HCPCS: 73610; 93971; 99283; 99284

== ENCOUNTER → 2023-12-08 15:55 | Outpatient (CLI) | payer OTHER, SELFPAY ==
[2022-01-03 00:13] VITALS: BMI 18.2
--- NOTE | 2023-12-08 15:57 | DI.MRI.S_ITS ---
PROCEDURE: MR HEAD/BRAIN WO/W CON INDICATIONS: ACUTE INTRACTABLE HEADACHE TECHNIQUE: Noncontrast axial T1 spin echo, axial T2 fast spin echo, sagittal and axial FLAIR, coronal T2 fast spin echo, axial gradient echo, axial diffusion and ADC through the brain. After the administration of contrast, axial and coronal and sagittal T1 spin echo with fat saturation through the brain. COMPARISON: [facility], MR, MR STROKE, 10/06/2020, 11:56. [facility], CT, CT HEAD/BRAIN WO CON, 09/29/2020, 23:31. FINDINGS: Image quality: Excellent. CSF spaces: Basal cisterns are patent. No extra-axial fluid collections. Ventricles are normal in size and shape. Brain: No midline shift. No intracranial bleeds or masses. No abnormal intracranial enhancement. There is cerebral volume loss for age. There is periventricular white matter chronic small vessel ischemic change. The brainstem appears normal. Diffusion-weighted images demonstrate no acute infarct. No chronic ischemic insults. Normal intravascular flow voids are present. Relatively prominent perivascular spaces are noted. Skull and face: Calvarial marrow is normal in signal. Orbits appear normal. Sinuses: There is near complete opacification seen of the left maxillary sinus. [id number] mucosal thickening can be seen within the left ethmoid air cells. Milder mucosal thickening can be seen elsewhere within the paranasal sinuses. No abnormal fluid is seen within the mastoid air cells. IMPRESSION: Unremarkable intracranial study, without masses or abnormal enhancement. Focal left maxillary sinus disease is seen, which is worse than in 2020. No brain edema or hydrocephalus. No intracranial hemorrhage is seen. Dictated by: Arron Troy M.D. on 12/08/2023 at 16:30 Approved by: Arron Troy M.D. on 12/08/2023 at 16:34
== END ==
PROVIDERS: Family Provider Student in an Organized Health Care Education/Training Program; PCP Student in an Organized Health Care Education/Training Program; Referring Provider Nurse Practitioner; Visit Provider Nurse Practitioner
DX: Z08 Encounter for follow-up examination after completed treatment for malignant neoplasm (principal); Z85.048 Personal history of other malignant neoplasm of rectum, rectosigmoid junction, and anus; R51.9 Headache, unspecified; J32.0 Chronic maxillary sinusitis
CPT/HCPCS: 70553; A9579

== ENCOUNTER → 2024-02-02 12:27 | Outpatient (CLI) | payer OTHER, SELFPAY ==
[2022-01-03 00:13] VITALS: BMI 18.2
--- NOTE | 2024-02-02 12:29 | DI.RAD.S_ITS ---
Bone Density Report Name: EILEEN MAN Age: 68 Sex: Female Ethnicity: White Date of : 1955 Indication: postmenopausal osteoporosis; Referring Provider: ABDIRAHMAN CULLEN Study: Bone densitometry was performed. Exam Date: February 02, 2024 Accession number: [id number] Bone Density: Region BMD T-score Z-score Classification AP Spine(L1-L4) 0.746 -2.7 -0.7 Osteoporosis Femoral Neck (Left) 0.595 -2.3 -0.5 Osteopenia Total Hip (Left) 0.610 -2.7 -1.3 Osteoporosis Femoral Neck (Right) 0.563 -2.6 -0.8 Osteoporosis Total Hip (Right) 0.630 -2.6 -1.1 Osteoporosis Total Hip Mean 0.620 -2.7 -1.2 Osteoporosis World Health Organization criteria for BMD impression classify patients as: Normal (T-score at or above -1.0), Osteopenia (T-score between -1.0 and -2.5), or Osteoporosis (T-score at or below -2.5). 10-year Fracture Risk: FRAX not reported because: Some T-score for Spine Total or Hip Total or Femoral Neck at or below -2.5 Previous Exams: -- Region Exam Age BMD T-score BMD Change BMD Change Date g/cm2 vs Baseline vs Previous -- AP Spine (L1-L4) 02/02/2024 68 0.746 -2.7 -0.010 (-1.3%)# -0.026 (-3.3%)# 08/03/2017 61 0.771 -2.5 0.016 (2.1%) 0.016 (2.1%) 06/17/2014 58 0.756 -2.6 Total Hip(Left) 02/02/2024 68 0.610 -2.7 -0.116 (-16.0%)# -0.109 (-15.2%)# 08/03/2017 61 0.720 -1.8 -0.007 (-0.9%) -0.007 (-0.9%) 06/17/2014 58 0.726 -1.8 Total Hip(Right) 02/02/2024 68 0.630 -2.6 -0.121 (-16.1%)# -0.072 (-10.2%)# 08/03/2017 61 0.702 -2.0 -0.049 (-6.5%)* -0.049 (-6.5%)* 06/17/2014 58 0.751 -1.6 -- *Denotes significance at 95% confidence level, LSC for AP Spine = 0.022 g/cm2, LSC for Total Hip = 0.027 g/cm2 # Denotes dissimilar scan types or analysis methods Impression: The patient has osteoporosis, based on the Total Spine T-score. No significant bone loss was observed. Discussion: INCREASED RISK OF FRACTURE. BONE DENSITY IS UNDESIRABLY LOW AT ONE OR MORE SKELETAL SITES, CONSISTENT WITH POSTMENOPAUSAL OSTEOPOROSIS. This patient's lowest T-score meets the World Health Organization's (WHO) criteria for osteoporosis at one or more sites (T-score -2.5 or below). In untreated patients, the risk of osteoporotic fracture increases approximately two-fold for each 1.0 SD decrease in T-score. Low bone density is not the only risk factor for fracture; also consider factors such as patient's age, frailty or poor health, risk of falling, risk of injury, previous osteoporotic fracture, family history of osteoporosis, cigarette smoking, low body weight, etc. Not everyone with low bone mineral density has osteoporosis; osteomalacia and other metabolic bone disorders should also be considered. Patients who have osteoporosis should be evaluated for specific diseases and conditions (secondary causes) that may cause or contribute to bone loss. The [place] [employer]ocrinologists (AACE) and National Osteoporosis Foundation (NOF) recommend pharmacologic intervention for all postmenopausal women whose T-score is in this range. The patient should follow a healthful lifestyle (good nutrition with adequate calcium and vitamin D, and appropriate weight-bearing exercise). Follow-Up: Consider a repeat BMD and Vertebral Fracture Assessment (VFA) exam in 2 years or sooner if medically necessary, to reassess this patient's status. Reported by: MOHSEN TRAVIS MD on 02/02/2024 2:28:00 PM.
== END ==
LOC: RAD 12:28
PROVIDERS: Family Provider Student in an Organized Health Care Education/Training Program; PCP Student in an Organized Health Care Education/Training Program; Referring Provider Student in an Organized Health Care Education/Training Program; Visit Provider Student in an Organized Health Care Education/Training Program
DX: N95.9 Unspecified menopausal and perimenopausal disorder (principal); M81.0 Age-related osteoporosis without current pathological fracture
CPT/HCPCS: 77080

== ENCOUNTER 2025-02-20 13:45 | Outpatient (RCR) | payer MEDICARE, MEDICAID, SELFPAY ==
[2022-01-03 00:13] VITALS: BMI 18.2
--- NOTE | 2023-09-19 14:53 | PT.OIE ---
Current Diagnoses Other specified polyneuropathies (09/19/23) Full incontinence of feces (09/19/23) Past Medical History (Last Reviewed 03/15/22 @ 21:53 by Yaakov Romero DO) Acquired hypothyroidism Anal cancer Anxiety Anxiety Balance disorder Essential hypertension Headache Hip pain, bilateral History of alcohol abuse Liver enzyme elevation Neck pain Osteoporosis Peripheral neuropathy PTSD (post-traumatic stress disorder) SI (sacroiliac) joint inflammation Vertigo Visual disturbance Past Surgical History (Last Reviewed 03/15/22 @ 21:53 by Yaakov Romero DO) History of total mastectomy (06/27/01) Visit Care Team Role Provider Type Jessica Estrada PA-C Family Provider Physician As400 Programmer Analyst Primary Care Provider Specialty: Medical Address: [facility], Email: [email or web address] Rajesh Farris MD Attending Provider Physician Referring Provider Specialty: Oncology Address: [address] [place] [address], [id number] Email: [email or web address] Physical Therapy Initial Evaluation PT-OP-A Visit Information Start: 09/19/23 08:48 Freq: Status: Active Protocol: Document 09/19/23 08:49 [facility] (Rec: 09/19/23 09:35 [facility] [id number]) Out-Patient Physical Therapy Visit Information Visit Information Visit Type Initial Evaluation Visit Start Time 08:50 Visit Stop Time 09:30 Total Visit Minutes 40 Visit Number 1 Evaluation Information Evaluation Date 09/19/23 PT-OP-B Current Condition Start: 09/19/23 08:48 Freq: Status: Active Protocol: Document 09/19/23 08:49 [facility] (Rec: 09/19/23 09:35 [facility] [id number]) Current Condition History of Current Condition Onset Date 2 years ago Current Complaints fecal incontinence History of Current Condition 2 years ago Karolina was diagnosed with anal cancer. She underwent chemo and 30 radiation treatments. She did do physical therapy with home health. She did go in for a additional surgery Apr 13 2023 due to a fistula. And at that point she felt like it was a turn around in her health as she felt like she was doing better before that but it set her back. Karolina notes she will have no warning prior to a urge for a bowel movement. SHe has to wear depends due to loss of stool. She reports food goes straight through and she experiences explossive diarahea and then she becomes constipated due to trying to take imodium to solidify her stool. Sheryl notes she has a hard time eating due to no taste anymore and she feels like food goes right through her. She is drinking a lot of water and trying to drink juice from the co-op. She presents with B neuropathy Treatment Goals Patient/Caregiver Goals pt goals include strengthening her pelvic floor and reduce radiation induced scar tissue in the rectum PT-OP-F Manual Assessment Start: 09/19/23 08:48 Freq: Status: Active Protocol: Document 09/19/23 09:09 [facility] (Rec: 09/21/23 09:12 [facility] [id number]) Manual Assessments Soft Tissue Assessment Soft Tissue Mobility Assessment assessment of external pelvic floor and attachments to the ischium reveal tightness and restricted fascial tissue proximal adductor attachments B are hypertonic and guarded, obturator internus fascial restrictions and guarding Karolina has decreased ability to pull in from the perineum due to restrictions in the tissue PT-OP-I Pelvic Floor Start: 09/19/23 08:48 Freq: Status: Active Protocol: Document 09/19/23 08:49 [facility] (Rec: 09/26/23 14:48 [facility] [id number]) Pelvic Floor Assessment Bowel Bowel Surgery Yes Bowel Symptoms Fecal Leakage Other Bowel Symptoms Karolina will at times expereince constipation but often has sudden urges for a bowel movement and experience Bowel Movement Frequency constantly throughout the day [place] Stool Chart Comments stool can range from loose to firm Contraction Ability Voluntary Contraction Weak Voluntary Relaxation Weak Comments Pelvic Floor Comments with external palpation of pelvic floor contraction Sheryl has poor ability to recruit her pelvic floor and is not able to pull in from the perineum PT-OP-M Strength Start: 09/19/23 08:48 Freq: Status: Active Protocol: Document 09/19/23 08:49 [facility] (Rec: 09/26/23 14:53 [facility] [id number]) Trunk Strength Trunk Manual Muscle Testing Flexion 3 Fair Core Stabilization decreased core stabilization and poor ability to engage the pelvic floor Hip Strength Hip Manual Muscle Testing Right Flexion (L2) 3 Fair Abduction 3 Fair External Rotation 3 Fair Left Flexion (L2) 3 Fair Extension (S1) 3 Fair Abduction 2+ Poor+ External Rotation 2+ Poor+ PT-OP-Q Treatments Start: 09/19/23 08:48 Freq: Status: Active Protocol: Document 09/19/23 08:49 [facility] (Rec: 09/19/23 15:51 [facility] [id number]) Self-Care/Home Management Treatment Education Patient Education Home Exercise Program Other Education Sheryl was educated on splinting her perineum with bowel movements as well as squatty potty use PT-OP-T Assessment and Plan Start: 09/19/23 08:48 Freq: Status: Active Protocol: Document 09/19/23 08:49 [facility] (Rec: 09/26/23 14:27 [facility] [id number]) Physical Therapy Assessment Rehab Potential Rehabilitation Potential Good Evaluation Complexity Number of Personal Factors/Comorbidities 1-2 Number of Body Systems Impaired 3 Clinical Presentation at Evaluation Evolving Impairments Impairments Activity Tolerance,Functional Activities,Functional Mobility ,Pain,Soft Tissue Mobility, Strength,Tone Other Impairments fecal incontinence Goals 3 Impairment Karolina lacks a HEP for pelvic stretches as well as strengthening exercises to help reduce fecal incontinence Extruder Operator Helper Goal (LTG) Karolina is IND with a HEP for stretches and strengthening for the pelvic floor LTG Duration 12 weeks 2 Impairment 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 and muscular attachments to the ischium and pubic bone Short Term Goal (STG) Karolina is able to tolerate fascial work to help break up scar tissue in the pelvic floor/pelvic region STG Duration 5 weeks 1 Impairment fecal incontinence, Karolina is wearing depends and has difficulty with social situations due to fear of loss of stool Retirement Goal (LTG) Karolina reports a overall reduction in loss of stool and feels as if she has better overall control reducing the need for depends LTG Duration 12 weeks Assessment Summary Assessment Karolina is a 67 year old female with recent history ( 2020)of anal cancer and treatment of chemotherapy and radiation. She also has a pmhx of breast cancer. Pt has had a recent anal surgery to remove a fistula this past march 2023. She feels at this point the fistula surgery sent her back as far as her ability to control her stool and bowemovements. She reports she will have no warning and then experience a sudden urge for a bowel movement. She states she needs to be near the toilet or she will experience leakage. She wears depends due to loss of stool. She did have trouble with this after her radiation however it got much worse following the fistula repair. Time was spent today talkign with Karolina about her symptoms and gaining knowledge of her Pmhx. She was educated on splinting for her perineum as well as using a squatty potty to encourage full stool evacuation. I was not able to perform a full pelvic exam due to pain and tightness with insertion into the vaginal wall. I assessed her pelvic floor externally due to pain. She is very tight and guarded at all the muscle attachments to the ischium and her transverse perineum and bulocavernosus are very restricted and present with fascial tightness . It is difficult for Karolina to pull in from her perineum. This area was all affected from the radiation. Treatment will work on fascial mobility as well as stretches and strengthening for the pelvic floor. Karolina is a good candidate for Pelvic PT Physical Therapy Plan Frequency and Duration Frequency of Treatment 2x/Week Duration of treatment (weeks) 12 Plan of Care Start Date 09/19/23 Plan of Care End Date 12/12/23 Therapeutic Interventions Therapeutic Interventions Home Exercise Program,Manual Therapy,Patient/Caregiver Education,Self-Care/Home Management,Soft Tissue Mobilization,Therapeutic Exercises Modalities Biofeedback,Electric Stimulation,Ultrasound Next Visit Focus/Plan Next Note Type Treatment Note Next Visit Plan trial of ultrasound over the perineum next visit followed by manual fascial work to help mobilize the tissue. Work on stretches for the pelvic floor.
--- NOTE | 2023-09-19 14:54 | PT.OPPOC ---
Physical, Occupational & Speech Therapy At [facility] Current Diagnoses Other specified polyneuropathies (09/19/23) Full incontinence of feces (09/19/23) Visit Care Team Role Provider Type Jessica Estrada PA-C Family Provider Physician Humidifier Maintenance Worker Primary Care Provider Specialty: Medical Address: [facility], Email: [email or web address] Rajesh Farris MD Attending Provider Physician Referring Provider Specialty: Oncology Address: [address] [place] [address], [address] Email: [email or web address] Plan Of Care PT-OP-T Assessment and Plan Start: 09/19/23 08:48 Freq: Status: Active Protocol: Document 09/19/23 08:49 [facility] (Rec: 09/26/23 14:27 [facility] [id number]) Physical Therapy Assessment Rehab Potential Rehabilitation Potential Good Evaluation Complexity Number of Personal Factors/Comorbidities 1-2 Number of Body Systems Impaired 3 Clinical Presentation at Evaluation Evolving Impairments Impairments Activity Tolerance,Functional Activities,Functional Mobility ,Pain,Soft Tissue Mobility, Strength,Tone Other Impairments fecal incontinence Goals 3 Impairment Karolina lacks a HEP for pelvic stretches as well as strengthening exercises to help reduce fecal incontinence Usp Goal (LTG) Karolina is IND with a HEP for stretches and strengthening for the pelvic floor LTG Duration 12 weeks 2 Impairment 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 and muscular attachments to the ischium and pubic bone Short Term Goal (STG) Karolina is able to tolerate fascial work to help break up scar tissue in the pelvic floor/pelvic region STG Duration 5 weeks 1 Impairment fecal incontinence, Karolina is wearing depends and has difficulty with social situations due to fear of loss of stool Usp Goal (LTG) Karolina reports a overall reduction in loss of stool and feels as if she has better overall control reducing the need for depends LTG Duration 12 weeks Assessment Summary Assessment Karolina is a 67 year old female with recent history ( 2020)of anal cancer and treatment of chemotherapy and radiation. She also has a pmhx of breast cancer. Pt has had a recent anal surgery to remove a fistula this past march 2023. She feels at this point the fistula surgery sent her back as far as her ability to control her stool and bowemovements. She reports she will have no warning and then experience a sudden urge for a bowel movement. She states she needs to be near the toilet or she will experience leakage. She wears depends due to loss of stool. She did have trouble with this after her radiation however it got much worse following the fistula repair. Time was spent today talkign with Karolina about her symptoms and gaining knowledge of her Pmhx. She was educated on splinting for her perineum as well as using a squatty potty to encourage full stool evacuation. I was not able to perform a full pelvic exam due to pain and tightness with insertion into the vaginal wall. I assessed her pelvic floor externally due to pain. She is very tight and guarded at all the muscle attachments to the ischium and her transverse perineum and bulocavernosus are very restricted and present with fascial tightness . It is difficult for Karolina to pull in from her perineum. This area was all affected from the radiation. Treatment will work on fascial mobility as well as stretches and strengthening for the pelvic floor. Karolina is a good candidate for Pelvic PT Physical Therapy Plan Frequency and Duration Frequency of Treatment 2x/Week Duration of treatment (weeks) 12 Plan of Care Start Date 09/19/23 Plan of Care End Date 12/12/23 Therapeutic Interventions Therapeutic Interventions Home Exercise Program,Manual Therapy,Patient/Caregiver Education,Self-Care/Home Management,Soft Tissue Mobilization,Therapeutic Exercises Modalities Biofeedback,Electric Stimulation,Ultrasound Next Visit Focus/Plan Next Note Type Treatment Note Next Visit Plan trial of ultrasound over the perineum next visit followed by manual fascial work to help mobilize the tissue. Work on stretches for the pelvic floor. Plan of Care Dates Plan of Care Start Date 09/19/23 Plan of Care End Date 12/12/23 Electronically Signed by: Karrie Price, PT 09/26/23 [id number] If you are in agreement with this Plan of Care, please return a signed and dated copy. I have reviewed this Plan of Care and certify that the skilled therapy services above are required to meet the patient?s needs. Physician Signature Date Printed Name and Credentials Clinical Instructor Signature Printed Name and Credentials
--- NOTE | 2023-10-11 12:51 | PT.OTN ---
Current Diagnoses Other specified polyneuropathies (10/11/23) Full incontinence of feces (10/11/23) Physical Therapy Treatment Note PT-OP-A Visit Information Start: 09/19/23 08:48 Freq: Status: Active Protocol: Document 10/11/23 09:57 [facility] (Rec: 10/11/23 10:04 [facility] [id number]) Out-Patient Physical Therapy Visit Information Visit Information Visit Type Treatment Note Visit Start Time 09:50 Visit Stop Time 10:35 Total Visit Minutes 40 Visit Number 2 PT-OP-B Current Condition Start: 09/19/23 08:48 Freq: Status: Active Protocol: Document 09/19/23 08:49 [facility] (Rec: 09/19/23 09:35 [facility] [id number]) Current Condition History of Current Condition Onset Date 2 years ago Current Complaints fecal incontinence History of Current Condition 2 years ago Karolina was diagnosed with anal cancer. She underwent chemo and 30 radiation treatments. She did do physical therapy with home health. She did go in for a additional surgery Apr 13 2023 due to a fistula. And at that point she felt like it was a turn around in her health as she felt like she was doing better before that but it set her back. Karolina notes she will have no warning prior to a urge for a bowel movement. SHe has to wear depends due to loss of stool. She reports food goes straight through and she experiences explossive diarahea and then she becomes constipated due to trying to take imodium to solidify her stool. Sheryl notes she has a hard time eating due to no taste anymore and she feels like food goes right through her. She is drinking a lot of water and trying to drink juice from the co-op. She presents with B neuropathy Treatment Goals Patient/Caregiver Goals pt goals include strengthening her pelvic floor and reduce radiation induced scar tissue in the rectum PT-OP-C Subjective Start: 09/19/23 08:48 Freq: Status: Active Protocol: Document 10/11/23 09:57 [facility] (Rec: 10/11/23 10:04 [facility] [id number]) OP-PT Subjective Patient Comments Patient Comments She had 5 days of a normal bowel movement, 2 a day x 5 days PT-OP-F Manual Assessment Start: 09/19/23 08:48 Freq: Status: Active Protocol: Document 09/19/23 09:09 [facility] (Rec: 09/21/23 09:12 [facility] [id number]) Manual Assessments Soft Tissue Assessment Soft Tissue Mobility Assessment assessment of external pelvic floor and attachments to the ischium reveal tightness and restricted fascial tissue proximal adductor attachments B are hypertonic and guarded, obturator internus fascial restrictions and guarding Karolina has decreased ability to pull in from the perineum due to restrictions in the tissue PT-OP-I Pelvic Floor Start: 09/19/23 08:48 Freq: Status: Active Protocol: Document 09/19/23 08:49 [facility] (Rec: 09/26/23 14:48 [facility] [id number]) Pelvic Floor Assessment Bowel Bowel Surgery Yes Bowel Symptoms Fecal Leakage Other Bowel Symptoms Karolina will at times expereince constipation but often has sudden urges for a bowel movement and experience Bowel Movement Frequency constantly throughout the day [place] Stool Chart Comments stool can range from loose to firm Contraction Ability Voluntary Contraction Weak Voluntary Relaxation Weak Comments Pelvic Floor Comments with external palpation of pelvic floor contraction Sheryl has poor ability to recruit her pelvic floor and is not able to pull in from the perineum PT-OP-M Strength Start: 09/19/23 08:48 Freq: Status: Active Protocol: Document 09/19/23 08:49 [facility] (Rec: 09/26/23 14:53 [facility] [id number]) Trunk Strength Trunk Manual Muscle Testing Flexion 3 Fair Core Stabilization decreased core stabilization and poor ability to engage the pelvic floor Hip Strength Hip Manual Muscle Testing Right Flexion (L2) 3 Fair Abduction 3 Fair External Rotation 3 Fair Left Flexion (L2) 3 Fair Extension (S1) 3 Fair Abduction 2+ Poor+ External Rotation 2+ Poor+ PT-OP-Q Treatments Start: 09/19/23 08:48 Freq: Status: Active Protocol: Document 10/11/23 12:46 [facility] (Rec: 10/11/23 12:51 [facility] [id number]) Therapeutic Exercises Supine Exercises modified squat stretch Reps/Minutes hold 1-2 minutes single knee to chest Reps/Minutes hold 1 min each side Manual Therapy Treatment Soft Tissue Mobilization obturator internus release B Mobilization Type Myofascial Release Body Position Hooklying Comments release of the OI B external posterior pelvic floor Mobilization Type Myofascial Release Body Position Hooklying Comments worked around the ischium B releasing the posterior pelvic floor, Sheryl tolerated well MFR for the adducotrs Mobilization Type Myofascial Release Intensity/Depth Moderate Body Position Hooklying Comments worked B with MFR for the adductors especially the proximal attachment to the pubic bone Manual Techniques manual hip ROM into hip flexion,abduction, ER Body Position Hooklying Comments manual hip stretching into hip flexion, abduction and hip ER PT-OP-T Assessment and Plan Start: 09/19/23 08:48 Freq: Status: Active Protocol: Document 10/11/23 12:46 [facility] (Rec: 10/11/23 12:51 [facility] [id number]) Physical Therapy Assessment Assessment Summary Assessment Sheryl tolerated treatment well today and has had about 4 good days with her bowel movements . She noted increased circulation into her LE with treatment today. I added in single knee to chest and modified squat stretch for her . Physical Therapy Plan Frequency and Duration Frequency of Treatment 2x/Week Duration of treatment (weeks) 12 Plan of Care Start Date 09/19/23 Plan of Care End Date 12/12/23 Therapeutic Interventions Therapeutic Interventions Home Exercise Program,Manual Therapy,Patient/Caregiver Education,Self-Care/Home Management,Soft Tissue Mobilization,Therapeutic Exercises Modalities Biofeedback,Electric Stimulation,Ultrasound Next Visit Focus/Plan Next Note Type Treatment Note Next Visit Plan trial of ultrasound over the perineum next visit followed by manual fascial work to help mobilize the tissue. Work on stretches for the pelvic floor.
--- NOTE | 2023-10-31 15:44 | PT.OTN ---
Current Diagnoses Other specified polyneuropathies (10/31/23) Full incontinence of feces (10/31/23) Physical Therapy Treatment Note PT-OP-A Visit Information Start: 09/19/23 08:48 Freq: Status: Active Protocol: Document 10/31/23 14:45 [facility] (Rec: 10/31/23 14:52 [facility] [id number]) Out-Patient Physical Therapy Visit Information Visit Information Visit Type Treatment Note Visit Start Time 14:45 Visit Stop Time 15:30 Total Visit Minutes 45 Visit Number 3 PT-OP-B Current Condition Start: 09/19/23 08:48 Freq: Status: Active Protocol: Document 09/19/23 08:49 [facility] (Rec: 09/19/23 09:35 [facility] [id number]) Current Condition History of Current Condition Onset Date 2 years ago Current Complaints fecal incontinence History of Current Condition 2 years ago Karolina was diagnosed with anal cancer. She underwent chemo and 30 radiation treatments. She did do physical therapy with home health. She did go in for a additional surgery Apr 13 2023 due to a fistula. And at that point she felt like it was a turn around in her health as she felt like she was doing better before that but it set her back. Karolina notes she will have no warning prior to a urge for a bowel movement. SHe has to wear depends due to loss of stool. She reports food goes straight through and she experiences explossive diarahea and then she becomes constipated due to trying to take imodium to solidify her stool. Sheryl notes she has a hard time eating due to no taste anymore and she feels like food goes right through her. She is drinking a lot of water and trying to drink juice from the co-op. She presents with B neuropathy Treatment Goals Patient/Caregiver Goals pt goals include strengthening her pelvic floor and reduce radiation induced scar tissue in the rectum PT-OP-C Subjective Start: 09/19/23 08:48 Freq: Status: Active Protocol: Document 10/31/23 14:45 [facility] (Rec: 10/31/23 14:52 [facility] [id number]) OP-PT Subjective Patient Comments Patient Comments Karolina notes she had covid for the past 2 weeks. After last treatment she had 5 days of good bowel movements Patient Reported Progress Improving PT-OP-F Manual Assessment Start: 09/19/23 08:48 Freq: Status: Active Protocol: Document 09/19/23 09:09 [facility] (Rec: 09/21/23 09:12 [facility] [id number]) Manual Assessments Soft Tissue Assessment Soft Tissue Mobility Assessment assessment of external pelvic floor and attachments to the ischium reveal tightness and restricted fascial tissue proximal adductor attachments B are hypertonic and guarded, obturator internus fascial restrictions and guarding Karolina has decreased ability to pull in from the perineum due to restrictions in the tissue PT-OP-I Pelvic Floor Start: 09/19/23 08:48 Freq: Status: Active Protocol: Document 09/19/23 08:49 [facility] (Rec: 09/26/23 14:48 [facility] [id number]) Pelvic Floor Assessment Bowel Bowel Surgery Yes Bowel Symptoms Fecal Leakage Other Bowel Symptoms Karolina will at times expereince constipation but often has sudden urges for a bowel movement and experience Bowel Movement Frequency constantly throughout the day [place] Stool Chart Comments stool can range from loose to firm Contraction Ability Voluntary Contraction Weak Voluntary Relaxation Weak Comments Pelvic Floor Comments with external palpation of pelvic floor contraction Sheryl has poor ability to recruit her pelvic floor and is not able to pull in from the perineum PT-OP-M Strength Start: 09/19/23 08:48 Freq: Status: Active Protocol: Document 09/19/23 08:49 [facility] (Rec: 09/26/23 14:53 [facility] [id number]) Trunk Strength Trunk Manual Muscle Testing Flexion 3 Fair Core Stabilization decreased core stabilization and poor ability to engage the pelvic floor Hip Strength Hip Manual Muscle Testing Right Flexion (L2) 3 Fair Abduction 3 Fair External Rotation 3 Fair Left Flexion (L2) 3 Fair Extension (S1) 3 Fair Abduction 2+ Poor+ External Rotation 2+ Poor+ PT-OP-Q Treatments Start: 09/19/23 08:48 Freq: Status: Active Protocol: Document 10/31/23 14:45 [facility] (Rec: 10/31/23 15:42 [facility] [id number]) Manual Therapy Treatment Soft Tissue Mobilization obturator internus release B Mobilization Type Myofascial Release Body Position Hooklying Comments release of the OI B external posterior pelvic floor Mobilization Type Myofascial Release Body Position Hooklying Comments worked around the ischium B releasing the posterior pelvic floor, Sheryl tolerated well MFR for the adducotrs Mobilization Type Myofascial Release Intensity/Depth Moderate Body Position Hooklying Comments worked B with MFR for the adductors especially the proximal attachment to the pubic bone Manual Techniques manual hip ROM into hip flexion,abduction, ER Body Position Hooklying Comments manual hip stretching into hip flexion, abduction and hip ER PT-OP-T Assessment and Plan Start: 09/19/23 08:48 Freq: Status: Active Protocol: Document 10/31/23 14:45 [facility] (Rec: 10/31/23 15:42 [facility] [id number]) Physical Therapy Assessment Assessment Summary Assessment Berverly notes improved circulation in her feet after treatment today and notes she has some feeling. She has been dealing with a great amount of neuropathy in her feet after cancer treatment. She could also feel pelvic floor release after manual treatment Physical Therapy Plan Frequency and Duration Frequency of Treatment 2x/Week Duration of treatment (weeks) 12 Plan of Care Start Date 09/19/23 Plan of Care End Date 12/12/23 Therapeutic Interventions Therapeutic Interventions Home Exercise Program,Manual Therapy,Patient/Caregiver Education,Self-Care/Home Management,Soft Tissue Mobilization,Therapeutic Exercises Modalities Biofeedback,Electric Stimulation,Ultrasound Next Visit Focus/Plan Next Note Type Treatment Note Next Visit Plan continue with manual therapy treatments to mobilize the fascia of the pelvic floor and sacral region.
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
--- NOTE | 2023-12-07 03:08 | PT.OPPOC ---
Physical, Occupational & Speech Therapy At [facility] Current Diagnoses Other specified polyneuropathies (12/07/23) Full incontinence of feces (12/07/23) Visit Care Team Role Provider Type Jessica Estrada PA-C Family Provider Physician Professor Of Literature Primary Care Provider Specialty: Medical Address: [place], [address] Email: [email or web address] Rajesh Farris MD Attending Provider Physician Referring Provider Specialty: Oncology Address: [address] [place] [address], [address] Email: [email or web address] Plan Of Care PT-OP-T Assessment and Plan Start: 09/19/23 08:48 Freq: Status: Active Protocol: Document 12/07/23 15:23 [facility] (Rec: 12/07/23 16:22 [facility] [id number]) Physical Therapy Assessment Goals 3 Impairment Karolina lacks a HEP for pelvic stretches as well as strengthening exercises to help reduce fecal incontinence Intertype Operator Goal (LTG) Karolina is IND with a HEP for stretches and strengthening for the pelvic floor some progress LTG Duration 12 weeks 2 Impairment 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 and muscular attachments to the ischium and pubic bone Short Term Goal (STG) Karolina is able to tolerate fascial work to help break up scar tissue in the pelvic floor/pelvic region good tolerance for manual work STG Duration 5 weeks 1 Impairment fecal incontinence, Karolina is wearing depends and has difficulty with social situations due to fear of loss of stool Mcfp Goal (LTG) Karolina reports a overall reduction in loss of stool and feels as if she has better overall control reducing the need for depends No change at this point LTG Duration 12 weeks Assessment Summary Assessment Sheryl was not feeling up to starting the EMG biofeedback today due to diarrhea so we will start next visit, she is still very tight in the left adductors more so than right. She tolerated manual release well Physical Therapy Plan Frequency and Duration Frequency of Treatment 2x/Week Duration of treatment (weeks) 12 Plan of Care Start Date 09/19/23 Plan of Care End Date 12/12/23 Next Visit Focus/Plan Next Note Type Treatment Note Next Visit Plan we did not start EMG biofeedback today so we will start it next visit Plan of Care Dates Plan of Care Start Date 09/19/23 Plan of Care End Date 12/12/23 Electronically Signed by: Karrie Price, PT 12/12/23 7698 If you are in agreement with this Plan of Care, please return a signed and dated copy. I have reviewed this Plan of Care and certify that the skilled therapy services above are required to meet the patient?s needs. Physician Signature Date Printed Name and Credentials Clinical Instructor Signature Printed Name and Credentials
--- NOTE | 2023-12-07 17:07 | PT.OTN ---
Current Diagnoses Other specified polyneuropathies (12/07/23) Full incontinence of feces (12/07/23) Physical Therapy Treatment Note PT-OP-A Visit Information Start: 09/19/23 08:48 Freq: Status: Active Protocol: Document 12/07/23 15:23 [facility] (Rec: 12/07/23 16:22 [facility] [id number]) Out-Patient Physical Therapy Visit Information Visit Information Visit Type Progress Note Visit Start Time 15:15 Visit Stop Time 16:00 Total Visit Minutes 45 Visit Number 5 Evaluation Information Evaluation Date 09/19/23 PT-OP-B Current Condition Start: 09/19/23 08:48 Freq: Status: Active Protocol: Document 09/19/23 08:49 [facility] (Rec: 09/19/23 09:35 [facility] [id number]) Current Condition History of Current Condition Onset Date 2 years ago Current Complaints fecal incontinence History of Current Condition 2 years ago Karolina was diagnosed with anal cancer. She underwent chemo and 30 radiation treatments. She did do physical therapy with home health. She did go in for a additional surgery Apr 13 2023 due to a fistula. And at that point she felt like it was a turn around in her health as she felt like she was doing better before that but it set her back. Karolina notes she will have no warning prior to a urge for a bowel movement. SHe has to wear depends due to loss of stool. She reports food goes straight through and she experiences explossive diarahea and then she becomes constipated due to trying to take imodium to solidify her stool. Sheryl notes she has a hard time eating due to no taste anymore and she feels like food goes right through her. She is drinking a lot of water and trying to drink juice from the co-op. She presents with B neuropathy Treatment Goals Patient/Caregiver Goals pt goals include strengthening her pelvic floor and reduce radiation induced scar tissue in the rectum PT-OP-C Subjective Start: 09/19/23 08:48 Freq: Status: Active Protocol: Document 12/07/23 15:23 [facility] (Rec: 12/07/23 15:25 [facility] [id number]) OP-PT Subjective Patient Comments Patient Comments pt had a really bad day with diarhea but had to have a cat scan and she felt over whelmed . SHe does have to have a MRI on her brain due to migranes. She isn't feeling up to starting the biofeedback today PT-OP-F Manual Assessment Start: 09/19/23 08:48 Freq: Status: Active Protocol: Document 09/19/23 09:09 [facility] (Rec: 09/21/23 09:12 [facility] [id number]) Manual Assessments Soft Tissue Assessment Soft Tissue Mobility Assessment assessment of external pelvic floor and attachments to the ischium reveal tightness and restricted fascial tissue proximal adductor attachments B are hypertonic and guarded, obturator internus fascial restrictions and guarding Karolina has decreased ability to pull in from the perineum due to restrictions in the tissue PT-OP-I Pelvic Floor Start: 09/19/23 08:48 Freq: Status: Active Protocol: Document 09/19/23 08:49 [facility] (Rec: 09/26/23 14:48 [facility] [id number]) Pelvic Floor Assessment Bowel Bowel Surgery Yes Bowel Symptoms Fecal Leakage Other Bowel Symptoms Karolina will at times expereince constipation but often has sudden urges for a bowel movement and experience Bowel Movement Frequency constantly throughout the day [place] Stool Chart Comments stool can range from loose to firm Contraction Ability Voluntary Contraction Weak Voluntary Relaxation Weak Comments Pelvic Floor Comments with external palpation of pelvic floor contraction Sheryl has poor ability to recruit her pelvic floor and is not able to pull in from the perineum PT-OP-M Strength Start: 09/19/23 08:48 Freq: Status: Active Protocol: Document 09/19/23 08:49 [facility] (Rec: 09/26/23 14:53 [facility] [id number]) Trunk Strength Trunk Manual Muscle Testing Flexion 3 Fair Core Stabilization decreased core stabilization and poor ability to engage the pelvic floor Hip Strength Hip Manual Muscle Testing Right Flexion (L2) 3 Fair Abduction 3 Fair External Rotation 3 Fair Left Flexion (L2) 3 Fair Extension (S1) 3 Fair Abduction 2+ Poor+ External Rotation 2+ Poor+ PT-OP-Q Treatments Start: 09/19/23 08:48 Freq: Status: Active Protocol: Document 12/07/23 15:23 [facility] (Rec: 12/07/23 16:22 [facility] [id number]) Manual Therapy Treatment Soft Tissue Mobilization obturator internus release B Mobilization Type Myofascial Release Body Position Hooklying Comments release of the OI B external posterior pelvic floor Mobilization Type Myofascial Release Body Position Hooklying Comments worked around the ischium B releasing the posterior pelvic floor, Sheryl tolerated well MFR for the adducotrs Mobilization Type Myofascial Release Intensity/Depth Moderate Body Position Hooklying Comments worked B with MFR for the adductors especially the proximal attachment to the pubic bone Manual Techniques manual hip ROM into hip flexion,abduction, ER Body Position Hooklying Comments manual hip stretching into hip flexion, abduction and hip ER PT-OP-T Assessment and Plan Start: 09/19/23 08:48 Freq: Status: Active Protocol: Document 12/07/23 15:23 [facility] (Rec: 12/07/23 16:22 [facility] [id number]) Physical Therapy Assessment Goals 3 Impairment Karolina lacks a HEP for pelvic stretches as well as strengthening exercises to help reduce fecal incontinence Detention Goal (LTG) Karolina is IND with a HEP for stretches and strengthening for the pelvic floor some progress LTG Duration 12 weeks 2 Impairment 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 and muscular attachments to the ischium and pubic bone Short Term Goal (STG) Karolina is able to tolerate fascial work to help break up scar tissue in the pelvic floor/pelvic region good tolerance for manual work STG Duration 5 weeks 1 Impairment fecal incontinence, Karolina is wearing depends and has difficulty with social situations due to fear of loss of stool Gun Synchronizer Goal (LTG) Karolina reports a overall reduction in loss of stool and feels as if she has better overall control reducing the need for depends No change at this point LTG Duration 12 weeks Assessment Summary Assessment Sheryl was not feeling up to starting the EMG biofeedback today due to diarhea so we will start next visit, she is still very tight in the left adductors more so than right. She tolerated manual release well Physical Therapy Plan Frequency and Duration Frequency of Treatment 2x/Week Duration of treatment (weeks) 12 Plan of Care Start Date 09/19/23 Plan of Care End Date 12/12/23 Next Visit Focus/Plan Next Note Type Treatment Note Next Visit Plan we did not start EMG biofeedback today so we will start it next visit
--- NOTE | 2023-12-13 11:42 | PT.OPPOC ---
Physical, Occupational & Speech Therapy At [facility] Current Diagnoses Other specified polyneuropathies (12/13/23) Full incontinence of feces (12/13/23) Visit Care Team Role Provider Type Jessica Estrada PA-C Family Provider Physician Customs Broker Primary Care Provider Specialty: Medical Address: [place], [address] Email: [email or web address] Rajesh Farris MD Attending Provider Physician Referring Provider Specialty: Oncology Address: [address] [place] [address], [id number] Email: [email or web address] Plan Of Care PT-OP-T Assessment and Plan Start: 09/19/23 08:48 Freq: Status: Active Protocol: Document 12/07/23 15:23 [facility] (Rec: 12/07/23 16:22 [facility] [id number]) Physical Therapy Assessment Goals 3 Impairment Karolina lacks a HEP for pelvic stretches as well as strengthening exercises to help reduce fecal incontinence Surgery Nurse Goal (LTG) Karolina is IND with a HEP for stretches and strengthening for the pelvic floor some progress LTG Duration 12 weeks 2 Impairment 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 and muscular attachments to the ischium and pubic bone Short Term Goal (STG) Karolina is able to tolerate fascial work to help break up scar tissue in the pelvic floor/pelvic region good tolerance for manual work STG Duration 5 weeks 1 Impairment fecal incontinence, Karolina is wearing depends and has difficulty with social situations due to fear of loss of stool Half-Way Goal (LTG) Karolina reports a overall reduction in loss of stool and feels as if she has better overall control reducing the need for depends No change at this point LTG Duration 12 weeks Assessment Summary Assessment Sheryl was not feeling up to starting the EMG biofeedback today due to diarrhea so we will start next visit, she is still very tight in the left adductors more so than right. She tolerated manual release well Physical Therapy Plan Frequency and Duration Frequency of Treatment 2x/Week Duration of treatment (weeks) 12 Plan of Care Start Date 12/07/23 Plan of Care End Date 02/29/24 Next Visit Focus/Plan Next Note Type Treatment Note Next Visit Plan we did not start EMG biofeedback today so we will start it next visit Plan of Care Dates Plan of Care Start Date 12/07/23 Plan of Care End Date 02/29/24 Electronically Signed by: Karrie Price, PT 12/13/23 3823 If you are in agreement with this Plan of Care, please return a signed and dated copy. I have reviewed this Plan of Care and certify that the skilled therapy services above are required to meet the patient?s needs. Physician Signature Date Printed Name and Credentials Clinical Instructor Signature Printed Name and Credentials
--- NOTE | 2023-12-13 11:46 | PT.OTN ---
Current Diagnoses Other specified polyneuropathies (12/13/23) Full incontinence of feces (12/13/23) Physical Therapy Treatment Note PT-OP-A Visit Information Start: 09/19/23 08:48 Freq: Status: Active Protocol: Document 12/13/23 10:41 [facility] (Rec: 12/13/23 10:47 [facility] [id number]) Out-Patient Physical Therapy Visit Information Visit Information Visit Type Treatment Note Visit Start Time 10:40 Visit Stop Time 11:25 Total Visit Minutes 45 Visit Number 6 PT-OP-B Current Condition Start: 09/19/23 08:48 Freq: Status: Active Protocol: Document 09/19/23 08:49 [facility] (Rec: 09/19/23 09:35 [facility] [id number]) Current Condition History of Current Condition Onset Date 2 years ago Current Complaints fecal incontinence History of Current Condition 2 years ago Karolina was diagnosed with anal cancer. She underwent chemo and 30 radiation treatments. She did do physical therapy with home health. She did go in for a additional surgery Apr 13 2023 due to a fistula. And at that point she felt like it was a turn around in her health as she felt like she was doing better before that but it set her back. Karolina notes she will have no warning prior to a urge for a bowel movement. SHe has to wear depends due to loss of stool. She reports food goes straight through and she experiences explossive diarahea and then she becomes constipated due to trying to take imodium to solidify her stool. Sheryl notes she has a hard time eating due to no taste anymore and she feels like food goes right through her. She is drinking a lot of water and trying to drink juice from the co-op. She presents with B neuropathy Treatment Goals Patient/Caregiver Goals pt goals include strengthening her pelvic floor and reduce radiation induced scar tissue in the rectum PT-OP-C Subjective Start: 09/19/23 08:48 Freq: Status: Active Protocol: Document 12/13/23 10:41 [facility] (Rec: 12/13/23 11:41 [facility] [id number]) OP-PT Subjective Patient Comments Patient Comments Karolina notes she can feel increased feeling in her feet during manual work, she is still experienceing some days with diarrhea and other days without PT-OP-F Manual Assessment Start: 09/19/23 08:48 Freq: Status: Active Protocol: Document 09/19/23 09:09 [facility] (Rec: 09/21/23 09:12 [facility] [id number]) Manual Assessments Soft Tissue Assessment Soft Tissue Mobility Assessment assessment of external pelvic floor and attachments to the ischium reveal tightness and restricted fascial tissue proximal adductor attachments B are hypertonic and guarded, obturator internus fascial restrictions and guarding Karolina has decreased ability to pull in from the perineum due to restrictions in the tissue PT-OP-I Pelvic Floor Start: 09/19/23 08:48 Freq: Status: Active Protocol: Document 09/19/23 08:49 [facility] (Rec: 09/26/23 14:48 [facility] [id number]) Pelvic Floor Assessment Bowel Bowel Surgery Yes Bowel Symptoms Fecal Leakage Other Bowel Symptoms Karolina will at times expereince constipation but often has sudden urges for a bowel movement and experience Bowel Movement Frequency constantly throughout the day [place] Stool Chart Comments stool can range from loose to firm Contraction Ability Voluntary Contraction Weak Voluntary Relaxation Weak Comments Pelvic Floor Comments with external palpation of pelvic floor contraction Sheryl has poor ability to recruit her pelvic floor and is not able to pull in from the perineum PT-OP-M Strength Start: 09/19/23 08:48 Freq: Status: Active Protocol: Document 09/19/23 08:49 [facility] (Rec: 09/26/23 14:53 [facility] [id number]) Trunk Strength Trunk Manual Muscle Testing Flexion 3 Fair Core Stabilization decreased core stabilization and poor ability to engage the pelvic floor Hip Strength Hip Manual Muscle Testing Right Flexion (L2) 3 Fair Abduction 3 Fair External Rotation 3 Fair Left Flexion (L2) 3 Fair Extension (S1) 3 Fair Abduction 2+ Poor+ External Rotation 2+ Poor+ PT-OP-Q Treatments Start: 09/19/23 08:48 Freq: Status: Active Protocol: Document 12/13/23 10:41 [facility] (Rec: 12/13/23 11:41 [facility] [id number]) Therapeutic Exercises Supine Exercises hip IR/ER Reps/Minutes x 20 reps single knee to chest Reps/Minutes hold 1 min each side Manual Therapy Treatment Soft Tissue Mobilization obturator internus release B Mobilization Type Myofascial Release Body Position Hooklying Comments release of the OI B external posterior pelvic floor Mobilization Type Myofascial Release Body Position Hooklying Comments worked around the ischium B releasing the posterior pelvic floor, Sheryl tolerated well MFR for the adducotrs Mobilization Type Myofascial Release Intensity/Depth Moderate Body Position Hooklying Comments worked B with MFR for the adductors especially the proximal attachment to the pubic bone Manual Techniques manual hip ROM into hip flexion,abduction, ER Body Position Hooklying Comments manual hip stretching into hip flexion, abduction and hip ER PT-OP-T Assessment and Plan Start: 09/19/23 08:48 Freq: Status: Active Protocol: Document 12/13/23 10:41 [facility] (Rec: 12/13/23 11:41 [facility] [id number]) Physical Therapy Assessment Assessment Summary Assessment With hip ROM today Sheryl was able to feel a good release and her hip ER and abduction ROM improved. She is tolerating tx well. Physical Therapy Plan Frequency and Duration Frequency of Treatment 2x/Week Duration of treatment (weeks) 12 Plan of Care Start Date 12/07/23 Plan of Care End Date 02/29/24 Therapeutic Interventions Therapeutic Interventions Home Exercise Program,Manual Therapy,Patient/Caregiver Education,Self-Care/Home Management,Soft Tissue Mobilization,Therapeutic Exercises Modalities Biofeedback,Electric Stimulation,Ultrasound Next Visit Focus/Plan Next Note Type Treatment Note Next Visit Plan we did not start EMG biofeedback today so we will start it next visit
--- NOTE | 2024-01-18 16:53 | PT.OTN ---
Current Diagnoses Other specified polyneuropathies (01/18/24) Full incontinence of feces (01/18/24) Physical Therapy Treatment Note PT-OP-A Visit Information Start: 09/19/23 08:48 Freq: Status: Active Protocol: Document 01/18/24 11:17 [facility] (Rec: 01/18/24 12:05 [facility] [id number]) Out-Patient Physical Therapy Visit Information Visit Information Visit Type Treatment Note Visit Start Time 11:20 Visit Stop Time 12:00 Visit Number 7 PT-OP-B Current Condition Start: 09/19/23 08:48 Freq: Status: Active Protocol: Document 09/19/23 08:49 [facility] (Rec: 09/19/23 09:35 [facility] [id number]) Current Condition History of Current Condition Onset Date 2 years ago Current Complaints fecal incontinence History of Current Condition 2 years ago Karolina was diagnosed with anal cancer. She underwent chemo and 30 radiation treatments. She did do physical therapy with home health. She did go in for a additional surgery Apr 13 2023 due to a fistula. And at that point she felt like it was a turn around in her health as she felt like she was doing better before that but it set her back. Karolina notes she will have no warning prior to a urge for a bowel movement. SHe has to wear depends due to loss of stool. She reports food goes straight through and she experiences explossive diarahea and then she becomes constipated due to trying to take imodium to solidify her stool. Sheryl notes she has a hard time eating due to no taste anymore and she feels like food goes right through her. She is drinking a lot of water and trying to drink juice from the co-op. She presents with B neuropathy Treatment Goals Patient/Caregiver Goals pt goals include strengthening her pelvic floor and reduce radiation induced scar tissue in the rectum PT-OP-C Subjective Start: 09/19/23 08:48 Freq: Status: Active Protocol: Document 01/18/24 11:17 [facility] (Rec: 01/18/24 12:05 [facility] [id number]) OP-PT Subjective Patient Comments Patient Comments Sheryl reports her partner had a total knee replacement, she feels like sometimes she will have a normal bowel movement and then will experience explosive diarhea PT-OP-F Manual Assessment Start: 09/19/23 08:48 Freq: Status: Active Protocol: Document 09/19/23 09:09 [facility] (Rec: 09/21/23 09:12 [facility] [id number]) Manual Assessments Soft Tissue Assessment Soft Tissue Mobility Assessment assessment of external pelvic floor and attachments to the ischium reveal tightness and restricted fascial tissue proximal adductor attachments B are hypertonic and guarded, obturator internus fascial restrictions and guarding Karolina has decreased ability to pull in from the perineum due to restrictions in the tissue PT-OP-I Pelvic Floor Start: 09/19/23 08:48 Freq: Status: Active Protocol: Document 09/19/23 08:49 [facility] (Rec: 09/26/23 14:48 [facility] [id number]) Pelvic Floor Assessment Bowel Bowel Surgery Yes Bowel Symptoms Fecal Leakage Other Bowel Symptoms Karolina will at times expereince constipation but often has sudden urges for a bowel movement and experience Bowel Movement Frequency constantly throughout the day [place] Stool Chart Comments stool can range from loose to firm Contraction Ability Voluntary Contraction Weak Voluntary Relaxation Weak Comments Pelvic Floor Comments with external palpation of pelvic floor contraction Sheryl has poor ability to recruit her pelvic floor and is not able to pull in from the perineum PT-OP-M Strength Start: 09/19/23 08:48 Freq: Status: Active Protocol: Document 09/19/23 08:49 [facility] (Rec: 09/26/23 14:53 [facility] [id number]) Trunk Strength Trunk Manual Muscle Testing Flexion 3 Fair Core Stabilization decreased core stabilization and poor ability to engage the pelvic floor Hip Strength Hip Manual Muscle Testing Right Flexion (L2) 3 Fair Abduction 3 Fair External Rotation 3 Fair Left Flexion (L2) 3 Fair Extension (S1) 3 Fair Abduction 2+ Poor+ External Rotation 2+ Poor+ PT-OP-Q Treatments Start: 09/19/23 08:48 Freq: Status: Active Protocol: Document 01/18/24 16:52 [facility] (Rec: 01/18/24 16:52 [facility] [id number]) Therapeutic Exercises Supine Exercises hip IR/ER Reps/Minutes x 20 reps modified squat stretch Reps/Minutes hold 1-2 minutes single knee to chest Reps/Minutes hold 1 min each side Manual Therapy Treatment Soft Tissue Mobilization obturator internus release B Mobilization Type Myofascial Release Body Position Hooklying Comments release of the OI B external posterior pelvic floor Mobilization Type Myofascial Release Body Position Hooklying Comments worked around the ischium B releasing the posterior pelvic floor, Sheryl tolerated well MFR for the adducotrs Mobilization Type Myofascial Release Intensity/Depth Moderate Body Position Hooklying Comments worked B with MFR for the adductors especially the proximal attachment to the pubic bone PT-OP-T Assessment and Plan Start: 09/19/23 08:48 Freq: Status: Active Protocol: Document 01/18/24 11:17 [facility] (Rec: 01/18/24 12:05 [facility] [id number]) Physical Therapy Assessment Assessment Summary Assessment right side adductor was guarded and tight today, difficulty relaxing. Pt reports increased blood flow into her feet with MFR at the adductors Physical Therapy Plan Frequency and Duration Frequency of Treatment 2x/Week Duration of treatment (weeks) 12 Plan of Care Start Date 12/07/23 Plan of Care End Date 02/29/24 Therapeutic Interventions Therapeutic Interventions Home Exercise Program,Manual Therapy,Patient/Caregiver Education,Self-Care/Home Management,Soft Tissue Mobilization,Therapeutic Exercises Modalities Biofeedback,Electric Stimulation,Ultrasound
--- NOTE | 2024-02-01 12:21 | PT.OTN ---
Current Diagnoses Other specified polyneuropathies (02/01/24) Full incontinence of feces (02/01/24) Physical Therapy Treatment Note PT-OP-A Visit Information Start: 09/19/23 08:48 Freq: Status: Active Protocol: Document 02/01/24 11:27 [facility] (Rec: 02/01/24 12:19 [facility] [id number]) Out-Patient Physical Therapy Visit Information Visit Information Visit Type Treatment Note Visit Start Time 11:20 Visit Stop Time 12:05 Visit Number 8 PT-OP-B Current Condition Start: 09/19/23 08:48 Freq: Status: Active Protocol: Document 09/19/23 08:49 [facility] (Rec: 09/19/23 09:35 [facility] [id number]) Current Condition History of Current Condition Onset Date 2 years ago Current Complaints fecal incontinence History of Current Condition 2 years ago Karolina was diagnosed with anal cancer. She underwent chemo and 30 radiation treatments. She did do physical therapy with home health. She did go in for a additional surgery Apr 13 2023 due to a fistula. And at that point she felt like it was a turn around in her health as she felt like she was doing better before that but it set her back. Karolina notes she will have no warning prior to a urge for a bowel movement. SHe has to wear depends due to loss of stool. She reports food goes straight through and she experiences explossive diarahea and then she becomes constipated due to trying to take imodium to solidify her stool. Ave notes she has a hard time eating due to no taste anymore and she feels like food goes right through her. She is drinking a lot of water and trying to drink juice from the co-op. She presents with B neuropathy Treatment Goals Patient/Caregiver Goals pt goals include strengthening her pelvic floor and reduce radiation induced scar tissue in the rectum PT-OP-C Subjective Start: 09/19/23 08:48 Freq: Status: Active Protocol: Document 02/01/24 11:27 [facility] (Rec: 02/01/24 12:19 [facility] [id number]) OP-PT Subjective Patient Comments Patient Comments Ave NOTES she had a back up constipation issues and then once she got things going she felt like she couldnt get off the toilet so had to cx her last visit PT-OP-F Manual Assessment Start: 09/19/23 08:48 Freq: Status: Active Protocol: Document 09/19/23 09:09 [facility] (Rec: 09/21/23 09:12 [facility] [id number]) Manual Assessments Soft Tissue Assessment Soft Tissue Mobility Assessment assessment of external pelvic floor and attachments to the ischium reveal tightness and restricted fascial tissue proximal adductor attachments B are hypertonic and guarded, obturator internus fascial restrictions and guarding Karolina has decreased ability to pull in from the perineum due to restrictions in the tissue PT-OP-I Pelvic Floor Start: 09/19/23 08:48 Freq: Status: Active Protocol: Document 09/19/23 08:49 [facility] (Rec: 09/26/23 14:48 [facility] [id number]) Pelvic Floor Assessment Bowel Bowel Surgery Yes Bowel Symptoms Fecal Leakage Other Bowel Symptoms Karolina will at times expereince constipation but often has sudden urges for a bowel movement and experience Bowel Movement Frequency constantly throughout the day [place] Stool Chart Comments stool can range from loose to firm Contraction Ability Voluntary Contraction Weak Voluntary Relaxation Weak Comments Pelvic Floor Comments with external palpation of pelvic floor contraction Ave has poor ability to recruit her pelvic floor and is not able to pull in from the perineum PT-OP-M Strength Start: 09/19/23 08:48 Freq: Status: Active Protocol: Document 09/19/23 08:49 [facility] (Rec: 09/26/23 14:53 [facility] [id number]) Trunk Strength Trunk Manual Muscle Testing Flexion 3 Fair Core Stabilization decreased core stabilization and poor ability to engage the pelvic floor Hip Strength Hip Manual Muscle Testing Right Flexion (L2) 3 Fair Abduction 3 Fair External Rotation 3 Fair Left Flexion (L2) 3 Fair Extension (S1) 3 Fair Abduction 2+ Poor+ External Rotation 2+ Poor+ PT-OP-Q Treatments Start: 09/19/23 08:48 Freq: Status: Active Protocol: Document 02/01/24 11:20 [facility] (Rec: 02/01/24 12:20 [facility] [id number]) Therapeutic Exercises Supine Exercises hip IR/ER Reps/Minutes x 20 reps modified squat stretch Reps/Minutes hold 1-2 minutes single knee to chest Reps/Minutes hold 1 min each side Manual Therapy Treatment Soft Tissue Mobilization obturator internus release B Mobilization Type Myofascial Release Body Position Hooklying Comments release of the OI B external posterior pelvic floor Mobilization Type Myofascial Release Body Position Hooklying Comments worked around the ischium B releasing the posterior pelvic floor, Ave tolerated well Manual Techniques manual hip ROM into hip flexion,abduction, ER Body Position Hooklying Comments manual hip stretching into hip flexion, abduction and hip ER PT-OP-T Assessment and Plan Start: 09/19/23 08:48 Freq: Status: Active Protocol: Document 02/01/24 11:27 [facility] (Rec: 02/01/24 12:19 [facility] [id number]) Physical Therapy Assessment Assessment Summary Assessment Ave continues to be guarded in her adductors, she did lose a good friend this past week and has another friend on hospice so has been under a great amount of stress Physical Therapy Plan Frequency and Duration Frequency of Treatment 2x/Week Duration of treatment (weeks) 12 Plan of Care Start Date 12/07/23 Plan of Care End Date 02/29/24 Therapeutic Interventions Therapeutic Interventions Home Exercise Program,Manual Therapy,Patient/Caregiver Education,Self-Care/Home Management,Soft Tissue Mobilization,Therapeutic Exercises Modalities Biofeedback,Electric Stimulation,Ultrasound Next Visit Focus/Plan Next Note Type Treatment Note Next Visit Plan continue working on fascial release in the areas of the pelvis where the radiation affected the tissue the most
--- NOTE | 2024-02-07 12:38 | PT.OTN ---
Current Diagnoses Other specified polyneuropathies (02/07/24) Full incontinence of feces (02/07/24) Physical Therapy Treatment Note PT-OP-A Visit Information Start: 09/19/23 08:48 Freq: Status: Active Protocol: Document 02/07/24 09:45 [facility] (Rec: 02/07/24 12:38 [facility] [id number]) Out-Patient Physical Therapy Visit Information Visit Information Visit Type Treatment Note Visit Start Time 09:45 Visit Stop Time 10:30 Visit Number 9 PT-OP-B Current Condition Start: 09/19/23 08:48 Freq: Status: Active Protocol: Document 09/19/23 08:49 [facility] (Rec: 09/19/23 09:35 [facility] [id number]) Current Condition History of Current Condition Onset Date 2 years ago Current Complaints fecal incontinence History of Current Condition 2 years ago Karolina was diagnosed with anal cancer. She underwent chemo and 30 radiation treatments. She did do physical therapy with home health. She did go in for a additional surgery Apr 13 2023 due to a fistula. And at that point she felt like it was a turn around in her health as she felt like she was doing better before that but it set her back. Karolina notes she will have no warning prior to a urge for a bowel movement. SHe has to wear depends due to loss of stool. She reports food goes straight through and she experiences explossive diarahea and then she becomes constipated due to trying to take imodium to solidify her stool. Sheryl notes she has a hard time eating due to no taste anymore and she feels like food goes right through her. She is drinking a lot of water and trying to drink juice from the co-op. She presents with B neuropathy Treatment Goals Patient/Caregiver Goals pt goals include strengthening her pelvic floor and reduce radiation induced scar tissue in the rectum PT-OP-C Subjective Start: 09/19/23 08:48 Freq: Status: Active Protocol: Document 02/07/24 09:45 [facility] (Rec: 02/07/24 12:38 [facility] [id number]) OP-PT Subjective Patient Comments Patient Comments Sheryl doing well with PT and she notes she feels more circulation and sensation into her feet following. she will be getting a new referral for strength training for osteoporosis PT-OP-F Manual Assessment Start: 09/19/23 08:48 Freq: Status: Active Protocol: Document 09/19/23 09:09 [facility] (Rec: 09/21/23 09:12 [facility] [id number]) Manual Assessments Soft Tissue Assessment Soft Tissue Mobility Assessment assessment of external pelvic floor and attachments to the ischium reveal tightness and restricted fascial tissue proximal adductor attachments B are hypertonic and guarded, obturator internus fascial restrictions and guarding Karolina has decreased ability to pull in from the perineum due to restrictions in the tissue PT-OP-I Pelvic Floor Start: 09/19/23 08:48 Freq: Status: Active Protocol: Document 09/19/23 08:49 [facility] (Rec: 09/26/23 14:48 [facility] [id number]) Pelvic Floor Assessment Bowel Bowel Surgery Yes Bowel Symptoms Fecal Leakage Other Bowel Symptoms Karolina will at times expereince constipation but often has sudden urges for a bowel movement and experience Bowel Movement Frequency constantly throughout the day [place] Stool Chart Comments stool can range from loose to firm Contraction Ability Voluntary Contraction Weak Voluntary Relaxation Weak Comments Pelvic Floor Comments with external palpation of pelvic floor contraction Sheryl has poor ability to recruit her pelvic floor and is not able to pull in from the perineum PT-OP-M Strength Start: 09/19/23 08:48 Freq: Status: Active Protocol: Document 09/19/23 08:49 [facility] (Rec: 09/26/23 14:53 [facility] [id number]) Trunk Strength Trunk Manual Muscle Testing Flexion 3 Fair Core Stabilization decreased core stabilization and poor ability to engage the pelvic floor Hip Strength Hip Manual Muscle Testing Right Flexion (L2) 3 Fair Abduction 3 Fair External Rotation 3 Fair Left Flexion (L2) 3 Fair Extension (S1) 3 Fair Abduction 2+ Poor+ External Rotation 2+ Poor+ PT-OP-Q Treatments Start: 09/19/23 08:48 Freq: Status: Active Protocol: Document 02/07/24 09:45 [facility] (Rec: 02/07/24 12:38 [facility] [id number]) Manual Therapy Treatment Soft Tissue Mobilization obturator internus release B Mobilization Type Myofascial Release Body Position Hooklying Comments release of the OI B external posterior pelvic floor Mobilization Type Myofascial Release Body Position Hooklying Comments worked around the ischium B releasing the posterior pelvic floor, Sheryl tolerated well MFR for the adducotrs Mobilization Type Myofascial Release Intensity/Depth Moderate Body Position Hooklying Comments worked B with MFR for the adductors especially the proximal attachment to the pubic bone Manual Techniques manual hip ROM into hip flexion,abduction, ER Body Position Hooklying Comments manual hip stretching into hip flexion, abduction and hip ER PT-OP-T Assessment and Plan Start: 09/19/23 08:48 Freq: Status: Active Protocol: Document 02/07/24 09:45 [facility] (Rec: 02/07/24 12:38 [facility] [id number]) Physical Therapy Assessment Goals 3 Impairment Karolina lacks a HEP for pelvic stretches as well as strengthening exercises to help reduce fecal incontinence [facility] Goal (LTG) Karolina is IND with a HEP for stretches and strengthening for the pelvic floor some progress LTG Duration 12 weeks 2 Impairment 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 and muscular attachments to the ischium and pubic bone Short Term Goal (STG) Karolina is able to tolerate fascial work to help break up scar tissue in the pelvic floor/pelvic region good tolerance for manual work STG Duration 5 weeks 1 Impairment fecal incontinence, Karolina is wearing depends and has difficulty with social situations due to fear of loss of stool [place] [employer] Goal (LTG) Karolina reports a overall reduction in loss of stool and feels as if she has better overall control reducing the need for depends No change at this point LTG Duration 12 weeks Assessment Summary Assessment Sheryl did better with treatment today and had improved sensation in both her feet following treatment, she notes its the best she has felt Physical Therapy Plan Therapeutic Interventions Therapeutic Interventions Home Exercise Program,Manual Therapy,Patient/Caregiver Education,Self-Care/Home Management,Soft Tissue Mobilization,Therapeutic Exercises Modalities Biofeedback,Electric Stimulation,Ultrasound Next Visit Focus/Plan Next Note Type Treatment Note Next Visit Plan continue working on fascial release in the areas of the pelvis where the radiation affected the tissue the most
--- NOTE | 2024-02-14 16:25 | PT.OTN ---
Current Diagnoses Other specified polyneuropathies (02/14/24) Full incontinence of feces (02/14/24) Physical Therapy Treatment Note PT-OP-A Visit Information Start: 09/19/23 08:48 Freq: Status: Active Protocol: Document 02/14/24 13:26 [facility] (Rec: 02/14/24 13:26 [facility] [id number]) Out-Patient Physical Therapy Visit Information Visit Information Visit Type Progress Note Visit Start Time 09:05 Visit Stop Time 09:45 Visit Number 10 PT-OP-B Current Condition Start: 09/19/23 08:48 Freq: Status: Active Protocol: Document 09/19/23 08:49 [facility] (Rec: 09/19/23 09:35 [facility] [id number]) Current Condition History of Current Condition Onset Date 2 years ago Current Complaints fecal incontinence History of Current Condition 2 years ago Karolina was diagnosed with anal cancer. She underwent chemo and 30 radiation treatments. She did do physical therapy with home health. She did go in for a additional surgery Apr 13 2023 due to a fistula. And at that point she felt like it was a turn around in her health as she felt like she was doing better before that but it set her back. Karolina notes she will have no warning prior to a urge for a bowel movement. SHe has to wear depends due to loss of stool. She reports food goes straight through and she experiences explossive diarahea and then she becomes constipated due to trying to take imodium to solidify her stool. Sheryl notes she has a hard time eating due to no taste anymore and she feels like food goes right through her. She is drinking a lot of water and trying to drink juice from the co-op. She presents with B neuropathy Treatment Goals Patient/Caregiver Goals pt goals include strengthening her pelvic floor and reduce radiation induced scar tissue in the rectum PT-OP-C Subjective Start: 09/19/23 08:48 Freq: Status: Active Protocol: Document 02/14/24 09:05 [facility] (Rec: 02/15/24 16:24 [facility] [id number]) OP-PT Subjective Patient Comments Patient Comments Sheryl reports she has been experiencing increased sensation in her feet following her physical therapy Patient Reported Progress Improving PT-OP-F Manual Assessment Start: 09/19/23 08:48 Freq: Status: Active Protocol: Document 09/19/23 09:09 [facility] (Rec: 09/21/23 09:12 [facility] [id number]) Manual Assessments Soft Tissue Assessment Soft Tissue Mobility Assessment assessment of external pelvic floor and attachments to the ischium reveal tightness and restricted fascial tissue proximal adductor attachments B are hypertonic and guarded, obturator internus fascial restrictions and guarding Karolina has decreased ability to pull in from the perineum due to restrictions in the tissue PT-OP-I Pelvic Floor Start: 09/19/23 08:48 Freq: Status: Active Protocol: Document 09/19/23 08:49 [facility] (Rec: 09/26/23 14:48 [facility] [id number]) Pelvic Floor Assessment Bowel Bowel Surgery Yes Bowel Symptoms Fecal Leakage Other Bowel Symptoms Karolina will at times expereince constipation but often has sudden urges for a bowel movement and experience Bowel Movement Frequency constantly throughout the day [place] Stool Chart Comments stool can range from loose to firm Contraction Ability Voluntary Contraction Weak Voluntary Relaxation Weak Comments Pelvic Floor Comments with external palpation of pelvic floor contraction Sheryl has poor ability to recruit her pelvic floor and is not able to pull in from the perineum PT-OP-M Strength Start: 09/19/23 08:48 Freq: Status: Active Protocol: Document 09/19/23 08:49 [facility] (Rec: 09/26/23 14:53 [facility] [id number]) Trunk Strength Trunk Manual Muscle Testing Flexion 3 Fair Core Stabilization decreased core stabilization and poor ability to engage the pelvic floor Hip Strength Hip Manual Muscle Testing Right Flexion (L2) 3 Fair Abduction 3 Fair External Rotation 3 Fair Left Flexion (L2) 3 Fair Extension (S1) 3 Fair Abduction 2+ Poor+ External Rotation 2+ Poor+ PT-OP-Q Treatments Start: 09/19/23 08:48 Freq: Status: Active Protocol: Document 02/14/24 09:05 [facility] (Rec: 02/15/24 16:24 [facility] [id number]) Manual Therapy Treatment Soft Tissue Mobilization obturator internus release B Mobilization Type Myofascial Release Body Position Hooklying Comments release of the OI B external posterior pelvic floor Mobilization Type Myofascial Release Body Position Hooklying Comments worked around the ischium B releasing the posterior pelvic floor, Sheryl tolerated well MFR for the adducotrs Mobilization Type Myofascial Release Intensity/Depth Moderate Body Position Hooklying Comments worked B with MFR for the adductors especially the proximal attachment to the pubic bone Manual Techniques manual hip ROM into hip flexion,abduction, ER Body Position Hooklying Comments manual hip stretching into hip flexion, abduction and hip ER PT-OP-T Assessment and Plan Start: 09/19/23 08:48 Freq: Status: Active Protocol: Document 02/14/24 09:05 [facility] (Rec: 02/15/24 16:24 [facility] [id number]) Physical Therapy Assessment Assessment Summary Assessment Sheryl is doing better with her bowels but still has bad days, she is noting improved sensation in her feet following PT sessions Physical Therapy Plan Frequency and Duration Frequency of Treatment 2x/Week Duration of treatment (weeks) 12 Plan of Care Start Date 12/07/23 Plan of Care End Date 02/29/24 Therapeutic Interventions Therapeutic Interventions Home Exercise Program,Manual Therapy,Patient/Caregiver Education,Self-Care/Home Management,Soft Tissue Mobilization,Therapeutic Exercises Modalities Biofeedback,Electric Stimulation,Ultrasound Next Visit Focus/Plan Next Note Type Progress Note Next Visit Plan continue working on fascial release in the areas of the pelvis where the radiation affected the tissue the most
--- NOTE | 2024-02-21 12:48 | PT.OTN ---
Current Diagnoses Other specified polyneuropathies (02/21/24) Full incontinence of feces (02/21/24) Physical Therapy Treatment Note PT-OP-A Visit Information Start: 09/19/23 08:48 Freq: Status: Active Protocol: Document 02/21/24 09:08 [facility] (Rec: 02/21/24 10:40 [facility] [id number]) Out-Patient Physical Therapy Visit Information Visit Information Visit Type Progress Note Visit Start Time 09:05 Visit Stop Time 09:45 Visit Number 11 Evaluation Information Evaluation Date 09/19/23 PT-OP-B Current Condition Start: 09/19/23 08:48 Freq: Status: Active Protocol: Document 09/19/23 08:49 [facility] (Rec: 09/19/23 09:35 [facility] [id number]) Current Condition History of Current Condition Onset Date 2 years ago Current Complaints fecal incontinence History of Current Condition 2 years ago Karolina was diagnosed with anal cancer. She underwent chemo and 30 radiation treatments. She did do physical therapy with home health. She did go in for a additional surgery Apr 13 2023 due to a fistula. And at that point she felt like it was a turn around in her health as she felt like she was doing better before that but it set her back. Karolina notes she will have no warning prior to a urge for a bowel movement. SHe has to wear depends due to loss of stool. She reports food goes straight through and she experiences explossive diarahea and then she becomes constipated due to trying to take imodium to solidify her stool. Sheryl notes she has a hard time eating due to no taste anymore and she feels like food goes right through her. She is drinking a lot of water and trying to drink juice from the co-op. She presents with B neuropathy Treatment Goals Patient/Caregiver Goals pt goals include strengthening her pelvic floor and reduce radiation induced scar tissue in the rectum PT-OP-C Subjective Start: 09/19/23 08:48 Freq: Status: Active Protocol: Document 02/21/24 09:08 [facility] (Rec: 02/21/24 10:40 [facility] [id number]) OP-PT Subjective Patient Comments Patient Comments went for a walk yesterday and did well, she can feel it in her legs today Patient Reported Progress Improving PT-OP-F Manual Assessment Start: 09/19/23 08:48 Freq: Status: Active Protocol: Document 09/19/23 09:09 [facility] (Rec: 09/21/23 09:12 [facility] [id number]) Manual Assessments Soft Tissue Assessment Soft Tissue Mobility Assessment assessment of external pelvic floor and attachments to the ischium reveal tightness and restricted fascial tissue proximal adductor attachments B are hypertonic and guarded, obturator internus fascial restrictions and guarding Karolina has decreased ability to pull in from the perineum due to restrictions in the tissue PT-OP-I Pelvic Floor Start: 09/19/23 08:48 Freq: Status: Active Protocol: Document 09/19/23 08:49 [facility] (Rec: 09/26/23 14:48 [facility] [id number]) Pelvic Floor Assessment Bowel Bowel Surgery Yes Bowel Symptoms Fecal Leakage Other Bowel Symptoms Karolina will at times expereince constipation but often has sudden urges for a bowel movement and experience Bowel Movement Frequency constantly throughout the day [place] Stool Chart Comments stool can range from loose to firm Contraction Ability Voluntary Contraction Weak Voluntary Relaxation Weak Comments Pelvic Floor Comments with external palpation of pelvic floor contraction Sheryl has poor ability to recruit her pelvic floor and is not able to pull in from the perineum PT-OP-M Strength Start: 09/19/23 08:48 Freq: Status: Active Protocol: Document 09/19/23 08:49 [facility] (Rec: 09/26/23 14:53 [facility] [id number]) Trunk Strength Trunk Manual Muscle Testing Flexion 3 Fair Core Stabilization decreased core stabilization and poor ability to engage the pelvic floor Hip Strength Hip Manual Muscle Testing Right Flexion (L2) 3 Fair Abduction 3 Fair External Rotation 3 Fair Left Flexion (L2) 3 Fair Extension (S1) 3 Fair Abduction 2+ Poor+ External Rotation 2+ Poor+ PT-OP-Q Treatments Start: 09/19/23 08:48 Freq: Status: Active Protocol: Document 02/21/24 09:08 [facility] (Rec: 02/21/24 12:48 [facility] [id number]) Manual Therapy Treatment Soft Tissue Mobilization obturator internus release B Mobilization Type Myofascial Release Body Position Hooklying Comments release of the OI B external posterior pelvic floor Mobilization Type Myofascial Release Body Position Hooklying Comments worked around the ischium B releasing the posterior pelvic floor, Sheryl tolerated well MFR for the adducotrs Mobilization Type Myofascial Release Intensity/Depth Moderate Body Position Hooklying Comments worked B with MFR for the adductors especially the proximal attachment to the pubic bone Manual Techniques manual hip ROM into hip flexion,abduction, ER Body Position Hooklying Comments manual hip stretching into hip flexion, abduction and hip ER PT-OP-T Assessment and Plan Start: 09/19/23 08:48 Freq: Status: Active Protocol: Document 02/21/24 09:08 [facility] (Rec: 02/21/24 12:48 [facility] [id number]) Physical Therapy Assessment Goals 3 Impairment Karolina lacks a HEP for pelvic stretches as well as strengthening exercises to help reduce fecal incontinence Intermediate Goal (LTG) Karolina is IND with a HEP for stretches and strengthening for the pelvic floor good progress, Sheryl has been doing her stretches and has been able to start walking outside LTG Duration 12 weeks 2 Impairment 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 and muscular attachments to the ischium and pubic bone Short Term Goal (STG) Karolina is able to tolerate fascial work to help break up scar tissue in the pelvic floor/pelvic region good tolerance for manual work STG Duration 5 weeks 1 Impairment fecal incontinence, Karolina is wearing depends and has difficulty with social situations due to fear of loss of stool Intermediate Goal (LTG) Karolina reports a overall reduction in loss of stool and feels as if she has better overall control reducing the need for depends Sheryl is now noting some progress and has intermittent symptoms LTG Duration 12 weeks Assessment Summary Assessment Overall Sheryl continues to make good progress and has had more energy to get out and about. She is tolerating a gentle stretching program and has been able to get out to walk. She feels the myofascial work is helping with her mobility and she would benefit from continued PT Physical Therapy Plan Frequency and Duration Frequency of Treatment 2x/Week Duration of treatment (weeks) 8 Plan of Care Start Date 02/21/24 Plan of Care End Date 04/17/24 Therapeutic Interventions Therapeutic Interventions Home Exercise Program,Manual Therapy,Patient/Caregiver Education,Self-Care/Home Management,Soft Tissue Mobilization,Therapeutic Exercises Modalities Biofeedback,Electric Stimulation,Ultrasound Next Visit Focus/Plan Next Note Type Treatment Note Next Visit Plan continue working on fascial release in the areas of the pelvis where the radiation affected the tissue the most
--- NOTE | 2024-02-21 12:49 | PT.OPPOC ---
Physical, Occupational & Speech Therapy At Current Diagnoses Other specified polyneuropathies (02/21/24) Full incontinence of feces (02/21/24) Visit Care Team Role Provider Type Jessica Estrada PA-C Family Provider Physician Balloon Tester Primary Care Provider Specialty: Medical Address: [place], [address] Email: [email or web address] Rajesh Farris MD Attending Provider Physician Referring Provider Specialty: Oncology Address: [address] [place] [address], [id number] Email: [email or web address] Plan Of Care PT-OP-T Assessment and Plan Start: 09/19/23 08:48 Freq: Status: Active Protocol: Document 02/21/24 09:08 [facility] (Rec: 02/21/24 12:48 [facility] [id number]) Physical Therapy Assessment Goals 3 Impairment Karolina lacks a HEP for pelvic stretches as well as strengthening exercises to help reduce fecal incontinence Video Machines Mechanic Goal (LTG) Karolina is IND with a HEP for stretches and strengthening for the pelvic floor good progress, Sheryl has been doing her stretches and has been able to start walking outside LTG Duration 12 weeks 2 Impairment 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 and muscular attachments to the ischium and pubic bone Short Term Goal (STG) Karolina is able to tolerate fascial work to help break up scar tissue in the pelvic floor/pelvic region good tolerance for manual work STG Duration 5 weeks 1 Impairment fecal incontinence, Karolina is wearing depends and has difficulty with social situations due to fear of loss of stool Jail Goal (LTG) Kraolina reports a overall reduction in loss of stool and feels as if she has better overall control reducing the need for depends Sheryl is now noting some progress and has intermittent symptoms LTG Duration 12 weeks Assessment Summary Assessment Overall Sheryl continues to make good progress and has had more energy to get out and about. She is tolerating a gentle stretching program and has been able to get out to walk. She feels the myofascial work is helping with her mobility and she would benefit from continued PT Physical Therapy Plan Frequency and Duration Frequency of Treatment 2x/Week Duration of treatment (weeks) 8 Plan of Care Start Date 02/21/24 Plan of Care End Date 04/17/24 Therapeutic Interventions Therapeutic Interventions Home Exercise Program,Manual Therapy,Patient/Caregiver Education,Self-Care/Home Management,Soft Tissue Mobilization,Therapeutic Exercises Modalities Biofeedback,Electric Stimulation,Ultrasound Next Visit Focus/Plan Next Note Type Treatment Note Next Visit Plan continue working on fascial release in the areas of the pelvis where the radiation affected the tissue the most Plan of Care Dates Plan of Care Start Date 02/21/24 Plan of Care End Date 04/17/24 Electronically Signed by: Karrie Price, PT 02/21/24 2050 If you are in agreement with this Plan of Care, please return a signed and dated copy. I have reviewed this Plan of Care and certify that the skilled therapy services above are required to meet the patient?s needs. Physician Signature Date Printed Name and Credentials Clinical Instructor Signature Printed Name and Credentials
--- NOTE | 2024-03-19 17:24 | PT.OTN ---
Current Diagnoses Other specified polyneuropathies (03/19/24) Full incontinence of feces (03/19/24) Physical Therapy Treatment Note PT-OP-A Visit Information Start: 09/19/23 08:48 Freq: Status: Active Protocol: Document 03/19/24 17:23 [facility] (Rec: 03/19/24 17:23 [facility] [id number]) Out-Patient Physical Therapy Visit Information Visit Information Visit Type Treatment Note Visit Start Time 13:50 Visit Stop Time 14:30 Visit Number 12 PT-OP-B Current Condition Start: 09/19/23 08:48 Freq: Status: Active Protocol: Document 09/19/23 08:49 [facility] (Rec: 09/19/23 09:35 [facility] [id number]) Current Condition History of Current Condition Onset Date 2 years ago Current Complaints fecal incontinence History of Current Condition 2 years ago Karolina was diagnosed with anal cancer. She underwent chemo and 30 radiation treatments. She did do physical therapy with home health. She did go in for a additional surgery Apr 13 2023 due to a fistula. And at that point she felt like it was a turn around in her health as she felt like she was doing better before that but it set her back. Karolina notes she will have no warning prior to a urge for a bowel movement. SHe has to wear depends due to loss of stool. She reports food goes straight through and she experiences explossive diarahea and then she becomes constipated due to trying to take imodium to solidify her stool. Sheryl notes she has a hard time eating due to no taste anymore and she feels like food goes right through her. She is drinking a lot of water and trying to drink juice from the co-op. She presents with B neuropathy Treatment Goals Patient/Caregiver Goals pt goals include strengthening her pelvic floor and reduce radiation induced scar tissue in the rectum PT-OP-C Subjective Start: 09/19/23 08:48 Freq: Status: Active Protocol: Document 03/19/24 13:56 [facility] (Rec: 03/19/24 14:33 [facility] [id number]) OP-PT Subjective Patient Comments Patient Comments Sheryl notes she has been dealing with constipation the past 4 days PT-OP-F Manual Assessment Start: 09/19/23 08:48 Freq: Status: Active Protocol: Document 09/19/23 09:09 [facility] (Rec: 09/21/23 09:12 [facility] [id number]) Manual Assessments Soft Tissue Assessment Soft Tissue Mobility Assessment assessment of external pelvic floor and attachments to the ischium reveal tightness and restricted fascial tissue proximal adductor attachments B are hypertonic and guarded, obturator internus fascial restrictions and guarding Karolina has decreased ability to pull in from the perineum due to restrictions in the tissue PT-OP-I Pelvic Floor Start: 09/19/23 08:48 Freq: Status: Active Protocol: Document 09/19/23 08:49 [facility] (Rec: 09/26/23 14:48 [facility] [id number]) Pelvic Floor Assessment Bowel Bowel Surgery Yes Bowel Symptoms Fecal Leakage Other Bowel Symptoms Karolina will at times expereince constipation but often has sudden urges for a bowel movement and experience Bowel Movement Frequency constantly throughout the day [place] Stool Chart Comments stool can range from loose to firm Contraction Ability Voluntary Contraction Weak Voluntary Relaxation Weak Comments Pelvic Floor Comments with external palpation of pelvic floor contraction Sheryl has poor ability to recruit her pelvic floor and is not able to pull in from the perineum PT-OP-M Strength Start: 09/19/23 08:48 Freq: Status: Active Protocol: Document 09/19/23 08:49 [facility] (Rec: 09/26/23 14:53 [facility] [id number]) Trunk Strength Trunk Manual Muscle Testing Flexion 3 Fair Core Stabilization decreased core stabilization and poor ability to engage the pelvic floor Hip Strength Hip Manual Muscle Testing Right Flexion (L2) 3 Fair Abduction 3 Fair External Rotation 3 Fair Left Flexion (L2) 3 Fair Extension (S1) 3 Fair Abduction 2+ Poor+ External Rotation 2+ Poor+ PT-OP-Q Treatments Start: 09/19/23 08:48 Freq: Status: Active Protocol: Document 03/19/24 17:16 [facility] (Rec: 03/19/24 17:22 [facility] [id number]) Manual Therapy Treatment Soft Tissue Mobilization obturator internus release B Mobilization Type Myofascial Release Body Position Hooklying Comments release of the OI B external posterior pelvic floor Mobilization Type Myofascial Release Body Position Hooklying Comments worked around the ischium B releasing the posterior pelvic floor, Sheryl tolerated well MFR for the adducotrs Mobilization Type Myofascial Release Intensity/Depth Moderate Body Position Hooklying Comments worked B with MFR for the adductors especially the proximal attachment to the pubic bone PT-OP-T Assessment and Plan Start: 09/19/23 08:48 Freq: Status: Active Protocol: Document 03/19/24 17:16 [facility] (Rec: 03/19/24 17:22 [facility] [id number]) Physical Therapy Assessment Assessment Summary Assessment Sheryl had some feelings of nausea today with fascial release. She has been pretty inactive the past 4 days due to constipation. I advised her to increase water intake and also try doing a little walking to stretch out her legs some Physical Therapy Plan Frequency and Duration Frequency of Treatment 2x/Week Duration of treatment (weeks) 8 Plan of Care Start Date 02/21/24 Plan of Care End Date 04/17/24 Therapeutic Interventions Therapeutic Interventions Home Exercise Program,Manual Therapy,Patient/Caregiver Education,Self-Care/Home Management,Soft Tissue Mobilization,Therapeutic Exercises Modalities Biofeedback,Electric Stimulation,Ultrasound Next Visit Focus/Plan Next Note Type Treatment Note Next Visit Plan continue working on fascial release in the areas of the pelvis where the radiation affected the tissue the most
--- NOTE | 2024-04-11 16:47 | PT.OTN ---
Current Diagnoses Other specified polyneuropathies (04/11/24) Full incontinence of feces (04/11/24) Physical Therapy Treatment Note PT-OP-A Visit Information Start: 09/19/23 08:48 Freq: Status: Active Protocol: Document 04/11/24 08:13 [facility] (Rec: 04/11/24 09:04 [facility] [id number]) Out-Patient Physical Therapy Visit Information Visit Information Visit Type Progress Note Visit Start Time 08:15 Visit Stop Time 09:00 Visit Number 13 PT-OP-B Current Condition Start: 09/19/23 08:48 Freq: Status: Active Protocol: Document 09/19/23 08:49 [facility] (Rec: 09/19/23 09:35 [facility] [id number]) Current Condition History of Current Condition Onset Date 2 years ago Current Complaints fecal incontinence History of Current Condition 2 years ago Karolina was diagnosed with anal cancer. She underwent chemo and 30 radiation treatments. She did do physical therapy with home health. She did go in for a additional surgery Apr 13 2023 due to a fistula. And at that point she felt like it was a turn around in her health as she felt like she was doing better before that but it set her back. Karolina notes she will have no warning prior to a urge for a bowel movement. SHe has to wear depends due to loss of stool. She reports food goes straight through and she experiences explossive diarahea and then she becomes constipated due to trying to take imodium to solidify her stool. Sheryl notes she has a hard time eating due to no taste anymore and she feels like food goes right through her. She is drinking a lot of water and trying to drink juice from the co-op. She presents with B neuropathy Treatment Goals Patient/Caregiver Goals pt goals include strengthening her pelvic floor and reduce radiation induced scar tissue in the rectum PT-OP-C Subjective Start: 09/19/23 08:48 Freq: Status: Active Protocol: Document 04/11/24 08:13 [facility] (Rec: 04/11/24 09:04 [facility] [id number]) OP-PT Subjective Patient Comments Patient Comments Sheryl notes she feel [place] PT-OP-F Manual Assessment Start: 09/19/23 08:48 Freq: Status: Active Protocol: Document 09/19/23 09:09 [facility] (Rec: 09/21/23 09:12 [facility] [id number]) Manual Assessments Soft Tissue Assessment Soft Tissue Mobility Assessment assessment of external pelvic floor and attachments to the ischium reveal tightness and restricted fascial tissue proximal adductor attachments B are hypertonic and guarded, obturator internus fascial restrictions and guarding Karolina has decreased ability to pull in from the perineum due to restrictions in the tissue PT-OP-I Pelvic Floor Start: 09/19/23 08:48 Freq: Status: Active Protocol: Document 09/19/23 08:49 [facility] (Rec: 09/26/23 14:48 [facility] [id number]) Pelvic Floor Assessment Bowel Bowel Surgery Yes Bowel Symptoms Fecal Leakage Other Bowel Symptoms Karolina will at times expereince constipation but often has sudden urges for a bowel movement and experience Bowel Movement Frequency constantly throughout the day [place] Stool Chart Comments stool can range from loose to firm Contraction Ability Voluntary Contraction Weak Voluntary Relaxation Weak Comments Pelvic Floor Comments with external palpation of pelvic floor contraction Sheryl has poor ability to recruit her pelvic floor and is not able to pull in from the perineum PT-OP-M Strength Start: 09/19/23 08:48 Freq: Status: Active Protocol: Document 09/19/23 08:49 [facility] (Rec: 09/26/23 14:53 [facility] [id number]) Trunk Strength Trunk Manual Muscle Testing Flexion 3 Fair Core Stabilization decreased core stabilization and poor ability to engage the pelvic floor Hip Strength Hip Manual Muscle Testing Right Flexion (L2) 3 Fair Abduction 3 Fair External Rotation 3 Fair Left Flexion (L2) 3 Fair Extension (S1) 3 Fair Abduction 2+ Poor+ External Rotation 2+ Poor+ PT-OP-Q Treatments Start: 09/19/23 08:48 Freq: Status: Active Protocol: Document 04/11/24 16:46 [facility] (Rec: 04/11/24 16:47 [facility] [id number]) Therapeutic Exercises Supine Exercises hamstring stretch Reps/Minutes 1 min each side hip IR/ER Reps/Minutes x 20 reps single knee to chest Reps/Minutes hold 1 min each side Manual Therapy Treatment Soft Tissue Mobilization obturator internus release B Mobilization Type Myofascial Release Body Position Hooklying Comments release of the OI B MFR for the adducotrs Mobilization Type Myofascial Release Intensity/Depth Moderate Body Position Hooklying Comments worked B with MFR for the adductors especially the proximal attachment to the pubic bone Manual Techniques manual hip ROM into hip flexion,abduction, ER Body Position Hooklying Comments manual hip stretching into hip flexion, abduction and hip ER PT-OP-T Assessment and Plan Start: 09/19/23 08:48 Freq: Status: Active Protocol: Document 04/11/24 16:28 [facility] (Rec: 04/11/24 16:46 [facility] [id number]) Physical Therapy Assessment Goals 3 Impairment Karolina lacks a HEP for pelvic stretches as well as strengthening exercises to help reduce fecal incontinence Retort Cooler Goal (LTG) Karolina is IND with a HEP for stretches and strengthening for the pelvic floor good progress, Sheryl has been doing her stretches and has been able to start walking outside LTG Duration 12 weeks 2 Impairment 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 and muscular attachments to the ischium and pubic bone Short Term Goal (STG) Karolina is able to tolerate fascial work to help break up scar tissue in the pelvic floor/pelvic region good tolerance for manual work STG Duration 5 weeks 1 Impairment fecal incontinence, Karolina is wearing depends and has difficulty with social situations due to fear of loss of stool Long-Term Goal (LTG) Karolina reports a overall reduction in loss of stool and feels as if she has better overall control reducing the need for depends Sheryl is now noting good progress and has intermittent symptoms LTG Duration 12 weeks Assessment Summary Assessment Sheryl is doing better overall with improved fascial mobility . She did take a fall while on vacation in [place] at [facility]. She is obtaining a new referral for balance and gait training. She would benefit from continued PT Physical Therapy Plan Frequency and Duration Frequency of Treatment 2x/Week Duration of treatment (weeks) 12 Plan of Care Start Date 04/11/24 Plan of Care End Date 07/04/24 Therapeutic Interventions Therapeutic Interventions Home Exercise Program,Manual Therapy,Patient/Caregiver Education,Self-Care/Home Management,Soft Tissue Mobilization,Therapeutic Exercises Modalities Biofeedback,Electric Stimulation,Ultrasound Next Visit Focus/Plan Next Note Type Treatment Note Next Visit Plan continue working on fascial release in the areas of the pelvis where the radiation affected the tissue the most
--- NOTE | 2024-04-11 16:47 | PT.OPPOC ---
Physical, Occupational & Speech Therapy At [facility] Current Diagnoses Other specified polyneuropathies (04/11/24) Full incontinence of feces (04/11/24) Visit Care Team Role Provider Type Jessica Estrada PA-C Family Provider Physician Slitter Service And Setter Primary Care Provider Specialty: Medical Address: [place], [address] Email: [email or web address] Rajesh Farris MD Attending Provider Physician Referring Provider Specialty: Oncology Address: [address] [place] [address], [id number] Email: [email or web address] Plan Of Care PT-OP-T Assessment and Plan Start: 09/19/23 08:48 Freq: Status: Active Protocol: Document 04/11/24 16:28 [facility] (Rec: 04/11/24 16:46 [facility] [id number]) Physical Therapy Assessment Goals 3 Impairment Karolina lacks a HEP for pelvic stretches as well as strengthening exercises to help reduce fecal incontinence Pain Medicine Physician Goal (LTG) Karolina is IND with a HEP for stretches and strengthening for the pelvic floor good progress, Sheryl has been doing her stretches and has been able to start walking outside LTG Duration 12 weeks 2 Impairment 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 and muscular attachments to the ischium and pubic bone Short Term Goal (STG) Karolina is able to tolerate fascial work to help break up scar tissue in the pelvic floor/pelvic region good tolerance for manual work STG Duration 5 weeks 1 Impairment fecal incontinence, Karolina is wearing depends and has difficulty with social situations due to fear of loss of stool Nursing Home Goal (LTG) Karolina reports a overall reduction in loss of stool and feels as if she has better overall control reducing the need for depends Sheryl is now noting good progress and has intermittent symptoms LTG Duration 12 weeks Assessment Summary Assessment Sheryl is doing better overall with improved fascial mobility . She did take a fall while on vacation in [place] at the [facility]. She is obtaining a new referral for balance and gait training. She would benefit from continued PT Physical Therapy Plan Frequency and Duration Frequency of Treatment 2x/Week Duration of treatment (weeks) 12 Plan of Care Start Date 04/11/24 Plan of Care End Date 07/04/24 Therapeutic Interventions Therapeutic Interventions Home Exercise Program,Manual Therapy,Patient/Caregiver Education,Self-Care/Home Management,Soft Tissue Mobilization,Therapeutic Exercises Modalities Biofeedback,Electric Stimulation,Ultrasound Next Visit Focus/Plan Next Note Type Treatment Note Next Visit Plan continue working on fascial release in the areas of the pelvis where the radiation affected the tissue the most Plan of Care Dates Plan of Care Start Date 04/11/24 Plan of Care End Date 07/04/24 Electronically Signed by: Karrie Price, PT 04/11/24 6219 If you are in agreement with this Plan of Care, please return a signed and dated copy. I have reviewed this Plan of Care and certify that the skilled therapy services above are required to meet the patient?s needs. Physician Signature Date Printed Name and Credentials Clinical Instructor Signature Printed Name and Credentials
--- NOTE | 2024-04-18 12:58 | PT.OTN ---
Current Diagnoses Other specified polyneuropathies (04/18/24) Full incontinence of feces (04/18/24) Physical Therapy Treatment Note PT-OP-A Visit Information Start: 09/19/23 08:48 Freq: Status: Active Protocol: Document 04/18/24 09:45 [facility] (Rec: 04/18/24 12:57 [facility] [id number]) Out-Patient Physical Therapy Visit Information Visit Information Visit Type Treatment Note Visit Start Time 09:45 Visit Stop Time 10:30 Visit Number 14 PT-OP-B Current Condition Start: 09/19/23 08:48 Freq: Status: Active Protocol: Document 09/19/23 08:49 [facility] (Rec: 09/19/23 09:35 [facility] [id number]) Current Condition History of Current Condition Onset Date 2 years ago Current Complaints fecal incontinence History of Current Condition 2 years ago Karolina was diagnosed with anal cancer. She underwent chemo and 30 radiation treatments. She did do physical therapy with home health. She did go in for a additional surgery Apr 13 2023 due to a fistula. And at that point she felt like it was a turn around in her health as she felt like she was doing better before that but it set her back. Karolina notes she will have no warning prior to a urge for a bowel movement. SHe has to wear depends due to loss of stool. She reports food goes straight through and she experiences explossive diarahea and then she becomes constipated due to trying to take imodium to solidify her stool. Sheryl notes she has a hard time eating due to no taste anymore and she feels like food goes right through her. She is drinking a lot of water and trying to drink juice from the co-op. She presents with B neuropathy Treatment Goals Patient/Caregiver Goals pt goals include strengthening her pelvic floor and reduce radiation induced scar tissue in the rectum PT-OP-C Subjective Start: 09/19/23 08:48 Freq: Status: Active Protocol: Document 04/18/24 09:45 [facility] (Rec: 04/18/24 12:57 [facility] [id number]) OP-PT Subjective Patient Comments Patient Comments Sheryl reports she was at a friends on Monday, she did have a episode of fecal incontinence once she got home from the and she feels very tight and guarded today PT-OP-F Manual Assessment Start: 09/19/23 08:48 Freq: Status: Active Protocol: Document 09/19/23 09:09 [facility] (Rec: 09/21/23 09:12 [facility] [id number]) Manual Assessments Soft Tissue Assessment Soft Tissue Mobility Assessment assessment of external pelvic floor and attachments to the ischium reveal tightness and restricted fascial tissue proximal adductor attachments B are hypertonic and guarded, obturator internus fascial restrictions and guarding Karolina has decreased ability to pull in from the perineum due to restrictions in the tissue PT-OP-I Pelvic Floor Start: 09/19/23 08:48 Freq: Status: Active Protocol: Document 09/19/23 08:49 [facility] (Rec: 09/26/23 14:48 [facility] [id number]) Pelvic Floor Assessment Bowel Bowel Surgery Yes Bowel Symptoms Fecal Leakage Other Bowel Symptoms Karolina will at times expereince constipation but often has sudden urges for a bowel movement and experience Bowel Movement Frequency constantly throughout the day [place] Stool Chart Comments stool can range from loose to firm Contraction Ability Voluntary Contraction Weak Voluntary Relaxation Weak Comments Pelvic Floor Comments with external palpation of pelvic floor contraction Sheryl has poor ability to recruit her pelvic floor and is not able to pull in from the perineum PT-OP-M Strength Start: 09/19/23 08:48 Freq: Status: Active Protocol: Document 09/19/23 08:49 [facility] (Rec: 09/26/23 14:53 [facility] [id number]) Trunk Strength Trunk Manual Muscle Testing Flexion 3 Fair Core Stabilization decreased core stabilization and poor ability to engage the pelvic floor Hip Strength Hip Manual Muscle Testing Right Flexion (L2) 3 Fair Abduction 3 Fair External Rotation 3 Fair Left Flexion (L2) 3 Fair Extension (S1) 3 Fair Abduction 2+ Poor+ External Rotation 2+ Poor+ PT-OP-Q Treatments Start: 09/19/23 08:48 Freq: Status: Active Protocol: Document 04/18/24 09:45 [facility] (Rec: 04/18/24 12:57 [facility] [id number]) Manual Therapy Treatment Soft Tissue Mobilization external posterior pelvic floor Mobilization Type Myofascial Release Body Position Hooklying Comments worked around the ischium B releasing the posterior pelvic floor, Sheryl tolerated well MFR for the adducotrs Mobilization Type Myofascial Release Intensity/Depth Moderate Body Position Hooklying Comments worked B with MFR for the adductors especially the proximal attachment to the pubic bone Manual Techniques manual hip ROM into hip flexion,abduction, ER Body Position Hooklying Comments manual hip stretching into hip flexion, abduction and hip ER PT-OP-T Assessment and Plan Start: 09/19/23 08:48 Freq: Status: Active Protocol: Document 04/18/24 09:45 [facility] (Rec: 04/18/24 12:57 [facility] [id number]) Physical Therapy Assessment Assessment Summary Assessment Sheryl was tighter and more guarded today in her adductors and hip ROM in general was tighter. She has had a loss of a good friend and most likely is tighter due to increased stress with this. Physical Therapy Plan Frequency and Duration Frequency of Treatment 2x/Week Duration of treatment (weeks) 12 Plan of Care Start Date 04/11/24 Plan of Care End Date 07/04/24 Therapeutic Interventions Therapeutic Interventions Home Exercise Program,Manual Therapy,Patient/Caregiver Education,Self-Care/Home Management,Soft Tissue Mobilization,Therapeutic Exercises Modalities Biofeedback,Electric Stimulation,Ultrasound Next Visit Focus/Plan Next Note Type Treatment Note Next Visit Plan continue working on fascial release in the areas of the pelvis where the radiation affected the tissue the most
--- NOTE | 2024-05-16 16:47 | PT.OTN ---
Current Diagnoses Other specified polyneuropathies (05/16/24) Full incontinence of feces (05/16/24) Physical Therapy Treatment Note PT-OP-A Visit Information Start: 09/19/23 08:48 Freq: Status: Active Protocol: Document 05/16/24 09:50 [facility] (Rec: 05/16/24 10:34 [facility] [id number]) Out-Patient Physical Therapy Visit Information Visit Information Visit Type Treatment Note Visit Start Time 09:45 Visit Stop Time 10:30 Visit Number 15 PT-OP-B Current Condition Start: 09/19/23 08:48 Freq: Status: Active Protocol: Document 09/19/23 08:49 [facility] (Rec: 09/19/23 09:35 [facility] [id number]) Current Condition History of Current Condition Onset Date 2 years ago Current Complaints fecal incontinence History of Current Condition 2 years ago Karolina was diagnosed with anal cancer. She underwent chemo and 30 radiation treatments. She did do physical therapy with home health. She did go in for a additional surgery Apr 13 2023 due to a fistula. And at that point she felt like it was a turn around in her health as she felt like she was doing better before that but it set her back. Karolina notes she will have no warning prior to a urge for a bowel movement. SHe has to wear depends due to loss of stool. She reports food goes straight through and she experiences explossive diarahea and then she becomes constipated due to trying to take imodium to solidify her stool. Sheryl notes she has a hard time eating due to no taste anymore and she feels like food goes right through her. She is drinking a lot of water and trying to drink juice from the co-op. She presents with B neuropathy Treatment Goals Patient/Caregiver Goals pt goals include strengthening her pelvic floor and reduce radiation induced scar tissue in the rectum PT-OP-C Subjective Start: 09/19/23 08:48 Freq: Status: Active Protocol: Document 05/16/24 09:50 [facility] (Rec: 05/16/24 10:34 [facility] [id number]) OP-PT Subjective Patient Comments Patient Comments Sheryl reports she has a abcess tooth and has surgery to remove the tooth tomorrow PT-OP-F Manual Assessment Start: 09/19/23 08:48 Freq: Status: Active Protocol: Document 09/19/23 09:09 [facility] (Rec: 09/21/23 09:12 [facility] [id number]) Manual Assessments Soft Tissue Assessment Soft Tissue Mobility Assessment assessment of external pelvic floor and attachments to the ischium reveal tightness and restricted fascial tissue proximal adductor attachments B are hypertonic and guarded, obturator internus fascial restrictions and guarding Karolina has decreased ability to pull in from the perineum due to restrictions in the tissue PT-OP-I Pelvic Floor Start: 09/19/23 08:48 Freq: Status: Active Protocol: Document 09/19/23 08:49 [facility] (Rec: 09/26/23 14:48 [facility] [id number]) Pelvic Floor Assessment Bowel Bowel Surgery Yes Bowel Symptoms Fecal Leakage Other Bowel Symptoms Karolina will at times expereince constipation but often has sudden urges for a bowel movement and experience Bowel Movement Frequency constantly throughout the day [place] Stool Chart Comments stool can range from loose to firm Contraction Ability Voluntary Contraction Weak Voluntary Relaxation Weak Comments Pelvic Floor Comments with external palpation of pelvic floor contraction Sheryl has poor ability to recruit her pelvic floor and is not able to pull in from the perineum PT-OP-M Strength Start: 09/19/23 08:48 Freq: Status: Active Protocol: Document 09/19/23 08:49 [facility] (Rec: 09/26/23 14:53 [facility] [id number]) Trunk Strength Trunk Manual Muscle Testing Flexion 3 Fair Core Stabilization decreased core stabilization and poor ability to engage the pelvic floor Hip Strength Hip Manual Muscle Testing Right Flexion (L2) 3 Fair Abduction 3 Fair External Rotation 3 Fair Left Flexion (L2) 3 Fair Extension (S1) 3 Fair Abduction 2+ Poor+ External Rotation 2+ Poor+ PT-OP-Q Treatments Start: 09/19/23 08:48 Freq: Status: Active Protocol: Document 05/16/24 16:45 [facility] (Rec: 05/16/24 16:46 [facility] [id number]) Manual Therapy Treatment Soft Tissue Mobilization obturator internus release B Mobilization Type Myofascial Release Body Position Hooklying Comments release of the OI B MFR for the adducotrs Mobilization Type Myofascial Release Intensity/Depth Moderate Body Position Hooklying Comments worked B with MFR for the adductors especially the proximal attachment to the pubic bone Manual Techniques manual hip ROM into hip flexion,abduction, ER Body Position Hooklying Comments manual hip stretching into hip flexion, abduction and hip ER PT-OP-T Assessment and Plan Start: 09/19/23 08:48 Freq: Status: Active Protocol: Document 05/16/24 16:45 [facility] (Rec: 05/16/24 16:46 [facility] [id number]) Physical Therapy Assessment Assessment Summary Assessment Sheryl did better today with ROM of her hips with manual therapy techniques. Physical Therapy Plan Frequency and Duration Frequency of Treatment 2x/Week Duration of treatment (weeks) 12 Plan of Care Start Date 04/11/24 Plan of Care End Date 07/04/24 Therapeutic Interventions Therapeutic Interventions Home Exercise Program,Manual Therapy,Patient/Caregiver Education,Self-Care/Home Management,Soft Tissue Mobilization,Therapeutic Exercises Modalities Biofeedback,Electric Stimulation,Ultrasound Next Visit Focus/Plan Next Note Type Treatment Note Next Visit Plan continue working on fascial release in the areas of the pelvis where the radiation affected the tissue the most
--- NOTE | 2024-06-11 16:49 | PT.OTN ---
Current Diagnoses Other specified polyneuropathies (06/11/24) Full incontinence of feces (06/11/24) Physical Therapy Treatment Note PT-OP-A Visit Information Start: 09/19/23 08:48 Freq: Status: Active Protocol: Document 06/11/24 13:51 [facility] (Rec: 06/11/24 13:53 [facility] [id number]) Out-Patient Physical Therapy Visit Information Visit Information Visit Type Treatment Note Visit Start Time 13:50 Visit Stop Time 14:30 Visit Number 16 PT-OP-B Current Condition Start: 09/19/23 08:48 Freq: Status: Active Protocol: Document 09/19/23 08:49 [facility] (Rec: 09/19/23 09:35 [facility] [id number]) Current Condition History of Current Condition Onset Date 2 years ago Current Complaints fecal incontinence History of Current Condition 2 years ago Karolina was diagnosed with anal cancer. She underwent chemo and 30 radiation treatments. She did do physical therapy with home health. She did go in for a additional surgery Apr 13 2023 due to a fistula. And at that point she felt like it was a turn around in her health as she felt like she was doing better before that but it set her back. Karolina notes she will have no warning prior to a urge for a bowel movement. SHe has to wear depends due to loss of stool. She reports food goes straight through and she experiences explossive diarahea and then she becomes constipated due to trying to take imodium to solidify her stool. Sheryl notes she has a hard time eating due to no taste anymore and she feels like food goes right through her. She is drinking a lot of water and trying to drink juice from the co-op. She presents with B neuropathy Treatment Goals Patient/Caregiver Goals pt goals include strengthening her pelvic floor and reduce radiation induced scar tissue in the rectum PT-OP-C Subjective Start: 09/19/23 08:48 Freq: Status: Active Protocol: Document 06/11/24 13:51 [facility] (Rec: 06/11/24 13:53 [facility] [id number]) OP-PT Subjective Patient Comments Patient Comments Sheryl reports she was in [place] and it was 100 degrees. Her feet swelled and discolored. She went to the ER yesterday to clear that she had any blood clots. She was negative for blood clots PT-OP-F Manual Assessment Start: 09/19/23 08:48 Freq: Status: Active Protocol: Document 09/19/23 09:09 [facility] (Rec: 09/21/23 09:12 [facility] [id number]) Manual Assessments Soft Tissue Assessment Soft Tissue Mobility Assessment assessment of external pelvic floor and attachments to the ischium reveal tightness and restricted fascial tissue proximal adductor attachments B are hypertonic and guarded, obturator internus fascial restrictions and guarding Karolina has decreased ability to pull in from the perineum due to restrictions in the tissue PT-OP-I Pelvic Floor Start: 09/19/23 08:48 Freq: Status: Active Protocol: Document 09/19/23 08:49 [facility] (Rec: 09/26/23 14:48 [facility] [id number]) Pelvic Floor Assessment Bowel Bowel Surgery Yes Bowel Symptoms Fecal Leakage Other Bowel Symptoms Karolina will at times expereince constipation but often has sudden urges for a bowel movement and experience Bowel Movement Frequency constantly throughout the day [place] Stool Chart Comments stool can range from loose to firm Contraction Ability Voluntary Contraction Weak Voluntary Relaxation Weak Comments Pelvic Floor Comments with external palpation of pelvic floor contraction Sheryl has poor ability to recruit her pelvic floor and is not able to pull in from the perineum PT-OP-M Strength Start: 09/19/23 08:48 Freq: Status: Active Protocol: Document 09/19/23 08:49 [facility] (Rec: 09/26/23 14:53 [facility] [id number]) Trunk Strength Trunk Manual Muscle Testing Flexion 3 Fair Core Stabilization decreased core stabilization and poor ability to engage the pelvic floor Hip Strength Hip Manual Muscle Testing Right Flexion (L2) 3 Fair Abduction 3 Fair External Rotation 3 Fair Left Flexion (L2) 3 Fair Extension (S1) 3 Fair Abduction 2+ Poor+ External Rotation 2+ Poor+ PT-OP-Q Treatments Start: 09/19/23 08:48 Freq: Status: Active Protocol: Document 06/11/24 16:46 [facility] (Rec: 06/11/24 16:48 [facility] [id number]) Therapeutic Exercises Supine Exercises hip IR/ER Reps/Minutes x 20 reps single knee to chest Reps/Minutes hold 1 min each side Manual Therapy Treatment Soft Tissue Mobilization MFR for the adducotrs Mobilization Type Myofascial Release Intensity/Depth Moderate Body Position Hooklying Comments worked B with MFR for the adductors especially the proximal attachment to the pubic bone Manual Techniques manual hip ROM into hip flexion,abduction, ER Body Position Hooklying Comments manual hip stretching into hip flexion, abduction and hip ER PT-OP-T Assessment and Plan Start: 09/19/23 08:48 Freq: Status: Active Protocol: Document 06/11/24 16:46 [facility] (Rec: 06/11/24 16:48 [facility] [id number]) Physical Therapy Assessment Assessment Summary Assessment Sheryl presented with swelling and discoloration of B ankles and feet today and this was improved following treatment. She had been seen in the ER yesterday to rule out blood clots. She would benfit from compression socks and I did send her to [facility] [place] for compression socks Physical Therapy Plan Frequency and Duration Frequency of Treatment 2x/Week Duration of treatment (weeks) 12 Plan of Care Start Date 04/11/24 Plan of Care End Date 07/04/24 Therapeutic Interventions Therapeutic Interventions Home Exercise Program,Manual Therapy,Patient/Caregiver Education,Self-Care/Home Management,Soft Tissue Mobilization,Therapeutic Exercises Modalities Biofeedback,Electric Stimulation,Ultrasound Next Visit Focus/Plan Next Note Type Treatment Note Next Visit Plan continue working on fascial release in the areas of the pelvis where the radiation affected the tissue the most
--- NOTE | 2024-06-18 16:50 | PT.OTN ---
Current Diagnoses Other specified polyneuropathies (06/18/24) Full incontinence of feces (06/18/24) Physical Therapy Treatment Note PT-OP-A Visit Information Start: 09/19/23 08:48 Freq: Status: Active Protocol: Document 06/18/24 16:44 [facility] (Rec: 06/18/24 16:50 [facility] [id number]) Out-Patient Physical Therapy Visit Information Visit Information Visit Type Treatment Note Visit Start Time 13:45 Visit Stop Time 14:30 Visit Number 17 PT-OP-B Current Condition Start: 09/19/23 08:48 Freq: Status: Active Protocol: Document 09/19/23 08:49 [facility] (Rec: 09/19/23 09:35 [facility] [id number]) Current Condition History of Current Condition Onset Date 2 years ago Current Complaints fecal incontinence History of Current Condition 2 years ago Karolina was diagnosed with anal cancer. She underwent chemo and 30 radiation treatments. She did do physical therapy with home health. She did go in for a additional surgery Apr 13 2023 due to a fistula. And at that point she felt like it was a turn around in her health as she felt like she was doing better before that but it set her back. Karolina notes she will have no warning prior to a urge for a bowel movement. SHe has to wear depends due to loss of stool. She reports food goes straight through and she experiences explossive diarahea and then she becomes constipated due to trying to take imodium to solidify her stool. Sheryl notes she has a hard time eating due to no taste anymore and she feels like food goes right through her. She is drinking a lot of water and trying to drink juice from the co-op. She presents with B neuropathy Treatment Goals Patient/Caregiver Goals pt goals include strengthening her pelvic floor and reduce radiation induced scar tissue in the rectum PT-OP-C Subjective Start: 09/19/23 08:48 Freq: Status: Active Protocol: Document 06/18/24 16:44 [facility] (Rec: 06/18/24 16:50 [facility] [id number]) OP-PT Subjective Patient Comments Patient Comments Sheryl reports she has been icing and elevating her feet, she has an appt with the prosthetics and orthotics for the compression socks. She is feeling left sided low back pain today that is new and it makes it hard to move PT-OP-F Manual Assessment Start: 09/19/23 08:48 Freq: Status: Active Protocol: Document 09/19/23 09:09 [facility] (Rec: 09/21/23 09:12 [facility] [id number]) Manual Assessments Soft Tissue Assessment Soft Tissue Mobility Assessment assessment of external pelvic floor and attachments to the ischium reveal tightness and restricted fascial tissue proximal adductor attachments B are hypertonic and guarded, obturator internus fascial restrictions and guarding Karolina has decreased ability to pull in from the perineum due to restrictions in the tissue PT-OP-I Pelvic Floor Start: 09/19/23 08:48 Freq: Status: Active Protocol: Document 09/19/23 08:49 [facility] (Rec: 09/26/23 14:48 [facility] [id number]) Pelvic Floor Assessment Bowel Bowel Surgery Yes Bowel Symptoms Fecal Leakage Other Bowel Symptoms Karolina will at times expereince constipation but often has sudden urges for a bowel movement and experience Bowel Movement Frequency constantly throughout the day [place] Stool Chart Comments stool can range from loose to firm Contraction Ability Voluntary Contraction Weak Voluntary Relaxation Weak Comments Pelvic Floor Comments with external palpation of pelvic floor contraction Sheryl has poor ability to recruit her pelvic floor and is not able to pull in from the perineum PT-OP-M Strength Start: 09/19/23 08:48 Freq: Status: Active Protocol: Document 09/19/23 08:49 [facility] (Rec: 09/26/23 14:53 [facility] [id number]) Trunk Strength Trunk Manual Muscle Testing Flexion 3 Fair Core Stabilization decreased core stabilization and poor ability to engage the pelvic floor Hip Strength Hip Manual Muscle Testing Right Flexion (L2) 3 Fair Abduction 3 Fair External Rotation 3 Fair Left Flexion (L2) 3 Fair Extension (S1) 3 Fair Abduction 2+ Poor+ External Rotation 2+ Poor+ PT-OP-Q Treatments Start: 09/19/23 08:48 Freq: Status: Active Protocol: Document 06/18/24 16:44 [facility] (Rec: 06/18/24 16:50 [facility] [id number]) Manual Therapy Treatment Soft Tissue Mobilization left sided lumbar paraspinal MFR Body Location left sided lumbar paraspinals Body Position Sidelying Comments tightness and guarding in the left lumbar paraspinals left descending colon fascial work Mobilization Type Myofascial Release Comments worked on MFR over the descending colon and Karolina did notice a great deal of gas and movement afterwards PT-OP-T Assessment and Plan Start: 09/19/23 08:48 Freq: Status: Active Protocol: Document 06/18/24 16:44 [facility] (Rec: 06/18/24 16:50 [facility] [id number]) Physical Therapy Assessment Assessment Summary Assessment Sheryl is on a different medication right now as the pharmacy was out of her and she may be experiencing some constipation. She was tight and guarded on the left side of the descending colon and low back. Soft tissue work did help to bring on gas and she felt as if she may be able to have a bowel movement now. Sheryl also has a appt with her DR this week and will follow up with regards to her pain Physical Therapy Plan Frequency and Duration Frequency of Treatment 2x/Week Duration of treatment (weeks) 12 Plan of Care Start Date 04/11/24 Plan of Care End Date 07/04/24 Therapeutic Interventions Therapeutic Interventions Home Exercise Program,Manual Therapy,Patient/Caregiver Education,Self-Care/Home Management,Soft Tissue Mobilization,Therapeutic Exercises Modalities Biofeedback,Electric Stimulation,Ultrasound Next Visit Focus/Plan Next Note Type Treatment Note Next Visit Plan recheck in with how Sheryl is doing with the left sided back pain next visit
--- NOTE | 2024-06-25 16:57 | PT.OTN ---
Current Diagnoses Other specified polyneuropathies (06/25/24) Full incontinence of feces (06/25/24) Physical Therapy Treatment Note PT-OP-A Visit Information Start: 09/19/23 08:48 Freq: Status: Active Protocol: Document 06/25/24 13:51 [facility] (Rec: 06/25/24 13:59 [facility] [id number]) Out-Patient Physical Therapy Visit Information Visit Information Visit Type Treatment Note Visit Start Time 13:45 Visit Stop Time 14:30 Visit Number 18 PT-OP-B Current Condition Start: 09/19/23 08:48 Freq: Status: Active Protocol: Document 09/19/23 08:49 [facility] (Rec: 09/19/23 09:35 [facility] [id number]) Current Condition History of Current Condition Onset Date 2 years ago Current Complaints fecal incontinence History of Current Condition 2 years ago Karolina was diagnosed with anal cancer. She underwent chemo and 30 radiation treatments. She did do physical therapy with home health. She did go in for a additional surgery Apr 13 2023 due to a fistula. And at that point she felt like it was a turn around in her health as she felt like she was doing better before that but it set her back. Karolina notes she will have no warning prior to a urge for a bowel movement. SHe has to wear depends due to loss of stool. She reports food goes straight through and she experiences explossive diarahea and then she becomes constipated due to trying to take imodium to solidify her stool. Sheryl notes she has a hard time eating due to no taste anymore and she feels like food goes right through her. She is drinking a lot of water and trying to drink juice from the co-op. She presents with B neuropathy Treatment Goals Patient/Caregiver Goals pt goals include strengthening her pelvic floor and reduce radiation induced scar tissue in the rectum PT-OP-C Subjective Start: 09/19/23 08:48 Freq: Status: Active Protocol: Document 06/25/24 13:51 [facility] (Rec: 06/25/24 13:59 [facility] [id number]) OP-PT Subjective Patient Comments Patient Comments Sheryl notes she saw her primary last week and was given IBU and a pain patch, she did have major constipation and hadn't gone for 1.5 weeks and then finally was able to pass stool she had a large passing of solid stool but then had episodes of diarhea which she wasn't able to control and she expereineced leakage PT-OP-F Manual Assessment Start: 09/19/23 08:48 Freq: Status: Active Protocol: Document 09/19/23 09:09 [facility] (Rec: 09/21/23 09:12 [facility] [id number]) Manual Assessments Soft Tissue Assessment Soft Tissue Mobility Assessment assessment of external pelvic floor and attachments to the ischium reveal tightness and restricted fascial tissue proximal adductor attachments B are hypertonic and guarded, obturator internus fascial restrictions and guarding Karolina has decreased ability to pull in from the perineum due to restrictions in the tissue PT-OP-I Pelvic Floor Start: 09/19/23 08:48 Freq: Status: Active Protocol: Document 09/19/23 08:49 [facility] (Rec: 09/26/23 14:48 [facility] [id number]) Pelvic Floor Assessment Bowel Bowel Surgery Yes Bowel Symptoms Fecal Leakage Other Bowel Symptoms Karolina will at times expereince constipation but often has sudden urges for a bowel movement and experience Bowel Movement Frequency constantly throughout the day [place] Stool Chart Comments stool can range from loose to firm Contraction Ability Voluntary Contraction Weak Voluntary Relaxation Weak Comments Pelvic Floor Comments with external palpation of pelvic floor contraction Sheryl has poor ability to recruit her pelvic floor and is not able to pull in from the perineum PT-OP-M Strength Start: 09/19/23 08:48 Freq: Status: Active Protocol: Document 09/19/23 08:49 [facility] (Rec: 09/26/23 14:53 [facility] [id number]) Trunk Strength Trunk Manual Muscle Testing Flexion 3 Fair Core Stabilization decreased core stabilization and poor ability to engage the pelvic floor Hip Strength Hip Manual Muscle Testing Right Flexion (L2) 3 Fair Abduction 3 Fair External Rotation 3 Fair Left Flexion (L2) 3 Fair Extension (S1) 3 Fair Abduction 2+ Poor+ External Rotation 2+ Poor+ PT-OP-Q Treatments Start: 09/19/23 08:48 Freq: Status: Active Protocol: Document 06/25/24 13:45 [facility] (Rec: 06/25/24 18:00 [facility] [id number]) Manual Therapy Treatment Soft Tissue Mobilization right sided parspinal release Mobilization Type Myofascial Release Intensity/Depth Moderate Body Position Sidelying ILU massage over the colon Mobilization Type Myofascial Release Intensity/Depth Moderate Body Position Hooklying left descending colon fascial work Mobilization Type Myofascial Release Comments worked on MFR over the descending colon and Karolina did notice a great deal of gas and movement afterwards PT-OP-T Assessment and Plan Start: 09/19/23 08:48 Freq: Status: Active Protocol: Document 06/25/24 13:45 [facility] (Rec: 06/27/24 16:54 [facility] [id number]) Physical Therapy Assessment Goals 3 Impairment Karolina lacks a HEP for pelvic stretches as well as strengthening exercises to help reduce fecal incontinence Group Home Goal (LTG) Karolina is IND with a HEP for stretches and strengthening for the pelvic floor good progress, Sheryl has been doing her stretches and has been able to start walking outside LTG Duration 12 weeks 2 Impairment 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 and muscular attachments to the ischium and pubic bone Short Term Goal (STG) Karolina is able to tolerate fascial work to help break up scar tissue in the pelvic floor/pelvic region good tolerance for manual work STG Duration 5 weeks 1 Impairment fecal incontinence, Karolina is wearing depends and has difficulty with social situations due to fear of loss of stool Group Home Goal (LTG) Karolina reports a overall reduction in loss of stool and feels as if she has better overall control reducing the need for depends Sheryl is now noting good progress and has intermittent symptoms LTG Duration 12 weeks Assessment Summary Assessment Sheryl has been dealing with some low back pain with constipation and I added in abdominal massage for her. She tolerated this well and notes that she has been able to have some larger bowel movements afterwards. She feels PT is helping and would like to continue. Physical Therapy Plan Frequency and Duration Frequency of Treatment 2x/Week Duration of treatment (weeks) 8 Plan of Care Start Date 06/25/24 Plan of Care End Date 08/20/24 Therapeutic Interventions Therapeutic Interventions Home Exercise Program,Manual Therapy,Patient/Caregiver Education,Self-Care/Home Management,Soft Tissue Mobilization,Therapeutic Exercises Modalities Biofeedback,Electric Stimulation,Ultrasound Next Visit Focus/Plan Next Note Type Treatment Note Next Visit Plan recheck in with how Sheryl is doing with the left sided back pain next visit
--- NOTE | 2024-08-15 14:59 | PT.OTN ---
Current Diagnoses Other specified polyneuropathies (08/15/24) Full incontinence of feces (08/15/24) Physical Therapy Treatment Note PT-OP-A Visit Information Start: 09/19/23 08:48 Freq: Status: Active Protocol: Document 08/15/24 11:24 [facility] (Rec: 08/15/24 11:29 [facility] [id number]) Out-Patient Physical Therapy Visit Information Visit Information Visit Start Time 11:15 Visit Stop Time 12:00 Visit Number 19 Evaluation Information Evaluation Date 09/19/23 PT-OP-B Current Condition Start: 09/19/23 08:48 Freq: Status: Active Protocol: Document 09/19/23 08:49 [facility] (Rec: 09/19/23 09:35 [facility] [id number]) Current Condition History of Current Condition Onset Date 2 years ago Current Complaints fecal incontinence History of Current Condition 2 years ago Karolina was diagnosed with anal cancer. She underwent chemo and 30 radiation treatments. She did do physical therapy with home health. She did go in for a additional surgery Apr 13 2023 due to a fistula. And at that point she felt like it was a turn around in her health as she felt like she was doing better before that but it set her back. Karolina notes she will have no warning prior to a urge for a bowel movement. SHe has to wear depends due to loss of stool. She reports food goes straight through and she experiences explossive diarahea and then she becomes constipated due to trying to take imodium to solidify her stool. Sheryl notes she has a hard time eating due to no taste anymore and she feels like food goes right through her. She is drinking a lot of water and trying to drink juice from the co-op. She presents with B neuropathy Treatment Goals Patient/Caregiver Goals pt goals include strengthening her pelvic floor and reduce radiation induced scar tissue in the rectum PT-OP-C Subjective Start: 09/19/23 08:48 Freq: Status: Active Protocol: Document 08/15/24 11:24 [facility] (Rec: 08/15/24 11:29 [facility] [id number]) OP-PT Subjective Patient Comments Patient Comments pt was seen in the ER and she was diagnosed with sciolosis and her right hip was out of alignment. SHe was admitted into the hospital, she is doing better now but still feeling very tight and guarded PT-OP-F Manual Assessment Start: 09/19/23 08:48 Freq: Status: Active Protocol: Document 09/19/23 09:09 [facility] (Rec: 09/21/23 09:12 [facility] [id number]) Manual Assessments Soft Tissue Assessment Soft Tissue Mobility Assessment assessment of external pelvic floor and attachments to the ischium reveal tightness and restricted fascial tissue proximal adductor attachments B are hypertonic and guarded, obturator internus fascial restrictions and guarding Karolina has decreased ability to pull in from the perineum due to restrictions in the tissue PT-OP-I Pelvic Floor Start: 09/19/23 08:48 Freq: Status: Active Protocol: Document 09/19/23 08:49 [facility] (Rec: 09/26/23 14:48 [facility] [id number]) Pelvic Floor Assessment Bowel Bowel Surgery Yes Bowel Symptoms Fecal Leakage Other Bowel Symptoms Karolina will at times expereince constipation but often has sudden urges for a bowel movement and experience Bowel Movement Frequency constantly throughout the day [place] Stool Chart Comments stool can range from loose to firm Contraction Ability Voluntary Contraction Weak Voluntary Relaxation Weak Comments Pelvic Floor Comments with external palpation of pelvic floor contraction Sheryl has poor ability to recruit her pelvic floor and is not able to pull in from the perineum PT-OP-M Strength Start: 09/19/23 08:48 Freq: Status: Active Protocol: Document 09/19/23 08:49 [facility] (Rec: 09/26/23 14:53 [facility] [id number]) Trunk Strength Trunk Manual Muscle Testing Flexion 3 Fair Core Stabilization decreased core stabilization and poor ability to engage the pelvic floor Hip Strength Hip Manual Muscle Testing Right Flexion (L2) 3 Fair Abduction 3 Fair External Rotation 3 Fair Left Flexion (L2) 3 Fair Extension (S1) 3 Fair Abduction 2+ Poor+ External Rotation 2+ Poor+ PT-OP-Q Treatments Start: 09/19/23 08:48 Freq: Status: Active Protocol: Document 08/15/24 14:58 [facility] (Rec: 08/15/24 14:59 [facility] [id number]) Manual Therapy Treatment Soft Tissue Mobilization ILU massage over the colon Mobilization Type Myofascial Release Intensity/Depth Moderate Body Position Hooklying left descending colon fascial work Mobilization Type Myofascial Release Comments worked on MFR over the descending colon and Karolina did notice a great deal of gas and movement afterwards obturator internus release B Mobilization Type Myofascial Release Body Position Hooklying Comments release of the OI B MFR for the adducotrs Mobilization Type Myofascial Release Intensity/Depth Moderate Body Position Hooklying Comments worked B with MFR for the adductors especially the proximal attachment to the pubic bone PT-OP-T Assessment and Plan Start: 09/19/23 08:48 Freq: Status: Active Protocol: Document 08/15/24 11:24 [facility] (Rec: 08/15/24 11:29 [facility] [id number]) Physical Therapy Assessment Goals 3 Impairment Karolina lacks a HEP for pelvic stretches as well as strengthening exercises to help reduce fecal incontinence [employer] Goal (LTG) Karolina is IND with a HEP for stretches and strengthening for the pelvic floor good progress, Sheryl has been doing her stretches and has been able to start walking outside LTG Duration 12 weeks 2 Impairment 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 and muscular attachments to the ischium and pubic bone Short Term Goal (STG) Karolina is able to tolerate fascial work to help break up scar tissue in the pelvic floor/pelvic region good tolerance for manual work STG Duration 5 weeks 1 Impairment fecal incontinence, Karolina is wearing depends and has difficulty with social situations due to fear of loss of stool [employer] Goal (LTG) Karolina reports a overall reduction in loss of stool and feels as if she has better overall control reducing the need for depends Sheryl is now noting good progress and has intermittent symptoms LTG Duration 12 weeks Assessment Summary Assessment I worked on both the rib cage and descending colon today as well as adductor release. Sheryl has not been seen since May so was very restricted and tight in the adductors. She did feel increased circulation and blood flow into her legs and feet following treatment. She would benefit from continued PT Physical Therapy Plan Frequency and Duration Frequency of Treatment 1x/Week Duration of treatment (weeks) 12 Plan of Care Start Date 08/15/24 Plan of Care End Date 11/07/24 Therapeutic Interventions Therapeutic Interventions Home Exercise Program,Manual Therapy,Patient/Caregiver Education,Self-Care/Home Management,Soft Tissue Mobilization,Therapeutic Exercises Modalities Biofeedback,Electric Stimulation,Ultrasound Next Visit Focus/Plan Next Note Type Treatment Note Next Visit Plan recheck in with how Sheryl is doing with the left sided back pain next visit and continue with fascial release and manual therapy treatments for decreased scar tissue
--- NOTE | 2024-08-15 15:00 | PT.OPPOC ---
Physical, Occupational & Speech Therapy At [facility] Current Diagnoses Other specified polyneuropathies (08/15/24) Full incontinence of feces (08/15/24) Visit Care Team Role Provider Type Jessica Estrada PA-C Family Provider Physician Career Development Associate Primary Care Provider Specialty: Medical Address: [place], [address] Email: [email or web address] Rajesh Farris MD Attending Provider Physician Referring Provider Specialty: Oncology Address: [address] [place] [address], [id number] Email: [email or web address] Plan Of Care PT-OP-B Current Condition Start: 09/19/23 08:48 Freq: Status: Active Protocol: Document 09/19/23 08:49 [facility] (Rec: 09/19/23 09:35 [facility] [id number]) Current Condition History of Current Condition Onset Date 2 years ago Current Complaints fecal incontinence History of Current Condition 2 years ago Karolina was diagnosed with anal cancer. She underwent chemo and 30 radiation treatments. She did do physical therapy with home health. She did go in for a additional surgery Apr 13 2023 due to a fistula. And at that point she felt like it was a turn around in her health as she felt like she was doing better before that but it set her back. Karolina notes she will have no warning prior to a urge for a bowel movement. SHe has to wear depends due to loss of stool. She reports food goes straight through and she experiences explosive diarrhea and then she becomes constipated due to trying to take imodium to solidify her stool. Sheryl notes she has a hard time eating due to no taste anymore and she feels like food goes right through her. She is drinking a lot of water and trying to drink juice from the co-op. She presents with B neuropathy Treatment Goals Patient/Caregiver Goals pt goals include strengthening her pelvic floor and reduce radiation induced scar tissue in the rectum PT-OP-T Assessment and Plan Start: 10/24/23 08:48 Freq: Status: Active Protocol: Document 08/15/24 11:24 [facility] (Rec: 08/15/24 11:29 [facility] [id number]) Physical Therapy Assessment Goals 3 Impairment Karolina lacks a HEP for pelvic stretches as well as strengthening exercises to help reduce fecal incontinence Payroll Auditor Goal (LTG) Karolina is IND with a HEP for stretches and strengthening for the pelvic floor good progress, Sheryl has been doing her stretches and has been able to start walking outside LTG Duration 12 weeks 2 Impairment 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 and muscular attachments to the ischium and pubic bone Short Term Goal (STG) Karolina is able to tolerate fascial work to help break up scar tissue in the pelvic floor/pelvic region good tolerance for manual work STG Duration 5 weeks 1 Impairment fecal incontinence, Karolina is wearing depends and has difficulty with social situations due to fear of loss of stool Payroll Auditor Goal (LTG) Karolina reports a overall reduction in loss of stool and feels as if she has better overall control reducing the need for depends Sheryl is now noting good progress and has intermittent symptoms LTG Duration 12 weeks Assessment Summary Assessment I worked on both the rib cage and descending colon today as well as adductor release. Sheryl has not been seen since May so was very restricted and tight in the adductors. She did feel increased circulation and blood flow into her legs and feet following treatment. She would benefit from continued PT Physical Therapy Plan Frequency and Duration Frequency of Treatment 1x/Week Duration of treatment (weeks) 12 Plan of Care Start Date 08/15/24 Plan of Care End Date 11/07/24 Therapeutic Interventions Therapeutic Interventions Home Exercise Program,Manual Therapy,Patient/Caregiver Education,Self-Care/Home Management,Soft Tissue Mobilization,Therapeutic Exercises Modalities Biofeedback,Electric Stimulation,Ultrasound Next Visit Focus/Plan Next Note Type Treatment Note Next Visit Plan recheck in with how Sheryl is doing with the left sided back pain next visit and continue with fascial release and manual therapy treatments for decreased scar tissue Plan of Care Dates Plan of Care Start Date 08/15/24 Plan of Care End Date 11/07/24 Electronically Signed by: Karrie Price, PT 08/15/24 1500 If you are in agreement with this Plan of Care, please return a signed and dated copy. I have reviewed this Plan of Care and certify that the skilled therapy services above are required to meet the patient?s needs. Physician Signature Date Printed Name and Credentials Clinical Instructor Signature Printed Name and Credentials
--- NOTE | 2024-10-31 16:30 | PT.OTN ---
Current Diagnoses Other specified polyneuropathies (10/31/24) Full incontinence of feces (10/31/24) Physical Therapy Treatment Note PT-OP-A Visit Information Start: 09/19/23 08:48 Freq: Status: Active Protocol: Document 10/31/24 15:18 [facility] (Rec: 10/31/24 15:22 [facility] [id number]) Out-Patient Physical Therapy Visit Information Visit Information Visit Type Progress Note Visit Start Time 15:20 Visit Stop Time 16:00 Visit Number 20 PT-OP-B Current Condition Start: 09/19/23 08:48 Freq: Status: Active Protocol: Document 09/19/23 08:49 [facility] (Rec: 09/19/23 09:35 [facility] [id number]) Current Condition History of Current Condition Onset Date 2 years ago Current Complaints fecal incontinence History of Current Condition 2 years ago Karolina was diagnosed with anal cancer. She underwent chemo and 30 radiation treatments. She did do physical therapy with home health. She did go in for a additional surgery Apr 13 2023 due to a fistula. And at that point she felt like it was a turn around in her health as she felt like she was doing better before that but it set her back. Karolina notes she will have no warning prior to a urge for a bowel movement. SHe has to wear depends due to loss of stool. She reports food goes straight through and she experiences explossive diarahea and then she becomes constipated due to trying to take imodium to solidify her stool. Sheryl notes she has a hard time eating due to no taste anymore and she feels like food goes right through her. She is drinking a lot of water and trying to drink juice from the co-op. She presents with B neuropathy Treatment Goals Patient/Caregiver Goals pt goals include strengthening her pelvic floor and reduce radiation induced scar tissue in the rectum PT-OP-C Subjective Start: 09/19/23 08:48 Freq: Status: Active Protocol: Document 10/31/24 15:18 [facility] (Rec: 10/31/24 15:23 [facility] [id number]) OP-PT Subjective Patient Comments Patient Comments Sheryl notes she was in [place] days and only one day out of 10 did she have a bowel episode Patient Reported Progress Improving PT-OP-F Manual Assessment Start: 09/19/23 08:48 Freq: Status: Active Protocol: Document 09/19/23 09:09 [facility] (Rec: 09/21/23 09:12 [facility] [id number]) Manual Assessments Soft Tissue Assessment Soft Tissue Mobility Assessment assessment of external pelvic floor and attachments to the ischium reveal tightness and restricted fascial tissue proximal adductor attachments B are hypertonic and guarded, obturator internus fascial restrictions and guarding Karolina has decreased ability to pull in from the perineum due to restrictions in the tissue PT-OP-I Pelvic Floor Start: 09/19/23 08:48 Freq: Status: Active Protocol: Document 09/19/23 08:49 [facility] (Rec: 09/26/23 14:48 [facility] [id number]) Pelvic Floor Assessment Bowel Bowel Surgery Yes Bowel Symptoms Fecal Leakage Other Bowel Symptoms Karolina will at times expereince constipation but often has sudden urges for a bowel movement and experience Bowel Movement Frequency constantly throughout the day [place] Stool Chart Comments stool can range from loose to firm Contraction Ability Voluntary Contraction Weak Voluntary Relaxation Weak Comments Pelvic Floor Comments with external palpation of pelvic floor contraction Sheryl has poor ability to recruit her pelvic floor and is not able to pull in from the perineum PT-OP-M Strength Start: 09/19/23 08:48 Freq: Status: Active Protocol: Document 09/19/23 08:49 [facility] (Rec: 09/26/23 14:53 [facility] [id number]) Trunk Strength Trunk Manual Muscle Testing Flexion 3 Fair Core Stabilization decreased core stabilization and poor ability to engage the pelvic floor Hip Strength Hip Manual Muscle Testing Right Flexion (L2) 3 Fair Abduction 3 Fair External Rotation 3 Fair Left Flexion (L2) 3 Fair Extension (S1) 3 Fair Abduction 2+ Poor+ External Rotation 2+ Poor+ PT-OP-Q Treatments Start: 09/19/23 08:48 Freq: Status: Active Protocol: Document 10/31/24 15:15 [facility] (Rec: 10/31/24 16:22 [facility] [id number]) Manual Therapy Treatment Soft Tissue Mobilization obturator internus release B Mobilization Type Myofascial Release Body Position Hooklying Comments release of the OI B external posterior pelvic floor Mobilization Type Myofascial Release Body Position Hooklying Comments worked around the ischium B releasing the posterior pelvic floor, Sheryl tolerated well MFR for the adducotrs Mobilization Type Myofascial Release Intensity/Depth Moderate Body Position Hooklying Comments worked B with MFR for the adductors especially the proximal attachment to the pubic bone PT-OP-T Assessment and Plan Start: 09/19/23 08:48 Freq: Status: Active Protocol: Document 10/31/24 15:15 [facility] (Rec: 10/31/24 16:22 [facility] [id number]) Physical Therapy Assessment Goals 3 Impairment Karolina lacks a HEP for pelvic stretches as well as strengthening exercises to help reduce fecal incontinence Mcfp Goal (LTG) Karolina is IND with a HEP for stretches and strengthening for the pelvic floor good progress, Sheryl has been doing her stretches and has been able to start walking outside LTG Duration 12 weeks 2 Impairment 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 and muscular attachments to the ischium and pubic bone Short Term Goal (STG) Karolina is able to tolerate fascial work to help break up scar tissue in the pelvic floor/pelvic region good tolerance for manual work STG Duration 5 weeks 1 Impairment fecal incontinence, Karolina is wearing depends and has difficulty with social situations due to fear of loss of stool Supervisor Filter Assembly Goal (LTG) Karolina reports a overall reduction in loss of stool and feels as if she has better overall control reducing the need for depends Sheryl is now noting good progress and has intermittent symptoms LTG Duration 12 weeks Assessment Summary Assessment Sheryl returns to PT today after not being seen since July . She is having more good days however out of the blue she will experience a day where she has vomiting and diarrhea. The scar tissue work continues to help her and she is noting improved mobility. She recently took a trip to [place] and notes she had one bad day out of the 10 she was there. Sheryl would benefit from continued PT Physical Therapy Plan Frequency and Duration Frequency of Treatment 1x/Week Duration of treatment (weeks) 12 Plan of Care Start Date 10/31/24 Plan of Care End Date 01/23/25 Therapeutic Interventions Therapeutic Interventions Home Exercise Program,Manual Therapy,Patient/Caregiver Education,Self-Care/Home Management,Soft Tissue Mobilization,Therapeutic Exercises Modalities Biofeedback,Electric Stimulation,Ultrasound Next Visit Focus/Plan Next Note Type Treatment Note Next Visit Plan Continue with fascial release and manual therapy treatments for decreased scar tissue
--- NOTE | 2024-10-31 16:32 | PT.OPPOC ---
Physical, Occupational & Speech Therapy At [facility] Current Diagnoses Other specified polyneuropathies (10/31/24) Full incontinence of feces (10/31/24) Visit Care Team Role Provider Type Jessica Estrada PA-C Family Provider Physician Testing Director Primary Care Provider Specialty: Medical Address: [place], [address] Email: [email or web address] Rajesh Farris MD Attending Provider Physician Referring Provider Specialty: Oncology Address: [address] [place] [address], [address] Email: [email or web address] Plan Of Care PT-OP-B Current Condition Start: 09/19/23 08:48 Freq: Status: Active Protocol: Document 09/19/23 08:49 [facility] (Rec: 09/19/23 09:35 [facility] [id number]) Current Condition History of Current Condition Onset Date 2 years ago Current Complaints fecal incontinence History of Current Condition 2 years ago Karolina was diagnosed with anal cancer. She underwent chemo and 30 radiation treatments. She did do physical therapy with home health. She did go in for a additional surgery Apr 13 2023 due to a fistula. And at that point she felt like it was a turn around in her health as she felt like she was doing better before that but it set her back. Karolina notes she will have no warning prior to a urge for a bowel movement. SHe has to wear depends due to loss of stool. She reports food goes straight through and she experiences explosive diarrhea and then she becomes constipated due to trying to take imodium to solidify her stool. Sheryl notes she has a hard time eating due to no taste anymore and she feels like food goes right through her. She is drinking a lot of water and trying to drink juice from the co-op. She presents with B neuropathy Treatment Goals Patient/Caregiver Goals pt goals include strengthening her pelvic floor and reduce radiation induced scar tissue in the rectum PT-OP-T Assessment and Plan Start: 09/19/23 08:48 Freq: Status: Active Protocol: Document 10/31/24 15:15 [facility] (Rec: 10/31/24 16:22 [facility] [id number]) Physical Therapy Assessment Goals 3 Impairment Karolina lacks a HEP for pelvic stretches as well as strengthening exercises to help reduce fecal incontinence Scrap Breaker Goal (LTG) Karolina is IND with a HEP for stretches and strengthening for the pelvic floor good progress, Sheryl has been doing her stretches and has been able to start walking outside LTG Duration 12 weeks 2 Impairment 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 and muscular attachments to the ischium and pubic bone Short Term Goal (STG) Karolina is able to tolerate fascial work to help break up scar tissue in the pelvic floor/pelvic region good tolerance for manual work STG Duration 5 weeks 1 Impairment fecal incontinence, Karolina is wearing depends and has difficulty with social situations due to fear of loss of stool Scrap Breaker Goal (LTG) Karolina reports a overall reduction in loss of stool and feels as if she has better overall control reducing the need for depends Sheryl is now noting good progress and has intermittent symptoms LTG Duration 12 weeks Assessment Summary Assessment Sheryl returns to PT today after not being seen since July . She is having more good days however out of the blue she will experience a day where she has vomiting and diarrhea. The scar tissue work continues to help her and she is noting improved mobility. She recently took a trip to [place] and notes she had one bad day out of the 10 she was there. Sheryl would benefit from continued PT Physical Therapy Plan Frequency and Duration Frequency of Treatment 1x/Week Duration of treatment (weeks) 12 Plan of Care Start Date 10/31/24 Plan of Care End Date 01/23/25 Therapeutic Interventions Therapeutic Interventions Home Exercise Program,Manual Therapy,Patient/Caregiver Education,Self-Care/Home Management,Soft Tissue Mobilization,Therapeutic Exercises Modalities Biofeedback,Electric Stimulation,Ultrasound Next Visit Focus/Plan Next Note Type Treatment Note Next Visit Plan Continue with fascial release and manual therapy treatments for decreased scar tissue Plan of Care Dates Plan of Care Start Date 10/31/24 Plan of Care End Date 01/23/25 Electronically Signed by: Karrie Price, PT 10/31/24 9845 If you are in agreement with this Plan of Care, please return a signed and dated copy. I have reviewed this Plan of Care and certify that the skilled therapy services above are required to meet the patient?s needs. Physician Signature Date Printed Name and Credentials Clinical Instructor Signature Printed Name and Credentials
--- NOTE | 2025-01-15 13:25 | PT.OTN ---
Current Diagnoses Other specified polyneuropathies (01/15/25) Full incontinence of feces (01/15/25) Physical Therapy Treatment Note PT-OP-A Visit Information Start: 09/19/23 08:48 Freq: Status: Active Protocol: Document 01/15/25 11:39 [facility] (Rec: 01/15/25 11:46 [facility] [id number]) Out-Patient Physical Therapy Visit Information Visit Information Visit Type Progress Note Visit Start Time 11:35 Visit Stop Time 12:15 Visit Number 21 PT-OP-B Current Condition Start: 09/19/23 08:48 Freq: Status: Active Protocol: Document 09/19/23 08:49 [facility] (Rec: 09/19/23 09:35 [facility] [id number]) Current Condition History of Current Condition Onset Date 2 years ago Current Complaints fecal incontinence History of Current Condition 2 years ago Karolina was diagnosed with anal cancer. She underwent chemo and 30 radiation treatments. She did do physical therapy with home health. She did go in for a additional surgery Apr 13 2023 due to a fistula. And at that point she felt like it was a turn around in her health as she felt like she was doing better before that but it set her back. Karolina notes she will have no warning prior to a urge for a bowel movement. SHe has to wear depends due to loss of stool. She reports food goes straight through and she experiences explossive diarahea and then she becomes constipated due to trying to take imodium to solidify her stool. Sheryl notes she has a hard time eating due to no taste anymore and she feels like food goes right through her. She is drinking a lot of water and trying to drink juice from the co-op. She presents with B neuropathy Treatment Goals Patient/Caregiver Goals pt goals include strengthening her pelvic floor and reduce radiation induced scar tissue in the rectum PT-OP-C Subjective Start: 09/19/23 08:48 Freq: Status: Active Protocol: Document 01/15/25 11:39 [facility] (Rec: 01/15/25 11:46 [facility] [id number]) OP-PT Subjective Patient Comments Patient Comments sheryl reports she has been considering pallative care as she is needing more assist at home. PT-OP-F Manual Assessment Start: 09/19/23 08:48 Freq: Status: Active Protocol: Document 09/19/23 09:09 [facility] (Rec: 09/21/23 09:12 [facility] [id number]) Manual Assessments Soft Tissue Assessment Soft Tissue Mobility Assessment assessment of external pelvic floor and attachments to the ischium reveal tightness and restricted fascial tissue proximal adductor attachments B are hypertonic and guarded, obturator internus fascial restrictions and guarding Karolina has decreased ability to pull in from the perineum due to restrictions in the tissue PT-OP-I Pelvic Floor Start: 09/19/23 08:48 Freq: Status: Active Protocol: Document 09/19/23 08:49 [facility] (Rec: 09/26/23 14:48 [facility] [id number]) Pelvic Floor Assessment Bowel Bowel Surgery Yes Bowel Symptoms Fecal Leakage Other Bowel Symptoms Karolina will at times expereince constipation but often has sudden urges for a bowel movement and experience Bowel Movement Frequency constantly throughout the day [place] Stool Chart Comments stool can range from loose to firm Contraction Ability Voluntary Contraction Weak Voluntary Relaxation Weak Comments Pelvic Floor Comments with external palpation of pelvic floor contraction Sheryl has poor ability to recruit her pelvic floor and is not able to pull in from the perineum PT-OP-M Strength Start: 09/19/23 08:48 Freq: Status: Active Protocol: Document 09/19/23 08:49 [facility] (Rec: 09/26/23 14:53 [facility] [id number]) Trunk Strength Trunk Manual Muscle Testing Flexion 3 Fair Core Stabilization decreased core stabilization and poor ability to engage the pelvic floor Hip Strength Hip Manual Muscle Testing Right Flexion (L2) 3 Fair Abduction 3 Fair External Rotation 3 Fair Left Flexion (L2) 3 Fair Extension (S1) 3 Fair Abduction 2+ Poor+ External Rotation 2+ Poor+ PT-OP-Q Treatments Start: 09/19/23 08:48 Freq: Status: Active Protocol: Document 01/15/25 11:30 [facility] (Rec: 01/15/25 13:21 [facility] [id number]) Manual Therapy Treatment Soft Tissue Mobilization external posterior pelvic floor Mobilization Type Myofascial Release Body Position Hooklying Comments worked around the ischium B releasing the posterior pelvic floor, Sheryl tolerated well MFR for the adducotrs Mobilization Type Myofascial Release Intensity/Depth Moderate Body Position Hooklying Comments worked B with MFR for the adductors especially the proximal attachment to the pubic bone Manual Techniques manual hip ROM into hip flexion,abduction, ER Body Position Hooklying Comments manual hip stretching into hip flexion, abduction and hip ER PT-OP-T Assessment and Plan Start: 09/19/23 08:48 Freq: Status: Active Protocol: Document 01/15/25 11:35 [facility] (Rec: 01/15/25 13:25 [facility] [id number]) Physical Therapy Assessment Goals 3 Impairment Karolina lacks a HEP for pelvic stretches as well as strengthening exercises to help reduce fecal incontinence Fpc Goal (LTG) Karolina is IND with a HEP for stretches and strengthening for the pelvic floor good progress, Sheryl has been doing her stretches and has been able to start walking outside Sheryl has not been able to walk outside for exercise but has been able to do her stretches at home LTG Duration 12 weeks 2 Impairment 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 and muscular attachments to the ischium and pubic bone Short Term Goal (STG) Karolina is able to tolerate fascial work to help break up scar tissue in the pelvic floor/pelvic region good tolerance for manual work STG Duration 5 weeks 1 Impairment fecal incontinence, Karolina is wearing depends and has difficulty with social situations due to fear of loss of stool Livestock Yard Attendant Goal (LTG) Karolina reports a overall reduction in loss of stool and feels as if she has better overall control reducing the need for depends Sheryl is reporting intermittent symptoms of stool changes and with very soft stool she is not able to control her fecal leakage. LTG Duration 12 weeks Assessment Summary Assessment Sheryl returns to PT today after not being since since Oct 31. She reports she is needing pallative care now and it is has been harder for her to get out. She is feeling tight from the radiation. She tolerated manual therapy techniques well today and felt improved mobility after treatment. Sheryl would benefit from continued PT Physical Therapy Plan Frequency and Duration Frequency of Treatment 1x/Week Duration of treatment (weeks) 12 Plan of Care Start Date 01/15/25 Plan of Care End Date 04/09/25 Therapeutic Interventions Therapeutic Interventions Home Exercise Program,Manual Therapy,Patient/Caregiver Education,Self-Care/Home Management,Soft Tissue Mobilization,Therapeutic Exercises Modalities Biofeedback,Electric Stimulation,Ultrasound Next Visit Focus/Plan Next Note Type Treatment Note Next Visit Plan Continue with fascial release and manual therapy treatments for decreased scar tissue
--- NOTE | 2025-01-15 13:25 | PT.OPPOC ---
Physical, Occupational & Speech Therapy At [facility] Current Diagnoses Other specified polyneuropathies (01/15/25) Full incontinence of feces (01/15/25) Visit Care Team Role Provider Type Jessica Estrada PA-C Family Provider Physician Patrol Captain Primary Care Provider Specialty: Medical Address: [address] [place] [address], [id number] Email: [email or web address] Rajesh Farris MD Attending Provider Physician Referring Provider Specialty: Oncology Address: [address] [place] [address], [id number] Email: [email or web address] Plan Of Care PT-OP-B Current Condition Start: 09/19/23 08:48 Freq: Status: Active Protocol: Document 09/19/23 08:49 [facility] (Rec: 09/19/23 09:35 [facility] [id number]) Current Condition History of Current Condition Onset Date 2 years ago Current Complaints fecal incontinence History of Current Condition 2 years ago Karolina was diagnosed with anal cancer. She underwent chemo and 30 radiation treatments. She did do physical therapy with home health. She did go in for a additional surgery Apr 13 2023 due to a fistula. And at that point she felt like it was a turn around in her health as she felt like she was doing better before that but it set her back. Karolina notes she will have no warning prior to a urge for a bowel movement. SHe has to wear depends due to loss of stool. She reports food goes straight through and she experiences explossive diarahea and then she becomes constipated due to trying to take imodium to solidify her stool. Sheryl notes she has a hard time eating due to no taste anymore and she feels like food goes right through her. She is drinking a lot of water and trying to drink juice from the co-op. She presents with B neuropathy Treatment Goals Patient/Caregiver Goals pt goals include strengthening her pelvic floor and reduce radiation induced scar tissue in the rectum PT-OP-T Assessment and Plan Start: 10/24/23 08:48 Freq: Status: Active Protocol: Document 01/15/25 11:35 [facility] (Rec: 01/15/25 13:25 [facility] [id number]) Physical Therapy Assessment Goals 3 Impairment Karolina lacks a HEP for pelvic stretches as well as strengthening exercises to help reduce fecal incontinence Global Transportation Manager Goal (LTG) Karolina is IND with a HEP for stretches and strengthening for the pelvic floor good progress, Sheryl has been doing her stretches and has been able to start walking outside Sheryl has not been able to walk outside for exercise but has been able to do her stretches at home LTG Duration 12 weeks 2 Impairment 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 and muscular attachments to the ischium and pubic bone Short Term Goal (STG) Karolina is able to tolerate fascial work to help break up scar tissue in the pelvic floor/pelvic region good tolerance for manual work STG Duration 5 weeks 1 Impairment fecal incontinence, Karolian is wearing depends and has difficulty with social situations due to fear of loss of stool Alf Goal (LTG) Karolina reports a overall reduction in loss of stool and feels as if she has better overall control reducing the need for depends Sheryl is reporting intermittent symptoms of stool changes and with very soft stool she is not able to control her fecal leakage. LTG Duration 12 weeks Assessment Summary Assessment Sheryl returns to PT today after not being since since Oct 31. She reports she is needing pallative care now and it is has been harder for her to get out. She is feeling tight from the radiation. She tolerated manual therapy techniques well today and felt improved mobility after treatment. Sheryl would benefit from continued PT Physical Therapy Plan Frequency and Duration Frequency of Treatment 1x/Week Duration of treatment (weeks) 12 Plan of Care Start Date 01/15/25 Plan of Care End Date 04/09/25 Therapeutic Interventions Therapeutic Interventions Home Exercise Program,Manual Therapy,Patient/Caregiver Education,Self-Care/Home Management,Soft Tissue Mobilization,Therapeutic Exercises Modalities Biofeedback,Electric Stimulation,Ultrasound Next Visit Focus/Plan Next Note Type Treatment Note Next Visit Plan Continue with fascial release and manual therapy treatments for decreased scar tissue Plan of Care Dates Plan of Care Start Date 01/15/25 Plan of Care End Date 04/09/25 Electronically Signed by: Karrie Price, PT 01/15/25 0160 If you are in agreement with this Plan of Care, please return a signed and dated copy. I have reviewed this Plan of Care and certify that the skilled therapy services above are required to meet the patient?s needs. Physician Signature Date Printed Name and Credentials Clinical Instructor Signature Printed Name and Credentials
--- NOTE | 2025-01-21 16:58 | PT.OTN ---
Current Diagnoses Other specified polyneuropathies (01/21/25) Full incontinence of feces (01/21/25) Physical Therapy Treatment Note PT-OP-A Visit Information Start: 09/19/23 08:48 Freq: Status: Active Protocol: Document 01/21/25 16:54 [facility] (Rec: 01/21/25 16:58 [facility] [id number]) Out-Patient Physical Therapy Visit Information Visit Information Visit Type Treatment Note Visit Start Time 10:50 Visit Stop Time 11:30 Visit Number 22 PT-OP-B Current Condition Start: 09/19/23 08:48 Freq: Status: Active Protocol: Document 09/19/23 08:49 [facility] (Rec: 09/19/23 09:35 [facility] [id number]) Current Condition History of Current Condition Onset Date 2 years ago Current Complaints fecal incontinence History of Current Condition 2 years ago Karolina was diagnosed with anal cancer. She underwent chemo and 30 radiation treatments. She did do physical therapy with home health. She did go in for a additional surgery Apr 13 2023 due to a fistula. And at that point she felt like it was a turn around in her health as she felt like she was doing better before that but it set her back. Karolina notes she will have no warning prior to a urge for a bowel movement. SHe has to wear depends due to loss of stool. She reports food goes straight through and she experiences explossive diarahea and then she becomes constipated due to trying to take imodium to solidify her stool. Sheryl notes she has a hard time eating due to no taste anymore and she feels like food goes right through her. She is drinking a lot of water and trying to drink juice from the co-op. She presents with B neuropathy Treatment Goals Patient/Caregiver Goals pt goals include strengthening her pelvic floor and reduce radiation induced scar tissue in the rectum PT-OP-C Subjective Start: 09/19/23 08:48 Freq: Status: Active Protocol: Document 01/21/25 10:53 [facility] (Rec: 01/21/25 10:59 [facility] [id number]) OP-PT Subjective Patient Comments Patient Comments Sheryl notes she had a really bad last 5 days and feels very wobbly today with walking. Sheryl notes she had to have a bowel movement 4-7 times per day. She feels swollen in her legs and is getting a band around her ankles from putting socks on. She is having caregivers come over now for palitive care. She feels that she is walking with club feet and feels as if she could stumble PT-OP-F Manual Assessment Start: 09/19/23 08:48 Freq: Status: Active Protocol: Document 09/19/23 09:09 [facility] (Rec: 09/21/23 09:12 [facility] [id number]) Manual Assessments Soft Tissue Assessment Soft Tissue Mobility Assessment assessment of external pelvic floor and attachments to the ischium reveal tightness and restricted fascial tissue proximal adductor attachments B are hypertonic and guarded, obturator internus fascial restrictions and guarding Karolina has decreased ability to pull in from the perineum due to restrictions in the tissue PT-OP-I Pelvic Floor Start: 09/19/23 08:48 Freq: Status: Active Protocol: Document 09/19/23 08:49 [facility] (Rec: 09/26/23 14:48 [facility] [id number]) Pelvic Floor Assessment Bowel Bowel Surgery Yes Bowel Symptoms Fecal Leakage Other Bowel Symptoms Karolina will at times expereince constipation but often has sudden urges for a bowel movement and experience Bowel Movement Frequency constantly throughout the day [place] Stool Chart Comments stool can range from loose to firm Contraction Ability Voluntary Contraction Weak Voluntary Relaxation Weak Comments Pelvic Floor Comments with external palpation of pelvic floor contraction Sheryl has poor ability to recruit her pelvic floor and is not able to pull in from the perineum PT-OP-M Strength Start: 09/19/23 08:48 Freq: Status: Active Protocol: Document 09/19/23 08:49 [facility] (Rec: 09/26/23 14:53 [facility] [id number]) Trunk Strength Trunk Manual Muscle Testing Flexion 3 Fair Core Stabilization decreased core stabilization and poor ability to engage the pelvic floor Hip Strength Hip Manual Muscle Testing Right Flexion (L2) 3 Fair Abduction 3 Fair External Rotation 3 Fair Left Flexion (L2) 3 Fair Extension (S1) 3 Fair Abduction 2+ Poor+ External Rotation 2+ Poor+ PT-OP-Q Treatments Start: 09/19/23 08:48 Freq: Status: Active Protocol: Document 01/21/25 16:54 [facility] (Rec: 01/21/25 16:58 [facility] [id number]) Manual Therapy Treatment Soft Tissue Mobilization B plantar aspect of the feet Mobilization Type Myofascial Release,Strumming calf muscles B Mobilization Type Myofascial Release Comments worked on the calf muscles B as Karolina notes swelling this week Manual Techniques manual ankle ROM and calf stretching Reps/Duration 10 reps each PT-OP-T Assessment and Plan Start: 09/19/23 08:48 Freq: Status: Active Protocol: Document 01/21/25 16:54 [facility] (Rec: 01/21/25 16:58 [facility] [id number]) Physical Therapy Assessment Assessment Summary Assessment Sheryl was not feeling well today and felt increased swelling into her LE, we focused on this area today and I encouraged her to elevate her legs as much as she can at home Physical Therapy Plan Frequency and Duration Frequency of Treatment 1x/Week Duration of treatment (weeks) 12 Plan of Care Start Date 01/15/25 Plan of Care End Date 04/09/25 Therapeutic Interventions Therapeutic Interventions Home Exercise Program,Manual Therapy,Patient/Caregiver Education,Self-Care/Home Management,Soft Tissue Mobilization,Therapeutic Exercises Modalities Biofeedback,Electric Stimulation,Ultrasound Next Visit Focus/Plan Next Note Type Treatment Note Next Visit Plan Continue with fascial release and manual therapy treatments for decreased scar tissue
--- NOTE | 2025-02-20 08:30 | PT.OTN ---
Current Diagnoses Other specified polyneuropathies (02/20/25) Full incontinence of feces (02/20/25) Physical Therapy Treatment Note PT-OP-A Visit Information Start: 09/19/23 08:48 Freq: Status: Active Protocol: Document 02/20/25 13:34 [facility] (Rec: 02/20/25 14:34 [facility] [id number]) Out-Patient Physical Therapy Visit Information Visit Information Visit Type Aquatic Treatment Note Visit Start Time 13:35 Visit Stop Time 14:25 Visit Number 23 PT-OP-B Current Condition Start: 09/19/23 08:48 Freq: Status: Active Protocol: Document 09/19/23 08:49 [facility] (Rec: 09/19/23 09:35 [facility] [id number]) Current Condition History of Current Condition Onset Date 2 years ago Current Complaints fecal incontinence History of Current Condition 2 years ago Karolina was diagnosed with anal cancer. She underwent chemo and 30 radiation treatments. She did do physical therapy with home health. She did go in for a additional surgery Apr 13 2023 due to a fistula. And at that point she felt like it was a turn around in her health as she felt like she was doing better before that but it set her back. Karolina notes she will have no warning prior to a urge for a bowel movement. SHe has to wear depends due to loss of stool. She reports food goes straight through and she experiences explossive diarahea and then she becomes constipated due to trying to take imodium to solidify her stool. Sheryl notes she has a hard time eating due to no taste anymore and she feels like food goes right through her. She is drinking a lot of water and trying to drink juice from the co-op. She presents with B neuropathy Treatment Goals Patient/Caregiver Goals pt goals include strengthening her pelvic floor and reduce radiation induced scar tissue in the rectum PT-OP-C Subjective Start: 09/19/23 08:48 Freq: Status: Active Protocol: Document 02/20/25 13:45 [facility] (Rec: 02/25/25 08:30 [facility] [id number]) OP-PT Subjective Patient Comments Patient Comments Sheryl reports she recently lost her sister and is grieving PT-OP-F Manual Assessment Start: 09/19/23 08:48 Freq: Status: Active Protocol: Document 09/19/23 09:09 [facility] (Rec: 09/21/23 09:12 [facility] [id number]) Manual Assessments Soft Tissue Assessment Soft Tissue Mobility Assessment assessment of external pelvic floor and attachments to the ischium reveal tightness and restricted fascial tissue proximal adductor attachments B are hypertonic and guarded, obturator internus fascial restrictions and guarding Karolina has decreased ability to pull in from the perineum due to restrictions in the tissue PT-OP-I Pelvic Floor Start: 09/19/23 08:48 Freq: Status: Active Protocol: Document 09/19/23 08:49 [facility] (Rec: 09/26/23 14:48 [facility] [id number]) Pelvic Floor Assessment Bowel Bowel Surgery Yes Bowel Symptoms Fecal Leakage Other Bowel Symptoms Karolina will at times expereince constipation but often has sudden urges for a bowel movement and experience Bowel Movement Frequency constantly throughout the day [place] Stool Chart Comments stool can range from loose to firm Contraction Ability Voluntary Contraction Weak Voluntary Relaxation Weak Comments Pelvic Floor Comments with external palpation of pelvic floor contraction Sheryl has poor ability to recruit her pelvic floor and is not able to pull in from the perineum PT-OP-M Strength Start: 09/19/23 08:48 Freq: Status: Active Protocol: Document 09/19/23 08:49 [facility] (Rec: 09/26/23 14:53 [facility] [id number]) Trunk Strength Trunk Manual Muscle Testing Flexion 3 Fair Core Stabilization decreased core stabilization and poor ability to engage the pelvic floor Hip Strength Hip Manual Muscle Testing Right Flexion (L2) 3 Fair Abduction 3 Fair External Rotation 3 Fair Left Flexion (L2) 3 Fair Extension (S1) 3 Fair Abduction 2+ Poor+ External Rotation 2+ Poor+ PT-OP-Q Treatments Start: 09/19/23 08:48 Freq: Status: Active Protocol: Document 02/20/25 13:45 [facility] (Rec: 02/25/25 08:30 [facility] [id number]) Manual Therapy Treatment Consent Patient gave verbal consent for manual Yes treatment Soft Tissue Mobilization B plantar aspect of the feet Mobilization Type Myofascial Release,Strumming calf muscles B Mobilization Type Myofascial Release Comments worked on the calf muscles B as Karolina notes swelling this week MFR for the adducotrs Mobilization Type Myofascial Release Intensity/Depth Moderate Body Position Hooklying Comments worked B with MFR for the adductors especially the proximal attachment to the pubic bone PT-OP-T Assessment and Plan Start: 09/19/23 08:48 Freq: Status: Active Protocol: Document 02/20/25 13:45 [facility] (Rec: 02/25/25 08:30 [facility] [id number]) Physical Therapy Assessment Assessment Summary Assessment Tightness in bilateral adductors today with decreased ROM into hip abduction Physical Therapy Plan Frequency and Duration Frequency of Treatment 1x/Week Duration of treatment (weeks) 12 Plan of Care Start Date 01/15/25 Plan of Care End Date 04/09/25 Therapeutic Interventions Therapeutic Interventions Home Exercise Program,Manual Therapy,Patient/Caregiver Education,Self-Care/Home Management,Soft Tissue Mobilization,Therapeutic Exercises Modalities Biofeedback,Electric Stimulation,Ultrasound Next Visit Focus/Plan Next Note Type Treatment Note Next Visit Plan Continue with fascial release and manual therapy treatments for decreased scar tissue
--- NOTE | 2025-04-15 10:03 | PT.OPDS ---
Current Diagnoses Other specified polyneuropathies (02/20/25) Full incontinence of feces (02/20/25) Visit Care Team Role Provider Type Jessica Estrada PA-C Family Provider Physician Primary Health Care Nurse Primary Care Provider Specialty: Medical Address: [address] [place] [address], [id number] Email: [email or web address] Rajesh Farris MD Attending Provider Physician Referring Provider Specialty: Oncology Address: [address] [place] [address], [address] Email: [email or web address] Visit Number Visit Number 23 Discharge Summary PT-OP-B Current Condition Start: 09/19/23 08:48 Freq: Status: Active Protocol: Document 09/19/23 08:49 [facility] (Rec: 09/19/23 09:35 [facility] [id number]) Current Condition History of Current Condition Onset Date 2 years ago Current Complaints fecal incontinence History of Current Condition 2 years ago Karolina was diagnosed with anal cancer. She underwent chemo and 30 radiation treatments. She did do physical therapy with home health. She did go in for a additional surgery Apr 13 2023 due to a fistula. And at that point she felt like it was a turn around in her health as she felt like she was doing better before that but it set her back. Karolina notes she will have no warning prior to a urge for a bowel movement. SHe has to wear depends due to loss of stool. She reports food goes straight through and she experiences explossive diarahea and then she becomes constipated due to trying to take imodium to solidify her stool. Sheryl notes she has a hard time eating due to no taste anymore and she feels like food goes right through her. She is drinking a lot of water and trying to drink juice from the co-op. She presents with B neuropathy Treatment Goals Patient/Caregiver Goals pt goals include strengthening her pelvic floor and reduce radiation induced scar tissue in the rectum PT-OP-C Subjective Start: 09/19/23 08:48 Freq: Status: Active Protocol: Document 02/20/25 13:45 [facility] (Rec: 02/25/25 08:30 [facility] [id number]) OP-PT Subjective Patient Comments Patient Comments Sheryl reports she recently lost her sister and is grieving PT-OP-F Manual Assessment Start: 09/19/23 08:48 Freq: Status: Active Protocol: Document 09/19/23 09:09 [facility] (Rec: 09/21/23 09:12 [facility] [id number]) Manual Assessments Soft Tissue Assessment Soft Tissue Mobility Assessment assessment of external pelvic floor and attachments to the ischium reveal tightness and restricted fascial tissue proximal adductor attachments B are hypertonic and guarded, obturator internus fascial restrictions and guarding Karolina has decreased ability to pull in from the perineum due to restrictions in the tissue PT-OP-I Pelvic Floor Start: 09/19/23 08:48 Freq: Status: Active Protocol: Document 09/19/23 08:49 [facility] (Rec: 09/26/23 14:48 [facility] [id number]) Pelvic Floor Assessment Bowel Bowel Surgery Yes Bowel Symptoms Fecal Leakage Other Bowel Symptoms Karolina will at times expereince constipation but often has sudden urges for a bowel movement and experience Bowel Movement Frequency constantly throughout the day [place] Stool Chart Comments stool can range from loose to firm Contraction Ability Voluntary Contraction Weak Voluntary Relaxation Weak Comments Pelvic Floor Comments with external palpation of pelvic floor contraction Sheryl has poor ability to recruit her pelvic floor and is not able to pull in from the perineum PT-OP-M Strength Start: 09/19/23 08:48 Freq: Status: Active Protocol: Document 09/19/23 08:49 [facility] (Rec: 09/26/23 14:53 [facility] [id number]) Trunk Strength Trunk Manual Muscle Testing Flexion 3 Fair Core Stabilization decreased core stabilization and poor ability to engage the pelvic floor Hip Strength Hip Manual Muscle Testing Right Flexion (L2) 3 Fair Abduction 3 Fair External Rotation 3 Fair Left Flexion (L2) 3 Fair Extension (S1) 3 Fair Abduction 2+ Poor+ External Rotation 2+ Poor+ PT-OP-T Assessment and Plan Start: 09/19/23 08:48 Freq: Status: Active Protocol: Document 04/15/25 10:01 [facility] (Rec: 04/15/25 10:02 [facility] [id number]) Physical Therapy Assessment Goals 3 Impairment Karolina lacks a HEP for pelvic stretches as well as strengthening exercises to help reduce fecal incontinence [facility] Goal (LTG) Karolina is IND with a HEP for stretches and strengthening for the pelvic floor good progress, Sheryl has been doing her stretches and has been able to start walking outside Sheryl has not been able to walk outside for exercise but has been able to do her stretches at home LTG Duration 12 weeks 2 Impairment 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 and muscular attachments to the ischium and pubic bone Short Term Goal (STG) Karolina is able to tolerate fascial work to help break up scar tissue in the pelvic floor/pelvic region good tolerance for manual work STG Duration 5 weeks 1 Impairment fecal incontinence, Karolina is wearing depends and has difficulty with social situations due to fear of loss of stool Speech Language Therapist Goal (LTG) Karolina reports a overall reduction in loss of stool and feels as if she has better overall control reducing the need for depends Sheryl is reporting intermittent symptoms of stool changes and with very soft stool she is not able to control her fecal leakage. LTG Duration 12 weeks Assessment Summary Assessment Karolina has not been seen in PT since her last visit . Due to her plan of care being she will be discharged at this time Physical Therapy Plan Discharge Physical Therapy Discharge Reasons [place] in Progress Discharge Comments no longer within the plan of care
== END 2025-04-16 14:27 | disposition home or self-care (01) ==
LOC: PHYS 13:45
PROVIDERS: Absent Provider Student in an Organized Health Care Education/Training Program; Family Provider Student in an Organized Health Care Education/Training Program; PCP Student in an Organized Health Care Education/Training Program; Referring Provider Internal Medicine Hematology & Oncology; Visit Provider Internal Medicine Hematology & Oncology
DX: R15.9 Full incontinence of feces (principal); G62.89 Other specified polyneuropathies
CPT/HCPCS: 97110; 97140; 97161; 97535